=== PATIENT | male | born 1940 | race Caucasian/White ===

== ENCOUNTER 2017-12-23 19:08 | Inpatient (IN) | payer MEDICARE, BC ==
[2017-12-23] MEDS ORDERED: Acetaminophen 500 MG TAB ONE (20:30)
[2017-12-23] MEDS ORDERED: Diltiazem 125 MG/25 ML ONE (20:36)
[2017-12-23] MEDS ORDERED: Digoxin 0.5 MG/2 ML AMP ONE (20:57)
[2017-12-23] MEDS ORDERED: Dextrose 5% in Water 1,000 ML IV PRN (21:49)
[2017-12-23] MEDS ORDERED: Dextrose 50% Abboject 50 ML SYRINGE SLOW IVP PRN (21:49)
[2017-12-23] MEDS ORDERED: Diltiazem 125 MG in Sodium Chloride 0.9% 100 ML IVPB SCH (22:00)
[2017-12-23 22:12] LABS: Troponin I 0.293 ng/mL (< 0.028)
[2017-12-23] MEDS ORDERED: Ondansetron ODT 4 MG TAB ONE (22:56)
[2017-12-23] MEDS ORDERED: Digoxin 0.5 MG/2 ML AMP SLOW IVP SCH (23:00)
[2017-12-24 01:40] LABS: Troponin I 0.267 ng/mL (< 0.028)
[2017-12-24 04:47] LABS: #Lymphocytes 1.4 thou/uL (1.20-3.40); #Neutrophils 5.5 thou/uL (1.40-6.50); %Basophils 0.4 % (0.0-1.0); %Eosinophils 0.5 % (0.0-10.0); %Monocytes 12.1 % (0.0-10.0); %Neutrophils 69.1 % (42.0-75.0); Mean Corpuscular HGB CONC 33.5 g/dL (32.0-36.0); Mean Corpuscular Hemoglobin 29.8 pg (27.0-31.0); Mean Corpuscular Volume 88.9 fL (78.0-98.0); Mean Platelet Volume 10.8 fL (7.4-10.4); Platelet Count 146 thou/uL (130-400); RBC Distribution Width 14.3 % (11.5-14.5); Red Blood Cell (RBC) Count 4.37 mill/uL (4.70-6.10); White Blood Cell (WBC) Count 7.9 thou/uL (4.8-10.8)
[2017-12-24 04:59] LABS: Anion Gap 11 mmol/L (10-20); BUN (Urea Nitrogen) 14 mg/dL (8.4-25.7); Calc. Creatinine Clearance 142 mL/min (70-130); Calcium 8.7 mg/dL (7.8-10.44); Carbon Dioxide 26 mmol/L (23-31); Chloride 101 mmol/L (98-107); Estimated GFR-MDRD 89; Glucose 217 mg/dL (83-110); Sodium 134 mmol/L (136-145)
[2017-12-24] MEDS ORDERED: Metoprolol Tartrate 5 MG/5 ML VIAL IVP SCH (05:00)
[2017-12-24] MEDS: Diltiazem 125 MG in Sodium Chloride 0.9% 100 ML IVPB SCH ×2 (05:19→17:49)
[2017-12-24] MEDS: Metoprolol Tartrate 25 MG TAB PO SCH ×2 (06:33→20:21)
--- NOTE | 2017-12-24 07:20 | HP ---
CHIEF COMPLAINT: Chest pain, palpitations. HISTORY OF PRESENT ILLNESS: The patient is a very pleasant 77-year-old male with a history of diabet es, hypertension, stroke, and rheumatoid arthritis, who presents to the hospital with complaints of c hest pain. The patient states for the past 3-4 days, he has been feeling very weak all over, has bee n having worsening shortness of breath on exertion and also has been feeling palpitations. The patie nt states that today was the worst. He started having significant amount of palpitations and also jara d significant amount of chest pain. The patient thought today that he was going to fall because he j ust felt weak all over. The patient currently denies any chest pain. He states he feels much better . The patient was found to be in atrial fibrillation, atrial flutter with a rate of 170. The patien t was given a total of 30 mg of IV Cardizem and 10-50 mg of labetalol with a 0.25 of digoxin load. T he patient states that this has happened to him about 6 years ago. PAST MEDICAL HISTORY: History of stroke with some swallowing difficulties; he has a history of atria l fibrillation, is on Coumadin for that; rheumatoid arthritis; diabetes; hypertension; and high reyna sterol. FAMILY HISTORY: His mother and father both had hypertension and diabetes. PAST SURGICAL HISTORY: He had a right knee scope and back L3-L5 surgery. SOCIAL HISTORY: He denies any alcohol, drugs or smoking history. REVIEW OF SYSTEMS: All negative except for the ones mentioned above in the HPI. PHYSICAL EXAMINATION: VITAL SIGNS: He is afebrile at 98.8, heart rate is still in the 130s, blood pressure is one teens ov er 60, respirations are 16, 98% on room air. GENERAL: He is awake, alert, and oriented x3. HEENT: Appears to be a little flushed. CARDIOVASCULAR: Irregularly irregular, tachycardia. LUNGS: Clear to auscultation, rhonchi or wheezes noted. ABDOMEN: Obese. Bowel sounds are present x2. No tenderness on palpation. EXTREMITIES: Lower extremities: He does have some mild extremity edema. NEUROLOGIC: No deficits noted. SKIN: He does have some chronic venous changes. LABORATORY DATA: Labs are as the following: His WBC is 11.3, hemoglobin of 13.5, hematocrit of 40.3 . His chemistry includes sodium of 137, potassium of 4.4, BUN of 14, creatinine of 1.0, sugar of 156 . BNP is 538. Troponin x1 was 0.295, second set was 0.293. His INR is 2.6. UA appears to be eunice l. ASSESSMENT AND PLAN: The patient is a very pleasant 77-year-old male, who presents to the hospital w ith complaints of palpitations and chest pain. 1. Atrial fibrillation with rapid ventricular response versus atrial flutter. The patient has recei yaneli a total of I believe 30 mg of Cardizem and some labetalol. Initially, he also has been loaded wi digoxin at 0.25. We will give him another loading dose of 0.25. Also, he is currently on a Cardi zem drip at 15. He is therapeutic on Coumadin. We will continue with the Coumadin. We will consult Cardiology. His last echo was in 2011, which was indicated an EF of 50% to 55%. We will repeat the echocardiogram. He stated that he did see Dr. Mora about 3 months ago and everything was well. W e will also check a TSH. The patient currently is chest pain free. We will continue to monitor. 2. Chest pain most likely secondary to his underlying atrial fibrillation versus atrial flutter. We will continue to monitor. The patient has been advised that if he has chest pain, to notify the nichole se. 3. Diabetes. We will continue his home medications. We will check Accu-Cheks a.c. and at bedtime. 4. Obesity. The patient educated on diet and weight loss. 5. History of stroke. We will continue his aspirin. 6. History of rheumatoid arthritis. The patient is on methotrexate and hydroxychloroquine and also on 5 mg of steroids.
[2017-12-24] MEDS: Gabapentin 100 MG CAP PO SCH (08:35)
[2017-12-24] MEDS: Famotidine 20 MG TAB PO SCH ×2 (08:35→20:21)
[2017-12-24] MEDS: Folic Acid 1 MG TAB PO SCH (08:35)
[2017-12-24] MEDS: predniSONE 5 MG TAB PO SCH (08:36)
[2017-12-24] MEDS ORDERED: Pregabalin 50 MG CAP PO SCH (09:00)
--- NOTE | 2017-12-24 13:30 | PDOC.PN ---
- Subjective Encounter Start Date: 12/24/17 Encounter Start Time: 12:00 Subjective: no chest pain or sob - Objective Resuscitation Status: Resuscitation Status FULL:Full Resuscitation MAR Reviewed: Yes Vital Signs & Weight: Vital Signs (12 hours) Temp Pulse Resp BP Pulse Ox 12/24/17 11:21 97.7 F 129 H 22 H 111/72 97 12/24/17 08:00 98.2 F 130 H 19 98 12/24/17 07:22 98.2 F 130 H 19 102/78 100 12/24/17 03:48 97.9 F 128 H 20 111/70 97 Weight Weight 295 lb 14.4 oz I&O: 12/23/17 12/24/17 12/25/17 06:59 06:59 06:59 Intake Total 460 Output Total 425 Balance 35 Result Diagrams: 12/24/17 04:19 12/24/17 04:19 Additional Labs: Accuchecks 12/24/17 12/24/17 10:43 05:14 POC Glucose 197 H 186 H Phys Exam - Physical Examination HEENT: PERRLA, moist MMs Neck: no JVD, supple Respiratory: no wheezing, no rales Cardiovascular: no significant murmur, irregular Gastrointestinal: soft, non-tender, positive bowel sounds Musculoskeletal: no edema, pulses present Neurological: non-focal, moves all 4 limbs Psychiatric: normal affect, A&O x 3 Dx/Plan (1) Afib Code(s): I48.91 - UNSPECIFIED ATRIAL FIBRILLATION Status: Acute (2) Demand ischemia of myocardium Code(s): I24.8 - OTHER FORMS OF ACUTE ISCHEMIC HEART DISEASE Status: Acute (3) HTN (hypertension) Code(s): I10 - ESSENTIAL (PRIMARY) HYPERTENSION Status: Chronic Qualifiers: Hypertension type: essential hypertension Qualified Code(s): I10 - Essential (primary) hypertension (4) CHF (congestive heart failure) Code(s): I50.9 - HEART FAILURE, UNSPECIFIED Status: Chronic Qualifiers: Heart failure type: unspecified Heart failure chronicity: unspecified Qualified Code(s): I50.9 - Heart failure, unspecified (5) DM type 2 (diabetes mellitus, type 2) Status: Chronic Qualifiers: Diabetes mellitus fci insulin use: with keno terminal operator use Diabetes mellitus complication status: with unspecified complications Qualified Code(s) : E11.8 - Type 2 diabetes mellitus with unspecified complications; Z79.4 - care home (current) use of insulin; Z79.4 - care home (current) use of insulin; Z79.4 - care home (current) use of insulin; Z79.4 - care home (current) use of insulin - Plan is on cardizem drip, oral lopressor 25mg bid -: home dose of coumadin with inr of 2.6 -: asp, lipitor, prednisone, plaquenil -: echo -: cardio consultation * . Review of Systems - Medications/Allergies Allergies/Adverse Reactions: Allergies Allergy/AdvReac Type Severity Reaction Status Date / Time No Known Allergies Allergy Verified 12/24/17 00:48 Medications: Current Medications Acetaminophen (Tylenol) 650 mg PO Q4H PRN PRN Reason: Headache/Fever or Pain Aspirin (Aspirin Chewable) 81 mg PO DAILY [facility] Last Admin: 12/24/17 08:35 Dose: 81 mg Atorvastatin Calcium (Lipitor) 40 mg PO HS [facility] Dextrose/Water (Dextrose 50%) 25 gm SLOW IVP PRN PRN PRN Reason: Hypoglycemia Famotidine (Pepcid) 20 mg PO BID [facility] Last Admin: 12/24/17 08:35 Dose: 20 mg Folic Acid (Folvite) 1 mg PO DAILY [facility] Last Admin: 12/24/17 08:35 Dose: 1 mg Gabapentin (Neurontin) 100 mg PO DAILY [facility] Last Admin: 12/24/17 08:35 Dose: 100 mg Glucagon (Glucagon) 1 mg IM PRN PRN PRN Reason: Hypoglycemia Hydroxychloroquine Sulfate (Plaquenil) 200 mg PO BID [facility] Dextrose/Water (D5w) 1,000 mls @ 0 mls/hr IV .Q0M PRN; As Directed PRN Reason: Hypoglycemia Diltiazem HCl 125 mg/ Sodium (Chloride) 125 mls @ 0 mls/hr IVPB INF [facility]; As Directed PRN Reason: Protocol Last Admin: 12/24/17 05:19 Dose: 125 mls Insulin Human Lispro (Humalog) 0 units SC .MILD SLIDING SCALE PRN PRN Reason: Mild Correctional Scale Metoprolol Tartrate (Lopressor) 25 mg PO BID [facility] Last Admin: 12/24/17 06:33 Dose: 25 mg Miscellaneous Medication (Pharmacy To Dose) 0 each PO PRN PRN PRN Reason: WARFARIN Pharmacy to Dose Prednisone (Prednisone) 5 mg PO QAM[facility] Last Admin: 12/24/17 08:36 Dose: 5 mg Pregabalin (Lyrica) 50 mg PO HS [facility] Warfarin Sodium (Coumadin) 10 mg PO 1700 [facility]
[2017-12-24] MEDS ORDERED: Warfarin Sodium 10 MG TAB PO SCH ×2 (17:00→17:30)
[2017-12-24 17:04] LABS: Prothrombin Time 23.1 SEC (12.0-14.7)
[2017-12-24] MEDS: Hydroxychloroquine Sulfate 200 MG TAB PO SCH (20:20)
[2017-12-24] MEDS: Pregabalin 50 MG CAP PO SCH (20:21)
[2017-12-24] MEDS: Atorvastatin Calcium 40 MG TAB PO SCH (20:22)
[2017-12-24 23:17] LABS: Digoxin 0.18 ng/mL (0.8-2.0)
[2017-12-25] MEDS: Diltiazem 125 MG in Sodium Chloride 0.9% 100 ML IVPB SCH ×2 (04:53→18:36)
[2017-12-25] MEDS: HumaLOG 300 UNITS/3 ML VIAL SC PRN ×4 (05:36→20:04)
[2017-12-25 08:15] LABS: INR-International Normal Ratio 1.8; Prothrombin Time 20.9 SEC (12.0-14.7)
[2017-12-25] MEDS ORDERED: Furosemide 20 MG/2 ML VIAL SLOW IVP SCH (08:30)
[2017-12-25] MEDS ORDERED: Amiodarone In Dextrose 200 ML IVPB SCH (08:30)
[2017-12-25] MEDS ORDERED: Digoxin 0.25 MG TAB PO SCH (09:00)
[2017-12-25] MEDS ORDERED: Metoprolol Tartrate 50 MG TAB PO SCH (09:00)
[2017-12-25] MEDS ORDERED: Atorvastatin Calcium 20 MG TAB PO SCH (09:00)
[2017-12-25] MEDS ORDERED: Gabapentin 100 MG CAP PO SCH (09:00)
[2017-12-25] MEDS: predniSONE 5 MG TAB PO SCH (10:16)
[2017-12-25] MEDS: Amiodarone HCl 150 MG in Dextrose 5% in Water 100 ML IVPB SCH (10:16)
[2017-12-25] MEDS: Digoxin 0.125 MG TAB PO SCH (10:17)
[2017-12-25] MEDS: Folic Acid 1 MG TAB PO SCH (10:17)
[2017-12-25] MEDS: Famotidine 20 MG TAB PO SCH ×2 (10:17→20:04)
[2017-12-25] MEDS: Hydroxychloroquine Sulfate 200 MG TAB PO SCH ×2 (10:18→20:04)
[2017-12-25] MEDS: Gabapentin 100 MG CAP PO SCH (10:18)
[2017-12-25] MEDS: Amiodarone HCl 450 MG, Admixture Fee 1 EACH in Dextrose 5% in Water 250 ML IVPB SCH ×2 (10:28→20:03)
--- NOTE | 2017-12-25 12:13 | PDOC.PN ---
- Subjective Encounter Start Date: 12/25/17 Encounter Start Time: 10:00 -: old records requested/rev Patient seen and examined for chf, afib. No new complaints. No overnight events - Objective Resuscitation Status: Resuscitation Status FULL:Full Resuscitation MAR Reviewed: Yes Vital Signs & Weight: Vital Signs (12 hours) Temp Pulse Resp BP BP Pulse Ox 12/25/17 11:11 97.7 F 127 H 26 H 150/102 H 95 12/25/17 10:17 94 12/25/17 08:00 97.7 F 127 H 26 H 98 12/25/17 07:25 98.3 F 94 20 147/83 H 94 L 12/25/17 04:00 151/103 H 12/25/17 03:00 98.3 F 113 H 20 153/117 H 97 Weight Weight 298 lb 5 oz I&O: 12/24/17 12/25/17 12/26/17 06:59 06:59 06:59 Intake Total 460 2040 Output Total 425 475 Balance 35 1565 Result Diagrams: 12/24/17 04:19 12/24/17 04:19 Additional Labs: Accuchecks 12/25/17 12/24/17 12/24/17 10:29 20:28 16:31 POC Glucose 196 H 183 H 186 H EKG Reviewed by me: Yes (afib with rvr) Phys Exam - Physical Examination Constitutional: NAD HEENT: PERRLA, moist MMs, sclera anicteric Neck: no JVD, supple Respiratory: no wheezing, no rhonchi basal rales Cardiovascular: no significant murmur, irregular Gastrointestinal: soft, non-tender, no distention, positive bowel sounds obesity+ Musculoskeletal: pulses present, edema present Neurological: non-focal, normal sensation, moves all 4 limbs Lymphatic: no nodes Psychiatric: normal affect, A&O x 3 Skin: no rash, normal turgor Dx/Plan (1) 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 Code(s): I50.23 - ACUTE ON CHRONIC SYSTOLIC (CONGESTIVE) HEART FAILURE Status : Acute (2) Atrial fibrillation with RVR Code(s): I48.91 - UNSPECIFIED ATRIAL FIBRILLATION Status: Acute (3) Demand ischemia of myocardium Code(s): I24.8 - OTHER FORMS OF ACUTE ISCHEMIC HEART DISEASE Status: Acute (4) Chronic anticoagulation Code(s): Z79.01 - SENIOR CARE (CURRENT) USE OF ANTICOAGULANTS Status: Chronic (5) DM type 2 (diabetes mellitus, type 2) Status: Chronic Qualifiers: Diabetes mellitus group home insulin use: with production support manager use Diabetes mellitus complication status: with unspecified complications Qualified Code(s) : E11.8 - Type 2 diabetes mellitus with unspecified complications; Z79.4 - assisted (current) use of insulin; Z79.4 - assisted (current) use of insulin; Z79.4 - glazing machine 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 of insulin; Z79.4 - glazing machine 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 of insulin (6) Dyslipidemia Code(s): E78.5 - HYPERLIPIDEMIA, UNSPECIFIED Status: Chronic (7) HTN (hypertension) Code(s): I10 - ESSENTIAL (PRIMARY) HYPERTENSION Status: Chronic Qualifiers: Hypertension type: essential hypertension Qualified Code(s): I10 - Essential (primary) hypertension (8) Morbid obesity with BMI of 40.0-44.9, adult Code(s): E66.01 - MORBID (SEVERE) OBESITY DUE TO EXCESS CALORIES; Z68.41 - BODY MASS INDEX (BMI) 40.0-44.9, ADULT Status: Chronic - Plan cont current plan of care, plan discussed w/ family * currently on cardizem drip and digoxin for rate control * amiodaron drip started today by cardiology. * continue lasix for diuresis * medication reviewed as below * symptomatic treatment * discussed with Review of Systems - Review of Systems Constitutional: negative: fever, chills, sweats, weakness, malaise, other Eyes: negative: Pain, Vision Change, Conjunctivae Inflammation, Eyelid Inflammation, Redness, Other ENT: negative: Ear Pain, Ear Discharge, Nose Pain, Nose Discharge, Nose Congestion, Mouth Pain, Mouth Swelling, Throat Pain, Throat Swelling, Other Respiratory: Shortness of Breath. negative: Cough, Dry, Hemoptysis, SOB with Excertion, Pleuritic Pain, Sputum, Wheezing Cardiovascular: edema Gastrointestinal: negative: Nausea, Vomiting, Abdominal Pain, Diarrhea, Constipation, Melena, Hematochezia, Other Genitourinary: negative: Dysuria, Frequency, Incontinence, Hematuria, Retention , Other Musculoskeletal: negative: Neck Pain, Shoulder Pain, Arm Pain, Back Pain, Hand Pain, Leg Pain, Foot Pain, Other Skin: negative: Rash, Lesions, Efra, Bruising, Other - Medications/Allergies Allergies/Adverse Reactions: Allergies Allergy/AdvReac Type Severity Reaction Status Date / Time No Known Allergies Allergy Verified 12/24/17 00:48 Medications: Current Medications Acetaminophen (Tylenol) 650 mg PO Q4H PRN PRN Reason: Headache/Fever or Pain Aspirin (Aspirin Chewable) 81 mg PO DAILY [facility] Last Admin: 12/25/17 10:17 Dose: 81 mg Atorvastatin Calcium (Lipitor) 40 mg PO HS [facility] Last Admin: 12/24/17 20:22 Dose: 40 mg Carvedilol (Coreg) 6.25 mg PO BID[facility] Dextrose/Water (Dextrose 50%) 25 gm SLOW IVP PRN PRN PRN Reason: Hypoglycemia Digoxin (Lanoxin) 0.125 mg PO DAILY [facility] Last Admin: 12/25/17 10:17 Dose: 0.125 mg Famotidine (Pepcid) 20 mg PO BID [facility] Last Admin: 12/25/17 10:17 Dose: 20 mg Folic Acid (Folvite) 1 mg PO DAILY [facility] Last Admin: 12/25/17 10:17 Dose: 1 mg Furosemide (Lasix) 20 mg SLOW IVP 0600,1400 [facility] Gabapentin (Neurontin) 100 mg PO DAILY [facility] Last Admin: 12/25/17 10:18 Dose: 100 mg Glucagon (Glucagon) 1 mg IM PRN PRN PRN Reason: Hypoglycemia Hydroxychloroquine Sulfate (Plaquenil) 200 mg PO BID [facility] Last Admin: 12/25/17 10:18 Dose: 200 mg Dextrose/Water (D5w) 1,000 mls @ 0 mls/hr IV .Q0M PRN; As Directed PRN Reason: Hypoglycemia Diltiazem HCl 125 mg/ Sodium (Chloride) 125 mls @ 0 mls/hr IVPB INF [facility]; As Directed PRN Reason: Protocol Last Admin: 12/25/17 04:53 Dose: 125 mls Amiodarone HCl 150 mg/ (Dextrose/Water) 103 mls @ 10 mls/min IVPB 0830 [facility] Last Admin: 12/25/17 10:16 Dose: 103 mls Amiodarone HCl 450 mg/Miscellaneous Medication 1 each/ Dextrose/Water 259 mls @ 0 mls/hr IVPB INF [facility]; As Directed PRN Reason: Protocol Last Admin: 12/25/17 10:28 Dose: 259 mls Insulin Human Lispro (Humalog) 0 units SC .MILD SLIDING SCALE PRN PRN Reason: Mild Correctional Scale Last Admin: 12/25/17 05:36 Dose: 2 unit Miscellaneous Medication (Pharmacy To Dose) 0 each PO PRN PRN PRN Reason: WARFARIN Pharmacy to Dose Prednisone (Prednisone) 5 mg PO QAM-[facility] Last Admin: 12/25/17 10:16 Dose: 5 mg Pregabalin (Lyrica) 50 mg PO [facility] Last Admin: 12/24/17 20:21 Dose: 50 mg Warfarin Sodium (Coumadin) 5 mg PO 1700 [facility]
--- NOTE | 2017-12-25 14:45 | CON ---
DATE OF CONSULTATION: 12/25/2017 HISTORY: Ricardo Hull is a pleasant 77-year-old white male, who was initially evaluated by Dr. Mora in January 2012. He was admitted with altered mental status and it was felt he may have had an embolic CVA, although MRI of the brain did not reveal any specific abnormalities. He did have new onset of atrial fibrillation. He was started on Coumadin, Cardizem, and Multaq. Ejection fraction during the admission was 50%-55%. He has been followed in the office, and on the last 2 office visits, he has been maintained in sinus rhythm. He has been continued on the Multaq. He was last seen in 07/2017 and was asymptomatic. He then began to feel poorly approximately 1 and 1/2 weeks ago. He would notice extreme fatigue, shortness of breath, feeling a rapid heartbeat with trying to do any activity. He also would have chest pressure associated with this. This has gradually progressed, and ultimately, he came to the emergency room and was found to be in probable atrial flutter with the rate in the 170s and he was admitted for further evaluation. He has been placed on a Cardizem drip and his rate has been fairly well controlled around 100, and currently, he is in atrial fibrillation. PAST MEDICAL HISTORY: Hypertension, diabetes, history of atrial fibrillation in 2011, dyslipidemia, osteoarthritis, rheumatoid arthritis. OPERATIONS: Knee arthroscopy, carpal tunnel surgery, back surgery. MEDICATIONS: Aspirin 81 daily, warfarin 10 mg daily, atorvastatin 20 q.a.m., Zyrtec 10 daily, Benadryl 25 daily, Multaq 400 mg b.i.d., Enbrel 50 mg subcutaneously every 7 days, Folvite 1 mg daily, Lasix 20 b.i.d., gabapentin 100 daily, Humalog 10 units t.i.d., Plaquenil 200 mg b.i.d., Levemir, losartan 100 daily, methotrexate 7.5 as directed, omeprazole 10 mg daily, KCl 20 b.i.d., prednisone 5 daily, Lyrica 50 daily. ALLERGIES: None. SOCIAL HISTORY: Chewed tobacco in the past. He does not drink. FAMILY HISTORY: Unremarkable. REVIEW OF SYSTEMS: A 12-point review of systems, otherwise, unremarkable. PHYSICAL EXAMINATION: VITAL SIGNS: Blood pressure 147/83, pulse of 94. HEENT: PERRL. NECK: Supple. CHEST: Clear. CARDIOVASCULAR EXAMINATION: S1 and S2 were normal. Heart sounds were distant. Rhythm is irregular. ABDOMEN: Obese. Normal bowel sounds, no tenderness. EXTREMITIES: Revealed 1-2+ pretibial edema with stasis changes. NEUROLOGICAL: Grossly intact. SKIN: Warm and dry. LABORATORY DATA: EKG on admission revealed rate of 131 per minute and regular, probably atrial flutter. He continued to have a fairly regular rhythm, but now is definitely in atrial fibrillation. He was also given Lopressor and digoxin. Hemoglobin 13.0, hematocrit 38.9, white count 7900, platelets 146,000. INR yesterday was 2.6 and is 2.0 today. Sodium 134, potassium 4.0, chloride 101, carbon dioxide 26, BUN 14, creatinine 0.84. Troponin I is 0.295. BNP 538.4. At the beginning of the month on 11/25/2017, cholesterol was 212, triglycerides 59, HDL 51, LDL 49. Echocardiogram revealed the study to be technically difficult. There was severe left ventricular dysfunction with ejection fraction of 15%-20%, severely dilated left atrium, mild mitral regurgitation. The aortic valve appeared stenotic, but was not measured well. There was mild mitral regurgitation. IMPRESSION: 1. Recurrence of atrial arrhythmias. He had atrial fibrillation in 2011 and has been on Multaq since that time and on most recent followups in the office he has maintained sinus rhythm. He now has had recurrence of probable atrial flutter and now is definitely in atrial fibrillation. 2. Severe left ventricular dysfunction on echocardiogram, which is a new finding from before. Historically, he has probably had this for a week and his left ventricular function certainly may have fell due to prolonged tachycardia. 3. History of transient ischemic attack versus cerebrovascular accident in 2012 , felt to be embolic. 4. Chest pressure, probably related to his tachycardia. He does have mildly elevated troponin I is probably due to demand ischemia. 5. Diabetes. 6. Hypertension. 7. Hypercholesterolemia, under good control. 8. Obesity. 9. Rheumatoid arthritis. PLAN: The patient will have the Multaq discontinued with his severe left ventricular dysfunction. I will load him with IV amiodarone and consideration may need to be given in the future to a cardioversion. Also, I will reduce the dose of his warfarin with the addition of amiodarone. He has been started on digoxin 0.25 daily and the dose of this also will be reduced. Patient also will be diuresed with his peripheral edema. MTDD
--- NOTE | 2017-12-25 16:11 | CON ---
DATE OF CONSULTATION: 12/25/2017 HISTORY OF PRESENT ILLNESS: This is a 77-year-old obese gentleman, who came from [place] after he felt palpitations for several days. He has a known history of cardiomyopathy and SVT and sees Dr. Mora. He is 130 kg, pulse was 131 when he arrived, sats were 90% on room air, his blood pressure 114/85, respiratory rate 22, temperature 98. He is feeling better this morning. He has severe limit ation to activity. He can barely walk even 30 feet without getting markedly short of breath. He say s some of it is cardiac and some of it is weakness, some of is excessive weight. PAST MEDICAL HISTORY: Previous history of atrial fibrillation; diabetes; hyperlipidemia; arthritis, rheumatoid; previous CVA. PREVIOUS SURGERIES: Back operation in 1973, right knee scope. HOME MEDICINES: Prednisone 5, Benadryl 25, Coumadin 10 alternating with 5, Lyrica 50, omeprazole 10, vitamin, methotrexate 2.5 three tablets a week, losartan 100, insulin 40 units, Plaquenil 200, gabap entin 100, Lasix 20, folic acid, Enbrel 50 once a week, Multaq 400, Zyrtec, aspirin. ALLERGIES: None. 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 REVIEW OF SYSTEMS: Otherwise unremarkable. PHYSICAL EXAMINATION: GENERAL: This morning, he is awake, alert, responsive. VITAL SIGNS: Sats 90% on room air, respirations 20, temperature 98, blood pressure 147/83. CHEST: Decreased breath sounds, no wheezing. CARDIAC: Normal S1 and S2, no gallops. ABDOMEN: Soft, without any masses. EXTREMITIES: No edema. NEUROLOGIC: He is awake, alert, responsive. LABORATORY DATA: INR is 1.8. His chest x-ray showed no acute infiltrates. His echocardiogram shows his EF was at 20%. IMPRESSION: 1. Congestive cardiomyopathy. 2. Supraventricular tachycardia. 3. Morbid obesity. 4. Rheumatoid arthritis. 5. Sleep apnea. 6. Nonsmoker. PLAN: Pulmonary will follow while in the ICU. He is on amiodarone, Cardizem, previous home medicati on including prednisone, Coumadin, and Plaquenil. We will follow while in the MICU. This is a consultation note of 70 minutes, of which 50% in direct patient care.
[2017-12-25] MEDS: Warfarin Sodium 5 MG TAB PO SCH (16:38)
[2017-12-25] MEDS: Furosemide 20 MG/2 ML VIAL SLOW IVP SCH (16:38)
[2017-12-25] MEDS: Carvedilol 6.25 MG TAB PO SCH (16:38)
[2017-12-25] MEDS ORDERED: Warfarin Sodium 10 MG TAB PO SCH (17:00)
[2017-12-25] MEDS: Pregabalin 50 MG CAP PO SCH (20:03)
[2017-12-25] MEDS: Atorvastatin Calcium 40 MG TAB PO SCH (20:04)
[2017-12-26 04:25] LABS: Prothrombin Time 23.1 SEC (12.0-14.7)
[2017-12-26 04:31] LABS: Anion Gap 12 mmol/L (10-20); BUN (Urea Nitrogen) 15 mg/dL (8.4-25.7); Calc. Creatinine Clearance 147 mL/min (70-130); Calcium 8.8 mg/dL (7.8-10.44); Carbon Dioxide 28 mmol/L (23-31); Chloride 100 mmol/L (98-107); Estimated GFR-MDRD Greater than 90; Glucose 180 mg/dL (83-110); Potassium 3.5 mmol/L (3.5-5.1); Sodium 136 mmol/L (136-145)
[2017-12-26] MEDS: HumaLOG 300 UNITS/3 ML VIAL SC PRN ×3 (06:05→17:38)
[2017-12-26] MEDS: Furosemide 20 MG/2 ML VIAL SLOW IVP SCH ×2 (06:05→15:21)
[2017-12-26] MEDS: Carvedilol 6.25 MG TAB PO SCH ×2 (08:21→17:37)
[2017-12-26] MEDS: Famotidine 20 MG TAB PO SCH ×2 (08:22→21:22)
[2017-12-26] MEDS: Digoxin 0.125 MG TAB PO SCH (08:22)
[2017-12-26] MEDS: Amiodarone HCl 150 MG in Dextrose 5% in Water 100 ML IVPB SCH (08:22)
[2017-12-26] MEDS: predniSONE 5 MG TAB PO SCH (08:22)
[2017-12-26] MEDS: Hydroxychloroquine Sulfate 200 MG TAB PO SCH ×2 (08:23→21:21)
[2017-12-26] MEDS: Folic Acid 1 MG TAB PO SCH (08:23)
[2017-12-26] MEDS: Diltiazem 125 MG in Sodium Chloride 0.9% 100 ML IVPB SCH ×2 (08:23→20:10)
[2017-12-26] MEDS: Gabapentin 100 MG CAP PO SCH (08:23)
--- NOTE | 2017-12-26 09:01 | PRG ---
DATE OF SERVICE: 12/26/2017. SUBJECTIVE: Mr. Hull is doing about the same. No complaints. PHYSICAL EXAMINATION: VITAL SIGNS: Blood pressure 129/95, pulse 130. It is regular. LUNGS: Clear. CARDIAC: Normal S1, normal S2, he is tachycardic. ABDOMEN: Soft, nontender. EXTREMITIES: 1+ edema. ASSESSMENT: 1. Atrial flutter, rate has not responded to medications as it is frequently the case. 2. History of paroxysmal atrial fibrillation. PLAN: 1. We will change from intravenous amiodarone to oral. It has been completely ineffective in contro lling rate. 2. Stop digoxin. 3. Reduce diltiazem. 4. We will discuss with Dr. Lynn that we would able to prefer initial cardioversion followed by abla tion versus going straight to ablation. We will need to have a TESS done first as he did have a subth erapeutic INR during this admission.
--- NOTE | 2017-12-26 09:49 | PRG ---
DATE OF SERVICE: 12/26/2017 This morning he is awake, alert, responsive. He is weak. PHYSICAL EXAMINATION: VITAL SIGNS: Blood pressure is 129/95, pulse is still 130, temperature 98, sats 90% on room air. CHEST: Chest reveals decreased breath sounds without wheezing. CARDIAC: 1. Normal S1, S2. No gallops. ABDOMEN: Soft, no masses. Creatinine is 2. IMPRESSION: 1. Morbid obesity. 2. Cardiomyopathy. 3. Obstructive sleep apnea. 4. Severe deconditioning. PLAN: I agree with cardiac care. Continue CPAP as tolerated. Prognosis is guarded. He is on multiple medications for his severe disa tere rheumatoid arthritis.
--- NOTE | 2017-12-26 11:00 | PDOC.PN ---
- Subjective Encounter Start Date: 12/26/17 Encounter Start Time: 09:30 Patient seen and examined for afib. No new complaints. No overnight events - Objective Resuscitation Status: Resuscitation Status FULL:Full Resuscitation MAR Reviewed: Yes Vital Signs & Weight: Vital Signs (12 hours) Temp Pulse Resp BP BP Pulse Ox 12/26/17 08:22 130 H 12/26/17 08:14 98.4 F 130 H 15 129/95 H 95 12/26/17 07:32 97.1 F L 126 H 18 98 12/26/17 03:59 97.1 F L 126 H 18 132/90 96 12/26/17 00:05 97.0 F L 130 H 22 H 152/109 H 98 Weight Weight 295 lb 3 oz I&O: 12/25/17 12/26/17 12/27/17 06:59 06:59 06:59 Intake Total 2040 1820 Output Total 475 3600 Balance 1565 -1780 Result Diagrams: 12/24/17 04:19 12/26/17 04:14 Additional Labs: Accuchecks 12/26/17 12/26/17 12/25/17 10:47 05:46 19:53 POC Glucose 191 H 200 H 225 H 12/25/17 16:34 POC Glucose 274 H EKG Reviewed by me: Yes (afib with RVR) Phys Exam - Physical Examination Constitutional: NAD HEENT: PERRLA, moist MMs, sclera anicteric Neck: no JVD, supple Respiratory: no wheezing, no rales, no rhonchi Cardiovascular: no significant murmur, no rub, irregular Gastrointestinal: soft, non-tender, no distention, positive bowel sounds Musculoskeletal: pulses present, edema present Neurological: non-focal, normal sensation, moves all 4 limbs Psychiatric: normal affect, A&O x 3 Skin: no rash, normal turgor Dx/Plan (1) 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 Code(s): I50.23 - ACUTE ON CHRONIC SYSTOLIC (CONGESTIVE) HEART FAILURE Status : Acute (2) Atrial fibrillation with RVR Code(s): I48.91 - UNSPECIFIED ATRIAL FIBRILLATION Status: Acute (3) Demand ischemia of myocardium Code(s): I24.8 - OTHER FORMS OF ACUTE ISCHEMIC HEART DISEASE Status: Acute (4) Chronic anticoagulation Code(s): Z79.01 - MANAGER CHINESE (CURRENT) USE OF ANTICOAGULANTS Status: Chronic (5) DM type 2 (diabetes mellitus, type 2) Status: Chronic Qualifiers: Diabetes mellitus termite exterminator insulin use: with mcc use Diabetes mellitus complication status: with unspecified complications Qualified Code(s) : E11.8 - Type 2 diabetes mellitus with unspecified complications; Z79.4 - [facility] (current) use of insulin; Z79.4 - predatory animal exterminator (current) use of insulin; Z79.4 - [facility] (current) use of insulin; Z79.4 - predatory animal exterminator (current) use of insulin (6) Dyslipidemia Code(s): E78.5 - HYPERLIPIDEMIA, UNSPECIFIED Status: Chronic (7) HTN (hypertension) Code(s): I10 - ESSENTIAL (PRIMARY) HYPERTENSION Status: Chronic Qualifiers: Hypertension type: essential hypertension Qualified Code(s): I10 - Essential (primary) hypertension (8) Morbid obesity with BMI of 40.0-44.9, adult Code(s): E66.01 - MORBID (SEVERE) OBESITY DUE TO EXCESS CALORIES; Z68.41 - BODY MASS INDEX (BMI) 40.0-44.9, ADULT Status: Chronic - Plan cont current plan of care * currently despite on amiodaron drip, cardizem drip, digoxin, metoprolol he still has RVR * he will need TESS and cardioversion * continue lasix * medication reviewed as below * symptomatic treatment * cardiology following. * will start his home dose of lantus and will change to moderate sliding scale Review of Systems - Review of Systems Eyes: negative: Pain, Vision Change, Conjunctivae Inflammation, Eyelid Inflammation, Redness, Other ENT: negative: Ear Pain, Ear Discharge, Nose Pain, Nose Discharge, Nose Congestion, Mouth Pain, Mouth Swelling, Throat Pain, Throat Swelling, Other Respiratory: negative: Cough, Dry, Shortness of Breath, Hemoptysis, SOB with Excertion, Pleuritic Pain, Sputum, Wheezing Cardiovascular: edema. negative: chest pain, palpitations, orthopnea, paroxysmal nocturnal dyspnea, light headedness, other Gastrointestinal: negative: Nausea, Vomiting, Abdominal Pain, Diarrhea, Constipation, Melena, Hematochezia, Other Genitourinary: negative: Dysuria, Frequency, Incontinence, Hematuria, Retention , Other Musculoskeletal: negative: Neck Pain, Shoulder Pain, Arm Pain, Back Pain, Hand Pain, Leg Pain, Foot Pain, Other - Medications/Allergies Allergies/Adverse Reactions: Allergies Allergy/AdvReac Type Severity Reaction Status Date / Time No Known Allergies Allergy Verified 12/24/17 00:48 Medications: Current Medications Acetaminophen (Tylenol) 650 mg PO Q4H PRN PRN Reason: Headache/Fever or Pain Amiodarone HCl (Cordarone) 400 mg PO BID [facility] Aspirin (Aspirin Chewable) 81 mg PO DAILY [facility] Last Admin: 12/26/17 08:22 Dose: 81 mg Atorvastatin Calcium (Lipitor) 40 mg PO [facility] Last Admin: 12/25/17 20:04 Dose: 40 mg Carvedilol (Coreg) 6.25 mg PO BID-[facility] Last Admin: 12/26/17 08:21 Dose: 6.25 mg Dextrose/Water (Dextrose 50%) 25 gm SLOW IVP PRN PRN PRN Reason: Hypoglycemia Famotidine (Pepcid) 20 mg PO BID [facility] Last Admin: 12/26/17 08:22 Dose: 20 mg Folic Acid (Folvite) 1 mg PO DAILY [facility] Last Admin: 12/26/17 08:23 Dose: 1 mg Furosemide (Lasix) 20 mg SLOW IVP 0600,1400 [facility] Last Admin: 12/26/17 06:05 Dose: 20 mg Gabapentin (Neurontin) 100 mg PO DAILY [facility] Last Admin: 12/26/17 08:23 Dose: 100 mg Glucagon (Glucagon) 1 mg IM PRN PRN PRN Reason: Hypoglycemia Hydroxychloroquine Sulfate (Plaquenil) 200 mg PO BID [facility] Last Admin: 12/26/17 08:23 Dose: 200 mg Dextrose/Water (D5w) 1,000 mls @ 0 mls/hr IV .Q0M PRN; As Directed PRN Reason: Hypoglycemia Diltiazem HCl 125 mg/ Sodium (Chloride) 125 mls @ 0 mls/hr IVPB INF [facility]; As Directed PRN Reason: Protocol Last Admin: 12/26/17 08:23 Dose: 125 mls Insulin Glargine 40 units/ (Miscellaneous Medication) 0.4 mls @ 0 mls/hr SC HS [facility] Insulin Human Lispro (Humalog) 0 units SC .MODERATE SLIDING SC PRN PRN Reason: Moderate Correctional Scale Insulin Human Lispro (Humalog) 0 units SC .BEDTIME SLIDING SC PRN PRN Reason: Bedtime Correctional Scale Miscellaneous Medication (Pharmacy To Dose) 0 each PO PRN PRN PRN Reason: WARFARIN Pharmacy to Dose Prednisone (Prednisone) 5 mg PO QAM-WM [facility] Last Admin: 12/26/17 08:22 Dose: 5 mg Pregabalin (Lyrica) 50 mg PO HS [facility] Last Admin: 12/25/17 20:03 Dose: 50 mg Warfarin Sodium (Coumadin) 5 mg PO 1700 [facility] Last Admin: 12/25/17 16:38 Dose: 5 mg
[2017-12-26] MEDS: Amiodarone 200 MG TAB PO SCH ×2 (11:05→21:22)
[2017-12-26] MEDS: Warfarin Sodium 5 MG TAB PO SCH (17:37)
[2017-12-26] MEDS ORDERED: Non-Formulary Item 1 EACH (Levemir Flexpen [Levemir Flexpen] 40 UNIT) SC SCH (21:00)
[2017-12-26] MEDS: Atorvastatin Calcium 40 MG TAB PO SCH (21:21)
[2017-12-26] MEDS: Pregabalin 50 MG CAP PO SCH (21:21)
[2017-12-26] MEDS: Insulin Glargine 40 UNITS in Pre-Filled Syringe 1 EACH SC SCH (21:23)
--- NOTE | 2017-12-26 23:45 | CON ---
DATE OF CONSULTATION: 12/26/2017 ELECTROPHYSIOLOGY CONSULTATION REPORT REFERRING PHYSICIAN: Savi Mora M.D. I am seeing Mr. Hull at our [facility] telemetry floor as an electrophysiology center lead consultant. His problems are: 1. Persistent atrial flutter. A. Prior history of atrial fibrillation requiring chemical cardioversion about 6 years ago, on chronic Coumadin therapy. B. Presentation with sustained tachycardia, possible typical atrial flutter, not responding to IV amiodarone for suppressive therapy. 2. Acute on chronic congestive heart failure. A. 2D echo from 12/24/2017 revealed LVEF 50% to 70% severe left atrial enlargement, mild mitral regurgitation, mild tricuspid regurgitation. 3. Risk factors including hypertension, high cholesterol, stroke and elevated BMI and Type 2 diabetes. 4. Asortic stenosis. ALLERGIES: None. MEDICATIONS AT HOME: Included Enbrel, Levemir, Humalog insulin, diphenhydramine , multivitamin, omeprazole, cetirizine, warfarin, potassium chloride, methotrexate, pregabalin, furosemide, folic acid, dronedarone 400 mg twice a day , gabapentin, prednisone, atorvastatin, losartan, methotrexate, and hydrochloroquine. SUBJECTIVE: Mr. Hull is here with worsening heart failure symptoms. He was found to be in a rapid narrow complex tachycardia eventually with rate controlling agents clear atrial flutter was seen/episodic fibrillation could not be ruled out. He was started on amiodarone instead of the Multaq, hence the severe LV dysfunction was found on workup. Digoxin was also used for rate control; so far the rate control is suboptimal. He has no dizziness, loss of consciousness though no stroke-like symptoms. He has significant dyspnea on exertion, origin orthopnea has now improved. He has no stroke-like symptoms, no bleeding issues, on a Coumadin. REVIEW OF SYSTEMS: Twelve-point system otherwise unremarkable. OBJECTIVE: VITAL SIGNS: Blood pressure is 143/105, heart rate 126, respiration is 21, temperature 97.7 degrees Fahrenheit. GENERAL: Reveals an alert, oriented man with elevated BMI, in no apparent distress. NECK: Supple. Jugular veins not distended. CHEST: Coarse, no crackles. CARDIAC: Heart sounds are regular, but tachycardic. No murmur or gallop. ABDOMEN: Benign. Bowel sounds positive. EXTREMITIES: Lower extremity without edema, clubbing or cyanosis. Pulses are adequate. NEUROLOGIC: Patient nonfocal. MUSCULOSKELETAL: No joint swelling or deformities. SKIN: Without rash. DATABASE: The EKGs initially reveal an atrial flutter with rapid rates. Subsequent EKGs reveal occasional rapid heart rates, but also better rate controls are noted at times as well. LABORATORY DATA: White count 7.9, hemoglobin 13, platelet count is 146. INR 2 today. Sodium 136, potassium 3.5, BUN is 15, creatinine 0.82, glucose level is 180. ASSESSMENT AND PLAN: Mr. Hull is a pleasant 77-year-old man with history of aortic stenosis and atrial fibrillation in past suppressed with Multaq and on chronic anticoagulation with Coumadin. He has been presented with heart failure exacerbation and atrial flutter with rapid ventricular rates were seen. He appears to have typical isthmus dependent atrial flutter, which is difficult to rate control due to his newly found poor LVEF, which was normal in the past. This admit Multaq was discontinued and switched to amiodarone, so far his rate control is still suboptimal. His INR is borderline therapeutic. MY PLAN AT THIS POINT: We discussed the potential treatment options. Simple cardioversion may not be suffice to reduce his chance of recurrent rapid rates. Hence the atrial flutter , which likely typical isthmus dependent, although is not proven yet. He may benefit from cavotricuspid isthmus ablation. Also longer term after medical stabilization and improvement in his ventricular rate, pulmonary venous isolation was a remote option, but at this point I would optimize his heart failure therapy prior to starting on that. Pros and cons of this approach was detailed. Also, we discussed the potential benefit from TESS as his significant cardiomyopathy and borderline INR levels to rule out intracardiac clots. We will schedule him for near date. A risk of infection, bleeding, stroke, recurrence were all detailed. They are willing to proceed. Hence, concomitant atrial fibrillation, he will likely need to stay on amiodarone at least transiently with monitoring of his liver, pulmonary, thyroid , and eye functions for adequate suppression of his ventricular rates. If KVEF does not recover with these measures, he might benefit form ICD implant in 3 month. IN the interim life vest could be considered. MTDD
[2017-12-27 04:36] LABS: #Basophils 0.1 thou/uL (0.0-0.2); #Eosinphils 0.2 thou/uL (0.0-0.7); #Lymphocytes 1.9 thou/uL (1.20-3.40); #Monocytes 0.9 thou/uL (0.11-0.59); #Neutrophils 4.7 thou/uL (1.40-6.50); %Basophils 0.9 % (0.0-1.0); %Lymphocytes 25.1 % (21.0-51.0); %Monocytes 11.1 % (0.0-10.0); Hemoglobin 13.6 g/dL (14.0-18.0); Mean Corpuscular HGB CONC 31.7 g/dL (32.0-36.0); Mean Corpuscular Hemoglobin 28.3 pg (27.0-31.0); Mean Corpuscular Volume 89.2 fL (78.0-98.0); Platelet Count 189 thou/uL (130-400); RBC Distribution Width 14.5 % (11.5-14.5); Red Blood Cell (RBC) Count 4.79 mill/uL (4.70-6.10); White Blood Cell (WBC) Count 7.7 thou/uL (4.8-10.8)
[2017-12-27 04:44] LABS: Prothrombin Time 22.5 SEC (12.0-14.7)
[2017-12-27 04:53] LABS: Anion Gap 11 mmol/L (10-20); BUN (Urea Nitrogen) 16 mg/dL (8.4-25.7); Calc. Creatinine Clearance 128 mL/min (70-130); Calcium 9.6 mg/dL (7.8-10.44); Carbon Dioxide 30 mmol/L (23-31); Chloride 98 mmol/L (98-107); Estimated GFR-MDRD 79; Glucose 225 mg/dL (83-110); Potassium 4.1 mmol/L (3.5-5.1); Sodium 135 mmol/L (136-145)
[2017-12-27 04:54] LABS: ALT (SGPT) 27 U/L (8-55); AST (SGOT) 19 U/L (5-34); Albumin 3.8 g/dL (3.4-4.8); Alkaline Phosphatase 68 U/L (40-150); Bilirubin, Direct 0.4 mg/dL (0.1-0.3); Bilirubin, Total 0.8 mg/dL (0.2-1.2); Protein, Total 6.7 g/dL (5.8-8.1)
[2017-12-27] MEDS: Furosemide 20 MG/2 ML VIAL SLOW IVP SCH ×2 (05:54→15:01)
[2017-12-27] MEDS: Carvedilol 6.25 MG TAB PO SCH ×2 (05:54→18:43)
[2017-12-27] MEDS: Amiodarone 200 MG TAB PO SCH ×2 (09:26→20:47)
[2017-12-27] MEDS: predniSONE 5 MG TAB PO SCH (09:26)
[2017-12-27] MEDS: Hydroxychloroquine Sulfate 200 MG TAB PO SCH ×2 (09:27→20:47)
[2017-12-27] MEDS: Folic Acid 1 MG TAB PO SCH (09:27)
[2017-12-27] MEDS: Famotidine 20 MG TAB PO SCH ×2 (09:27→20:47)
[2017-12-27] MEDS: Gabapentin 100 MG CAP PO SCH (09:27)
[2017-12-27] MEDS: Diltiazem 125 MG in Sodium Chloride 0.9% 100 ML IVPB SCH (11:17)
[2017-12-27] MEDS ORDERED: PROPOFOL 200 MG/20 ML VIAL ONE (11:29)
[2017-12-27] MEDS ORDERED: Heparin 10,000 UNITS/1 ML VIAL ONE (12:27)
[2017-12-27] MEDS ORDERED: Lidocaine 1% (PF) 30 ML VIAL ONE (12:29)
[2017-12-27] MEDS ORDERED: Polyethylene Glycol 3350 17 GM Packet PO PRN (12:36)
--- NOTE | 2017-12-27 12:39 | PDOC.PN ---
- Subjective Encounter Start Date: 12/27/17 Encounter Start Time: 09:30 Patient seen and examined for afib. No new complaints. No overnight events - Objective Resuscitation Status: Resuscitation Status FULL:Full Resuscitation MAR Reviewed: Yes Vital Signs & Weight: Vital Signs (12 hours) Temp Pulse Resp BP BP BP Pulse Ox 12/27/17 11:25 97.6 F 123 H 116/82 12/27/17 08:00 97.6 F 123 H 20 97 12/27/17 07:36 97.7 F 122 H 18 135/102 H 96 12/27/17 05:54 141/87 H 12/27/17 04:18 98.1 F 106 H 18 150/105 H 100 Weight Weight 295 lb 3.2 oz I&O: 12/26/17 12/27/17 12/28/17 06:59 06:59 06:59 Intake Total 1820 1313 Output Total 3600 2400 300 Balance -1780 -1087 -300 Result Diagrams: 12/27/17 04:26 12/27/17 04:26 Additional Labs: Accuchecks 12/27/17 12/27/17 12/26/17 11:01 05:57 20:19 POC Glucose 191 H 221 H 231 H 12/26/17 16:24 POC Glucose 195 H EKG Reviewed by me: Yes (afib) Phys Exam - Physical Examination Constitutional: NAD HEENT: PERRLA, moist MMs, sclera anicteric Neck: no JVD, supple Respiratory: no wheezing, no rales, no rhonchi Cardiovascular: no significant murmur, irregular Gastrointestinal: soft, non-tender, no distention, positive bowel sounds Musculoskeletal: pulses present, edema present Neurological: non-focal, normal sensation Psychiatric: normal affect, A&O x 3 Skin: no rash, normal turgor Dx/Plan (1) 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 Code(s): I50.23 - ACUTE ON CHRONIC SYSTOLIC (CONGESTIVE) HEART FAILURE Status : Acute (2) Atrial fibrillation with RVR Code(s): I48.91 - UNSPECIFIED ATRIAL FIBRILLATION Status: Acute (3) Demand ischemia of myocardium Code(s): I24.8 - OTHER FORMS OF ACUTE ISCHEMIC HEART DISEASE Status: Acute (4) Chronic anticoagulation Code(s): Z79.01 - LONGTERM (CURRENT) USE OF ANTICOAGULANTS Status: Chronic (5) DM type 2 (diabetes mellitus, type 2) Status: Chronic Qualifiers: Diabetes mellitus nursing home insulin use: with nursing home use Diabetes mellitus complication status: with unspecified complications Qualified Code(s) : E11.8 - Type 2 diabetes mellitus with unspecified complications; Z79.4 - half-way (current) use of insulin; Z79.4 - terminal superintendent (current) use of insulin; Z79.4 - terminal superintendent (current) use of insulin; Z79.4 - terminal superintendent (current) use of insulin (6) Dyslipidemia Code(s): E78.5 - HYPERLIPIDEMIA, UNSPECIFIED Status: Chronic (7) HTN (hypertension) Code(s): I10 - ESSENTIAL (PRIMARY) HYPERTENSION Status: Chronic Qualifiers: Hypertension type: essential hypertension Qualified Code(s): I10 - Essential (primary) hypertension (8) Morbid obesity with BMI of 40.0-44.9, adult Code(s): E66.01 - MORBID (SEVERE) OBESITY DUE TO EXCESS CALORIES; Z68.41 - BODY MASS INDEX (BMI) 40.0-44.9, ADULT Status: Chronic - Plan cont current plan of care * cardiology and EP on case * today possible TESS and cardioversion vs ablation * medication reviewed as below * symptomatic treatment . Review of Systems - Review of Systems ENT: negative: Ear Pain, Ear Discharge, Nose Pain, Nose Discharge, Nose Congestion, Mouth Pain, Mouth Swelling, Throat Pain, Throat Swelling, Other Respiratory: negative: Cough, Dry, Shortness of Breath, Hemoptysis, SOB with Excertion, Pleuritic Pain, Sputum, Wheezing Cardiovascular: edema. negative: chest pain, palpitations, orthopnea, paroxysmal nocturnal dyspnea, light headedness, other Gastrointestinal: negative: Nausea, Vomiting, Abdominal Pain, Diarrhea, Constipation, Melena, Hematochezia, Other Genitourinary: negative: Dysuria, Frequency, Incontinence, Hematuria, Retention , Other Musculoskeletal: negative: Neck Pain, Shoulder Pain, Arm Pain, Back Pain, Hand Pain, Leg Pain, Foot Pain, Other Skin: negative: Rash, Lesions, Efra, Bruising, Other - Medications/Allergies Allergies/Adverse Reactions: Allergies Allergy/AdvReac Type Severity Reaction Status Date / Time No Known Allergies Allergy Verified 12/24/17 00:48 Medications: Current Medications Acetaminophen (Tylenol) 650 mg PO Q4H PRN PRN Reason: Headache/Fever or Pain Amiodarone HCl (Cordarone) 400 mg PO BID [facility] Last Admin: 12/27/17 09:26 Dose: 400 mg Aspirin (Aspirin Chewable) 81 mg PO DAILY [facility] Last Admin: 12/27/17 09:26 Dose: 81 mg Atorvastatin Calcium (Lipitor) 40 mg PO [facility] Last Admin: 12/26/17 21:21 Dose: 40 mg Carvedilol (Coreg) 6.25 mg PO BID-[facility] Last Admin: 12/27/17 05:54 Dose: 6.25 mg Dextrose/Water (Dextrose 50%) 25 gm SLOW IVP PRN PRN PRN Reason: Hypoglycemia Famotidine (Pepcid) 20 mg PO BID [facility] Last Admin: 12/27/17 09:27 Dose: 20 mg Folic Acid (Folvite) 1 mg PO DAILY [facility] Last Admin: 12/27/17 09:27 Dose: 1 mg Furosemide (Lasix) 20 mg SLOW IVP 0600,1400 [facility] Last Admin: 12/27/17 05:54 Dose: 20 mg Gabapentin (Neurontin) 100 mg PO DAILY [facility] Last Admin: 12/27/17 09:27 Dose: 100 mg Glucagon (Glucagon) 1 mg IM PRN PRN PRN Reason: Hypoglycemia Hydroxychloroquine Sulfate (Plaquenil) 200 mg PO BID [facility] Last Admin: 12/27/17 09:27 Dose: 200 mg Dextrose/Water (D5w) 1,000 mls @ 0 mls/hr IV .Q0M PRN; As Directed PRN Reason: Hypoglycemia Diltiazem HCl 125 mg/ Sodium (Chloride) 125 mls @ 0 mls/hr IVPB INF [facility]; As Directed PRN Reason: Protocol Last Admin: 12/27/17 11:17 Dose: 125 mls Insulin Glargine 40 units/ (Miscellaneous Medication) 0.4 mls @ 0 mls/hr SC [facility] Last Admin: 12/26/17 21:23 Dose: 0.4 mls Insulin Human Lispro (Humalog) 0 units SC .MODERATE SLIDING SC PRN PRN Reason: Moderate Correctional Scale Last Admin: 12/26/17 17:38 Dose: 2 unit Insulin Human Lispro (Humalog) 0 units SC .BEDTIME SLIDING SC PRN PRN Reason: Bedtime Correctional Scale Miscellaneous Medication (Pharmacy To Dose) 0 each PO PRN PRN PRN Reason: WARFARIN Pharmacy to Dose Enbrel 1 each SC Q7D@1400 [facility] Polyethylene Glycol (Miralax) 17 gm PO DAILY PRN PRN Reason: CONSTIPATION Prednisone (Prednisone) 5 mg PO QAM-WM [facility] Last Admin: 12/27/17 09:26 Dose: 5 mg Pregabalin (Lyrica) 50 mg PO HS [facility] Last Admin: 12/26/17 21:21 Dose: 50 mg Warfarin Sodium (Coumadin) 5 mg PO 1700 [facility] Last Admin: 12/26/17 17:37 Dose: 5 mg
[2017-12-27] MEDS: ENBREL 50 MG SC SCH (12:57)
--- NOTE | 2017-12-27 13:07 | PRG ---
DATE OF SERVICE: 12/27/2017 Mr. Saunders continues to be in what appears to be atrial flutter, heart rate of 122, scheduled for TESS and cardioversion today.
[2017-12-27] MEDS ORDERED: Midazolam HCl 2 mg/2 ml Vial ONE (13:52)
[2017-12-27] MEDS ORDERED: Fentanyl 100 MCG/2 ML VIAL ONE (13:54)
--- NOTE | 2017-12-27 14:18 | PRG ---
DATE OF SERVICE: 12/27/2017 SUBJECTIVE: This morning, he is better, he is less short of breath. OBJECTIVE: VITAL SIGNS: His blood pressure is 135/100, pulse 122, temperature 97, sats 96, respirations 18. CHEST: Reveals decreased breath sounds, no wheezing. CARDIAC: SVT. ABDOMEN: Soft and distended. EXTREMITIES: Trace edema. LABORATORY DATA: White count 10,000, H and H 13 and 42. Electrolytes are normal. ASSESSMENT: 1. Supraventricular tachycardia. 2. Obstructive sleep apnea, chronic obstructive pulmonary disease, on CPAP. PLAN: Continue present treatment, nocturnal CPAP. We will follow while in the MICU.
[2017-12-27] MEDS ORDERED: DOPamine 400 MG/D5W 250 ML 250 ML ONE (15:50)
[2017-12-27] MEDS ORDERED: Isoproterenol 0.2 MG/1 ML AMP ONE ×2 (15:50→16:05)
[2017-12-27] MEDS ORDERED: Acetaminophen/Codeine 30-300mg Tablet PO PRN ×2 (18:30)
[2017-12-27] MEDS: Warfarin Sodium 5 MG TAB PO SCH (18:43)
[2017-12-27] MEDS: Insulin Glargine 40 UNITS in Pre-Filled Syringe 1 EACH SC SCH (20:46)
[2017-12-27] MEDS: Atorvastatin Calcium 40 MG TAB PO SCH (20:47)
[2017-12-27] MEDS: Pregabalin 50 MG CAP PO SCH (20:47)
--- NOTE | 2017-12-28 02:59 | OP ---
DATE OF PROCEDURE: 12/27/2017 ELECTROPHYSIOLOGY STUDY AND RADIOFREQUENCY ABLATION REPORT REFERRING PHYSICIAN: Savi Mora MD REASON FOR PROCEDURE: Mr. Hull is a 77-year-old male with prior history of atrial fibrillation, now presenting with typical-appearing atrial flutter with 2:1 AV conduction, difficult to rate control e dawson with diltiazem and then p.o. amiodarone. He underwent a TESS today demonstrating reduced LVEF in the severe range and also aortic stenosis, whi ch is likely severe. He is here for EP study and ablation of his atrial flutter. DESCRIPTION OF PROCEDURE: The patient received propofol per Anesthesia specialist. After adequate l evel of sedation achieved, the right femoral vein was prepped, draped, and anesthetized with subcutan eous lidocaine. With ultrasound guidance, the right femoral vein was cannulated x2. Following that, two 8-Telugu short sheaths were introduced through which a decapolar catheter was advanced to the ri ght atrium, right ventricle, His bundle, and eventually to CS position. Pacing, mapping, and recordi ng were performed in each location. Following finding was found: Baseline rhythm was atrial flutter with 2:1 AV conduction with flutter cycle length of 270 milliseconds. The atrial flutter has typica l activation pattern in the CS and overdrive pacing in proximal CS yielded similar post-pacing interv al to the tachycardia cycle length. In the lateral CS electrodes, the post-pacing interval was longe r. This suggested right atrial flutter and we proceeded with cavotricuspid isthmus ablation. With T [employer] SF ST catheter, which was used also to image the right atrium, 3D map was obtained and cavo tricuspid isthmus line was ablated with a 40 W ablation. Total of 25 lesions were delivered. Ablati on time was about 25 minutes. During the ablation time, slight variation of the flutter cycle length was noted. In the end, repeated post-pacing intervals were demonstrated long PTI by the ablation li darby with the flutter switching to a different circuit. At this point, decision was made to cardiovert the patient after unsuccessful. Cardioversion yielded sinus rhythm atrial flutter did not recur wit h overdrive pacing. The transisthmus time has been noted to be prolonged through the cavotricuspid i sthmus ablation line up to 160 milliseconds, which persisted on dopamine challenge. Unidirectional b lock was demonstrated with longest post-pacing interval by the ablation line. With overdrive pacing maneuver, multiple atrial flutter circuits were also demonstrated. Also, transient atrial fibrillation was also seen. In the end of the case, the BETY view, the cardiac silhouette did not change. The patient remained st able throughout the case. CONCLUSION: 1. Typical atrial flutter at baseline. 2. Cavotricuspid isthmus ablation performed, but likely due to multiple circuits, the atrial flutter did not terminate. 3. Shock termination of atrial flutter performed. 4. Cavotricuspid isthmus ablation achieved complete cavotricuspid isthmus block. PLAN: Continue Coumadin and continue amiodarone at least transiently. Consider weaning at a later d ate. ADDENDUM: The following measurements were obtained. The QRS is 74 milliseconds, QT 404, AH 146, HV 52 milliseconds. After termination of atrial flutter, the sinus node recovery time was 1681, correct ed sinus recovery time was 597. AV Wenckebach seconds 400 milliseconds. The His bundle, HV interval did not change.
[2017-12-28] MEDS: Furosemide 20 MG/2 ML VIAL SLOW IVP SCH (05:26)
[2017-12-28 06:00] LABS: Prothrombin Time 22.7 SEC (12.0-14.7)
[2017-12-28 06:05] LABS: Anion Gap 11 mmol/L (10-20); BUN (Urea Nitrogen) 16 mg/dL (8.4-25.7); Calc. Creatinine Clearance 126 mL/min (70-130); Calcium 8.8 mg/dL (7.8-10.44); Carbon Dioxide 29 mmol/L (23-31); Chloride 101 mmol/L (98-107); Estimated GFR-MDRD 77; Glucose 168 mg/dL (83-110); Potassium 3.7 mmol/L (3.5-5.1); Sodium 137 mmol/L (136-145)
[2017-12-28] MEDS: Amiodarone 200 MG TAB PO SCH ×2 (09:10→21:46)
[2017-12-28] MEDS: Hydroxychloroquine Sulfate 200 MG TAB PO SCH ×2 (09:10→21:47)
[2017-12-28] MEDS: Gabapentin 100 MG CAP PO SCH (09:10)
[2017-12-28] MEDS: Carvedilol 6.25 MG TAB PO SCH ×2 (09:10→17:29)
[2017-12-28] MEDS: predniSONE 5 MG TAB PO SCH (09:10)
[2017-12-28] MEDS: Folic Acid 1 MG TAB PO SCH (09:11)
[2017-12-28] MEDS: Famotidine 20 MG TAB PO SCH ×2 (09:11→21:47)
[2017-12-28] MEDS ORDERED: Metolazone 5 MG TAB PO SCH (09:15)
--- NOTE | 2017-12-28 10:30 | PDOC.PN ---
- Subjective Encounter Start Date: 12/28/17 Encounter Start Time: 10:00 Patient seen and examined for chf, after cardioversion and ablation he is in sinus. No new complaints. No overnight events - Objective Resuscitation Status: Resuscitation Status FULL:Full Resuscitation MAR Reviewed: Yes Vital Signs & Weight: Vital Signs (12 hours) Temp Pulse Resp BP BP Pulse Ox 12/28/17 09:10 155/80 H 12/28/17 07:32 98.1 F 70 18 155/84 H 97 12/28/17 04:01 97.6 F 65 16 156/83 H 99 12/27/17 23:47 97.8 F 64 18 149/85 H 95 Weight Weight 296 lb 4 oz I&O: 12/27/17 12/28/17 12/29/17 06:59 06:59 06:59 Intake Total 1313 600 Output Total 2400 1600 Balance -1087 -1000 Result Diagrams: 12/27/17 04:26 12/28/17 05:25 Additional Labs: Accuchecks 12/28/17 12/27/17 12/27/17 05:35 20:19 17:40 POC Glucose 141 H 203 H 199 H 12/27/17 11:01 POC Glucose 191 H EKG Reviewed by me: Yes (nsr) Phys Exam - Physical Examination Constitutional: NAD HEENT: PERRLA, moist MMs, sclera anicteric Neck: no JVD, supple Respiratory: no wheezing, no rales, no rhonchi Cardiovascular: RRR, no significant murmur, irregular Gastrointestinal: soft, non-tender, no distention, positive bowel sounds Musculoskeletal: pulses present, edema present Neurological: non-focal, normal sensation, moves all 4 limbs Psychiatric: normal affect, A&O x 3 Skin: no rash, normal turgor Dx/Plan (1) 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 Code(s): I50.23 - ACUTE ON CHRONIC SYSTOLIC (CONGESTIVE) HEART FAILURE Status : Acute (2) Atrial fibrillation with RVR Code(s): I48.91 - UNSPECIFIED ATRIAL FIBRILLATION Status: Acute (3) Demand ischemia of myocardium Code(s): I24.8 - OTHER FORMS OF ACUTE ISCHEMIC HEART DISEASE Status: Acute (4) Chronic anticoagulation Code(s): Z79.01 - [facility] (CURRENT) USE OF ANTICOAGULANTS Status: Chronic (5) DM type 2 (diabetes mellitus, type 2) Status: Chronic Qualifiers: Diabetes mellitus terminal makeup operator insulin use: with terminal makeup operator use Diabetes mellitus complication status: with unspecified complications Qualified Code(s) : E11.8 - Type 2 diabetes mellitus with unspecified complications; Z79.4 - terminal makeup 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 of insulin; Z79.4 - [facility] (current) use of insulin; Z79.4 - [facility] (current) use of insulin; Z79.4 - terminal makeup 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 of insulin (6) Dyslipidemia Code(s): E78.5 - HYPERLIPIDEMIA, UNSPECIFIED Status: Chronic (7) HTN (hypertension) Code(s): I10 - ESSENTIAL (PRIMARY) HYPERTENSION Status: Chronic Qualifiers: Hypertension type: essential hypertension Qualified Code(s): I10 - Essential (primary) hypertension (8) Morbid obesity with BMI of 40.0-44.9, adult Code(s): E66.01 - MORBID (SEVERE) OBESITY DUE TO EXCESS CALORIES; Z68.41 - BODY MASS INDEX (BMI) 40.0-44.9, ADULT Status: Chronic - Plan cont current plan of care, plan discussed w/ family, PT/OT * increase lasix 40 mg iv bid * add zaroxolyn * transfer to tele * medication reviewed as below * symptomatic treatment * discussed with * needs more diuresis * continue oral amiodaron. * start PT Review of Systems - Review of Systems Eyes: negative: Pain, Vision Change, Conjunctivae Inflammation, Eyelid Inflammation, Redness, Other ENT: negative: Ear Pain, Ear Discharge, Nose Pain, Nose Discharge, Nose Congestion, Mouth Pain, Mouth Swelling, Throat Pain, Throat Swelling, Other Respiratory: negative: Cough, Dry, Shortness of Breath, Hemoptysis, SOB with Excertion, Pleuritic Pain, Sputum, Wheezing Cardiovascular: edema. negative: chest pain, palpitations, orthopnea, paroxysmal nocturnal dyspnea, light headedness, other Gastrointestinal: negative: Nausea, Vomiting, Abdominal Pain, Diarrhea, Constipation, Melena, Hematochezia, Other Genitourinary: negative: Dysuria, Frequency, Incontinence, Hematuria, Retention , Other Musculoskeletal: negative: Neck Pain, Shoulder Pain, Arm Pain, Back Pain, Hand Pain, Leg Pain, Foot Pain, Other Skin: negative: Rash, Lesions, Efra, Bruising, Other - Medications/Allergies Allergies/Adverse Reactions: Allergies Allergy/AdvReac Type Severity Reaction Status Date / Time No Known Allergies Allergy Verified 12/24/17 00:48 Medications: Current Medications Acetaminophen (Tylenol) 650 mg PO Q4H PRN PRN Reason: Headache/Fever or Pain Acetaminophen/Codeine Phosphate (Tylenol #3) 1 tab PO Q4H PRN PRN Reason: Mild Pain (1-3) Acetaminophen/Codeine Phosphate (Tylenol #3) 2 tab PO Q4H PRN PRN Reason: Moderate Pain (4-6) Amiodarone HCl (Cordarone) 400 mg PO BID [facility] Last Admin: 12/28/17 09:10 Dose: 400 mg Aspirin (Aspirin Chewable) 81 mg PO DAILY [facility] Last Admin: 12/28/17 09:10 Dose: 81 mg Atorvastatin Calcium (Lipitor) 40 mg PO [facility] Last Admin: 12/27/17 20:47 Dose: 40 mg Carvedilol (Coreg) 6.25 mg PO BID-[facility] Last Admin: 12/28/17 09:10 Dose: 6.25 mg Dextrose/Water (Dextrose 50%) 25 gm SLOW IVP PRN PRN PRN Reason: Hypoglycemia Famotidine (Pepcid) 20 mg PO BID [facility] Last Admin: 12/28/17 09:11 Dose: 20 mg Folic Acid (Folvite) 1 mg PO DAILY [facility] Last Admin: 12/28/17 09:11 Dose: 1 mg Furosemide (Lasix) 40 mg SLOW IVP 0600,1400 [facility] Gabapentin (Neurontin) 100 mg PO DAILY [facility] Last Admin: 12/28/17 09:10 Dose: 100 mg Glucagon (Glucagon) 1 mg IM PRN PRN PRN Reason: Hypoglycemia Hydroxychloroquine Sulfate (Plaquenil) 200 mg PO BID [facility] Last Admin: 12/28/17 09:10 Dose: 200 mg Dextrose/Water (D5w) 1,000 mls @ 0 mls/hr IV .Q0M PRN; As Directed PRN Reason: Hypoglycemia Insulin Glargine 40 units/ (Miscellaneous Medication) 0.4 mls @ 0 mls/hr SC [facility] Last Admin: 12/27/17 20:46 Dose: 0.4 mls Insulin Human Lispro (Humalog) 0 units SC .MODERATE SLIDING SC PRN PRN Reason: Moderate Correctional Scale Last Admin: 12/26/17 17:38 Dose: 2 unit Insulin Human Lispro (Humalog) 0 units SC .BEDTIME SLIDING SC PRN PRN Reason: Bedtime Correctional Scale Metolazone (Zaroxolyn) 5 mg PO 0830 [facility] Miscellaneous Medication (Pharmacy To Dose) 0 each PO PRN PRN PRN Reason: WARFARIN Pharmacy to Dose Enbrel 50mg Inj 1 each SC Q7D@1400 [facility] Last Admin: 12/27/17 12:57 Dose: 1 each Polyethylene Glycol (Miralax) 17 gm PO DAILY PRN PRN Reason: CONSTIPATION Prednisone (Prednisone) 5 mg PO QAM-WM [facility] Last Admin: 12/28/17 09:10 Dose: 5 mg Pregabalin (Lyrica) 50 mg PO HS [facility] Last Admin: 12/27/17 20:47 Dose: 50 mg Warfarin Sodium (Coumadin) 5 mg PO 1700 [facility] Last Admin: 12/27/17 18:43 Dose: 5 mg
--- NOTE | 2017-12-28 12:07 | OP ---
DATE OF PROCEDURE: 12/27/2017 TRANSESOPHAGEAL ECHOCARDIOGRAM REPORT REFERRING PHYSICIAN: Dr. Mora. REASON FOR PROCEDURE: Mr. Hull is a 77-year-old man with prior history of atrial fibrillation/flutter. He presented with seizure exacerbation and the recurrence of atrial flutter he has noted. He is here for TESS prior to planned ablation procedure. He is also to have severely reduced LV function. PROCEDURE IN DETAIL: The patient received propofol by anesthesia specialist after adequate level of sedation achieved. The standard transesophageal echocardiogram probe was passed into the esophagus without difficulty. The patient tolerated the procedure well, no complications noted. RESULTS: The left atrium moderately to severely enlarged at 5.9 to 6 cm in horizontal diameter. Left atrial appendage is well visualized, contains no clot. A heavy spontaneous echo contrast was seen throughout the left atrial appendage and the left atrium as well. Left atrial appendage velocities were up to 40 cm per seconds. The right atrium was mildly enlarged. The left ventricle is also mildly enlarged. Left ventricular systolic function is severely reduced visually estimated about 20%-25%, global hypokinesis seen. The right-sided chamber is nondilated. The pericardial space with small effusion only without evidence of hemodynamic effect. Mitral valve inflow pattern is without significant respiratory variation, less than 25% noted. The mitral valve has mild to moderate regurgitation. Tricuspid valve has mild regurgitation. Only aortic valve appears to be heavily sclerotic and also significantly stenotic. With the external probe, by continued equation, valve area about 1 square cm was estimated. This correlate roughly to the visual inspection of the cross section opening of the aortic valve, although exact measurements were not performed due to somewhat limited visualization. The pulmonic valve is borderline visualized. The visualized portion of the ascending and descending aorta without any evidence of dissection or significant atheroma. The pleural effusions were also seen. CONCLUSION: 1. No intracardiac clots. 2. Moderate to severe left atrial enlargement seen with spontaneous echo contrast throughout the left atrium is noted. 3. Mild to moderate mitral regurgitation, mild tricuspid regurgitation. 4. Severe aortic valve stenosis is seen in valve area around 1 square cm based on continued equation with external probe. 5. Mild pericardial effusion without evidence of tamponade noted. 6. Mild tricuspid regurgitation. PLAN: Proceed with an ablation procedure and further workup on the aortic valve as per Dr. Mora. [facility]
[2017-12-28] MEDS: Furosemide 40 MG/4 ML VIAL SLOW IVP SCH (13:30)
--- NOTE | 2017-12-28 15:20 | PRG ---
DATE OF SERVICE: 12/28/2017 SERVICE: Pulmonary Medicine. INTERVAL HISTORY: The patient is doing really well from a respiratory standpoint. He has been weane d to room air. He got a dose of Lasix and metolazone this morning. He had significant urine output with that. Denies any current shortness of breath, lightheadedness, fevers, chills or overnight even ts. PHYSICAL EXAMINATION: VITAL SIGNS: Afebrile, pulse 70, blood pressure 120/67, respirations 19, saturation 96% on room air. GENERAL: The patient is awake, alert, no apparent distress. LUNGS: Excellent air entry. There is no prolonged expiratory phase. Dependent crackles are present . HEART: Normal rate, regular. ABDOMEN: Soft, nontender and nondistended. Bowel sounds are positive. MUSCULOSKELETAL: No cyanosis or clubbing. There is no pitting in the bilateral lower extremities. NEUROLOGIC: Grossly nonfocal. LABORATORY DATA: WBC 7.7, hemoglobin 13.6, platelets 189,000. Basic metabolic profile is otherwise unremarkable. Blood sugars ranged 141-216. ASSESSMENT: 1. Acute hypoxic respiratory failure, resolved. 2. Obstructive sleep apnea, compliant with CPAP therapy. 3. Atrial flutter, currently rate controlled versus sinus rhythm. DISCUSSION AND PLAN: The patient is doing absolutely wonderful from a respiratory standpoint. As johnson , he can be considered for transition to the telemetry unit. Pulmonary or Critical Care will anshul nue to follow along for the time being.
[2017-12-28] MEDS: Warfarin Sodium 5 MG TAB PO SCH (17:31)
[2017-12-28] MEDS: HumaLOG 300 UNITS/3 ML VIAL SC PRN (18:17)
[2017-12-28] MEDS: Atorvastatin Calcium 40 MG TAB PO SCH (21:47)
[2017-12-28] MEDS: Pregabalin 50 MG CAP PO SCH (21:47)
[2017-12-28] MEDS: Insulin Glargine 40 UNITS in Pre-Filled Syringe 1 EACH SC SCH (21:48)
[2017-12-29] MEDS: Furosemide 40 MG/4 ML VIAL SLOW IVP SCH ×2 (05:15→13:32)
[2017-12-29 06:27] LABS: INR-International Normal Ratio 1.8; Prothrombin Time 20.9 SEC (12.0-14.7)
[2017-12-29 06:35] LABS: Anion Gap 13 mmol/L (10-20); BUN (Urea Nitrogen) 14 mg/dL (8.4-25.7); Calc. Creatinine Clearance 124 mL/min (70-130); Calcium 9.3 mg/dL (7.8-10.44); Carbon Dioxide 28 mmol/L (23-31); Chloride 100 mmol/L (98-107); Estimated GFR-MDRD 75; Glucose 148 mg/dL (83-110); Potassium 3.8 mmol/L (3.5-5.1); Sodium 137 mmol/L (136-145)
[2017-12-29] MEDS: Amiodarone 200 MG TAB PO SCH ×2 (08:44→20:35)
[2017-12-29] MEDS: Metolazone 5 MG TAB PO SCH (08:44)
[2017-12-29] MEDS: predniSONE 5 MG TAB PO SCH (08:44)
[2017-12-29] MEDS: Famotidine 20 MG TAB PO SCH ×2 (08:45→20:36)
[2017-12-29] MEDS: Folic Acid 1 MG TAB PO SCH (08:45)
[2017-12-29] MEDS: Hydroxychloroquine Sulfate 200 MG TAB PO SCH ×2 (08:45→20:35)
[2017-12-29] MEDS: Gabapentin 100 MG CAP PO SCH (08:45)
[2017-12-29] MEDS: Carvedilol 6.25 MG TAB PO SCH ×2 (08:51→17:16)
--- NOTE | 2017-12-29 10:13 | PRG ---
DATE OF SERVICE: 12/29/2017 SUBJECTIVE: Mr. Hull feels better. He is on telemetry. No complaints. No chest pain or pressure. PHYSICAL EXAMINATION: VITAL SIGNS: Blood pressure is still high 169/80, pulse 70 regular. LUNGS: Clear. CARDIAC: Normal S1 and S2. ABDOMEN: Soft, nontender. EXTREMITIES: He still has severe edema. ASSESSMENT: 1. Status post atrial flutter ablation. 2. Appears to have other types of atrial flutter as well. 3. Acute congestive heart failure. 4. Aortic stenosis. PLAN: 1. Repeat echocardiogram to see what the ejection fraction is now, the heart rate is controlled, als o reevaluate the aortic valve. 2. Continue diuresis. He is still very volume overloaded. 3. If ejection fraction is still markedly diminished, may need a LifeVest.
--- NOTE | 2017-12-29 10:21 | PRG ---
DATE OF SERVICE: 12/29/2017 SUBJECTIVE: He is better this morning. OBJECTIVE: VITAL SIGNS: His sats are 96, pulse 67, respiration rate 18, blood pressure 160/90, status post abla tion. CHEST: Decreased breath sounds without any wheezing. CARDIAC: Normal S1, S2. No gallops. ABDOMEN: Soft, no masses. IMPRESSION: 1. Status post ablation of atrial flutter. 2. Morbid obesity. 3. Sleep apnea. 4. Congestive cardiomyopathy. PLAN: Continue CPAP from home. Disposition as per Cardiology. We will follow.
--- NOTE | 2017-12-29 10:46 | PDOC.PN ---
- Subjective Encounter Start Date: 12/29/17 Encounter Start Time: 09:30 Patient seen and examined for chf. No new complaints. No overnight events - Objective Resuscitation Status: Resuscitation Status FULL:Full Resuscitation MAR Reviewed: Yes Vital Signs & Weight: Vital Signs (12 hours) Temp Pulse Pulse Pulse Resp BP BP 12/29/17 09:06 73 67 178/97 H 167/96 H 12/29/17 07:29 98.7 F 67 18 12/29/17 04:00 90.1 F L 65 18 BP Pulse Ox Pulse Ox 12/29/17 09:06 96 12/29/17 07:29 169/80 H 96 12/29/17 04:00 142/62 H 95 Weight Weight 298 lb 14.4 oz I&O: 12/28/17 12/29/17 12/30/17 06:59 06:59 06:59 Intake Total 600 600 Output Total 1600 1750 Balance -1000 -1150 Result Diagrams: 12/27/17 04:26 12/29/17 06:05 Additional Labs: Accuchecks 12/29/17 12/28/17 12/28/17 05:32 20:57 16:49 POC Glucose 136 H 253 H 209 H 12/28/17 10:42 POC Glucose 216 H EKG Reviewed by me: Yes (nsr) Phys Exam - Physical Examination Constitutional: NAD HEENT: PERRLA, moist MMs, sclera anicteric Neck: no JVD, supple Respiratory: no wheezing, no rales, no rhonchi Cardiovascular: RRR, no significant murmur, no rub Gastrointestinal: soft, non-tender, no distention, positive bowel sounds obesity+ Musculoskeletal: pulses present, edema present Neurological: non-focal, normal sensation, moves all 4 limbs Lymphatic: no nodes Psychiatric: normal affect, A&O x 3 Skin: no rash, normal turgor Dx/Plan (1) 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 Code(s): I50.23 - ACUTE ON CHRONIC SYSTOLIC (CONGESTIVE) HEART FAILURE Status : Acute (2) Atrial fibrillation with RVR Code(s): I48.91 - UNSPECIFIED ATRIAL FIBRILLATION Status: Acute Comment: s/ p cardioversion and ablation, now in nsr (3) Demand ischemia of myocardium Code(s): I24.8 - OTHER FORMS OF ACUTE ISCHEMIC HEART DISEASE Status: Acute (4) Chronic anticoagulation Code(s): Z79.01 - [facility] (CURRENT) USE OF ANTICOAGULANTS Status: Chronic (5) DM type 2 (diabetes mellitus, type 2) Status: Chronic Qualifiers: Diabetes mellitus nursing home insulin use: with blasting contract man use Diabetes mellitus complication status: with unspecified complications Qualified Code(s) : E11.8 - Type 2 diabetes mellitus with unspecified complications; Z79.4 - USP (current) use of insulin; 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; Z79.4 - USP (current) use of insulin; Z79.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 (6) Dyslipidemia Code(s): E78.5 - HYPERLIPIDEMIA, UNSPECIFIED Status: Chronic (7) HTN (hypertension) Code(s): I10 - ESSENTIAL (PRIMARY) HYPERTENSION Status: Chronic Qualifiers: Hypertension type: essential hypertension Qualified Code(s): I10 - Essential (primary) hypertension (8) Morbid obesity with BMI of 40.0-44.9, adult Code(s): E66.01 - MORBID (SEVERE) OBESITY DUE TO EXCESS CALORIES; Z68.41 - BODY MASS INDEX (BMI) 40.0-44.9, ADULT Status: Chronic (9) JAMIN on CPAP Code(s): G47.33 - OBSTRUCTIVE SLEEP APNEA (ADULT) (PEDIATRIC); Z99.89 - DEPENDENCE ON OTHER ENABLING MACHINES AND DEVICES Status: Chronic - Plan cont current plan of care, respiratory therapy * continue lasix and zaroxolyn, he still has lot of leg edema * continue cpap from home * medication reviewed as below * symptomatic treatment * will monitor INR. Review of Systems - Review of Systems Eyes: negative: Pain, Vision Change, Conjunctivae Inflammation, Eyelid Inflammation, Redness, Other ENT: negative: Ear Pain, Ear Discharge, Nose Pain, Nose Discharge, Nose Congestion, Mouth Pain, Mouth Swelling, Throat Pain, Throat Swelling, Other Respiratory: negative: Cough, Dry, Shortness of Breath, Hemoptysis, SOB with Excertion, Pleuritic Pain, Sputum, Wheezing Cardiovascular: edema. negative: chest pain, palpitations, orthopnea, paroxysmal nocturnal dyspnea, light headedness, other Gastrointestinal: negative: Nausea, Vomiting, Abdominal Pain, Diarrhea, Constipation, Melena, Hematochezia, Other Genitourinary: negative: Dysuria, Frequency, Incontinence, Hematuria, Retention , Other Musculoskeletal: negative: Neck Pain, Shoulder Pain, Arm Pain, Back Pain, Hand Pain, Leg Pain, Foot Pain, Other Skin: negative: Rash, Lesions, Efra, Bruising, Other - Medications/Allergies Allergies/Adverse Reactions: Allergies Allergy/AdvReac Type Severity Reaction Status Date / Time No Known Allergies Allergy Verified 12/24/17 00:48 Medications: Current Medications Acetaminophen (Tylenol) 650 mg PO Q4H PRN PRN Reason: Headache/Fever or Pain Acetaminophen/Codeine Phosphate (Tylenol #3) 1 tab PO Q4H PRN PRN Reason: Mild Pain (1-3) Acetaminophen/Codeine Phosphate (Tylenol #3) 2 tab PO Q4H PRN PRN Reason: Moderate Pain (4-6) Amiodarone HCl (Cordarone) 400 mg PO BID [facility] Last Admin: 12/29/17 08:44 Dose: 400 mg Aspirin (Aspirin Chewable) 81 mg PO DAILY [facility] Last Admin: 12/29/17 08:45 Dose: 81 mg Atorvastatin Calcium (Lipitor) 40 mg PO HS [facility] Last Admin: 12/28/17 21:47 Dose: 40 mg Carvedilol (Coreg) 6.25 mg PO BID-WM [facility] Last Admin: 12/29/17 08:51 Dose: 6.25 mg Dextrose/Water (Dextrose 50%) 25 gm SLOW IVP PRN PRN PRN Reason: Hypoglycemia Famotidine (Pepcid) 20 mg PO BID [facility] Last Admin: 12/29/17 08:45 Dose: 20 mg Folic Acid (Folvite) 1 mg PO DAILY [facility] Last Admin: 12/29/17 08:45 Dose: 1 mg Furosemide (Lasix) 40 mg SLOW IVP 0600,1400 [facility] Last Admin: 12/29/17 05:15 Dose: 40 mg Furosemide (Lasix) 40 mg SLOW IVP ONE [facility] Gabapentin (Neurontin) 100 mg PO DAILY [facility] Last Admin: 12/29/17 08:45 Dose: 100 mg Glucagon (Glucagon) 1 mg IM PRN PRN PRN Reason: Hypoglycemia Hydroxychloroquine Sulfate (Plaquenil) 200 mg PO BID [facility] Last Admin: 12/29/17 08:45 Dose: 200 mg Dextrose/Water (D5w) 1,000 mls @ 0 mls/hr IV .Q0M PRN; As Directed PRN Reason: Hypoglycemia Insulin Glargine 40 units/ (Miscellaneous Medication) 0.4 mls @ 0 mls/hr SC [facility] Last Admin: 12/28/17 21:48 Dose: 0.4 mls Insulin Human Lispro (Humalog) 0 units SC .MODERATE SLIDING SC PRN PRN Reason: Moderate Correctional Scale Last Admin: 12/28/17 18:17 Dose: 4 unit Insulin Human Lispro (Humalog) 0 units SC .BEDTIME SLIDING SC PRN PRN Reason: Bedtime Correctional Scale Metolazone (Zaroxolyn) 5 mg PO 0830 [facility] Last Admin: 12/29/17 08:44 Dose: 5 mg Miscellaneous Medication (Pharmacy To Dose) 0 each PO PRN PRN PRN Reason: WARFARIN Pharmacy to Dose Enbrel 50mg Inj 1 each SC Q7D@1400 [facility] Last Admin: 12/27/17 12:57 Dose: 1 each Polyethylene Glycol (Miralax) 17 gm PO DAILY PRN PRN Reason: CONSTIPATION Potassium Chloride (K-Dur) 40 meq PO [facility] Potassium Chloride (K-Dur) 20 meq PO ONE [facility] Prednisone (Prednisone) 5 mg PO QAM-WM [facility] Last Admin: 12/29/17 08:44 Dose: 5 mg Pregabalin (Lyrica) 50 mg PO [facility] Last Admin: 12/28/17 21:47 Dose: 50 mg Warfarin Sodium (Coumadin) 7.5 mg PO 1700 [facility]
[2017-12-29] MEDS ORDERED: Potassium Chloride 20 MEQ TAB PO SCH ×2 (12:00→18:00)
[2017-12-29] MEDS ORDERED: Warfarin Sodium 5 MG TAB PO SCH (17:00)
[2017-12-29] MEDS: Warfarin Sodium 7.5 MG TAB PO SCH (17:15)
[2017-12-29] MEDS: HumaLOG 300 UNITS/3 ML VIAL SC PRN ×2 (17:32→20:39)
--- NOTE | 2017-12-29 19:52 | PRG ---
DATE OF SERVICE: 12/29/2017 Electrophysiology followup note. SUBJECTIVE: Mr. Hull seems to be doing well two days after his atrial flutter ablation procedure. He has no issues with bleeding. No stroke-like symptoms noted. His dyspnea has improved, maintain i n sinus rhythm. OBJECTIVE: VITAL SIGNS: Blood pressure is 165/76, heart rate 60, respiration is 18, temperature 97.6 degrees Fa hrenheit. GENERAL: He is alert and oriented man in no apparent distress. NECK: Supple. Jugular veins not distended. CHEST: Coarse without crackles. CARDIOVASCULAR: Heart sounds are regular to rate and rhythm. A 2/6 systolic ejection murmur at the aortic area was heard. ABDOMEN: Benign. Bowel sounds positive. EXTREMITIES: Lower extremity without edema, clubbing or cyanosis. GENITOURINARY: The groin site is healing well. DATABASE: Telemetry strips reveal sinus rhythm. LABORATORY DATA: From the 5th reveals normal electrolytes, BUN 14, creatinine 0.97. ASSESSMENT AND PLAN: Mr. Hull is a pleasant 77-year-old male with a prior history of congestive hea rt failure and reduced left ventricular ejection fraction, possibly severe aortic stenosis who has de veloped atrial flutter. He underwent cavotricuspid isthmus ablation, some residual atrial flutter ci rcuits also noted, non- cavotricuspid isthmus dependent. Currently, maintaining sinus rhythm and con tinues on amiodarone as well for suppression of his rhythm. He continues on Coumadin for anticoagulation. The INR is 1.8 today. At this point, we would continue current regimen. To continue amiodarone has been likely alternative atrial flutter circuits in atrial fibrillation with . His cardiomyopathy need to be further mo nitored for improvement on optimal medical therapy in sinus rhythm. If no further improvement occurs in 3 months and if his LVEF is still less than 35%, he could be considered for ICD implantation. In the meantime, LifeVest therapy could be reasonable. 2. Aortic stenosis, likely severe as per Dr. Mora's directives. We will follow him in the office in 6 weeks.
[2017-12-29] MEDS ORDERED: Furosemide 40 MG/4 ML VIAL SLOW IVP SCH (20:00)
[2017-12-29] MEDS: Pregabalin 50 MG CAP PO SCH (20:35)
[2017-12-29] MEDS: Atorvastatin Calcium 40 MG TAB PO SCH (20:35)
[2017-12-29] MEDS: Insulin Glargine 40 UNITS in Pre-Filled Syringe 1 EACH SC SCH (20:40)
[2017-12-30] MEDS: Furosemide 40 MG/4 ML VIAL SLOW IVP SCH ×2 (05:26→13:37)
[2017-12-30 05:52] LABS: INR-International Normal Ratio 1.8
[2017-12-30 06:00] LABS: Anion Gap 15 mmol/L (10-20); BUN (Urea Nitrogen) 14 mg/dL (8.4-25.7); Calc. Creatinine Clearance 127 mL/min (70-130); Calcium 9.1 mg/dL (7.8-10.44); Carbon Dioxide 27 mmol/L (23-31); Chloride 96 mmol/L (98-107); Estimated GFR-MDRD 77; Glucose 123 mg/dL (83-110); Sodium 134 mmol/L (136-145)
[2017-12-30] MEDS: Gabapentin 100 MG CAP PO SCH (08:21)
[2017-12-30] MEDS: Folic Acid 1 MG TAB PO SCH (08:21)
[2017-12-30] MEDS: predniSONE 5 MG TAB PO SCH (08:21)
[2017-12-30] MEDS: Amiodarone 200 MG TAB PO SCH ×2 (08:21→21:11)
[2017-12-30] MEDS: Hydroxychloroquine Sulfate 200 MG TAB PO SCH ×2 (08:21→21:11)
[2017-12-30] MEDS: Famotidine 20 MG TAB PO SCH ×2 (08:21→21:12)
[2017-12-30] MEDS: Metolazone 5 MG TAB PO SCH (08:21)
[2017-12-30] MEDS: Carvedilol 6.25 MG TAB PO SCH ×2 (08:21→17:05)
--- NOTE | 2017-12-30 09:31 | PRG ---
DATE OF SERVICE: 12/30/2017 SUBJECTIVE: This morning, he is doing well, no shortness of breath. OBJECTIVE: VITAL SIGNS: Sats are 98% on room air, temperature is 97, blood pressure 118/97, status post ablatio n. CHEST: Chest reveals decreased breath sounds, no wheezing. CARDIAC: Normal S1, S2, no gallops. ABDOMEN: Soft, no masses. LABORATORY DATA: Electrolytes are normal. IMPRESSION: Obstructive sleep apnea, congestive heart failure, status post ablation. PLAN: Pulmonary will follow at a distance. Continue CPAP.
--- NOTE | 2017-12-30 10:31 | PDOC.PN ---
- Subjective Encounter Start Date: 12/30/17 Encounter Start Time: 07:30 Patient seen and examined. No new complaints. No overnight events - Objective Resuscitation Status: Resuscitation Status FULL:Full Resuscitation MAR Reviewed: Yes Vital Signs & Weight: Vital Signs (12 hours) Temp Pulse Resp BP BP Pulse Ox 12/30/17 07:09 97.6 F 60 18 180/97 H 98 12/30/17 03:19 97.2 F L 51 L 12 137/74 96 12/30/17 00:00 97.6 F 59 L 14 130/75 95 Weight Admit Weight 295 lb 14.4 oz Weight 298 lb 14.4 oz I&O: 12/29/17 12/30/17 12/31/17 06:59 06:59 06:59 Intake Total 600 1200 Output Total 1750 4250 Balance -1150 -3050 Result Diagrams: 12/27/17 04:26 12/30/17 04:51 Additional Labs: Accuchecks 12/30/17 12/29/17 12/29/17 06:00 20:30 16:45 POC Glucose 127 H 242 H 234 H 12/29/17 11:16 POC Glucose 150 H EKG Reviewed by me: Yes (nsr) Phys Exam - Physical Examination Constitutional: NAD HEENT: PERRLA, moist MMs, sclera anicteric Neck: no JVD, supple Respiratory: no wheezing, no rales, no rhonchi Cardiovascular: RRR, no rub SM+ Gastrointestinal: soft, non-tender, no distention, positive bowel sounds obesity+ Musculoskeletal: pulses present, edema present Neurological: non-focal, normal sensation, moves all 4 limbs Lymphatic: no nodes Psychiatric: normal affect, A&O x 3 Skin: no rash, normal turgor Dx/Plan (1) 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 Code(s): I50.23 - ACUTE ON CHRONIC SYSTOLIC (CONGESTIVE) HEART FAILURE Status : Acute (2) Atrial fibrillation with RVR Code(s): I48.91 - UNSPECIFIED ATRIAL FIBRILLATION Status: Acute Comment: s/ p cardioversion and ablation, now in nsr (3) Demand ischemia of myocardium Code(s): I24.8 - OTHER FORMS OF ACUTE ISCHEMIC HEART DISEASE Status: Acute (4) Chronic anticoagulation Code(s): Z79.01 - COMMERCIAL DRONE SOFTWARE DEVELOPER (CURRENT) USE OF ANTICOAGULANTS Status: Chronic (5) DM type 2 (diabetes mellitus, type 2) Status: Chronic Qualifiers: Diabetes mellitus mcc insulin use: with terminal operations manager use Diabetes mellitus complication status: with unspecified complications Qualified Code(s) : E11.8 - Type 2 diabetes mellitus with unspecified complications; Z79.4 - watermelon inspector (current) use of insulin; Z79.4 - watermelon inspector (current) use of insulin; Z79.4 - M[facility] (current) use of insulin; Z79.4 - watermelon inspector (current) use of insulin (6) Dyslipidemia Code(s): E78.5 - HYPERLIPIDEMIA, UNSPECIFIED Status: Chronic (7) HTN (hypertension) Code(s): I10 - ESSENTIAL (PRIMARY) HYPERTENSION Status: Chronic Qualifiers: Hypertension type: essential hypertension Qualified Code(s): I10 - Essential (primary) hypertension (8) Morbid obesity with BMI of 40.0-44.9, adult Code(s): E66.01 - MORBID (SEVERE) OBESITY DUE TO EXCESS CALORIES; Z68.41 - BODY MASS INDEX (BMI) 40.0-44.9, ADULT Status: Chronic (9) JAMIN on CPAP Code(s): G47.33 - OBSTRUCTIVE SLEEP APNEA (ADULT) (PEDIATRIC); Z99.89 - DEPENDENCE ON OTHER ENABLING MACHINES AND DEVICES Status: Chronic - Plan cont current plan of care * today another echo * still needs more diuresis * will monitor in hospital * medication reviewed as below * symptomatic treatment. * if he has ef <35, he will need lifevest Review of Systems - Review of Systems Eyes: negative: Pain, Vision Change, Conjunctivae Inflammation, Eyelid Inflammation, Redness, Other ENT: negative: Ear Pain, Ear Discharge, Nose Pain, Nose Discharge, Nose Congestion, Mouth Pain, Mouth Swelling, Throat Pain, Throat Swelling, Other Respiratory: negative: Cough, Dry, Shortness of Breath, Hemoptysis, SOB with Excertion, Pleuritic Pain, Sputum, Wheezing Cardiovascular: edema. negative: chest pain, palpitations, orthopnea, paroxysmal nocturnal dyspnea, light headedness, other Gastrointestinal: negative: Nausea, Vomiting, Abdominal Pain, Diarrhea, Constipation, Melena, Hematochezia, Other Genitourinary: negative: Dysuria, Frequency, Incontinence, Hematuria, Retention , Other Musculoskeletal: negative: Neck Pain, Shoulder Pain, Arm Pain, Back Pain, Hand Pain, Leg Pain, Foot Pain, Other Skin: negative: Rash, Lesions, Efra, Bruising, Other - Medications/Allergies Allergies/Adverse Reactions: Allergies Allergy/AdvReac Type Severity Reaction Status Date / Time No Known Allergies Allergy Verified 12/24/17 00:48 Medications: Current Medications Acetaminophen (Tylenol) 650 mg PO Q4H PRN PRN Reason: Headache/Fever or Pain Acetaminophen/Codeine Phosphate (Tylenol #3) 1 tab PO Q4H PRN PRN Reason: Mild Pain (1-3) Acetaminophen/Codeine Phosphate (Tylenol #3) 2 tab PO Q4H PRN PRN Reason: Moderate Pain (4-6) Amiodarone HCl (Cordarone) 400 mg PO BID [facility] Last Admin: 12/30/17 08:21 Dose: 400 mg Aspirin (Aspirin Chewable) 81 mg PO DAILY [facility] Last Admin: 12/30/17 08:21 Dose: 81 mg Atorvastatin Calcium (Lipitor) 40 mg PO [facility] Last Admin: 12/29/17 20:35 Dose: 40 mg Carvedilol (Coreg) 6.25 mg PO BID[facility] Last Admin: 12/30/17 08:21 Dose: 6.25 mg Dextrose/Water (Dextrose 50%) 25 gm SLOW IVP PRN PRN PRN Reason: Hypoglycemia Famotidine (Pepcid) 20 mg PO BID [facility] Last Admin: 12/30/17 08:21 Dose: 20 mg Folic Acid (Folvite) 1 mg PO DAILY [facility] Last Admin: 12/30/17 08:21 Dose: 1 mg Furosemide (Lasix) 40 mg SLOW IVP 0600,1400 [facility] Last Admin: 12/30/17 05:26 Dose: 40 mg Gabapentin (Neurontin) 100 mg PO DAILY [facility] Last Admin: 12/30/17 08:21 Dose: 100 mg Glucagon (Glucagon) 1 mg IM PRN PRN PRN Reason: Hypoglycemia Hydroxychloroquine Sulfate (Plaquenil) 200 mg PO BID [facility] Last Admin: 12/30/17 08:21 Dose: 200 mg Dextrose/Water (D5w) 1,000 mls @ 0 mls/hr IV .Q0M PRN; As Directed PRN Reason: Hypoglycemia Insulin Glargine 40 units/ (Miscellaneous Medication) 0.4 mls @ 0 mls/hr SC [facility] Last Admin: 12/29/17 20:40 Dose: 0.4 mls Insulin Human Lispro (Humalog) 0 units SC .MODERATE SLIDING SC PRN PRN Reason: Moderate Correctional Scale Last Admin: 12/29/17 17:32 Dose: 6 unit Insulin Human Lispro (Humalog) 0 units SC .BEDTIME SLIDING SC PRN PRN Reason: Bedtime Correctional Scale Last Admin: 12/29/17 20:39 Dose: 2 unit Metolazone (Zaroxolyn) 5 mg PO 0830 [facility] Last Admin: 12/30/17 08:21 Dose: 5 mg Miscellaneous Medication (Pharmacy To Dose) 0 each PO PRN PRN PRN Reason: WARFARIN Pharmacy to Dose Enbrel 50mg Inj 1 each SC Q7D@1400 [facility] Last Admin: 12/27/17 12:57 Dose: 1 each Polyethylene Glycol (Miralax) 17 gm PO DAILY PRN PRN Reason: CONSTIPATION Prednisone (Prednisone) 5 mg PO QAM-WM [facility] Last Admin: 12/30/17 08:21 Dose: 5 mg Pregabalin (Lyrica) 50 mg PO [facility] Last Admin: 12/29/17 20:35 Dose: 50 mg Warfarin Sodium (Coumadin) 7.5 mg PO 1700 [facility] Last Admin: 12/29/17 17:15 Dose: 7.5 mg
[2017-12-30] MEDS: HumaLOG 300 UNITS/3 ML VIAL SC PRN ×3 (11:56→21:14)
--- NOTE | 2017-12-30 15:06 | PRG ---
DATE OF SERVICE: 12/30/2017 SUBJECTIVE: Mr. Hull is doing well. He had a good diuresis yesterday minus 3 liters. He is diures ing well and not short of breath. PHYSICAL EXAMINATION: VITAL SIGNS: Blood pressure is high now 160/76, pulse 60, it is regular, sinus. LUNGS: Clear. CARDIAC: Normal S1 and normal S2. ABDOMEN: Soft and nontender. EXTREMITIES: Only moderate edema. IMAGING DATA: Echocardiogram showed ejection fraction is improved up to 50%-55%. There is moderate to severe aortic stenosis. ASSESSMENT: 1. Congestive heart failure, systolic, improved. The ejection fraction has improved dramatically. I think most of the left ventricular dysfunction was due to the prolonged tachycardia. 2. Atrial fibrillation, paroxysmal, maintaining sinus rhythm. 3. Atrial flutter, status post ablation by Dr. Lynn, thought he was at high risk of recurrence of ot her types of flutter or other flutter rhythms. PLAN: 1. Continue diuresis. 2. Probably home this weekend. 3. Ultimately, we will need further attention to his aortic valve. This will need to be monitored a t some point we will need valve replacement. 4. We will start losartan tomorrow to help with blood pressure.
[2017-12-30] MEDS: Warfarin Sodium 7.5 MG TAB PO SCH (17:06)
--- NOTE | 2017-12-30 17:37 | PRG ---
ELECTROPHYSIOLOGY FOLLOWUP NOTE DATE OF SERVICE: 12/30/2017 Yessi Cassidy, Nurse Practitioner dictating as scribe for Dr. Jaleel Lynn. SUBJECTIVE: Mr. Hull continues to do well now 3 days after his atrial flutter ablation. He does no t have any bleeding issues that of venous groin access sites. He has not had any heart racing, palpi tations, chest pain or pressure, syncope, near syncope, stroke like symptoms. His shortness of breat h is resolving, but he continues to have swelling in the extremities. He is maintaining a sinus rhyt hm with his rates slowly trending down into a bradycardic ranges. OBJECTIVE: VITAL SIGNS: Most recent vital signs, temperature 97.8, heart rate is 58, respirations 18, oxygen is 94% on room air, and blood pressure 170/77. GENERAL: He is alert and oriented. He is resting comfortably in bed. HEENT: He is normocephalic, atraumatic. NECK: Supple without jugular venous distention. LUNGS: Coarse throughout, but without wheezes, crackles or rhonchi bilaterally. Respirations are ev en and unlabored, while recumbent. HEART: Rate is regularly regular. PMI is nondisplaced. EXTREMITIES: Warm and dry to touch without clubbing or cyanosis. 2+ pitting edema is noted bilatera l lower extremities. ABDOMEN: Soft, nontender without palpable masses or positive bowel sounds noted throughout. Hepatoj ugular reflex is negative. NEUROLOGIC: Grossly intact and nonfocal. DATABASE: Review of telemetry reveals largely sinus rhythm with occasional ectopic beats as well as intermittent episodes of sinus bradycardia. IMPRESSION: 1. Atrial flutter, status post CTI ablation 3 days prior. 2. Persistent atrial fibrillation, now in sinus rhythm, on continued amiodarone taper. Now having s ome asymptomatic bradycardia. 3. Oral anticoagulation on Coumadin with a target INR of 2-3. 4. Newly found congestive heart failure with a severely reduced left ventricular ejection fraction, on medical management. 5. Severe aortic stenosis as per Dr. Mora. RECOMMENDATIONS: 1. Regarding his atrial arrhythmias, continue on amiodarone, but given the new bradycardia that is a symptomatic. We will reduce the amiodarone to 200 mg daily. 2. Continue amiodarone indefinitely for stroke prophylaxis in the setting of paroxysmal atrial arrhy thmias. 3. Since the increase in ventricular arrhythmias and we will consider LifeVest, although amiodarone does offer some protection from his ventricular arrhythmias. Recommend an outpatient followup in 3 [facility] for repeat 2-dimensional echocardiogram for further ICD evaluation at that time.
[2017-12-30] MEDS ORDERED: Furosemide 40 MG/4 ML VIAL SLOW IVP SCH (18:00)
[2017-12-30] MEDS ORDERED: Potassium Chloride 20 MEQ TAB PO SCH (18:00)
[2017-12-30] MEDS: Atorvastatin Calcium 40 MG TAB PO SCH (21:11)
[2017-12-30] MEDS: Pregabalin 50 MG CAP PO SCH (21:12)
[2017-12-30] MEDS: Insulin Glargine 40 UNITS in Pre-Filled Syringe 1 EACH SC SCH (21:13)
[2017-12-31] MEDS: Furosemide 40 MG/4 ML VIAL SLOW IVP SCH ×2 (05:17→14:13)
[2017-12-31 05:32] LABS: INR-International Normal Ratio 1.9; Prothrombin Time 22.1 SEC (12.0-14.7)
[2017-12-31 05:51] LABS: Anion Gap 15 mmol/L (10-20); BUN (Urea Nitrogen) 16 mg/dL (8.4-25.7); Calc. Creatinine Clearance 115 mL/min (70-130); Calcium 9.7 mg/dL (7.8-10.44); Carbon Dioxide 30 mmol/L (23-31); Chloride 92 mmol/L (98-107); Estimated GFR-MDRD 69; Glucose 145 mg/dL (83-110); Potassium 3.3 mmol/L (3.5-5.1); Sodium 134 mmol/L (136-145)
[2017-12-31] MEDS ORDERED: Potassium Chloride 20 MEQ TAB PO SCH (06:45)
[2017-12-31] MEDS: Amiodarone 200 MG TAB PO SCH (08:43)
[2017-12-31] MEDS: Carvedilol 6.25 MG TAB PO SCH ×2 (08:43→16:07)
[2017-12-31] MEDS: predniSONE 5 MG TAB PO SCH (08:43)
[2017-12-31] MEDS: Folic Acid 1 MG TAB PO SCH (08:44)
[2017-12-31] MEDS: Gabapentin 100 MG CAP PO SCH (08:44)
[2017-12-31] MEDS: Hydroxychloroquine Sulfate 200 MG TAB PO SCH ×2 (08:44→20:35)
[2017-12-31] MEDS: Famotidine 20 MG TAB PO SCH ×2 (08:44→20:34)
[2017-12-31] MEDS: Metolazone 5 MG TAB PO SCH (08:44)
[2017-12-31] MEDS ORDERED: Losartan 25 MG TAB PO SCH (09:00)
--- NOTE | 2017-12-31 11:53 | PDOC.PN ---
- Subjective Encounter Start Date: 12/31/17 Encounter Start Time: 07:20 Patient seen and examined. No new complaints. No overnight events - Objective Resuscitation Status: Resuscitation Status FULL:Full Resuscitation MAR Reviewed: Yes Vital Signs & Weight: Vital Signs (12 hours) Temp Pulse Pulse Pulse Resp BP BP 12/31/17 09:01 63 61 181/81 H 179/92 H 12/31/17 08:38 97.7 F 62 17 12/31/17 04:00 98.2 F 55 L 20 12/31/17 00:00 97.6 F 51 L 20 BP BP Pulse Ox Pulse Ox Pulse Ox 12/31/17 09:01 95 97 12/31/17 08:38 171/79 H 94 L 12/31/17 04:00 134/87 94 L 12/31/17 00:00 144/65 H 96 Weight Admit Weight 295 lb 14.4 oz Weight 298 lb 14.4 oz I&O: 12/30/17 12/31/17 01/01/18 06:59 06:59 06:59 Intake Total 1200 1440 Output Total 4250 5250 Balance -3050 -3810 Result Diagrams: 12/27/17 04:26 12/31/17 04:43 Additional Labs: Accuchecks 12/31/17 12/30/17 12/30/17 06:02 20:47 16:33 POC Glucose 149 H 260 H 177 H EKG Reviewed by me: Yes (nsr) Phys Exam - Physical Examination Constitutional: NAD HEENT: PERRLA, moist MMs, sclera anicteric Neck: no JVD, supple Respiratory: no wheezing, no rales, no rhonchi Cardiovascular: RRR, no rub SM+ Gastrointestinal: soft, non-tender, no distention, positive bowel sounds obesity+ Musculoskeletal: pulses present, edema present Neurological: non-focal, normal sensation, moves all 4 limbs Lymphatic: no nodes Psychiatric: normal affect, A&O x 3 Skin: no rash, normal turgor Dx/Plan (1) 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 Code(s): I50.23 - ACUTE ON CHRONIC SYSTOLIC (CONGESTIVE) HEART FAILURE Status : Acute (2) Atrial fibrillation with RVR Code(s): I48.91 - UNSPECIFIED ATRIAL FIBRILLATION Status: Acute Comment: s/ p cardioversion and ablation, now in nsr (3) Demand ischemia of myocardium Code(s): I24.8 - OTHER FORMS OF ACUTE ISCHEMIC HEART DISEASE Status: Acute (4) Chronic anticoagulation Code(s): Z79.01 - COLD MEAT CHEF (CURRENT) USE OF ANTICOAGULANTS Status: Chronic (5) DM type 2 (diabetes mellitus, type 2) Status: Chronic Qualifiers: Diabetes mellitus penitentiary insulin use: with penitentiary use Diabetes mellitus complication status: with unspecified complications Qualified Code(s) : E11.8 - Type 2 diabetes mellitus with unspecified complications; Z79.4 - 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 (current) use of insulin; Z79.4 - USP (current) use of insulin; Z79.4 - 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 (current) use of insulin; Z79.4 - 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 (current) use of insulin (6) Dyslipidemia Code(s): E78.5 - HYPERLIPIDEMIA, UNSPECIFIED Status: Chronic (7) HTN (hypertension) Code(s): I10 - ESSENTIAL (PRIMARY) HYPERTENSION Status: Chronic Qualifiers: Hypertension type: essential hypertension Qualified Code(s): I10 - Essential (primary) hypertension (8) Morbid obesity with BMI of 40.0-44.9, adult Code(s): E66.01 - MORBID (SEVERE) OBESITY DUE TO EXCESS CALORIES; Z68.41 - BODY MASS INDEX (BMI) 40.0-44.9, ADULT Status: Chronic (9) JAMIN on CPAP Code(s): G47.33 - OBSTRUCTIVE SLEEP APNEA (ADULT) (PEDIATRIC); Z99.89 - 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 Review of Systems - Review of Systems Eyes: negative: Pain, Vision Change, Conjunctivae Inflammation, Eyelid Inflammation, Redness, Other ENT: negative: Ear Pain, Ear Discharge, Nose Pain, Nose Discharge, Nose Congestion, Mouth Pain, Mouth Swelling, Throat Pain, Throat Swelling, Other Respiratory: negative: Cough, Dry, Shortness of Breath, Hemoptysis, SOB with Excertion, Pleuritic Pain, Sputum, Wheezing Cardiovascular: edema. negative: chest pain, palpitations, orthopnea, paroxysmal nocturnal dyspnea, light headedness, other Gastrointestinal: negative: Nausea, Vomiting, Abdominal Pain, Diarrhea, Constipation, Melena, Hematochezia, Other Genitourinary: negative: Dysuria, Frequency, Incontinence, Hematuria, Retention , Other Musculoskeletal: negative: Neck Pain, Shoulder Pain, Arm Pain, Back Pain, Hand Pain, Leg Pain, Foot Pain, Other Skin: negative: Rash, Lesions, Efra, Bruising, Other - Medications/Allergies Allergies/Adverse Reactions: Allergies Allergy/AdvReac Type Severity Reaction Status Date / Time No Known Allergies Allergy Verified 12/24/17 00:48 Medications: Current Medications Acetaminophen (Tylenol) 650 mg PO Q4H PRN PRN Reason: Headache/Fever or Pain Acetaminophen/Codeine Phosphate (Tylenol #3) 1 tab PO Q4H PRN PRN Reason: Mild Pain (1-3) Acetaminophen/Codeine Phosphate (Tylenol #3) 2 tab PO Q4H PRN PRN Reason: Moderate Pain (4-6) Amiodarone HCl (Cordarone) 400 mg PO BID [facility] Last Admin: 12/31/17 08:43 Dose: 400 mg Aspirin (Aspirin Chewable) 81 mg PO DAILY [facility] Last Admin: 12/31/17 08:43 Dose: 81 mg Atorvastatin Calcium (Lipitor) 40 mg PO HS [facility] Last Admin: 12/30/17 21:11 Dose: 40 mg Carvedilol (Coreg) 6.25 mg PO BID-WM [facility] Last Admin: 12/31/17 08:43 Dose: 6.25 mg Dextrose/Water (Dextrose 50%) 25 gm SLOW IVP PRN PRN PRN Reason: Hypoglycemia Famotidine (Pepcid) 20 mg PO BID [facility] Last Admin: 12/31/17 08:44 Dose: 20 mg Folic Acid (Folvite) 1 mg PO DAILY [facility] Last Admin: 12/31/17 08:44 Dose: 1 mg Furosemide (Lasix) 40 mg SLOW IVP 0600,1400 [facility] Last Admin: 12/31/17 05:17 Dose: 40 mg Gabapentin (Neurontin) 100 mg PO DAILY [facility] Last Admin: 12/31/17 08:44 Dose: 100 mg Glucagon (Glucagon) 1 mg IM PRN PRN PRN Reason: Hypoglycemia Hydroxychloroquine Sulfate (Plaquenil) 200 mg PO BID [facility] Last Admin: 12/31/17 08:44 Dose: 200 mg Dextrose/Water (D5w) 1,000 mls @ 0 mls/hr IV .Q0M PRN; As Directed PRN Reason: Hypoglycemia Insulin Glargine 40 units/ (Miscellaneous Medication) 0.4 mls @ 0 mls/hr SC [facility] Last Admin: 12/30/17 21:13 Dose: 0.4 mls Insulin Human Lispro (Humalog) 0 units SC .MODERATE SLIDING SC PRN PRN Reason: Moderate Correctional Scale Last Admin: 12/30/17 17:07 Dose: 2 unit Insulin Human Lispro (Humalog) 0 units SC .BEDTIME SLIDING SC PRN PRN Reason: Bedtime Correctional Scale Last Admin: 12/30/17 21:14 Dose: 3 unit Losartan Potassium (Cozaar) 50 mg PO DAILY [facility] Last Admin: 12/31/17 08:42 Dose: 50 mg Metolazone (Zaroxolyn) 5 mg PO 0830 [facility] Last Admin: 12/31/17 08:44 Dose: 5 mg Miscellaneous Medication (Pharmacy To Dose) 0 each PO PRN PRN PRN Reason: WARFARIN Pharmacy to Dose Enbrel 50mg Inj 1 each SC Q7D@1400 [facility] Last Admin: 12/27/17 12:57 Dose: 1 each Polyethylene Glycol (Miralax) 17 gm PO DAILY PRN PRN Reason: CONSTIPATION Prednisone (Prednisone) 5 mg PO QAM-WM [facility] Last Admin: 12/31/17 08:43 Dose: 5 mg Pregabalin (Lyrica) 50 mg PO [facility] Last Admin: 12/30/17 21:12 Dose: 50 mg Warfarin Sodium (Coumadin) 7.5 mg PO 1700 [facility] Last Admin: 12/30/17 17:06 Dose: 7.5 mg
[2017-12-31] MEDS: HumaLOG 300 UNITS/3 ML VIAL SC PRN ×2 (12:12→20:39)
[2017-12-31] MEDS: Warfarin Sodium 7.5 MG TAB PO SCH (16:09)
[2017-12-31] MEDS ORDERED: Magnesium Sulfate 2 GM in Sodium Chloride 0.9% 100 ML IVPB SCH (16:30)
[2017-12-31] MEDS: Losartan 25 MG TAB PO SCH (20:31)
[2017-12-31] MEDS: Pregabalin 50 MG CAP PO SCH (20:32)
[2017-12-31] MEDS: Atorvastatin Calcium 40 MG TAB PO SCH (20:34)
[2017-12-31] MEDS: Insulin Glargine 40 UNITS in Pre-Filled Syringe 1 EACH SC SCH (20:36)
[2018-01-01 05:15] LABS: INR-International Normal Ratio 2.3; Prothrombin Time 25.1 SEC (12.0-14.7)
[2018-01-01 05:37] LABS: Anion Gap 15 mmol/L (10-20); BUN (Urea Nitrogen) 24 mg/dL (8.4-25.7); Calc. Creatinine Clearance 93 mL/min (70-130); Calcium 9.4 mg/dL (7.8-10.44); Carbon Dioxide 30 mmol/L (23-31); Chloride 90 mmol/L (98-107); Estimated GFR-MDRD 54; Glucose 149 mg/dL (83-110); Potassium 3.2 mmol/L (3.5-5.1); Sodium 132 mmol/L (136-145)
[2018-01-01] MEDS: Furosemide 40 MG/4 ML VIAL SLOW IVP SCH ×2 (05:39→15:24)
[2018-01-01] MEDS ORDERED: Potassium Chloride 20 MEQ TAB PO SCH (06:45)
[2018-01-01] MEDS: Carvedilol 6.25 MG TAB PO SCH ×2 (08:11→16:54)
[2018-01-01] MEDS: Famotidine 20 MG TAB PO SCH ×2 (08:11→20:55)
[2018-01-01] MEDS: Metolazone 5 MG TAB PO SCH (08:11)
[2018-01-01] MEDS: predniSONE 5 MG TAB PO SCH (08:11)
[2018-01-01] MEDS: Losartan 25 MG TAB PO SCH ×2 (08:12→20:55)
[2018-01-01] MEDS: Gabapentin 100 MG CAP PO SCH (08:12)
[2018-01-01] MEDS: Hydroxychloroquine Sulfate 200 MG TAB PO SCH ×2 (08:12→20:57)
[2018-01-01] MEDS: Folic Acid 1 MG TAB PO SCH (08:12)
--- NOTE | 2018-01-01 08:50 | PDOC.PN ---
- Subjective Encounter Start Date: 01/01/18 Encounter Start Time: 07:20 yesterday pt has multifocal VT, pt was asymtpmatic, magnesium was given, today monitor is OK, last night also has multifocal VT, amiodaron and plaquanil stopped - Objective Resuscitation Status: Resuscitation Status FULL:Full Resuscitation MAR Reviewed: Yes Vital Signs & Weight: Vital Signs (12 hours) Temp Pulse Resp BP BP Pulse Ox 01/01/18 08:07 97.4 F L 56 L 17 136/61 96 01/01/18 04:00 97.6 F 76 18 139/63 96 01/01/18 00:00 97.1 F L 53 L 18 120/80 96 Weight Admit Weight 295 lb 14.4 oz Weight 288 lb 12.8 oz I&O: 12/31/17 01/01/18 01/02/18 06:59 06:59 06:59 Intake Total 1440 1520 Output Total 5250 2550 Balance -3810 -1030 Result Diagrams: 12/27/17 04:26 01/01/18 04:29 Additional Labs: Accuchecks 01/01/18 12/31/17 12/31/17 05:45 20:33 17:17 POC Glucose 148 H 280 H 179 H 12/31/17 10:34 POC Glucose 206 H EKG Reviewed by me: Yes (multifocal VT) Phys Exam - Physical Examination Constitutional: NAD HEENT: PERRLA, moist MMs, sclera anicteric Neck: no JVD, supple Respiratory: no wheezing, no rales, no rhonchi Cardiovascular: RRR, no significant murmur, no rub Gastrointestinal: soft, non-tender, no distention, positive bowel sounds obesity+ Musculoskeletal: pulses present, edema present dressing+ Neurological: non-focal, normal sensation, moves all 4 limbs Lymphatic: no nodes Psychiatric: normal affect, A&O x 3 Skin: no rash, normal turgor Dx/Plan (1) 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 Code(s): I50.23 - ACUTE ON CHRONIC SYSTOLIC (CONGESTIVE) HEART FAILURE Status : Acute (2) Atrial fibrillation with RVR Code(s): I48.91 - UNSPECIFIED ATRIAL FIBRILLATION Status: Acute Comment: s/ p cardioversion and ablation, now in nsr (3) Demand ischemia of myocardium Code(s): I24.8 - OTHER FORMS OF ACUTE ISCHEMIC HEART DISEASE Status: Acute (4) Chronic anticoagulation Code(s): 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 Status: Chronic (5) DM type 2 (diabetes mellitus, type 2) Status: Chronic Qualifiers: 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 Diabetes mellitus complication status: with unspecified complications Qualified Code(s) : E11.8 - Type 2 diabetes mellitus with unspecified complications; Z79.4 - assisted (current) use of insulin; Z79.4 - assisted (current) use of insulin; Z79.4 - assisted (current) use of insulin; Z79.4 - roasterman (current) use of insulin (6) Dyslipidemia Code(s): E78.5 - HYPERLIPIDEMIA, UNSPECIFIED Status: Chronic (7) HTN (hypertension) Code(s): I10 - ESSENTIAL (PRIMARY) HYPERTENSION Status: Chronic Qualifiers: Hypertension type: essential hypertension Qualified Code(s): I10 - Essential (primary) hypertension (8) Morbid obesity with BMI of 40.0-44.9, adult Code(s): E66.01 - MORBID (SEVERE) OBESITY DUE TO EXCESS CALORIES; Z68.41 - BODY MASS INDEX (BMI) 40.0-44.9, ADULT Status: Chronic (9) JAMIN on CPAP Code(s): G47.33 - OBSTRUCTIVE SLEEP APNEA (ADULT) (PEDIATRIC); Z99.89 - DEPENDENCE ON OTHER ENABLING MACHINES AND DEVICES Status: Chronic (10) Moderate aortic stenosis Code(s): I35.0 - NONRHEUMATIC AORTIC (VALVE) STENOSIS Status: Chronic (11) Rheumatoid arthritis Code(s): M06.9 - RHEUMATOID ARTHRITIS, UNSPECIFIED Status: Chronic (12) Tachycardia induced cardiomyopathy Code(s): R00.0 - TACHYCARDIA, UNSPECIFIED; I43 - CARDIOMYOPATHY IN DISEASES CLASSIFIED ELSEWHERE Status: Resolved (13) Ventricular tachycardia, polymorphic Code(s): I47.2 - VENTRICULAR TACHYCARDIA Status: Acute - Plan cont current plan of care * will monitor on tele for his multifocal VT * cardiology following * he is not ready for discharge yet * continue diuresis * replace potassium * medication reviewed as below * symptomatic treatment. Review of Systems - Review of Systems Eyes: negative: Pain, Vision Change, Conjunctivae Inflammation, Eyelid Inflammation, Redness, Other ENT: negative: Ear Pain, Ear Discharge, Nose Pain, Nose Discharge, Nose Congestion, Mouth Pain, Mouth Swelling, Throat Pain, Throat Swelling, Other Respiratory: negative: Cough, Dry, Shortness of Breath, Hemoptysis, SOB with Excertion, Pleuritic Pain, Sputum, Wheezing Cardiovascular: negative: chest pain, palpitations, orthopnea, paroxysmal nocturnal dyspnea, edema, light headedness, other Gastrointestinal: negative: Nausea, Vomiting, Abdominal Pain, Diarrhea, Constipation, Melena, Hematochezia, Other Genitourinary: negative: Dysuria, Frequency, Incontinence, Hematuria, Retention , Other Musculoskeletal: negative: Neck Pain, Shoulder Pain, Arm Pain, Back Pain, Hand Pain, Leg Pain, Foot Pain, Other Skin: negative: Rash, Lesions, Efra, Bruising, Other - Medications/Allergies Allergies/Adverse Reactions: Allergies Allergy/AdvReac Type Severity Reaction Status Date / Time No Known Allergies Allergy Verified 12/24/17 00:48 Medications: Current Medications Acetaminophen (Tylenol) 650 mg PO Q4H PRN PRN Reason: Headache/Fever or Pain Acetaminophen/Codeine Phosphate (Tylenol #3) 1 tab PO Q4H PRN PRN Reason: Mild Pain (1-3) Acetaminophen/Codeine Phosphate (Tylenol #3) 2 tab PO Q4H PRN PRN Reason: Moderate Pain (4-6) Aspirin (Aspirin Chewable) 81 mg PO DAILY [facility] Last Admin: 01/01/18 08:11 Dose: 81 mg Atorvastatin Calcium (Lipitor) 40 mg PO [facility] Last Admin: 12/31/17 20:34 Dose: 40 mg Carvedilol (Coreg) 6.25 mg PO BID-[facility] Last Admin: 01/01/18 08:11 Dose: 6.25 mg Dextrose/Water (Dextrose 50%) 25 gm SLOW IVP PRN PRN PRN Reason: Hypoglycemia Famotidine (Pepcid) 20 mg PO BID [facility] Last Admin: 01/01/18 08:11 Dose: 20 mg Folic Acid (Folvite) 1 mg PO DAILY [facility] Last Admin: 01/01/18 08:12 Dose: 1 mg Furosemide (Lasix) 40 mg SLOW IVP 0600,1400 [facility] Last Admin: 01/01/18 05:39 Dose: 40 mg Gabapentin (Neurontin) 100 mg PO DAILY [facility] Last Admin: 01/01/18 08:12 Dose: 100 mg Glucagon (Glucagon) 1 mg IM PRN PRN PRN Reason: Hypoglycemia Hydroxychloroquine Sulfate (Plaquenil) 200 mg PO BID [facility] Last Admin: 01/01/18 08:12 Dose: Not Given Dextrose/Water (D5w) 1,000 mls @ 0 mls/hr IV .Q0M PRN; As Directed PRN Reason: Hypoglycemia Insulin Glargine 40 units/ (Miscellaneous Medication) 0.4 mls @ 0 mls/hr SC [facility] Last Admin: 12/31/17 20:36 Dose: 0.4 mls Insulin Human Lispro (Humalog) 0 units SC .MODERATE SLIDING SC PRN PRN Reason: Moderate Correctional Scale Last Admin: 12/31/17 12:12 Dose: 4 unit Insulin Human Lispro (Humalog) 0 units SC .BEDTIME SLIDING SC PRN PRN Reason: Bedtime Correctional Scale Last Admin: 12/31/17 20:39 Dose: 3 unit Losartan Potassium (Cozaar) 50 mg PO BID [facility] Last Admin: 01/01/18 08:12 Dose: 50 mg Metolazone (Zaroxolyn) 5 mg PO 0830 [facility] Last Admin: 01/01/18 08:11 Dose: 5 mg Miscellaneous Medication (Pharmacy To Dose) 0 each PO PRN PRN PRN Reason: WARFARIN Pharmacy to Dose Enbrel 50mg Inj 1 each SC Q7D@1400 [facility] Last Admin: 12/27/17 12:57 Dose: 1 each Polyethylene Glycol (Miralax) 17 gm PO DAILY PRN PRN Reason: CONSTIPATION Prednisone (Prednisone) 5 mg PO QAM-WM [facility] Last Admin: 01/01/18 08:11 Dose: 5 mg Pregabalin (Lyrica) 50 mg PO [facility] Last Admin: 12/31/17 20:32 Dose: 50 mg Warfarin Sodium (Coumadin) 7.5 mg PO 1700 [facility] Last Admin: 12/31/17 16:09 Dose: 7.5 mg
[2018-01-01] MEDS: HumaLOG 300 UNITS/3 ML VIAL SC PRN ×2 (12:46→20:53)
[2018-01-01] MEDS: Warfarin Sodium 7.5 MG TAB PO SCH (16:54)
[2018-01-01] MEDS: Insulin Glargine 40 UNITS in Pre-Filled Syringe 1 EACH SC SCH (20:53)
[2018-01-01] MEDS: Pregabalin 50 MG CAP PO SCH (20:56)
[2018-01-01] MEDS: Atorvastatin Calcium 40 MG TAB PO SCH (20:56)
[2018-01-02 05:10] LABS: INR-International Normal Ratio 2.3; Prothrombin Time 25.5 SEC (12.0-14.7)
[2018-01-02 05:19] LABS: Anion Gap 15 mmol/L (10-20); BUN (Urea Nitrogen) 31 mg/dL (8.4-25.7); Calc. Creatinine Clearance 75 mL/min (70-130); Calcium 9.9 mg/dL (7.8-10.44); Carbon Dioxide 36 mmol/L (23-31); Chloride 91 mmol/L (98-107); Estimated GFR-MDRD 44; Glucose 144 mg/dL (83-110); Potassium 3.5 mmol/L (3.5-5.1); Sodium 138 mmol/L (136-145)
[2018-01-02] MEDS: Furosemide 40 MG/4 ML VIAL SLOW IVP SCH (05:23)
[2018-01-02] MEDS: predniSONE 5 MG TAB PO SCH (08:41)
[2018-01-02] MEDS: Carvedilol 6.25 MG TAB PO SCH ×2 (08:41→17:17)
[2018-01-02] MEDS: Famotidine 20 MG TAB PO SCH ×2 (08:42→20:59)
[2018-01-02] MEDS: Gabapentin 100 MG CAP PO SCH (08:42)
[2018-01-02] MEDS: Folic Acid 1 MG TAB PO SCH (08:42)
[2018-01-02] MEDS: Losartan 25 MG TAB PO SCH ×2 (08:42→20:59)
[2018-01-02] MEDS: Hydroxychloroquine Sulfate 200 MG TAB PO SCH ×2 (08:43→21:00)
[2018-01-02] MEDS: Acetaminophen 325 MG TAB PO PRN (08:43)
--- NOTE | 2018-01-02 09:51 | PDOC.PN ---
- Subjective Encounter Start Date: 01/02/18 Encounter Start Time: 07:20 Patient seen and examined. No new complaints. No overnight events - Objective Resuscitation Status: Resuscitation Status FULL:Full Resuscitation MAR Reviewed: Yes Vital Signs & Weight: Vital Signs (12 hours) Temp Pulse Resp BP BP Pulse Ox 01/02/18 08:46 97.7 F 69 18 110/58 L 98 01/02/18 04:00 98 F 64 13 127/60 95 01/01/18 23:43 97.9 F 54 L 13 147/65 H 97 Weight Admit Weight 295 lb 14.4 oz Weight 288 lb 12.8 oz I&O: 01/01/18 01/02/18 01/03/18 06:59 06:59 06:59 Intake Total 1520 1680 Output Total 2550 2375 Balance -1030 -835 Result Diagrams: 12/27/17 04:26 01/02/18 04:28 Additional Labs: Accuchecks 01/02/18 01/01/18 01/01/18 05:57 20:43 16:54 POC Glucose 177 H 286 H 199 H 01/01/18 10:58 POC Glucose 213 H EKG Reviewed by me: Yes Phys Exam - Physical Examination Constitutional: NAD HEENT: PERRLA, moist MMs, sclera anicteric Neck: no JVD, supple Respiratory: no wheezing, no rales, no rhonchi Cardiovascular: RRR, no rub SM+ Gastrointestinal: soft, non-tender, no distention, positive bowel sounds obesity+ Musculoskeletal: no edema, pulses present dressing + Neurological: non-focal, normal sensation Psychiatric: normal affect, A&O x 3 Skin: no rash, normal turgor Dx/Plan (1) 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 Code(s): I50.23 - ACUTE ON CHRONIC SYSTOLIC (CONGESTIVE) HEART FAILURE Status : Acute (2) Atrial fibrillation with RVR Code(s): I48.91 - UNSPECIFIED ATRIAL FIBRILLATION Status: Acute Comment: s/ p cardioversion and ablation, now in nsr (3) Demand ischemia of myocardium Code(s): I24.8 - OTHER FORMS OF ACUTE ISCHEMIC HEART DISEASE Status: Acute (4) Chronic anticoagulation Code(s): Z79.01 - LONGTERM (CURRENT) USE OF ANTICOAGULANTS Status: Chronic (5) DM type 2 (diabetes mellitus, type 2) Status: Chronic Qualifiers: Diabetes mellitus emt intermediate insulin use: with emt intermediate use Diabetes mellitus complication status: with unspecified complications Qualified Code(s) : E11.8 - Type 2 diabetes mellitus with unspecified complications; Z79.4 - alf (current) use of insulin; Z79.4 - alf (current) use of insulin; 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; Z79.4 - alf (current) use of insulin (6) Dyslipidemia Code(s): E78.5 - HYPERLIPIDEMIA, UNSPECIFIED Status: Chronic (7) HTN (hypertension) Code(s): I10 - ESSENTIAL (PRIMARY) HYPERTENSION Status: Chronic Qualifiers: Hypertension type: essential hypertension Qualified Code(s): I10 - Essential (primary) hypertension (8) Morbid obesity with BMI of 40.0-44.9, adult Code(s): E66.01 - MORBID (SEVERE) OBESITY DUE TO EXCESS CALORIES; Z68.41 - BODY MASS INDEX (BMI) 40.0-44.9, ADULT Status: Chronic (9) JAMIN on CPAP Code(s): G47.33 - OBSTRUCTIVE SLEEP APNEA (ADULT) (PEDIATRIC); Z99.89 - DEPENDENCE ON OTHER ENABLING MACHINES AND DEVICES Status: Chronic (10) Moderate aortic stenosis Code(s): I35.0 - NONRHEUMATIC AORTIC (VALVE) STENOSIS Status: Chronic (11) Rheumatoid arthritis Code(s): M06.9 - RHEUMATOID ARTHRITIS, UNSPECIFIED Status: Chronic (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 Review of Systems - Review of Systems Eyes: negative: Pain, Vision Change, Conjunctivae Inflammation, Eyelid Inflammation, Redness, Other ENT: negative: Ear Pain, Ear Discharge, Nose Pain, Nose Discharge, Nose Congestion, Mouth Pain, Mouth Swelling, Throat Pain, Throat Swelling, Other Respiratory: negative: Cough, Dry, Shortness of Breath, Hemoptysis, SOB with Excertion, Pleuritic Pain, Sputum, Wheezing Cardiovascular: negative: chest pain, palpitations, orthopnea, paroxysmal nocturnal dyspnea, edema, light headedness, other Gastrointestinal: negative: Nausea, Vomiting, Abdominal Pain, Diarrhea, Constipation, Melena, Hematochezia, Other Genitourinary: negative: Dysuria, Frequency, Incontinence, Hematuria, Retention , Other Musculoskeletal: negative: Neck Pain, Shoulder Pain, Arm Pain, Back Pain, Hand Pain, Leg Pain, Foot Pain, Other Skin: negative: Rash, Lesions, Efra, Bruising, Other - Medications/Allergies Allergies/Adverse Reactions: Allergies Allergy/AdvReac Type Severity Reaction Status Date / Time No Known Allergies Allergy Verified 12/24/17 00:48 Medications: Current Medications Acetaminophen (Tylenol) 650 mg PO Q4H PRN PRN Reason: Headache/Fever or Pain Last Admin: 01/02/18 08:43 Dose: 650 mg Acetaminophen/Codeine Phosphate (Tylenol #3) 1 tab PO Q4H PRN PRN Reason: Mild Pain (1-3) Acetaminophen/Codeine Phosphate (Tylenol #3) 2 tab PO Q4H PRN PRN Reason: Moderate Pain (4-6) Aspirin (Aspirin Chewable) 81 mg PO DAILY [facility] Last Admin: 01/02/18 08:41 Dose: 81 mg Atorvastatin Calcium (Lipitor) 40 mg PO HS [facility] Last Admin: 01/01/18 20:56 Dose: 40 mg Carvedilol (Coreg) 6.25 mg PO BID-[facility] Last Admin: 01/02/18 08:41 Dose: 6.25 mg Dextrose/Water (Dextrose 50%) 25 gm SLOW IVP PRN PRN PRN Reason: Hypoglycemia Famotidine (Pepcid) 20 mg PO BID [facility] Last Admin: 01/02/18 08:42 Dose: 20 mg Folic Acid (Folvite) 1 mg PO DAILY [facility] Last Admin: 01/02/18 08:42 Dose: 1 mg Gabapentin (Neurontin) 100 mg PO DAILY [facility] Last Admin: 01/02/18 08:42 Dose: 100 mg Glucagon (Glucagon) 1 mg IM PRN PRN PRN Reason: Hypoglycemia Hydroxychloroquine Sulfate (Plaquenil) 200 mg PO BID [facility] Last Admin: 01/02/18 08:43 Dose: Not Given Dextrose/Water (D5w) 1,000 mls @ 0 mls/hr IV .Q0M PRN; As Directed PRN Reason: Hypoglycemia Insulin Glargine 40 units/ (Miscellaneous Medication) 0.4 mls @ 0 mls/hr SC [facility] Last Admin: 01/01/18 20:53 Dose: 0.4 mls Insulin Human Lispro (Humalog) 0 units SC .MODERATE SLIDING SC PRN PRN Reason: Moderate Correctional Scale Last Admin: 01/01/18 12:46 Dose: 4 unit Insulin Human Lispro (Humalog) 0 units SC .BEDTIME SLIDING SC PRN PRN Reason: Bedtime Correctional Scale Last Admin: 01/01/18 20:53 Dose: 3 unit Latanoprost (Xalatan 0.005% Oph Sol) 1 drop EA [facility] Losartan Potassium (Cozaar) 50 mg PO BID [facility] Last Admin: 01/02/18 08:42 Dose: 50 mg Miscellaneous Medication (Pharmacy To Dose) 0 each PO PRN PRN PRN Reason: WARFARIN Pharmacy to Dose Enbrel 50mg Inj 1 each SC Q7D@1400 [facility] Last Admin: 12/27/17 12:57 Dose: 1 each Polyethylene Glycol (Miralax) 17 gm PO DAILY PRN PRN Reason: CONSTIPATION Potassium Chloride (K-Dur) 40 meq PO 1200 [facility] Stop: 01/02/18 14:00 Potassium Chloride (K-Dur) 40 meq PO 1800 [facility] Stop: 01/02/18 20:00 Prednisone (Prednisone) 5 mg PO QAM-[facility] Last Admin: 01/02/18 08:41 Dose: 5 mg Pregabalin (Lyrica) 50 mg PO [facility] Last Admin: 01/01/18 20:56 Dose: 50 mg
--- NOTE | 2018-01-02 10:06 | PRG ---
DATE OF SERVICE: 01/02/2018 Mr. Hull had several episodes of nonsustained polymorphic V-tach over the weekend. He was taken off of the amiodarone. He is feeling better today. He was also taken off of diuretics this morning. He has no chest pain o r pressure. PHYSICAL EXAMINATION: VITAL SIGNS: Blood pressure 110/58, pulse is 70, it is regular. LUNGS: Clear. CARDIAC: Normal S1 and S2. ABDOMEN: Soft, nontender. EXTREMITIES: Only mild edema. LABORATORY: On reviewing the laboratory, potassium was low when he had the polymorphic ventricular t achycardia. The lowest reported was on the it was 3.2. His creatinine is 1.5. INR is 2.3. ASSESSMENT: 1. Status post atrial flutter ablation. 2. Depressed left ventricular function with subsequent normalization of ejection fraction. 3. Hypertension. 4. Obesity. 5. Polymorphic ventricular tachycardia. 6. Paroxysmal atrial fibrillation. PLAN: The patient will need to undergo cardiac catheterization. It would be best if the patient und erwent a catheterization from the wrist if possible to try to not completely have the anticoagulation reversed. We will discuss with Dr. Reeves. We will also replete potassium at this point. Continue to monitor.
[2018-01-02] MEDS ORDERED: Potassium Chloride 20 MEQ TAB PO SCH ×2 (12:00→18:00)
[2018-01-02] MEDS ORDERED: Methotrexate Sodium 2.5 MG TAB PO SCH (14:00)
--- NOTE | 2018-01-02 17:02 | PDOC.CTH ---
Cardiology Progress Note - Subjective EP FOLLOW UP NOTE. He is feeling fine. - Objective Vital Signs Temp Pulse Pulse Pulse Resp BP BP 01/02/18 15:54 97.5 F L 57 L 20 01/02/18 12:51 97.6 F 60 18 01/02/18 09:27 77 73 115/59 L 120/59 L 01/02/18 08:46 97.7 F 69 18 01/02/18 08:08 97.7 F 69 18 BP BP Pulse Ox Pulse Ox Pulse Ox 01/02/18 15:54 136/62 98 01/02/18 12:51 119/55 L 98 01/02/18 09:27 95 94 L 01/02/18 08:46 110/58 L 98 01/02/18 08:08 Admit Weight 295 lb 14.4 oz Weight 288 lb 12.8 oz 01/01/18 01/02/18 01/03/18 06:59 06:59 06:59 Intake Total 1520 1680 Output Total 2550 2375 Balance -1030 -695 - Physical Examination General/Neuro: alert & oriented x3, NAD, other: Neck: carotid US brisk, no JVD present, other: Lungs: CTA, unlabored respirations, other: Heart: PMI normal, RRR, other: Abdomen: no HSM, NT/ND, soft, other: - Telemetry Telemetry Rhythm: SR. Short run of polymortphic VT yesterday. QT prolonged - Labs Result Diagrams: 12/27/17 04:26 01/03/18 04:13 Troponin/CKMB Troponin I 0.267 ng/mL (< 0.028) H 12/24/17 00:36 - Assessment/Plan A/P: - AFL. Resolved S/P ablation. POD#6. -parox afib. Supressed w amiodarone. Now Off in SR. - Prolonged QT/ early TdP. Possibly related to amiodarone and lower K. Agree with holding amiodarone and correct potassium. -Cardiomyopathy. Severely reduce LVEF. As per Dr Mora. Consider ICD implant if no improvement in 3 months. - Severe . As per Dr Mora. OAC w warfarin: Continue. Attending Addendum - Attending Addendum Date/Time: 01/03/18 1605 I personally evaluated the patient and discussed the management with Ms Cassidy. I agree with the History, Examination, Assessment and Plan documented above with any addition or exceptions noted below.
[2018-01-02] MEDS: HumaLOG 300 UNITS/3 ML VIAL SC PRN (17:21)
[2018-01-02] MEDS: Latanoprost 0.005% Ophth Soln 2.5 ml Bottle EA EYE SCH (20:58)
[2018-01-02] MEDS: Insulin Glargine 40 UNITS in Pre-Filled Syringe 1 EACH SC SCH (20:58)
[2018-01-02] MEDS: Pregabalin 50 MG CAP PO SCH (20:59)
[2018-01-02] MEDS: Atorvastatin Calcium 40 MG TAB PO SCH (20:59)
[2018-01-03 05:09] LABS: INR-International Normal Ratio 2.1; Prothrombin Time 23.9 SEC (12.0-14.7)
[2018-01-03 05:28] LABS: Anion Gap 13 mmol/L (10-20); BUN (Urea Nitrogen) 25 mg/dL (8.4-25.7); Calc. Creatinine Clearance 109 mL/min (70-130); Calcium 9.5 mg/dL (7.8-10.44); Carbon Dioxide 29 mmol/L (23-31); Chloride 96 mmol/L (98-107); Estimated GFR-MDRD 67; Glucose 115 mg/dL (83-110); Potassium 3.3 mmol/L (3.5-5.1); Sodium 135 mmol/L (136-145)
[2018-01-03] MEDS ORDERED: Potassium Chloride 20 MEQ TAB PO SCH (07:15)
[2018-01-03] MEDS: Folic Acid 1 MG TAB PO SCH (09:27)
[2018-01-03] MEDS: Losartan 25 MG TAB PO SCH ×2 (09:27→21:18)
[2018-01-03] MEDS: predniSONE 5 MG TAB PO SCH (09:29)
[2018-01-03] MEDS: Gabapentin 100 MG CAP PO SCH (09:29)
[2018-01-03] MEDS: Famotidine 20 MG TAB PO SCH ×2 (09:29→21:19)
[2018-01-03] MEDS: Carvedilol 6.25 MG TAB PO SCH ×2 (09:30→17:25)
[2018-01-03] MEDS: Hydroxychloroquine Sulfate 200 MG TAB PO SCH (09:30)
--- NOTE | 2018-01-03 10:50 | PDOC.PN ---
- Subjective Encounter Start Date: 01/03/18 Encounter Start Time: 07:40 Patient seen and examined. No new complaints. No overnight events - Objective Resuscitation Status: Resuscitation Status FULL:Full Resuscitation MAR Reviewed: Yes Vital Signs & Weight: Vital Signs (12 hours) Temp Pulse Resp BP BP Pulse Ox 01/03/18 09:30 138/68 01/03/18 07:12 96.1 F L 63 18 138/68 97 01/03/18 04:00 97.6 F 53 L 14 147/67 H 99 Weight Admit Weight 295 lb 14.4 oz Weight 288 lb 12.8 oz I&O: 01/02/18 01/03/18 01/04/18 06:59 06:59 06:59 Intake Total 1680 1637 Output Total 2375 2500 Balance -905 863 Result Diagrams: 12/27/17 04:26 01/03/18 04:13 Additional Labs: Accuchecks 01/03/18 01/02/18 01/02/18 05:34 20:28 16:56 POC Glucose 113 H 125 H 316 H 01/02/18 10:59 POC Glucose 154 H EKG Reviewed by me: Yes (nsr) Phys Exam - Physical Examination Constitutional: NAD HEENT: PERRLA, moist MMs, sclera anicteric Neck: no JVD, supple Respiratory: no wheezing, no rales, no rhonchi Cardiovascular: RRR, no rub SM+ Gastrointestinal: soft, non-tender, no distention, positive bowel sounds dressing+, trace edema+ Neurological: non-focal, normal sensation, moves all 4 limbs Lymphatic: no nodes Psychiatric: normal affect, A&O x 3 Skin: no rash, normal turgor Dx/Plan (1) 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 Code(s): I50.23 - ACUTE ON CHRONIC SYSTOLIC (CONGESTIVE) HEART FAILURE Status : Acute (2) Atrial fibrillation with RVR Code(s): I48.91 - UNSPECIFIED ATRIAL FIBRILLATION Status: Acute Comment: s/ p cardioversion and ablation, now in nsr (3) Demand ischemia of myocardium Code(s): I24.8 - OTHER FORMS OF ACUTE ISCHEMIC HEART DISEASE Status: Acute (4) Chronic anticoagulation Code(s): Z79.01 - RN PROCEDURES (CURRENT) USE OF ANTICOAGULANTS Status: Chronic (5) DM type 2 (diabetes mellitus, type 2) Status: Chronic Qualifiers: Diabetes mellitus snf insulin use: with snf use Diabetes mellitus complication status: with unspecified complications Qualified Code(s) : E11.8 - Type 2 diabetes mellitus with unspecified complications; Z79.4 - intermediate (current) use of insulin; 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; Z79.4 - intermediate (current) use of insulin; Z79.4 - intermediate (current) use of insulin (6) Dyslipidemia Code(s): E78.5 - HYPERLIPIDEMIA, UNSPECIFIED Status: Chronic (7) HTN (hypertension) Code(s): I10 - ESSENTIAL (PRIMARY) HYPERTENSION Status: Chronic Qualifiers: Hypertension type: essential hypertension Qualified Code(s): I10 - Essential (primary) hypertension (8) Morbid obesity with BMI of 40.0-44.9, adult Code(s): E66.01 - MORBID (SEVERE) OBESITY DUE TO EXCESS CALORIES; Z68.41 - BODY MASS INDEX (BMI) 40.0-44.9, ADULT Status: Chronic (9) JAMIN on CPAP Code(s): G47.33 - OBSTRUCTIVE SLEEP APNEA (ADULT) (PEDIATRIC); Z99.89 - DEPENDENCE ON OTHER ENABLING MACHINES AND DEVICES Status: Chronic (10) Moderate aortic stenosis Code(s): I35.0 - NONRHEUMATIC AORTIC (VALVE) STENOSIS Status: Chronic (11) Rheumatoid arthritis Code(s): M06.9 - RHEUMATOID ARTHRITIS, UNSPECIFIED Status: Chronic (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 * replace potassium today * EP recommendation noted * start lasix 40 mg po bid Review of Systems - Review of Systems ENT: negative: Ear Pain, Ear Discharge, Nose Pain, Nose Discharge, Nose Congestion, Mouth Pain, Mouth Swelling, Throat Pain, Throat Swelling, Other Respiratory: negative: Cough, Dry, Shortness of Breath, Hemoptysis, SOB with Excertion, Pleuritic Pain, Sputum, Wheezing Cardiovascular: negative: chest pain, palpitations, orthopnea, paroxysmal nocturnal dyspnea, edema, light headedness, other Gastrointestinal: negative: Nausea, Vomiting, Abdominal Pain, Diarrhea, Constipation, Melena, Hematochezia, Other Genitourinary: negative: Dysuria, Frequency, Incontinence, Hematuria, Retention , Other Musculoskeletal: negative: Neck Pain, Shoulder Pain, Arm Pain, Back Pain, Hand Pain, Leg Pain, Foot Pain, Other Skin: negative: Rash, Lesions, Efra, Bruising, Other - Medications/Allergies Allergies/Adverse Reactions: Allergies Allergy/AdvReac Type Severity Reaction Status Date / Time No Known Allergies Allergy Verified 12/24/17 00:48 Medications: Current Medications Acetaminophen (Tylenol) 650 mg PO Q4H PRN PRN Reason: Headache/Fever or Pain Last Admin: 01/02/18 08:43 Dose: 650 mg Acetaminophen/Codeine Phosphate (Tylenol #3) 1 tab PO Q4H PRN PRN Reason: Mild Pain (1-3) Acetaminophen/Codeine Phosphate (Tylenol #3) 2 tab PO Q4H PRN PRN Reason: Moderate Pain (4-6) Aspirin (Aspirin Chewable) 81 mg PO DAILY [facility] Last Admin: 01/03/18 09:29 Dose: 81 mg Atorvastatin Calcium (Lipitor) 40 mg PO HS [facility] Last Admin: 01/02/18 20:59 Dose: 40 mg Carvedilol (Coreg) 6.25 mg PO BID-[facility] Last Admin: 01/03/18 09:30 Dose: 6.25 mg Dextrose/Water (Dextrose 50%) 25 gm SLOW IVP PRN PRN PRN Reason: Hypoglycemia Famotidine (Pepcid) 20 mg PO BID [facility] Last Admin: 01/03/18 09:29 Dose: 20 mg Folic Acid (Folvite) 1 mg PO DAILY [facility] Last Admin: 01/03/18 09:27 Dose: 1 mg Gabapentin (Neurontin) 100 mg PO DAILY [facility] Last Admin: 01/03/18 09:29 Dose: 100 mg Glucagon (Glucagon) 1 mg IM PRN PRN PRN Reason: Hypoglycemia Hydroxychloroquine Sulfate (Plaquenil) 200 mg PO BID [facility] Last Admin: 01/03/18 09:30 Dose: Not Given Dextrose/Water (D5w) 1,000 mls @ 0 mls/hr IV .Q0M PRN; As Directed PRN Reason: Hypoglycemia Insulin Glargine 40 units/ (Miscellaneous Medication) 0.4 mls @ 0 mls/hr SC [facility] Last Admin: 01/02/18 20:58 Dose: 0.4 mls Insulin Human Lispro (Humalog) 0 units SC .MODERATE SLIDING SC PRN PRN Reason: Moderate Correctional Scale Last Admin: 01/02/18 17:21 Dose: 8 unit Insulin Human Lispro (Humalog) 0 units SC .BEDTIME SLIDING SC PRN PRN Reason: Bedtime Correctional Scale Last Admin: 01/01/18 20:53 Dose: 3 unit Latanoprost (Xalatan 0.005% Oph Soln) 1 drop EA EYE [facility] Last Admin: 01/02/18 20:58 Dose: 1 drop Losartan Potassium (Cozaar) 50 mg PO BID [facility] Last Admin: 01/03/18 09:27 Dose: 50 mg Miscellaneous Medication (Pharmacy To Dose) 0 each PO PRN PRN PRN Reason: WARFARIN Pharmacy to Dose Enbrel 50mg Inj 1 each SC Q7D@1400 [facility] Last Admin: 12/27/17 12:57 Dose: 1 each Polyethylene Glycol (Miralax) 17 gm PO DAILY PRN PRN Reason: CONSTIPATION Prednisone (Prednisone) 5 mg PO QAM-WM [facility] Last Admin: 01/03/18 09:29 Dose: 5 mg Pregabalin (Lyrica) 50 mg PO [facility] Last Admin: 01/02/18 20:59 Dose: 50 mg
[2018-01-03] MEDS: HumaLOG 300 UNITS/3 ML VIAL SC PRN ×3 (11:36→21:21)
--- NOTE | 2018-01-03 12:29 | EKG ---
Test Reason : Blood Pressure : / mmHG Vent. Rate : 051 BPM Atrial Rate : 051 BPM P-R Int : 156 ms QRS Dur : 136 ms QT Int : 656 ms P-R-T Axes : 030 -24 162 degrees QTc Int : 604 ms Sinus bradycardia with marked sinus arrhythmia Left ventricular hypertrophy with QRS widening and repolarization abnormality Prolonged QT Abnormal ECG Confirmed by HUBER DELACRUZ ([id number]) on 01/03/2018 12:29:13 PM Referred By: NUBIA Confirmed By:HUBER DELACRUZ
--- NOTE | 2018-01-03 14:15 | PDOC.CTH ---
<Yessi Cassidy - Last Filed: 01/03/18 14:09> Cardiology Progress Note - Objective Vital Signs Temp Pulse Pulse Pulse Resp BP BP 01/03/18 11:32 56 L 20 01/03/18 09:51 60 54 L 159/72 H 01/03/18 09:30 138/68 01/03/18 07:12 96.1 F L 56 L 20 01/03/18 04:00 97.6 F 53 L 14 BP BP BP Pulse Ox Pulse Ox Pulse Ox 01/03/18 11:32 134/62 98 01/03/18 09:51 132/60 96 99 01/03/18 09:30 01/03/18 07:12 138/68 97 01/03/18 04:00 147/67 H 99 Admit Weight 295 lb 14.4 oz Weight 288 lb 12.8 oz 01/02/18 01/03/18 01/04/18 06:59 06:59 06:59 Intake Total 1680 1637 Output Total 2375 2500 Balance -965 -863 - Labs Result Diagrams: 12/27/17 04:26 01/03/18 04:13 Troponin/CKMB Troponin I 0.267 ng/mL (< 0.028) H 12/24/17 00:36 - Assessment/Plan A/P: - AFL. Resolved S/P ablation. POD#7. -parox afib: Now Off amiodarone, maintaining SR. - Prolonged QT/ early TdP: Possibly related to amiodarone and lower K. Agree with holding amiodarone and correct potassium (scheduled 20mEq BID and received additional one time 40mEq this AM). EKG ordered today as QTc was futher prolonged at 604ms on 01/02/18. -Cardiomyopathy with severely reduced LVEF: As per Dr Mora. Consider ICD implant if no improvement seen by re-evaluation of EF in 3 months. - Severe : As per Dr Mora. - CHADS-VASc: 7 (advanced age, DM, HTN, prior stroke, and heart failure). OAC w / warfarin: Continue <Leah,Jaleel - Last Filed: 01/03/18 16:12> Cardiology Progress Note - Objective Vital Signs Temp Pulse Pulse Pulse Resp BP BP 01/03/18 11:32 56 L 20 01/03/18 09:51 60 54 L 159/72 H 01/03/18 09:30 138/68 01/03/18 07:12 96.1 F L 56 L 20 BP BP BP Pulse Ox Pulse Ox Pulse Ox 01/03/18 11:32 134/62 98 01/03/18 09:51 132/60 96 99 01/03/18 09:30 01/03/18 07:12 138/68 97 Admit Weight 295 lb 14.4 oz Weight 288 lb 12.8 oz 01/02/18 01/03/18 01/04/18 06:59 06:59 06:59 Intake Total 1680 1637 Output Total 2378 2500 Balance -695 -863 - Labs Result Diagrams: 12/27/17 04:26 01/03/18 04:13 Troponin/CKMB Troponin I 0.267 ng/mL (< 0.028) H 12/24/17 00:36 Attending Addendum - Attending Addendum Date/Time: 01/03/18 1612 I personally evaluated the patient and discussed the management with Ms Cassidy. I agree with the History, Examination, Assessment and Plan documented above with any addition or exceptions noted below.
[2018-01-03] MEDS: Furosemide 40 MG TAB PO SCH (14:40)
[2018-01-03] MEDS: Acetaminophen 325 MG TAB PO PRN (16:30)
[2018-01-03] MEDS: ENBREL 50 MG SC SCH (17:23)
[2018-01-03] MEDS: Potassium Chloride 20 MEQ TAB PO SCH (17:25)
--- NOTE | 2018-01-03 19:50 | PDOC.CTH ---
Cardiology Progress Note - Subjective No new issues. - Objective Vital Signs Temp Pulse Pulse Pulse Resp BP BP 01/03/18 17:25 138/68 01/03/18 16:20 98.6 F 58 L 20 01/03/18 11:35 01/03/18 11:32 56 L 20 01/03/18 09:51 60 54 L 159/72 H 01/03/18 09:30 138/68 BP BP Pulse Ox Pulse Ox Pulse Ox 01/03/18 17:25 01/03/18 16:20 131/63 97 01/03/18 11:35 98 01/03/18 11:32 134/62 98 01/03/18 09:51 132/60 96 99 01/03/18 09:30 Admit Weight 295 lb 14.4 oz Weight 288 lb 12.8 oz 01/02/18 01/03/18 01/04/18 06:59 06:59 06:59 Intake Total 1680 1637 1020 Output Total 2375 2500 1875 Balance -305 -982 -855 - Physical Examination General/Neuro: alert & oriented x3, NAD Neck: no JVD present Lungs: CTA, unlabored respirations Heart: RRR Abdomen: NT/ND Extremities: + edema B (1+) - Telemetry Telemetry Rhythm: NSR - Labs Result Diagrams: 12/27/17 04:26 01/05/18 05:11 Troponin/CKMB Troponin I 0.267 ng/mL (< 0.028) H 12/24/17 00:36 - Assessment/Plan 1. Atrial flutter s/p Ablation 2. New onset CM 3. HTN 4. Polymorphic VT 5. Aortic stenosis. PLAN: - Will need LHC once his INR is below 1.8.
[2018-01-03] MEDS: Pregabalin 50 MG CAP PO SCH (21:18)
[2018-01-03] MEDS: Atorvastatin Calcium 40 MG TAB PO SCH (21:19)
[2018-01-03] MEDS: Insulin Glargine 40 UNITS in Pre-Filled Syringe 1 EACH SC SCH (21:20)
[2018-01-03] MEDS: Latanoprost 0.005% Ophth Soln 2.5 ml Bottle EA EYE SCH (21:22)
[2018-01-04 05:26] LABS: Anion Gap 10 mmol/L (10-20); BUN (Urea Nitrogen) 23 mg/dL (8.4-25.7); Calc. Creatinine Clearance 100 mL/min (70-130); Calcium 9.5 mg/dL (7.8-10.44); Carbon Dioxide 34 mmol/L (23-31); Chloride 97 mmol/L (98-107); Estimated GFR-MDRD 61; Glucose 114 mg/dL (83-110); Potassium 3.6 mmol/L (3.5-5.1); Sodium 137 mmol/L (136-145)
[2018-01-04 06:54] LABS: INR-International Normal Ratio 1.7; Prothrombin Time 19.9 SEC (12.0-14.7)
--- NOTE | 2018-01-04 10:30 | PRG ---
DATE OF SERVICE: 01/04/2018 SUBJECTIVE: Mr. Hull seems to be doing well. He is awaiting his heart catheterization procedure. OBJECTIVE: VITAL SIGNS: Blood pressure is 124/58, heart rate 54, respiration is 19, temperature 97.8 degrees Fa hrenheit. GENERAL: This is an alert and oriented man in no apparent distress. NECK: Supple. Jugular veins not distended. CHEST: Coarse without crackles. CARDIOVASCULAR: Heart sounds are regular to rate and rhythm, 1/6 systolic ejection murmur is heard. ABDOMEN: Benign, obese. Bowel sounds are positive. EXTREMITIES: Lower extremities without edema, clubbing or cyanosis. Telemetry strips reveals sinus rhythm, sinus bradycardia, bundle branch block pattern is still prolon ged QT, but improving. LABORATORY DATA: Today, potassium is 3.6. Sodium 137, BUN 20, creatinine 1.16. T Telemetry strips reveal no further ventricular arrhythmias. ASSESSMENT AND PLAN: Mr. Hull is a 77-year-old man with history of paroxysmal atrial fibrillation p resenting with atrial fibrillation/flutter. He also noted to be in acute heart failure exacerbation on admission and his left ventricular function was severely reduced. Also, his aortic valve seems to have been severely stenosed. He underwent a cavotricuspid ablation and continued amiodarone loading to suppress any residual atrial fibrillations/atypical atrial flutter circuits. On the other hand, amiodarone had to be discontinued due to progressive QT prolongation and polymorphic nonsustained VT episodes. Now they are resolved. He also has his potassium levels corrected. He is stable, but mecca iting his left heart catheterization. At this point, I would continue current regimen off of amiodarone. If atrial fibrillation recurs, he has a fairly limited choices for rhythm management. Possible biventricular pacemaker and AV nazanin a blation could be a potential option. Also need to monitor his LV systolic function with no improvement with medical/surgical management, l jose ramon-term ICD therapy might be reasonable. Severe aortic stenosis as per Dr. Mora. Paroxysmal atrial fibrillation, currently off anticoagulants, should be resumed after his workup is c omplete.
--- NOTE | 2018-01-04 11:04 | PDOC.PN ---
- Subjective Encounter Start Date: 01/04/18 Encounter Start Time: 07:50 Patient seen and examined. No new complaints. No overnight events - Objective Resuscitation Status: Resuscitation Status FULL:Full Resuscitation MAR Reviewed: Yes Vital Signs & Weight: Vital Signs (12 hours) Temp Pulse Resp BP Pulse Ox 01/04/18 08:00 97.5 F L 54 L 19 98 01/04/18 04:00 97.5 F L 54 L 19 124/58 L 97 Weight Admit Weight 295 lb 14.4 oz Weight 288 lb 12.8 oz I&O: 01/03/18 01/04/18 01/05/18 06:59 06:59 06:59 Intake Total 1637 1270 Output Total 2500 1875 Balance -863 -605 Result Diagrams: 12/27/17 04:26 01/04/18 05:01 Additional Labs: Accuchecks 01/04/18 01/03/18 01/03/18 06:15 20:43 16:47 POC Glucose 117 H 408 H 189 H EKG Reviewed by me: Yes (nsr) Phys Exam - Physical Examination Constitutional: NAD HEENT: PERRLA, moist MMs, sclera anicteric Neck: no JVD, supple Respiratory: no wheezing, no rales, no rhonchi Cardiovascular: RRR, no rub SM+ Gastrointestinal: soft, non-tender, no distention, positive bowel sounds Musculoskeletal: edema present dressing+ Neurological: non-focal, normal sensation, moves all 4 limbs Psychiatric: normal affect, A&O x 3 Skin: no rash, normal turgor Dx/Plan (1) 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 Code(s): I50.23 - ACUTE ON CHRONIC SYSTOLIC (CONGESTIVE) HEART FAILURE Status : Acute (2) Atrial fibrillation with RVR Code(s): I48.91 - UNSPECIFIED ATRIAL FIBRILLATION Status: Acute Comment: s/ p cardioversion and ablation, now in nsr (3) Demand ischemia of myocardium Code(s): I24.8 - OTHER FORMS OF ACUTE ISCHEMIC HEART DISEASE Status: Acute (4) Chronic anticoagulation Code(s): Z79.01 - WIRELESS SALES EXPERT (CURRENT) USE OF ANTICOAGULANTS Status: Chronic (5) DM type 2 (diabetes mellitus, type 2) Status: Chronic Qualifiers: Diabetes mellitus paper sealer insulin use: with paper sealer use Diabetes mellitus complication status: with unspecified complications Qualified Code(s) : E11.8 - Type 2 diabetes mellitus with unspecified complications; Z79.4 - emergency management consultant (current) use of insulin; Z79.4 - snf (current) use of insulin; Z79.4 - emergency management consultant (current) use of insulin; Z79.4 - emergency management consultant (current) use of insulin (6) Dyslipidemia Code(s): E78.5 - HYPERLIPIDEMIA, UNSPECIFIED Status: Chronic (7) HTN (hypertension) Code(s): I10 - ESSENTIAL (PRIMARY) HYPERTENSION Status: Chronic Qualifiers: Hypertension type: essential hypertension Qualified Code(s): I10 - Essential (primary) hypertension (8) Morbid obesity with BMI of 40.0-44.9, adult Code(s): E66.01 - MORBID (SEVERE) OBESITY DUE TO EXCESS CALORIES; Z68.41 - BODY MASS INDEX (BMI) 40.0-44.9, ADULT Status: Chronic (9) JAMIN on CPAP Code(s): G47.33 - OBSTRUCTIVE SLEEP APNEA (ADULT) (PEDIATRIC); Z99.89 - DEPENDENCE ON OTHER ENABLING MACHINES AND DEVICES Status: Chronic (10) Moderate aortic stenosis Code(s): I35.0 - NONRHEUMATIC AORTIC (VALVE) STENOSIS Status: Chronic (11) Rheumatoid arthritis Code(s): M06.9 - RHEUMATOID ARTHRITIS, UNSPECIFIED Status: Chronic (12) Tachycardia induced cardiomyopathy Code(s): R00.0 - TACHYCARDIA, UNSPECIFIED; I43 - CARDIOMYOPATHY IN DISEASES CLASSIFIED ELSEWHERE Status: Resolved (13) Ventricular tachycardia, polymorphic Code(s): I47.2 - VENTRICULAR TACHYCARDIA Status: Acute - Plan cont current plan of care, plan discussed w/ family * pt await cardiac cath today * medication reviewed as below * symptomatic treatment * discussed with . Review of Systems - Review of Systems Eyes: negative: Pain, Vision Change, Conjunctivae Inflammation, Eyelid Inflammation, Redness, Other ENT: negative: Ear Pain, Ear Discharge, Nose Pain, Nose Discharge, Nose Congestion, Mouth Pain, Mouth Swelling, Throat Pain, Throat Swelling, Other Respiratory: negative: Cough, Dry, Shortness of Breath, Hemoptysis, SOB with Excertion, Pleuritic Pain, Sputum, Wheezing Cardiovascular: negative: chest pain, palpitations, orthopnea, paroxysmal nocturnal dyspnea, edema, light headedness, other Gastrointestinal: negative: Nausea, Vomiting, Abdominal Pain, Diarrhea, Constipation, Melena, Hematochezia, Other Genitourinary: negative: Dysuria, Frequency, Incontinence, Hematuria, Retention , Other Musculoskeletal: negative: Neck Pain, Shoulder Pain, Arm Pain, Back Pain, Hand Pain, Leg Pain, Foot Pain, Other - Medications/Allergies Allergies/Adverse Reactions: Allergies Allergy/AdvReac Type Severity Reaction Status Date / Time No Known Allergies Allergy Verified 12/24/17 00:48 Medications: Current Medications Acetaminophen (Tylenol) 650 mg PO Q4H PRN PRN Reason: Headache/Fever or Pain Last Admin: 01/03/18 16:30 Dose: 650 mg Acetaminophen/Codeine Phosphate (Tylenol #3) 1 tab PO Q4H PRN PRN Reason: Mild Pain (1-3) Acetaminophen/Codeine Phosphate (Tylenol #3) 2 tab PO Q4H PRN PRN Reason: Moderate Pain (4-6) Aspirin (Aspirin Chewable) 81 mg PO DAILY [facility] Last Admin: 01/03/18 09:29 Dose: 81 mg Atorvastatin Calcium (Lipitor) 40 mg PO [facility] Last Admin: 01/03/18 21:19 Dose: 40 mg Carvedilol (Coreg) 6.25 mg PO BID-[facility] Last Admin: 01/03/18 17:25 Dose: 6.25 mg Dextrose/Water (Dextrose 50%) 25 gm SLOW IVP PRN PRN PRN Reason: Hypoglycemia Famotidine (Pepcid) 20 mg PO BID [facility] Last Admin: 01/03/18 21:19 Dose: 20 mg Folic Acid (Folvite) 1 mg PO DAILY [facility] Last Admin: 01/03/18 09:27 Dose: 1 mg Furosemide (Lasix) 40 mg PO 0900,1400 [facility] Last Admin: 01/03/18 14:40 Dose: 40 mg Gabapentin (Neurontin) 100 mg PO DAILY [facility] Last Admin: 01/03/18 09:29 Dose: 100 mg Glucagon (Glucagon) 1 mg IM PRN PRN PRN Reason: Hypoglycemia Dextrose/Water (D5w) 1,000 mls @ 0 mls/hr IV .Q0M PRN; As Directed PRN Reason: Hypoglycemia Insulin Glargine 40 units/ (Miscellaneous Medication) 0.4 mls @ 0 mls/hr SC [facility] Last Admin: 01/03/18 21:20 Dose: 0.4 mls Insulin Human Lispro (Humalog) 0 units SC .MODERATE SLIDING SC PRN PRN Reason: Moderate Correctional Scale Last Admin: 01/03/18 17:25 Dose: 2 unit Insulin Human Lispro (Humalog) 0 units SC .BEDTIME SLIDING SC PRN PRN Reason: Bedtime Correctional Scale Last Admin: 01/03/18 21:21 Dose: 5 unit Latanoprost (Xalatan 0.005% [facility]) 1 drop EA EYE [facility] Last Admin: 01/03/18 21:22 Dose: 1 drop Losartan Potassium (Cozaar) 50 mg PO BID [facility] Last Admin: 01/03/18 21:18 Dose: 50 mg Miscellaneous Medication (Pharmacy To Dose) 0 each PO PRN PRN PRN Reason: WARFARIN Pharmacy to Dose Enbrel 50mg Inj 1 each SC Mo@1400 [facility] Polyethylene Glycol (Miralax) 17 gm PO DAILY PRN PRN Reason: CONSTIPATION Potassium Chloride (K-Dur) 20 meq PO BID-[facility] Last Admin: 01/03/18 17:25 Dose: 20 meq Prednisone (Prednisone) 5 mg PO QAM-[facility] Last Admin: 01/03/18 09:29 Dose: 5 mg Pregabalin (Lyrica) 50 mg PO [facility] Last Admin: 01/03/18 21:18 Dose: 50 mg
[2018-01-04] MEDS: Carvedilol 6.25 MG TAB PO SCH ×2 (11:43→16:25)
[2018-01-04] MEDS: Potassium Chloride 20 MEQ TAB PO SCH ×2 (11:45→16:26)
[2018-01-04] MEDS: predniSONE 5 MG TAB PO SCH (11:45)
[2018-01-04] MEDS: Losartan 25 MG TAB PO SCH ×2 (11:46→20:59)
[2018-01-04] MEDS: Gabapentin 100 MG CAP PO SCH (11:46)
[2018-01-04] MEDS: Folic Acid 1 MG TAB PO SCH (11:46)
[2018-01-04] MEDS: Famotidine 20 MG TAB PO SCH ×2 (11:46→21:00)
[2018-01-04] MEDS: Furosemide 40 MG TAB PO SCH ×2 (11:46→15:12)
[2018-01-04] MEDS ORDERED: Lidocaine 1% (PF) 30 ML VIAL ONE (11:59)
[2018-01-04] MEDS ORDERED: Fentanyl 100 MCG/2 ML VIAL ONE (12:55)
[2018-01-04] MEDS ORDERED: Midazolam HCl 2 mg/2 ml Vial ONE (12:55)
[2018-01-04] MEDS ORDERED: Acetaminophen/Codeine 30-300mg Tablet PO PRN ×2 (13:10)
[2018-01-04] MEDS ORDERED: traMADol HCl 50 MG TAB PO PRN (13:10)
[2018-01-04] MEDS ORDERED: Nitroglycerin 0.4 MG TAB (25 Tab Bottle) SL PRN (13:10)
[2018-01-04] MEDS ORDERED: Sodium Chloride 0.9% 200 ML IV SCH (13:15)
--- NOTE | 2018-01-04 13:26 | PRG ---
DATE OF SERVICE: 01/04/2018 Mr. Hull is seen for Dr. Savi Mora. Mr. Hull is scheduled for angiography. He had a monomorphic ventricular tachycardia recently. After reviewing Mr. Hull' case, it appears he has [id number] aortic stenosis with a mean and peak gradient of 40 and 20 respectively. His calculated aortic valve area is 0.9. RECOMMENDATIONS: I did discuss this with Mr. Hull. He is aware of his valve. Plan is to proceed w ith coronary angiography only. If he does not have significant coronary artery disease, we will then recommend a right heart catheterization to assess his aortic valve area. If he does have coronary a rtery disease, he would benefit from bypass plus valve. I discussed the procedure in full detail wit h Mr. Hull. The risks included but are not limited to the following: , stroke, ND, need for e mergency surgery, loss of limb, bleeding, and infection, as well as a reaction to the dye causing kid johnson failure and needing long-term dialysis. I also discussed the risks of PCI to include all of the above including coronary dissection and perforation in addition to acute stent thrombosis and resteno sis. All questions about the procedure were answered. Given the above, the patient agreed to procee d with coronary angiography and possible PCI. All questions were answered. Given the above, the pat ient agreed to proceed with the above procedure. His was present during the discussion.
[2018-01-04] MEDS: Sodium Chloride 0.9% 1,000 ML IV SCH ×2 (13:40→21:09)
[2018-01-04] MEDS ORDERED: Iopamidol 370 76% 100 ML VIAL ONE (14:46)
--- NOTE | 2018-01-04 15:26 | EKG ---
Test Reason : Blood Pressure : / mmHG Vent. Rate : 055 BPM Atrial Rate : 055 BPM P-R Int : 110 ms QRS Dur : 106 ms QT Int : 562 ms P-R-T Axes : 000 -28 269 degrees QTc Int : 537 ms Sinus bradycardia Left ventricular hypertrophy with repolarization abnormality T wave abnormality, consider inferior ischemia Prolonged QT Abnormal ECG Confirmed by HUBER DELACRUZ ([id number]) on 01/04/2018 3:26:26 PM Referred By: EFRA Confirmed By:HUBER DELACRUZ
[2018-01-04] MEDS ORDERED: Communication Order-Pharmacy FS ONE (16:19)
[2018-01-04 16:45] LABS: Hemoglobin A1c 7.3 % (4.0-6.0)
--- NOTE | 2018-01-04 17:31 | RAD ---
ONE VIEW CHEST: 01/04/18 COMPARISON: 12/23/17. HISTORY: Preoperative exam. Heart surgery. FINDINGS: There are sternotomy wires. There are surgical clips in the mediastinum. Slight elongation of the aor ta. Normal cardiac silhouette. Pulmonary vessels are upper limits of normal. Patchy interstitial opac ities without consolidation or mass. No pneumothorax or osseous abnormalities. IMPRESSION: No acute cardiopulmonary process. POS: RAMIN
[2018-01-04] MEDS: Insulin Glargine 40 UNITS in Pre-Filled Syringe 1 EACH SC SCH (21:00)
[2018-01-04] MEDS: Atorvastatin Calcium 40 MG TAB PO SCH (21:00)
[2018-01-04] MEDS: Pregabalin 50 MG CAP PO SCH (21:00)
[2018-01-04] MEDS: Latanoprost 0.005% Ophth Soln 2.5 ml Bottle EA EYE SCH (21:02)
[2018-01-04] MEDS: HumaLOG 300 UNITS/3 ML VIAL SC PRN (21:05)
--- NOTE | 2018-01-04 21:55 | CON ---
DATE OF CONSULTATION: 01/04/2018 REASON FOR CONSULTATION: Evaluate patient for AVR/CABG. Chart reviewed/patient examined/films reviewed. HISTORY OF PRESENT ILLNESS: Mr. Hull is a 77-year-old gentleman who was admitted with atrial flutte r, feeling short of breath and washed out. Since admission, he has undergone a TESS showing no left a trial appendage thrombus and subsequent atrial ablation. He is currently in sinus rhythm. He is chronically on Coumadin with a baseline INR of 1.8 at admission. His current INR is 1.7. He h as had Coumadin since admission. He has rheumatoid arthritis and chronically takes Enbrel, methotrexate and prednisone 5 mg every day. He is diabetic and on insulin at home. Renal function is normal with a baseline creatinine of 0.84 and a GFR of 89. Echocardiogram has been performed which shows an aortic valve area of 1.0 cm2. Peak to peak gradient is 40 with a decreased valve leaflet mobility and calcification. Cardiac catheterization was perfor med today showing severe 3-vessel disease. Ejection fraction is 55-60%. I have been asked to see bel barbosa to discuss the aortic valve replacement/coronary bypass grafting. PAST MEDICAL HISTORY: 1. Coronary artery disease. 2. Aortic stenosis. 3. Rheumatoid arthritis. 4. Atrial flutter, status post ablation. 5. History of cerebrovascular accident secondary to atrial fibrillation and embolization. 6. Hypercholesterolemia. 7. Rheumatoid arthritis. 8. Diabetes mellitus. 9. Hypertension. PAST SURGICAL HISTORY: 1. Right knee arthroscopy. 2. Lumbar spine surgery. SOCIAL HISTORY: He is . He is accompanied by his . He does not use any tobacco or other drugs. REVIEW OF SYSTEMS: Ten-point review of systems was performed and is negative except as above. PHYSICAL EXAMINATION: GENERAL: This is an obese gentleman resting comfortably in bed. VITAL SIGNS: Height 6 feet, weight is 288 pounds, BSA is 2.58, temperature is 98.0, pulse is 54 and regular, blood pressure is 122/58. HEENT: Sclerae nonicteric. Pupils equal, round bilaterally. NECK: Supple, without bruit. CHEST: Clear bilaterally. HEART: Rhythm is regular. He has a very soft systolic ejection murmur heard over the right chest. ABDOMEN: Obese, soft and nontender. EXTREMITIES: He has severe venous stasis below the knees bilaterally. VASCULAR: He has palpable carotid, radial, femoral, dorsalis pedis pulses bilaterally. PSYCHIATRIC: Patient is awake, alert, and oriented to person, place, and time. ASSESSMENT AND PLAN: Mr. Saunders is a very pleasant 77-year-old gentleman who has severe aortic stenos is and 3-vessel coronary artery disease. I have discussed aortic valve replacement with bioprostheti c valve and coronary artery bypass grafting utilizing mammary artery to LAD and saphenous vein graft to the OM and distal right coronary. He is agreeable to proceed. We will make plans for Tuesday morn ing.
[2018-01-05 05:35] LABS: INR-International Normal Ratio 1.5; Prothrombin Time 17.9 SEC (12.0-14.7)
[2018-01-05 05:47] LABS: Anion Gap 12 mmol/L (10-20); BUN (Urea Nitrogen) 15 mg/dL (8.4-25.7); Calc. Creatinine Clearance 124 mL/min (70-130); Calcium 9.3 mg/dL (7.8-10.44); Carbon Dioxide 30 mmol/L (23-31); Chloride 98 mmol/L (98-107); Estimated GFR-MDRD 79; Glucose 101 mg/dL (83-110); Potassium 3.6 mmol/L (3.5-5.1); Sodium 136 mmol/L (136-145)
[2018-01-05] MEDS: Sodium Chloride 0.9% 1,000 ML IV SCH ×2 (06:15→16:19)
[2018-01-05] MEDS ORDERED: Metolazone 5 MG TAB PO SCH (06:30)
[2018-01-05] MEDS: Folic Acid 1 MG TAB PO SCH (09:51)
[2018-01-05] MEDS: Furosemide 40 MG TAB PO SCH ×2 (09:52→15:52)
[2018-01-05] MEDS: Famotidine 20 MG TAB PO SCH ×2 (09:52→21:18)
[2018-01-05] MEDS: Gabapentin 100 MG CAP PO SCH (09:52)
[2018-01-05] MEDS: Potassium Chloride 20 MEQ TAB PO SCH ×2 (09:52→16:01)
[2018-01-05] MEDS: predniSONE 5 MG TAB PO SCH (09:52)
[2018-01-05] MEDS: Carvedilol 6.25 MG TAB PO SCH ×2 (09:52→16:01)
[2018-01-05] MEDS: Losartan 25 MG TAB PO SCH ×2 (09:52→21:18)
[2018-01-05] MEDS: Acetaminophen 325 MG TAB PO PRN (09:53)
--- NOTE | 2018-01-05 11:26 | CT ---
CT THORAX WITH AND WITHOUT CONTRAST: INDICATIONS: Pre-procedure CT evaluation for aortic valvular placement. The patient is having a triple bypass wit h atrial flutter, atrial fibrillation, and history of heart catheterization. COMPARISON: Prior CTA chest, dated 02/21/2012. TECHNIQUE: Multiple CT images were obtained of the chest with and without IV contrast. FINDINGS: There is stable ectasia of the ascending aorta at the level of the right main pulmonary artery, measu ring 4 cm. 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 There is stabl e aneurysmal dilatation of the descending thoracic aorta, at the level of the right main pulmonary ar zenia, of 3.4 cm. There is scattered emphysema. No suspicious pulmonary nodule is evident. There is suspicion for a small fat-containing left Bochdalek hernia. There are severe calcifications of the aortic valve. There are severe calcifications of the coronary arteries. There are bilateral renal c ysts. There are layered gallstones within the gallbladder neck. There is diffuse osteopenia. There is scattered degenerative and osteoarthritic change. There is a remote appearing compression abnorm ality involving T12. This is stable to the comparison in 2012. IMPRESSION: 1. Severe valvular calcifications of the aortic valve. 2. 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 3. Emphysema. 4. Fat-containing left Bochdalek hernia. 5. Cholelithiasis. 6. Bilateral renal cysts. 7. Emphysema. POS: [facility]
--- NOTE | 2018-01-05 11:53 | PDOC.PN ---
- Subjective Encounter Start Date: 01/05/18 Encounter Start Time: 08:30 Patient seen and examined. No new complaints. No overnight events - Objective Resuscitation Status: Resuscitation Status FULL:Full Resuscitation MAR Reviewed: Yes Vital Signs & Weight: Vital Signs (12 hours) Temp Pulse Pulse Pulse Resp BP BP 01/05/18 09:52 119/71 01/05/18 09:36 70 73 139/61 01/05/18 07:05 97.2 F L 59 L 18 01/05/18 04:05 98.0 F 60 18 01/05/18 00:00 98.1 F 55 L 18 BP BP BP Pulse Ox Pulse Ox Pulse Ox 01/05/18 09:52 01/05/18 09:36 146/64 H 99 64 L 01/05/18 07:05 119/71 95 01/05/18 04:05 125/61 94 L 01/05/18 00:00 114/59 L 95 Weight Admit Weight 295 lb 14.4 oz Weight 287 lb 1.6 oz I&O: 01/04/18 01/05/18 01/06/18 06:59 06:59 06:59 Intake Total 1270 1830 Output Total 1875 1525 Balance -605 305 Result Diagrams: 12/27/17 04:26 01/05/18 05:11 Additional Labs: Accuchecks 01/05/18 01/04/18 01/04/18 05:43 20:41 11:14 POC Glucose 105 252 H 126 H Radiology Reviewed by me: Yes (CT chest) EKG Reviewed by me: Yes (nsr) Phys Exam - Physical Examination Constitutional: NAD HEENT: PERRLA, moist MMs, sclera anicteric Neck: no JVD, supple Respiratory: no wheezing, no rales, no rhonchi Cardiovascular: RRR, no rub SM+ Gastrointestinal: soft, non-tender, no distention, positive bowel sounds Musculoskeletal: no edema, pulses present Neurological: non-focal, normal sensation, moves all 4 limbs Lymphatic: no nodes Psychiatric: normal affect, A&O x 3 Skin: no rash, normal turgor Dx/Plan (1) 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 Code(s): I50.23 - ACUTE ON CHRONIC SYSTOLIC (CONGESTIVE) HEART FAILURE Status : Acute (2) Atrial fibrillation with RVR Code(s): I48.91 - UNSPECIFIED ATRIAL FIBRILLATION Status: Acute Comment: s/ p cardioversion and ablation, now in nsr (3) Demand ischemia of myocardium Code(s): I24.8 - OTHER FORMS OF ACUTE ISCHEMIC HEART DISEASE Status: Acute (4) Chronic anticoagulation Code(s): Z79.01 - PROTOTYPE ENGINEER MANAGER (CURRENT) USE OF ANTICOAGULANTS Status: Chronic (5) DM type 2 (diabetes mellitus, type 2) Status: Chronic Qualifiers: Diabetes mellitus intermediate insulin use: with intermediate use Diabetes mellitus complication status: with unspecified complications Qualified Code(s) : E11.8 - Type 2 diabetes mellitus with unspecified complications; Z79.4 - [facility] (current) use of insulin; Z79.4 - 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 (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) 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 of insulin; Z79.4 - 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 (current) use of insulin; Z79.4 - 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 (current) use of insulin (6) Dyslipidemia Code(s): E78.5 - HYPERLIPIDEMIA, UNSPECIFIED Status: Chronic (7) HTN (hypertension) Code(s): I10 - ESSENTIAL (PRIMARY) HYPERTENSION Status: Chronic Qualifiers: Hypertension type: essential hypertension Qualified Code(s): I10 - Essential (primary) hypertension (8) Morbid obesity with BMI of 40.0-44.9, adult Code(s): E66.01 - MORBID (SEVERE) OBESITY DUE TO EXCESS CALORIES; Z68.41 - BODY MASS INDEX (BMI) 40.0-44.9, ADULT Status: Chronic (9) JAMIN on CPAP Code(s): G47.33 - OBSTRUCTIVE SLEEP APNEA (ADULT) (PEDIATRIC); Z99.89 - DEPENDENCE ON OTHER ENABLING MACHINES AND DEVICES Status: Chronic (10) Rheumatoid arthritis Code(s): M06.9 - RHEUMATOID ARTHRITIS, UNSPECIFIED Status: Chronic (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 Code(s): R00.0 - TACHYCARDIA, UNSPECIFIED; I43 - CARDIOMYOPATHY IN DISEASES CLASSIFIED ELSEWHERE Status: Resolved (12) Ventricular tachycardia, polymorphic Code(s): I47.2 - VENTRICULAR TACHYCARDIA Status: Acute - Plan cont current plan of care * medication reviewed as below * symptomatic treatment * pt will need aortic valve replacement and cabg tomorrow * will monitor. Review of Systems - Review of Systems Eyes: negative: Pain, Vision Change, Conjunctivae Inflammation, Eyelid Inflammation, Redness, Other ENT: negative: Ear Pain, Ear Discharge, Nose Pain, Nose Discharge, Nose Congestion, Mouth Pain, Mouth Swelling, Throat Pain, Throat Swelling, Other Respiratory: negative: Cough, Dry, Shortness of Breath, Hemoptysis, SOB with Excertion, Pleuritic Pain, Sputum, Wheezing Cardiovascular: negative: chest pain, palpitations, orthopnea, paroxysmal nocturnal dyspnea, edema, light headedness, other Gastrointestinal: negative: Nausea, Vomiting, Abdominal Pain, Diarrhea, Constipation, Melena, Hematochezia, Other Genitourinary: negative: Dysuria, Frequency, Incontinence, Hematuria, Retention , Other Musculoskeletal: negative: Neck Pain, Shoulder Pain, Arm Pain, Back Pain, Hand Pain, Leg Pain, Foot Pain, Other Skin: negative: Rash, Lesions, Efra, Bruising, Other - Medications/Allergies Allergies/Adverse Reactions: Allergies Allergy/AdvReac Type Severity Reaction Status Date / Time No Known Allergies Allergy Verified 12/24/17 00:48 Medications: Current Medications Acetaminophen (Tylenol) 650 mg PO Q4H PRN PRN Reason: Headache/Fever or Pain Stop: 01/06/18 08:59 Last Admin: 01/05/18 09:53 Dose: 650 mg Acetaminophen/Codeine Phosphate (Tylenol #3) 1 tab PO Q4H PRN PRN Reason: Moderate Pain (4-6) Stop: 01/06/18 08:59 Acetaminophen/Codeine Phosphate (Tylenol #3) 2 tab PO Q4H PRN PRN Reason: Moderate to Severe Pain (6-10) Stop: 01/06/18 08:59 Aspirin (Aspirin Chewable) 81 mg PO DAILY [facility] Stop: 01/06/18 08:59 Last Admin: 01/05/18 09:51 Dose: 81 mg Atorvastatin Calcium (Lipitor) 40 mg PO HS [facility] Stop: 01/06/18 08:59 Last Admin: 01/04/18 21:00 Dose: 40 mg Carvedilol (Coreg) 6.25 mg PO BID-[facility] Stop: 01/06/18 12:00 Last Admin: 01/05/18 09:52 Dose: 6.25 mg Dextrose/Water (Dextrose 50%) 25 gm SLOW IVP PRN PRN PRN Reason: Hypoglycemia Stop: 01/06/18 08:59 Famotidine (Pepcid) 20 mg PO BID [facility] Stop: 01/06/18 08:59 Last Admin: 01/05/18 09:52 Dose: 20 mg Folic Acid (Folvite) 1 mg PO DAILY [facility] Stop: 01/06/18 08:59 Last Admin: 01/05/18 09:51 Dose: 1 mg Furosemide (Lasix) 40 mg PO 0900,1400 [facility] Stop: 01/06/18 08:59 Last Admin: 01/05/18 09:52 Dose: 40 mg Gabapentin (Neurontin) 100 mg PO DAILY [facility] Stop: 01/06/18 08:59 Last Admin: 01/05/18 09:52 Dose: 100 mg Glucagon (Glucagon) 1 mg IM PRN PRN PRN Reason: Hypoglycemia Stop: 01/06/18 08:59 Dextrose/Water (D5w) 1,000 mls @ 0 mls/hr IV .Q0M PRN; As Directed PRN Reason: Hypoglycemia Stop: 01/06/18 08:59 Insulin Glargine 40 units/ (Miscellaneous Medication) 0.4 mls @ 0 mls/hr SC HS [facility] Stop: 01/06/18 08:59 Last Admin: 01/04/18 21:00 Dose: 0.4 mls Sodium Chloride (Normal Saline 0.9%) 1,000 mls @ 125 mls/hr IV .Q8H [facility] Stop: 01/06/18 08:59 Last Admin: 01/05/18 06:15 Dose: Not Given Cefazolin Sodium 2 gm/ Sodium (Chloride) 100 mls @ 200 mls/hr IVPB 0730,1530, 2330 [facility] Stop: 01/06/18 08:59 Vancomycin HCl 2 gm/ Sodium (Chloride) 500 mls @ 250 mls/hr IVPB [facility] Stop: 01/06/18 08:59 Insulin Human Lispro (Humalog) 0 units SC .MODERATE SLIDING SC PRN PRN Reason: Moderate Correctional Scale Stop: 01/06/18 08:59 Last Admin: 01/03/18 17:25 Dose: 2 unit Insulin Human Lispro (Humalog) 0 units SC .BEDTIME SLIDING SC PRN PRN Reason: Bedtime Correctional Scale Stop: 01/06/18 08:59 Last Admin: 01/04/18 21:05 Dose: 3 unit Latanoprost (Xalatan 0.005% [facility] Sol) 1 drop EA EYE HS [facility] Stop: 01/06/18 08:59 Last Admin: 01/04/18 21:02 Dose: 1 drop Losartan Potassium (Cozaar) 50 mg PO BID [facility] Stop: 01/06/18 08:59 Last Admin: 01/05/18 09:52 Dose: 50 mg Miscellaneous Medication (Pharmacy To Dose) 0 each PO PRN PRN PRN Reason: WARFARIN Pharmacy to Dose Stop: 01/06/18 08:59 Nitroglycerin (Nitrostat) 0.4 mg SL Q5MIN PRN PRN Reason: Chest Pain Stop: 01/06/18 08:59 Polyethylene Glycol (Miralax) 17 gm PO DAILY PRN PRN Reason: CONSTIPATION Stop: 01/06/18 08:59 Last Admin: 01/04/18 21:00 Dose: 17 gm Potassium Chloride (K-Dur) 20 meq PO BID-[facility] Stop: 01/06/18 08:59 Last Admin: 01/05/18 09:52 Dose: 20 meq Prednisone (Prednisone) 5 mg PO QAM-[facility] Stop: 01/06/18 08:59 Last Admin: 01/05/18 09:52 Dose: 5 mg Pregabalin (Lyrica) 50 mg PO HS [facility] Stop: 01/06/18 08:59 Last Admin: 01/04/18 21:00 Dose: 50 mg Sodium Chloride (Flush - Normal Saline) 10 ml IVF Q12HR [facility] Last Admin: 01/05/18 09:53 Dose: 10 ml Sodium Chloride (Flush - Normal Saline) 10 ml IVF PRN PRN PRN Reason: Saline Flush Tramadol HCl (Ultram) 50 mg PO Q6H PRN PRN Reason: Moderate Pain (4-6) Stop: 01/06/18 08:59
--- NOTE | 2018-01-05 11:53 | PRG ---
DATE OF SERVICE: 01/05/2018 SUBJECTIVE: Mr. Hull is to doing well, underwent left heart catheterization demonstrating significa nt coronary artery disease along with aortic valve stenosis. The plan is for an AVR and bypass surge ry by Cardiothoracic Surgery, possibly tomorrow. He is feeling well, though overall no palpitations, no dizziness. He has no angina. His groin site is healing well. OBJECTIVE: VITAL SIGNS: Blood pressure is 146/64, heart rate 70, respirations 18, temperature 97.2 degrees Fahr enheit. GENERAL: Alert and oriented man in no apparent distress. NECK: Supple. Jugular veins not distended. CHEST: Coarse without crackles. CARDIOVASCULAR: Heart sounds are regular to rate and rhythm, 1/6 systolic ejection murmur is heard. ABDOMEN: Benign. Bowel sounds positive. EXTREMITIES: Lower extremities without edema, clubbing or cyanosis. DATABASE: Telemetry strips reveals sinus rhythm. No torsades like arrhythmias. ASSESSMENT: Mr. Hull is a pleasant 77-year-old male with history of atrial fibrillation/flutter who presented with atrial flutter with rapid rates. He underwent cavotricuspid isthmus ablation, but ma intained on amiodarone. Hence, the likely atrial fibrillation circuits need to be suppressed. Event ually amiodarone had to be discontinued though, hence, a torsades like arrhythmias also in the settin g of hypokalemia and QT prolongation. Now, he is doing well in sinus rhythm, off amiodarone for over a week. His cardiac workup has noted significant coronary artery disease and he is going for an AVR/CABG tomorrow. Also, per the report h is LV function has improved. PLAN: Our plan is at this point: 1. Continue monitoring perioperatively for recurrence of atrial fibrillation. If atrial fibrillatio n recurs, consideration for restarting amiodarone may be reasonable, although with close attention to the QT and the potassium levels. Alternatively just rate control might be also an option. I discus sed with Dr. Mora and we agreed that potential surgical ligation of left atrial appendage could be a good option along with his AVR/CABG tomorrow. Hence, history of TIA and stroke in the past. 2. Anticoagulation to resume postoperatively. 3. History of cardiomyopathy seems to have improved, LVEF possibly was related to rapid rates and va lvular heart failure decompensation.
[2018-01-05] MEDS ORDERED: Iopamidol 370 76% 100 ML VIAL ONE (13:24)
--- NOTE | 2018-01-05 16:23 | PRG ---
DATE OF SERVICE: 01/05/2018 SUBJECTIVE: Mr. Hull is doing well today, no complaints. OBJECTIVE: VITAL SIGNS: Blood pressure 126/66, pulse 60. LUNGS: Clear. CARDIAC: Normal S1, normal S2. ABDOMEN: Soft, nontender. EXTREMITIES: No edema. ASSESSMENT: 1. Aortic stenosis, moderate to severe. 2. Three vessel coronary artery disease. 3. History of atrial flutter, status post ablation. 4. Paroxysmal atrial fibrillation. PLAN: Scheduled for bypass surgery with valve replacement tomorrow.
[2018-01-05] MEDS: Diltiazem HCl 125 MG, Admixture Fee 1 EACH in Sodium Chloride 0.9% 100 ML IVPB SCH (20:21)
[2018-01-05] MEDS: Pregabalin 50 MG CAP PO SCH (21:18)
[2018-01-05] MEDS: Atorvastatin Calcium 40 MG TAB PO SCH (21:19)
[2018-01-05] MEDS: Insulin Glargine 40 UNITS in Pre-Filled Syringe 1 EACH SC SCH (21:20)
[2018-01-05] MEDS: Latanoprost 0.005% Ophth Soln 2.5 ml Bottle EA EYE SCH (21:23)
[2018-01-06 05:54] LABS: Anion Gap 10 mmol/L (10-20); BUN (Urea Nitrogen) 20 mg/dL (8.4-25.7); Calc. Creatinine Clearance 96 mL/min (70-130); Calcium 9.5 mg/dL (7.8-10.44); Carbon Dioxide 31 mmol/L (23-31); Chloride 97 mmol/L (98-107); Estimated GFR-MDRD 59; Glucose 112 mg/dL (83-110); Potassium 3.3 mmol/L (3.5-5.1); Sodium 135 mmol/L (136-145)
[2018-01-06] MEDS: Losartan 25 MG TAB PO SCH (05:58)
[2018-01-06] MEDS: Carvedilol 6.25 MG TAB PO SCH (05:58)
[2018-01-06 05:59] LABS: INR-International Normal Ratio 1.3; Prothrombin Time 16.4 SEC (12.0-14.7)
[2018-01-06] MEDS ORDERED: CEFAZOLIN/Water 2 GM/20 ML SYRINGE ONE (06:08)
[2018-01-06] MEDS: Diltiazem HCl 125 MG, Admixture Fee 1 EACH in Sodium Chloride 0.9% 100 ML IVPB SCH (06:23)
[2018-01-06] MEDS ORDERED: Albumin 5% 500 ML ONE ×2 (06:29→11:29)
[2018-01-06] MEDS ORDERED: Norepinephrine 8 MG/0.9% NS 250 ML ONE (06:48)
[2018-01-06] MEDS ORDERED: Midazolam HCl 5 mg/5 ml Vial ONE (06:49)
[2018-01-06] MEDS ORDERED: Vecuronium 10 MG VIAL ONE ×2 (06:49→13:44)
[2018-01-06] MEDS ORDERED: Fentanyl 250 MCG/5 ML VIAL ONE (06:49)
[2018-01-06] MEDS ORDERED: Sodium Chloride 0.9% 10 ML ONE (06:59)
[2018-01-06] MEDS ORDERED: Heparin 10,000 UNITS/1 ML VIAL 30,000 UNITS in Sodium Chloride 0.9% 1,000 ML FS SCH (07:00)
[2018-01-06] MEDS ORDERED: CEFAZOLIN/Water 2 GM/20 ML SYRINGE SLOW IVP SCH (07:30)
[2018-01-06] MEDS ORDERED: CEFAZOLIN 2 GM in Sodium Chloride 0.9% 100 ML IVPB SCH (07:30)
[2018-01-06] MEDS ORDERED: Insulin Regular 300 UNITS/3 ML VIAL ONE (09:31)
[2018-01-06] MEDS ORDERED: Phenylephrine HCL 10 MG/ML VIAL ONE (10:13)
[2018-01-06] MEDS ORDERED: Protamine Sulfate 250 MG/25 ML VIAL ONE ×2 (12:47→13:44)
--- NOTE | 2018-01-06 13:30 | EKG ---
Test Reason : STAT Blood Pressure : / mmHG Vent. Rate : 107 BPM Atrial Rate : 115 BPM P-R Int : 000 ms QRS Dur : 120 ms QT Int : 394 ms P-R-T Axes : 000 -40 096 degrees QTc Int : 525 ms Atrial fibrillation with rapid ventricular response Left axis deviation Left ventricular hypertrophy Nonspecific ST and T wave abnormality , probably digitalis effect Abnormal ECG Confirmed by HUBER DELACRUZ ([id number]) on 01/06/2018 1:30:16 PM Referred By: ESTEPHANIE Confirmed By:HUBER DELACRUZ
[2018-01-06] MEDS ORDERED: Magnesium 5 GM/10 ML VIAL ONE (13:44)
[2018-01-06] MEDS ORDERED: Calcium Chloride 1 GM/10 ML Abboject SYRINGE ONE ×2 (13:44→15:48)
[2018-01-06] MEDS ORDERED: PROPOFOL 200 MG/20 ML VIAL ONE (13:44)
[2018-01-06] MEDS ORDERED: Heparin 30,000 units/30 ml VIAL ONE (13:44)
[2018-01-06] MEDS ORDERED: Sodium Bicarb 50 MEQ/50 ML Abboject 8.4% SYRINGE ONE (13:44)
[2018-01-06] MEDS ORDERED: Succinylcholine Chloride 20 MG/ML 10 ml SYRINGE FS ONE (13:44)
[2018-01-06] MEDS ORDERED: Hydrocortisone Sod Succ/PF 100 mg/2 ml Vial ONE (13:44)
[2018-01-06] MEDS ORDERED: Heparin 5,000 UNITS/ML VIAL ONE (13:44)
[2018-01-06] MEDS ORDERED: Mannitol 12.5 GM/50 ML ONE (13:44)
[2018-01-06] MEDS ORDERED: Thrombin 5000 UNITS/5 ML VIAL ONE (13:44)
[2018-01-06] MEDS ORDERED: Lidocaine 2% PF 100 mg/5 ml Syringe ONE (13:44)
[2018-01-06] MEDS ORDERED: Potassium Chlo 10 mEq/5 ml Syr ONE (13:44)
[2018-01-06] MEDS ORDERED: Cardioplegic Soln 1,000 ML BAG ONE (13:44)
[2018-01-06] MEDS ORDERED: Papaverine 60 MG/2 ML VIAL ONE (13:44)
[2018-01-06] MEDS ORDERED: Aminocaproic Acid 5 GM/20 ML VIAL ONE (13:44)
[2018-01-06] MEDS ORDERED: Nitroglycerin 50 MG/250 ML BOT 250 ML IVPB PRN (14:10)
[2018-01-06] MEDS ORDERED: Fentanyl 100 MCG/2 ML VIAL SLOW IVP PRN ×2 (14:10)
[2018-01-06] MEDS ORDERED: Bisacodyl 10 MG SUPP PR PRN (14:10)
[2018-01-06] MEDS ORDERED: Norepinephrine 8 MG/0.9% NS 250 ML IVPB PRN (14:10)
[2018-01-06] MEDS ORDERED: Acetaminophen 325 MG TAB PO PRN (14:10)
[2018-01-06] MEDS ORDERED: DOPamine 400 MG/D5W 250 ML 250 ML IVPB PRN (14:10)
[2018-01-06] MEDS ORDERED: Bisacodyl 5 MG TAB PO PRN (14:10)
[2018-01-06] MEDS ORDERED: Hetastarch 6% 500 ML 500 ML IVPB PRN (14:10)
[2018-01-06] MEDS ORDERED: Post-Op Insulin Drip Protocol IVPB ONE (14:10)
[2018-01-06] MEDS ORDERED: Promethazine HCl 25 MG/ML VIAL IM PRN (14:10)
[2018-01-06] MEDS ORDERED: Ondansetron HCl/PF 4 MG/2 ML Vial IVP PRN (14:10)
[2018-01-06] MEDS ORDERED: Mag-Al 1200 mg/1200 mg/30 ML UDCUP PO PRN (14:10)
[2018-01-06] MEDS ORDERED: HYDROcodone/Acetaminophen 5/325 mg Tablet PO PRN (14:10)
[2018-01-06] MEDS ORDERED: Guaifenesin DM 100-10/5 ML UDCUP PO PRN (14:10)
[2018-01-06] MEDS ORDERED: Magnesium 2 GM/NS 0.9% 100 ML 2 GM in Premix Bag 1 BAG IVPB SCH (14:10)
[2018-01-06 14:20] LABS: Hemoglobin 10.7 g/dL (14.0-18.0); Mean Corpuscular HGB CONC 33.6 g/dL (32.0-36.0); Mean Corpuscular Hemoglobin 29.6 pg (27.0-31.0); Mean Corpuscular Volume 88.1 fL (78.0-98.0); Mean Platelet Volume 9.6 fL (7.4-10.4); Platelet Count 170 thou/uL (130-400); RBC Distribution Width 13.6 % (11.5-14.5); Red Blood Cell (RBC) Count 3.62 mill/uL (4.70-6.10); White Blood Cell (WBC) Count 22.7 thou/uL (4.8-10.8)
[2018-01-06 14:25] LABS: INR-International Normal Ratio 1.9; PTT 43.4 SEC (22.9-36.1)
[2018-01-06 14:28] LABS: Actual Bicarbonate (HCO3a) 22.6 mEq/L (22-28); Base Excess (BEa) -0.9 mEq/L (-2.0 to +3.0); Hemoglobin (Hb) 11.4 g/dL (14.0-18.0); O2 Tension (PaO2) 120.5 mmHg (> 70.0); pH, Arterial 7.45 (7.35-7.45)
[2018-01-06 14:29] LABS: Calcium, Ionized 1.1 mmol/L (1.12-1.30); Puncture Site A-LINE
--- NOTE | 2018-01-06 14:32 | PDOC.PN ---
- Subjective Encounter Start Date: 01/06/18 Encounter Start Time: 14:26 Patient seen and examined. No overnight events S/P CABG AND AVR - Objective Resuscitation Status: Resuscitation Status FULL:Full Resuscitation MAR Reviewed: Yes Vital Signs & Weight: Vital Signs (12 hours) Temp Pulse Resp BP BP Pulse Ox 01/06/18 05:58 110/59 L 01/06/18 03:19 97.9 F 106 H 17 110/55 L 93 L Weight Admit Weight 295 lb 14.4 oz Weight 285 lb 8 oz I&O: 01/05/18 01/06/18 01/07/18 06:59 06:59 06:59 Intake Total 1830 1250 Output Total 1525 1850 Balance 305 -600 Result Diagrams: 01/06/18 13:50 01/06/18 05:07 Additional Labs: Accuchecks 01/06/18 01/06/18 01/05/18 13:52 05:55 21:15 POC Glucose 114 H 118 H 265 H 01/05/18 16:55 POC Glucose 181 H EKG Reviewed by me: Yes Phys Exam - Physical Examination Constitutional: NAD intubated HEENT: PERRLA, sclera anicteric Neck: no JVD, supple Respiratory: no wheezing, no rales, no rhonchi chest tube+ Cardiovascular: RRR, no rub Gastrointestinal: soft, no distention, positive bowel sounds Musculoskeletal: no edema, pulses present Lymphatic: no nodes Skin: no rash, normal turgor Dx/Plan (1) 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 Code(s): I50.23 - ACUTE ON CHRONIC SYSTOLIC (CONGESTIVE) HEART FAILURE Status : Acute (2) Atrial fibrillation with RVR Code(s): I48.91 - UNSPECIFIED ATRIAL FIBRILLATION Status: Acute Comment: s/ p cardioversion and ablation, now in nsr (3) Demand ischemia of myocardium Code(s): I24.8 - OTHER FORMS OF ACUTE ISCHEMIC HEART DISEASE Status: Acute (4) Chronic anticoagulation Code(s): Z79.01 - LONGTERM (CURRENT) USE OF ANTICOAGULANTS Status: Chronic (5) DM type 2 (diabetes mellitus, type 2) Status: Chronic Qualifiers: Diabetes mellitus fpc insulin use: with fpc use Diabetes mellitus complication status: with unspecified complications Qualified Code(s) : E11.8 - Type 2 diabetes mellitus with unspecified complications; Z79.4 - [facility] (current) use of insulin; Z79.4 - [facility] (current) use of insulin; 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; 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 (6) Dyslipidemia Code(s): E78.5 - HYPERLIPIDEMIA, UNSPECIFIED Status: Chronic (7) HTN (hypertension) Code(s): I10 - ESSENTIAL (PRIMARY) HYPERTENSION Status: Chronic Qualifiers: Hypertension type: essential hypertension Qualified Code(s): I10 - Essential (primary) hypertension (8) Morbid obesity with BMI of 40.0-44.9, adult Code(s): E66.01 - MORBID (SEVERE) OBESITY DUE TO EXCESS CALORIES; Z68.41 - BODY MASS INDEX (BMI) 40.0-44.9, ADULT Status: Chronic (9) JAMIN on CPAP Code(s): G47.33 - OBSTRUCTIVE SLEEP APNEA (ADULT) (PEDIATRIC); Z99.89 - DEPENDENCE ON OTHER ENABLING MACHINES AND DEVICES Status: Chronic (10) Rheumatoid arthritis Code(s): M06.9 - RHEUMATOID ARTHRITIS, UNSPECIFIED Status: Chronic (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 Code(s): R00.0 - TACHYCARDIA, UNSPECIFIED; I43 - CARDIOMYOPATHY IN DISEASES CLASSIFIED ELSEWHERE Status: Resolved (12) Ventricular tachycardia, polymorphic Code(s): I47.2 - VENTRICULAR TACHYCARDIA Status: Acute - Plan cont current plan of care * s/p CABG and AVR * continue post operative care as per cardiology and CT surgeon * on insulin drip, lveo drip and cardizem drip for now * medication reviewed as below * symptomatic treatment. Review of Systems - Review of Systems Other: unable to review as currently intubated - Medications/Allergies Allergies/Adverse Reactions: Allergies Allergy/AdvReac Type Severity Reaction Status Date / Time No Known Allergies Allergy Verified 12/24/17 00:48 Medications: Current Medications Acetaminophen (Tylenol) 650 mg PO Q6H PRN PRN Reason: Headache/Fever Or Mild Pain Hydrocodone Bitart/Acetaminophen ([place] 5/325) 1 tab PO Q4H PRN PRN Reason: Moderate Pain (4-6) Hydrocodone Bitart/Acetaminophen ([place] 5/325) 2 tab PO Q4H PRN PRN Reason: Severe Pain (7-10) Al Hydroxide/Mg Hydroxide (Maalox) 30 ml PO Q4H PRN PRN Reason: Indigestion Albumin Human (Albumin 5%) 12.5 gm IVPB Q6H PRN PRN Reason: To Maintain SBP> 90 mmHG Stop: 01/07/18 14:11 Albumin Human (Albumin 5%) 25 gm IVPB Q6H PRN PRN Reason: To Maintain SBP > 90 mmHG Stop: 01/07/18 14:11 Albuterol/Ipratropium (Duoneb) 3 ml NEB [id number] PRN PRN Reason: SHORTNESS OF BREATH Albuterol/Ipratropium (Duoneb) 3 ml NEB [id number] [facility] Aspirin (Aspirin) 325 mg PO DAILY [facility] Bisacodyl (Dulcolax) 10 mg PO Q12H PRN PRN Reason: Constipation Bisacodyl (Dulcolax) 10 mg [place] Q12H PRN PRN Reason: Constipation Cefazolin Sodium (Ancef) 2 gm SLOW IVP Q8H [facility] Stop: 01/07/18 06:11 Famotidine (Pepcid) 20 mg SLOW IVP Q12HR [facility] Fentanyl (Sublimaze) 25 mcg SLOW IVP Q2H PRN PRN Reason: Moderate Pain (4-6) Stop: 01/08/18 13:26 Fentanyl (Sublimaze) 50 mcg SLOW IVP Q2H PRN PRN Reason: Severe Pain (7-10) Stop: 01/08/18 13:26 Guaifenesin/Dextromethorphan (Robitussin Dm) 15 ml PO Q4H PRN PRN Reason: Cough Hydralazine HCl (Apresoline) 10 mg SLOW IVP Q6H PRN PRN Reason: To Maintain SBP< 140mmHG Potassium Chloride/Dextrose/Sod Cl (D5 1/2 Ns W/20 Meq Kcl) 1,000 mls @ 40 mls/ hr IV .Q24H [facility] Dopamine HCl/Dextrose (Dopamine/D5w) 250 mls @ 0 mls/hr IVPB PRN PRN; Protocol ; Titrate PRN Reason: To maintain SBP > 90 mmHG Hetastarch/Sodium Chloride (Hespan) 500 mls @ 0 mls/hr IVPB PRN PRN; As Directed PRN Reason: To Maintain SBP > 90mmHg Stop: 01/07/18 13:26 Norepinephrine Bitartrate (Levophed) 250 mls @ 0 mls/hr IVPB PRN PRN; Protocol ; Titrate PRN Reason: To maintain SBP > 90 mmHG Magnesium Sulfate 2 gm/ Device 100 mls @ 100 mls/hr IVPB ONE [facility] Magnesium Sulfate 2 gm/ Device 100 mls @ 100 mls/hr IVPB QAM [facility] Stop: 01/08/18 09:59 Nicardipine HCl 25 mg/ Sodium (Chloride) 260 mls @ 0 mls/hr IVPB INF PRN; Protocol; Titrate PRN Reason: To Maintain SBP< 140mmHG Nitroglycerin/Dextrose (Nitroglycerin 50 Mg/250 Ml Bot) 250 mls @ 0 mls/hr IVPB PRN PRN; Protocol; Titrate PRN Reason: To Maintain SBP< 140mmHG Vancomycin HCl 2 gm/ Sodium (Chloride) 300 mls @ 200 mls/hr IVPB Q12H [facility] Stop: 01/07/18 03:39 Ketorolac Tromethamine (Toradol) 30 mg IVP Q6HR [facility] Stop: 01/09/18 18:01 Methylprednisolone Sodium Succinate (Solu-Medrol) 50 mg IVP ONE [facility] Methylprednisolone Sodium Succinate (Solu-Medrol) 25 mg IVP ONE [facility] Methylprednisolone Sodium Succinate (Solu-Medrol) 10 mg IVP ONE [facility] Miscellaneous Medication (Post-Op Insulin Drip Protocol) 1 each IVPB ONE ONE Stop: 01/06/18 14:11 Miscellaneous Medication (Post-Op Sliding Scale) 1 each FS ONE ONE Stop: 01/06/18 14:11 Morphine Sulfate (Morphine) 2 mg SLOW IVP Q15MIN PRN PRN Reason: Severe Pain (7-10) Ondansetron HCl (Zofran) 4 mg IVP Q6H PRN PRN Reason: Nausea/Vomiting Potassium Chloride (Kcl) 20 meq IVPB PRN PRN PRN Reason: K level </= 4.0 Prednisone (Prednisone) 5 mg PO QAM-[facility] Promethazine HCl (Phenergan) 6.25 mg IM Q4H PRN PRN Reason: Nausea/Vomiting
[2018-01-06] MEDS ORDERED: Dextrose 5% in Water 1,000 ML IV PRN (14:37)
[2018-01-06] MEDS ORDERED: Dextrose 50% Abboject 50 ML SYRINGE SLOW IVP PRN (14:37)
[2018-01-06 14:44] LABS: Anion Gap 12 mmol/L (10-20); BUN (Urea Nitrogen) 17 mg/dL (8.4-25.7); Calc. Creatinine Clearance 115 mL/min (70-130); Calcium 8.3 mg/dL (7.8-10.44); Carbon Dioxide 23 mmol/L (23-31); Chloride 106 mmol/L (98-107); Estimated GFR-MDRD 73; Glucose 109 mg/dL (83-110); Potassium 3.4 mmol/L (3.5-5.1); Sodium 138 mmol/L (136-145)
[2018-01-06 14:48] LABS: Band 11 % (5-11); Lymphocytes 8 % (21-51); MDiff Complete? YES; Metamyelocyte 2 % (0-0); Monocytes 3 % (0-10); Neutrophil 74 % (42-75); Ovalocytes SLIGHT = 2-5 cells (100X) (0-1/hpf); PLT Morphology Comment Appears Adequate; Polychromasia SLIGHT = 2-3 cells (100X) (0-2/hpf); Reactive Lymphocytes 1 % (0-10)
[2018-01-06] MEDS: D5 1/2 NS w/20 mEq KCL 1,000 ML IV SCH (15:01)
[2018-01-06] MEDS: Potassium Chloride 20 MEQ TAB PO SCH (15:04)
[2018-01-06] MEDS: CEFAZOLIN/Water 2 GM/20 ML SYRINGE SLOW IVP SCH ×2 (15:04→22:16)
[2018-01-06] MEDS: predniSONE 5 MG TAB PO SCH (15:04)
[2018-01-06] MEDS: Potassium Chloride 20 MEQ/100 ML PREMIX BAG IVPB PRN ×2 (15:04→21:36)
--- NOTE | 2018-01-06 15:13 | RAD ---
FRONTAL VIEW CHEST: Date: 01/06/18 COMPARISON: 01/04/18. INDICATION: Status post open heart surgery. FINDINGS: There is evidence of sternotomy. The cardiac silhouette is markedly enlarged. There is left basilar d ensity, including pleural and parenchymal opacification. Prominent vascular congestion is seen. Camelia ter tubing is seen overlying the mediastinum. There is endotracheal tube present, terminating at the level of the thoracic inlet. There is mild pleural thickening with obscuration of the lateral right c ostophrenic sulcus that may relate to pleural fluid. IMPRESSION: Postoperative change with marked enlargement of the cardiac silhouette, vascular congestion, and prom inent opacity of the left mid to inferior hemithorax. Recommend continued follow-up. POS: JUAN
--- NOTE | 2018-01-06 15:51 | EKG ---
Test Reason : POST CABG Blood Pressure : / mmHG Vent. Rate : 065 BPM Atrial Rate : 065 BPM P-R Int : 190 ms QRS Dur : 114 ms QT Int : 468 ms P-R-T Axes : 011 -35 125 degrees QTc Int : 486 ms Normal sinus rhythm Left axis deviation Non-specific intra-ventricular conduction delay Prolonged QT Abnormal ECG Confirmed by HUBER DELACRUZ ([id number]) on 01/06/2018 3:51:12 PM Referred By: Christiano CUENCA Confirmed By:HUBER DELACRUZ
[2018-01-06] MEDS: Ketorolac Tromethamine 30 MG/ML VIAL IVP SCH ×2 (17:51→23:09)
[2018-01-06] MEDS ORDERED: methylPREDNISolone Sod Succ/PF 125 MG/2 ML VIAL IVP SCH (18:00)
--- NOTE | 2018-01-06 20:01 | OP ---
DATE OF PROCEDURE: 01/06/2018 PREOPERATIVE DIAGNOSES: Aortic stenosis/coronary disease/atrial fibrillation, status post ablation s tatus/diabetes mellitus/hypertension dyslipidemia/morbid obesity/rheumatoid arthritis/venous stasis d isease. POSTOPERATIVE DIAGNOSES: Aortic stenosis/coronary disease/atrial fibrillation, status post ablation status/diabetes mellitus/hypertension dyslipidemia/morbid obesity/rheumatoid arthritis/venous stasis disease. PROCEDURES: 1. Aortic valve replacement with #25 Magna bioprosthetic valve. 2. Coronary bypass grafting x3. 3. Left internal mammary artery to 2.0 mm in LAD, saphenous vein to 2.0 mm in OM, saphenous vein to 2.0 mm in PDA. 4. Ligation of left atrial appendage. SURGEON: Dayron Gonzalez M.D. and Frank Otero M.D. ANESTHESIA: General endotracheal, Dr. Yuri Jim. PUMP TIME: 134 minutes. CROSS-CLAMP TIME: 109 minutes. LOW CORE TEMP: 32-degree Celsius. RECRUIT INSTRUCTOR: Jolly Kline. DRAINS: 24-American chest tubes x2. DRIPS: Levophed at 15 mcg per minute. TRANSFUSIONS: One platelet pack. PROCEDURE IN DETAIL: After consent was obtained, the patient was brought to operating room and place d in the supine position on the operating room table. Appropriate anesthetic monitor was placed and general endotracheal anesthesia induced. Chest and legs were prepped and draped in usual sterile fas hion. Greater saphenous vein was harvested from the left lower extremity utilizing endoscopic techni que. Wounds irrigated, closed in layers. Median sternotomy was performed. Left internal mammary ar zenia was harvested as a pedicle graft. There was greater than usual bleeding from the sternal table. After the mammary been completely taken down, the patient was systemically heparinized. Distal ped icle was divided and infused with papaverine. Thymic fat and pericardium were divided with electroca utery. Pericardial stay sutures placed. Aortic and atrial cannulation was performed. After adequat e heparinization, retrograde prime was performed. The patient was placed on cardiopulmonary bypass. Distal targets were marked. Aortic cross-clamp was applied and antegrade sanguinous cardioplegic ar rest obtained. One liter of antegrade cold cardioplegia was given. Topical cold solution was used. Reverse saphenous vein was anastomosed to the PDA in end-to-side fashion with running 7-0 Prolene johnson ture. Anastomosis was tested and was hemostatic. The left atrial appendage was ligated in a dual la kenny running fashion with mattress sutures. Reverse saphenous vein was anastomosed to the OM and saph enous vein with running 7-0 Prolene suture. Anastomosis was tested and was hemostatic. Mammary reynaldo ry was brought through a window in the pericardium and anastomosed to the LAD in end-to-side fashion with running 7-0 Prolene suture. On release of mammary clamps, good hooding anastomosis and good dis reid flow. Pedicle was secured with interrupted 6-0 Prolene suture. Mammary was reclamped. 300 mL o f antegrade cardioplegia given including down the grafts. CO2 was then infused in the pericardial we ll. A transverse hockey stick aortotomy was performed. Aortic stay sutures were placed. The valve was inspected. It was a three leaflet valve. The leaflets were heavily calcified. Hinge points wer e calcified and fairly immobile. Leaflets were debrided. Annular pledgetted 2-0 Ethibond sutures we re then placed. Valve measured to be a #25 Magna valve which was washed and prepared for placement. After circumferential sutures in place, the sutures were passed through the valve sewing ring. Valv e was seated and secured with core knots. The valve seated nicely. Aortotomy was then closed in a r unning dual layer fashion with pledgeted 4-0 Prolene suture. Prior to completion of the patch suture line, ventilation was begun and all CO2 expelled from the ventricle. After completion of the suture line, the patient was placed into Trendelenburg position. Aortic Cross-clamp was removed and partia l occluding clamp placed. Saphenous veins were anastomosed to individual punch sites with running 6- 0 Prolene suture. Partial occluding clamp was removed and grafts deaired. Anastomoses were inspecte d for hemostasis, which was good. The patient was warmed and weaned from cardiopulmonary bypass. Af ter resumption of sinus rhythm, the rate was in the 40s; therefore, ventricular pacing wires were kelley magi. The patient was paced ventricularly at rate of 80. After a temperature greater than 36.5 and a dequate hemodynamics had been obtained, the bypass was discontinued. Decannulation was performed and pursestring sutures secured. Aortic cannulation site was reinforced with pledgeted 4-0 Prolene sutu re. Protamine was administered. 10 units of platelets were given for hemostasis. Sternum was treat ed with vancomycin paste. Sternum was closed with #7 wire. Sternum was treated with vancomycin with platelet-rich plasma and wires twisted. Wounds irrigated, treated with platelet-poor plasma, and cl osed in multiple layers. Needle, sponge, and instrument counts were all reported correct at the end of the procedure. The patient was transferred to the intensive care unit in stable, but critical con dition.
[2018-01-06] MEDS: Famotidine/PF 20 mg/2ml Vial SLOW IVP SCH (20:03)
[2018-01-06 20:04] LABS: Hemoglobin 8.4 g/dL (14.0-18.0)
[2018-01-06 20:24] LABS: Potassium 3.8 mmol/L (3.5-5.1)
[2018-01-06 23:19] LABS: Actual Bicarbonate (HCO3a) 22.4 mEq/L (22-28); Base Excess (BEa) -1.4 mEq/L (-2.0 to +3.0); O2 Tension (PaO2) 87.7 mmHg (> 70.0); pH, Arterial 7.44 (7.35-7.45)
[2018-01-06 23:20] LABS: Calcium, Ionized 1.1 mmol/L (1.12-1.30); Hemoglobin (Hb) 9.7 g/dL (14.0-18.0); Puncture Site ALINE
--- NOTE | 2018-01-07 00:05 | PRG ---
DATE OF SERVICE: 01/06/2018 SUBJECTIVE: Mr. Hull is now postoperatively, intubated and sedated. He is on Levophed for blood pressure support and also on intravenous diltiazem. OBJECTIVE: LUNGS: Clear. CARDIAC: Normal S1, normal S2. ABDOMEN: Soft, nontender. EXTREMITIES: Mild edema. SKIN: Warm and dry. LABORATORY DATA: Hemoglobin is 10.7, hematocrit 31.9, potassium 3.4. ASSESSMENT: 1. Postoperative status bypass surgery and aortic valve replacement. 2. Plan oversewing of the left atrial appendage. PLAN: Supportive care. Probably can be weaned from the diltiazem tomorrow. Dr. Kaur will be available this weekend. ELLIE
[2018-01-07] MEDS: hydrALAZINE 20 MG/ML VIAL SLOW IVP PRN ×2 (01:01→12:13)
[2018-01-07 04:35] LABS: Anion Gap 10 mmol/L (10-20); BUN (Urea Nitrogen) 19 mg/dL (8.4-25.7); Calc. Creatinine Clearance 148 mL/min (70-130); Calcium 8.3 mg/dL (7.8-10.44); Carbon Dioxide 23 mmol/L (23-31); Chloride 108 mmol/L (98-107); Estimated GFR-MDRD Greater than 90; Glucose 145 mg/dL (83-110); Potassium 3.7 mmol/L (3.5-5.1); Sodium 137 mmol/L (136-145)
[2018-01-07 04:38] LABS: #Lymphocytes 0.6 thou/uL (1.20-3.40); #Monocytes 0.7 thou/uL (0.11-0.59); #Neutrophils 7.5 thou/uL (1.40-6.50); %Basophils 0.1 % (0.0-1.0); %Lymphocytes 6.8 % (21.0-51.0); %Monocytes 7.9 % (0.0-10.0); %Neutrophils 85.1 % (42.0-75.0); Hemoglobin 9.3 g/dL (14.0-18.0); Mean Corpuscular HGB CONC 34.1 g/dL (32.0-36.0); Mean Corpuscular Hemoglobin 30.1 pg (27.0-31.0); Mean Corpuscular Volume 88.3 fL (78.0-98.0); Mean Platelet Volume 10.9 fL (7.4-10.4); Platelet Count 99 thou/uL (130-400); RBC Distribution Width 13.8 % (11.5-14.5); Red Blood Cell (RBC) Count 3.07 mill/uL (4.70-6.10); White Blood Cell (WBC) Count 8.8 thou/uL (4.8-10.8)
[2018-01-07] MEDS: Potassium Chloride 20 MEQ/100 ML PREMIX BAG IVPB PRN (04:45)
[2018-01-07] MEDS: Ketorolac Tromethamine 30 MG/ML VIAL IVP SCH ×3 (05:06→17:42)
[2018-01-07] MEDS: CEFAZOLIN/Water 2 GM/20 ML SYRINGE SLOW IVP SCH (06:25)
[2018-01-07] MEDS: Aspirin 325 MG TAB PO SCH (07:23)
[2018-01-07] MEDS: HYDROcodone/Acetaminophen 5/325 mg Tablet PO PRN ×3 (07:23→20:15)
[2018-01-07] MEDS: Famotidine/PF 20 mg/2ml Vial SLOW IVP SCH ×2 (07:24→20:14)
[2018-01-07] MEDS: Magnesium 2 GM/NS 0.9% 100 ML 2 GM in Premix Bag 1 BAG IVPB SCH (07:29)
--- NOTE | 2018-01-07 08:34 | RAD ---
PORTABLE CHEST: Date: 01/07/18 PROVIDED CLINICAL HISTORY: Post open heart. FINDINGS: Comparison is made with the study dated 01/06/18. Significant interval change with respect to the prior examination is not apparent. IMPRESSION: As above. POS: JUAN
--- NOTE | 2018-01-07 11:05 | PDOC.PN ---
- Subjective Encounter Start Date: 01/07/18 Encounter Start Time: 09:40 pt is awake, his pain is controlled with pain meds he is asking for his some of home medication - Objective Resuscitation Status: Resuscitation Status FULL:Full Resuscitation MAR Reviewed: Yes Vital Signs & Weight: Vital Signs (12 hours) Temp Pulse Resp Pulse Ox 01/07/18 07:00 97.9 F 01/07/18 06:56 84 13 99 01/07/18 06:51 99 01/07/18 03:00 98.1 F 01/07/18 01:01 80 01/07/18 00:00 99 Weight Admit Weight 295 lb 14.4 oz Weight 290 lb 9.108 oz Most Recent Monitor Data Heart Rate from ECG 89 NIBP 162/57 NIBP BP-Mean 94 Respiration from ECG 26 SpO2 98 I&O: 01/06/18 01/07/18 01/08/18 06:59 06:59 06:59 Intake Total 1250 3704.8 Output Total 1850 2125 400 Balance -600 1579.8 -400 Result Diagrams: 01/07/18 04:04 01/07/18 04:04 Additional Labs: Accuchecks 01/07/18 01/07/18 01/07/18 10:38 09:00 07:47 POC Glucose 178 H 175 H 106 01/07/18 01/07/18 01/06/18 05:53 01:59 23:55 POC Glucose 130 H 138 H 129 H 01/06/18 01/06/18 01/06/18 23:03 22:11 21:00 POC Glucose 131 H 128 H 132 H 01/06/18 01/06/18 01/06/18 19:57 19:02 18:13 POC Glucose 164 H 149 H 138 H 01/06/18 01/06/18 01/06/18 17:16 16:13 15:06 POC Glucose 145 H 140 H 137 H 01/06/18 01/06/18 01/06/18 13:52 12:27 11:24 POC Glucose 114 H 128 H 147 H 01/06/18 01/06/18 01/06/18 10:11 09:31 08:25 POC Glucose 173 H 164 H 126 H Radiology Reviewed by me: Yes (chest xray) EKG Reviewed by me: Yes Phys Exam - Physical Examination Constitutional: NAD HEENT: PERRLA, moist MMs, sclera anicteric Neck: no JVD, supple Respiratory: no wheezing, no rales, no rhonchi reduced air entry Cardiovascular: RRR, no significant murmur surgical site with dressing chest tube in place Gastrointestinal: soft, non-tender, no distention, positive bowel sounds obesity+ Musculoskeletal: no edema, pulses present Neurological: moves all 4 limbs Lymphatic: no nodes Psychiatric: normal affect Skin: no rash, normal turgor Dx/Plan (1) 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 Code(s): I50.23 - ACUTE ON CHRONIC SYSTOLIC (CONGESTIVE) HEART FAILURE Status : Acute (2) Atrial fibrillation with RVR Code(s): I48.91 - UNSPECIFIED ATRIAL FIBRILLATION Status: Acute Comment: s/ p cardioversion and ablation, now in nsr (3) Demand ischemia of myocardium Code(s): I24.8 - OTHER FORMS OF ACUTE ISCHEMIC HEART DISEASE Status: Acute (4) Chronic anticoagulation Code(s): Z79.01 - EXHIBIT DISPLAY REPRESENTATIVE (CURRENT) USE OF ANTICOAGULANTS Status: Chronic (5) DM type 2 (diabetes mellitus, type 2) Status: Chronic Qualifiers: Diabetes mellitus dedicated intermodal truck driver insulin use: with dedicated intermodal truck driver use Diabetes mellitus complication status: with unspecified complications Qualified Code(s) : E11.8 - Type 2 diabetes mellitus with unspecified complications; Z79.4 - MCFP (current) use of insulin; Z79.4 - MCFP (current) use of insulin; Z79.4 - MCFP (current) use of insulin; Z79.4 - MCFP (current) use of insulin (6) Dyslipidemia Code(s): E78.5 - HYPERLIPIDEMIA, UNSPECIFIED Status: Chronic (7) HTN (hypertension) Code(s): I10 - ESSENTIAL (PRIMARY) HYPERTENSION Status: Chronic Qualifiers: Hypertension type: essential hypertension Qualified Code(s): I10 - Essential (primary) hypertension (8) Morbid obesity with BMI of 40.0-44.9, adult Code(s): E66.01 - MORBID (SEVERE) OBESITY DUE TO EXCESS CALORIES; Z68.41 - BODY MASS INDEX (BMI) 40.0-44.9, ADULT Status: Chronic (9) JAMIN on CPAP Code(s): G47.33 - OBSTRUCTIVE SLEEP APNEA (ADULT) (PEDIATRIC); Z99.89 - DEPENDENCE ON OTHER ENABLING MACHINES AND DEVICES Status: Chronic (10) Rheumatoid arthritis Code(s): M06.9 - RHEUMATOID ARTHRITIS, UNSPECIFIED Status: Chronic (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 Code(s): R00.0 - TACHYCARDIA, UNSPECIFIED; I43 - CARDIOMYOPATHY IN DISEASES CLASSIFIED ELSEWHERE Status: Resolved (12) Ventricular tachycardia, polymorphic Code(s): I47.2 - VENTRICULAR TACHYCARDIA Status: Acute (13) 3-vessel coronary artery disease Status: Chronic (14) Severe aortic stenosis Code(s): I35.0 - NONRHEUMATIC AORTIC (VALVE) STENOSIS Status: Chronic - Plan cont current plan of care * will start selected home medication per pt request * continue post operative care as per cardiology and CT surgeon. * medication reviewed as below * symptomatic treatment Review of Systems - Review of Systems Constitutional: negative: fever, chills, sweats, weakness, malaise, other ENT: negative: Ear Pain, Ear Discharge, Nose Pain, Nose Discharge, Nose Congestion, Mouth Pain, Mouth Swelling, Throat Pain, Throat Swelling, Other Respiratory: negative: Cough, Dry, Shortness of Breath, Hemoptysis, SOB with Excertion, Pleuritic Pain, Sputum, Wheezing Cardiovascular: chest pain. negative: palpitations, orthopnea, paroxysmal nocturnal dyspnea, edema, light headedness, other Gastrointestinal: negative: Nausea, Vomiting, Abdominal Pain, Diarrhea, Constipation, Melena, Hematochezia, Other Genitourinary: negative: Dysuria, Frequency, Incontinence, Hematuria, Retention , Other Musculoskeletal: negative: Neck Pain, Shoulder Pain, Arm Pain, Back Pain, Hand Pain, Leg Pain, Foot Pain, Other - Medications/Allergies Allergies/Adverse Reactions: Allergies Allergy/AdvReac Type Severity Reaction Status Date / Time No Known Allergies Allergy Verified 12/24/17 00:48 Medications: Current Medications Acetaminophen (Tylenol) 650 mg PO Q6H PRN PRN Reason: Headache/Fever Or Mild Pain Hydrocodone Bitart/Acetaminophen (Calvin 5/325) 1 tab PO Q4H PRN PRN Reason: Moderate Pain (4-6) Hydrocodone Bitart/Acetaminophen (Calvin 5/325) 2 tab PO Q4H PRN PRN Reason: Severe Pain (7-10) Last Admin: 01/07/18 07:23 Dose: 2 tab Al Hydroxide/Mg Hydroxide (Maalox) 30 ml PO Q4H PRN PRN Reason: Indigestion Albumin Human (Albumin 5%) 12.5 gm IVPB Q6H PRN PRN Reason: To Maintain SBP> 90 mmHG Stop: 01/07/18 14:11 Albumin Human (Albumin 5%) 25 gm IVPB Q6H PRN PRN Reason: To Maintain SBP > 90 mmHG Stop: 01/07/18 14:11 Last Admin: 01/06/18 14:30 Dose: 25 gm Albuterol/Ipratropium (Duoneb) 3 ml NEB [id number] PRN PRN Reason: SHORTNESS OF BREATH Albuterol/Ipratropium (Duoneb) 3 ml NEB [id number] [facility] Last Admin: 01/07/18 06:56 Dose: 3 ml Aspirin (Aspirin) 325 mg PO DAILY [facility] Last Admin: 01/07/18 07:23 Dose: 325 mg Bisacodyl (Dulcolax) 10 mg PO Q12H PRN PRN Reason: Constipation Bisacodyl (Dulcolax) 10 mg ND Q12H PRN PRN Reason: Constipation Dextrose/Water (Dextrose 50%) 25 gm SLOW IVP PRN PRN PRN Reason: PER HYPOGLYCEMIC PROTOCOL Famotidine (Pepcid) 20 mg SLOW IVP Q12HR [facility] Last Admin: 01/07/18 07:24 Dose: 20 mg Fentanyl (Sublimaze) 25 mcg SLOW IVP Q2H PRN PRN Reason: Moderate Pain (4-6) Stop: 01/08/18 13:26 Fentanyl (Sublimaze) 50 mcg SLOW IVP Q2H PRN PRN Reason: Severe Pain (7-10) Stop: 01/08/18 13:26 Glucagon (Glucagon) 1 mg SC PRN PRN PRN Reason: PER HYPOGLYCEMIC PROTOCOL Guaifenesin/Dextromethorphan (Robitussin Dm) 15 ml PO Q4H PRN PRN Reason: Cough Hydralazine HCl (Apresoline) 10 mg SLOW IVP Q6H PRN PRN Reason: To Maintain SBP< 140mmHG Last Admin: 01/07/18 01:01 Dose: 10 mg Potassium Chloride/Dextrose/Sod Cl (D5 1/2 Ns W/20 Meq Kcl) 1,000 mls @ 40 mls/ hr IV .Q24H [facility] Last Admin: 01/06/18 15:01 Dose: 1,000 mls Dopamine HCl/Dextrose (Dopamine/D5w) 250 mls @ 0 mls/hr IVPB PRN PRN; Protocol ; Titrate PRN Reason: To maintain SBP > 90 mmHG Hetastarch/Sodium Chloride (Hespan) 500 mls @ 0 mls/hr IVPB PRN PRN; As Directed PRN Reason: To Maintain SBP > 90mmHg Stop: 01/07/18 13:26 Last Admin: 01/06/18 15:53 Dose: 500 mls Norepinephrine Bitartrate (Levophed) 250 mls @ 0 mls/hr IVPB PRN PRN; Protocol ; Titrate PRN Reason: To maintain SBP > 90 mmHG Last Admin: 01/06/18 19:12 Dose: 250 mls Magnesium Sulfate 2 gm/ Device 100 mls @ 100 mls/hr IVPB QAM [facility] Stop: 01/08/18 09:59 Last Admin: 01/07/18 07:29 Dose: 100 mls Nicardipine HCl 25 mg/ Sodium (Chloride) 260 mls @ 0 mls/hr IVPB INF PRN; Protocol; Titrate PRN Reason: To Maintain SBP< 140mmHG Nitroglycerin/Dextrose (Nitroglycerin 50 Mg/250 Ml Bot) 250 mls @ 0 mls/hr IVPB PRN PRN; Protocol; Titrate PRN Reason: To Maintain SBP< 140mmHG Last Admin: 01/07/18 01:18 Dose: 250 mls Insulin Human Regular 100 (units/ Sodium Chloride) 101 mls @ 0 mls/hr IVPB INF MARIELA; As Directed PRN Reason: Protocol Dextrose/Water (D5w) 1,000 mls @ 0 mls/hr IV INF PRN; As Directed PRN Reason: PRN HYPOGLYCEMIC PROTOCOL Insulin Human Regular (Humulin R) 0 units SC Q4H PRN; Protocol PRN Reason: POST OP SLIDING SCALE Ketorolac Tromethamine (Toradol) 30 mg IVP Q6HR [facility] Stop: 01/09/18 18:01 Last Admin: 01/07/18 05:06 Dose: 30 mg Methylprednisolone Sodium Succinate (Solu-Medrol) 10 mg IVP 1800 [facility] Stop: 01/07/18 20:00 Morphine Sulfate (Morphine) 2 mg SLOW IVP Q15MIN PRN PRN Reason: Severe Pain (7-10) Ondansetron HCl (Zofran) 4 mg IVP Q6H PRN PRN Reason: Nausea/Vomiting Last Admin: 01/07/18 07:23 Dose: 4 mg Potassium Chloride (Kcl) 20 meq IVPB PRN PRN PRN Reason: K level </= 4.0 Last Admin: 01/07/18 04:45 Dose: 20 meq Prednisone (Prednisone) 5 mg PO [facility] Promethazine HCl (Phenergan) 6.25 mg IM Q4H PRN PRN Reason: Nausea/Vomiting
[2018-01-07] MEDS ORDERED: Pregabalin 50 MG CAP PO SCH (11:15)
[2018-01-07] MEDS ORDERED: Furosemide 40 MG/4 ML VIAL SLOW IVP SCH ×2 (11:30→20:00)
[2018-01-07] MEDS ORDERED: Losartan 25 MG TAB PO SCH (11:30)
[2018-01-07] MEDS ORDERED: Carvedilol 6.25 MG TAB PO SCH (11:30)
[2018-01-07] MEDS: D5 1/2 NS w/20 mEq KCL 1,000 ML IV SCH (15:10)
[2018-01-07] MEDS ORDERED: Insulin Glargine 16 UNITS in Pre-Filled Syringe 1 EACH SC PRN (15:14)
[2018-01-07] MEDS: Carvedilol 6.25 MG TAB PO SCH (17:42)
[2018-01-07] MEDS: Insulin Regular 300 UNITS/3 ML VIAL SC PRN (20:14)
[2018-01-07] MEDS: Latanoprost 0.005% Ophth Soln 2.5 ml Bottle EA EYE SCH (20:14)
[2018-01-08] MEDS: Ketorolac Tromethamine 30 MG/ML VIAL IVP SCH ×2 (00:51→05:02)
[2018-01-08] MEDS: HYDROcodone/Acetaminophen 5/325 mg Tablet PO PRN ×5 (00:53→22:14)
[2018-01-08 05:27] LABS: #Lymphocytes 1.4 thou/uL (1.20-3.40); #Neutrophils 12.7 thou/uL (1.40-6.50); %Basophils 0.1 % (0.0-1.0); %Lymphocytes 8.7 % (21.0-51.0); %Monocytes 12.3 % (0.0-10.0); %Neutrophils 78.8 % (42.0-75.0); Hemoglobin 8.7 g/dL (14.0-18.0); Mean Corpuscular HGB CONC 33.5 g/dL (32.0-36.0); Mean Corpuscular Hemoglobin 29.9 pg (27.0-31.0); Mean Corpuscular Volume 89.2 fL (78.0-98.0); Mean Platelet Volume 10.7 fL (7.4-10.4); Platelet Count 124 thou/uL (130-400); RBC Distribution Width 14.4 % (11.5-14.5); Red Blood Cell (RBC) Count 2.92 mill/uL (4.70-6.10); White Blood Cell (WBC) Count 16.1 thou/uL (4.8-10.8)
[2018-01-08 05:31] LABS: Anion Gap 12 mmol/L (10-20); BUN (Urea Nitrogen) 31 mg/dL (8.4-25.7); Calc. Creatinine Clearance 79 mL/min (70-130); Calcium 8.2 mg/dL (7.8-10.44); Carbon Dioxide 23 mmol/L (23-31); Chloride 103 mmol/L (98-107); Estimated GFR-MDRD 46; Glucose 184 mg/dL (83-110); Potassium 4.1 mmol/L (3.5-5.1); Sodium 134 mmol/L (136-145)
[2018-01-08] MEDS: Insulin Regular 300 UNITS/3 ML VIAL SC PRN ×4 (06:20→20:16)
[2018-01-08] MEDS: Aspirin 325 MG TAB PO SCH (07:48)
[2018-01-08] MEDS: Losartan 25 MG TAB PO SCH (07:48)
[2018-01-08] MEDS: predniSONE 5 MG TAB PO SCH (07:48)
[2018-01-08] MEDS: Carvedilol 6.25 MG TAB PO SCH ×2 (07:49→17:14)
[2018-01-08] MEDS: Folic Acid 1 MG TAB PO SCH (07:49)
[2018-01-08] MEDS: Pregabalin 50 MG CAP PO SCH (07:49)
[2018-01-08] MEDS: Famotidine/PF 20 mg/2ml Vial SLOW IVP SCH (07:50)
[2018-01-08] MEDS: Magnesium 2 GM/NS 0.9% 100 ML 2 GM in Premix Bag 1 BAG IVPB SCH (07:59)
[2018-01-08] MEDS ORDERED: Mag-Al 1200 mg/1200 mg/30 ML UDCUP PO PRN (08:38)
[2018-01-08] MEDS ORDERED: Guaifenesin DM 100-10/5 ML UDCUP PO PRN (08:38)
[2018-01-08] MEDS ORDERED: Nitroglycerin 0.4 MG TAB (25 Tab Bottle) SL PRN (08:38)
[2018-01-08] MEDS ORDERED: Mineral Oil ENEMA PR PRN (08:38)
[2018-01-08] MEDS ORDERED: Bisacodyl 10 MG SUPP PR PRN (08:38)
[2018-01-08] MEDS ORDERED: Bisacodyl 5 MG TAB PO PRN (08:38)
[2018-01-08] MEDS ORDERED: Artificial Tears 18 DROP/0.9 ML EA EYE PRN (08:38)
[2018-01-08] MEDS ORDERED: Zolpidem Tartrate 5 MG TAB PO PRN (08:38)
[2018-01-08] MEDS ORDERED: diphenhydrAMINE 25 MG CAP PO PRN (08:38)
[2018-01-08] MEDS ORDERED: Metolazone 5 MG TAB PO SCH (08:45)
[2018-01-08] MEDS ORDERED: Dextrose 50% Abboject 50 ML SYRINGE SLOW IVP PRN (08:49)
[2018-01-08] MEDS ORDERED: Dextrose 5% in Water 1,000 ML IV PRN (08:49)
[2018-01-08] MEDS ORDERED: predniSONE 5 MG TAB PO SCH (09:00)
--- NOTE | 2018-01-08 09:33 | RAD ---
PORTABLE CHEST: Date: 01/08/18 PROVIDED CLINICAL HISTORY: Post open heart. FINDINGS: Comparison with 01/07/18. Significant interval change with respect to the prior examination is not apparent. IMPRESSION: As above. POS: JUAN
[2018-01-08] MEDS ORDERED: Polyethylene Glycol 3350 17 GM Packet PO SCH (10:15)
[2018-01-08] MEDS: Aspirin 325 mg Enteric Coated Tablet PO SCH (10:20)
[2018-01-08] MEDS: Furosemide 40 MG/4 ML VIAL SLOW IVP SCH ×2 (10:20→14:34)
--- NOTE | 2018-01-08 11:16 | PDOC.PN ---
- Subjective Encounter Start Date: 01/08/18 Encounter Start Time: 10:00 does not have BM for 4 days, no fever, minor surgical pain - Objective Resuscitation Status: Resuscitation Status FULL:Full Resuscitation MAR Reviewed: Yes Vital Signs & Weight: Vital Signs (12 hours) Temp Pulse Pulse Pulse Resp BP BP 01/08/18 09:21 72 80 118/46 L 121/43 L 01/08/18 08:00 97.7 F 86 18 01/08/18 07:00 97.7 F 01/08/18 06:27 75 16 01/08/18 06:26 01/08/18 04:00 98.2 F 01/08/18 00:19 78 14 01/08/18 00:00 98.5 F Pulse Ox Pulse Ox Pulse Ox 01/08/18 09:21 96 100 01/08/18 08:00 96 01/08/18 07:00 01/08/18 06:27 96 01/08/18 06:26 98 01/08/18 04:00 01/08/18 00:19 96 01/08/18 00:00 Weight Admit Weight 295 lb 14.4 oz Weight 290 lb 9.6 oz Most Recent Monitor Data Heart Rate from ECG 77 NIBP 121/43 NIBP BP-Mean 69 Respiration from ECG 13 SpO2 100 I&O: 01/07/18 01/08/18 01/09/18 06:59 06:59 06:59 Intake Total 3704.8 3268.1 250 Output Total 2125 1980 165 Balance 1579.8 1288.1 85 Result Diagrams: 01/08/18 05:14 01/08/18 05:14 Additional Labs: Accuchecks 01/07/18 01/07/18 01/07/18 20:09 17:48 14:56 POC Glucose 181 H 114 H 126 H 01/07/18 11:36 POC Glucose 178 H Radiology Reviewed by me: Yes (chest xray) EKG Reviewed by me: Yes (nsr) Phys Exam - Physical Examination Constitutional: NAD HEENT: PERRLA, moist MMs, sclera anicteric Neck: no JVD, supple Respiratory: no wheezing, no rales, no rhonchi surgical site clean chest tube+ central line+ Cardiovascular: RRR, no significant murmur, no rub Gastrointestinal: soft, non-tender, no distention, positive bowel sounds Musculoskeletal: no edema, pulses present Neurological: non-focal, normal sensation, moves all 4 limbs Psychiatric: normal affect, A&O x 3 Skin: no rash, normal turgor Dx/Plan (1) 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 Code(s): I50.23 - ACUTE ON CHRONIC SYSTOLIC (CONGESTIVE) HEART FAILURE Status : Acute (2) Atrial fibrillation with RVR Code(s): I48.91 - UNSPECIFIED ATRIAL FIBRILLATION Status: Acute Comment: s/ p cardioversion and ablation, now in nsr (3) Demand ischemia of myocardium Code(s): I24.8 - OTHER FORMS OF ACUTE ISCHEMIC HEART DISEASE Status: Acute (4) Chronic anticoagulation Code(s): Z79.01 - CORRECTION (CURRENT) USE OF ANTICOAGULANTS Status: Chronic (5) DM type 2 (diabetes mellitus, type 2) Status: Chronic Qualifiers: Diabetes mellitus exterminator helper termite insulin use: with exterminator helper termite use Diabetes mellitus complication status: with unspecified complications Qualified Code(s) : E11.8 - Type 2 diabetes mellitus with unspecified complications; Z79.4 - long term care social worker (current) use of insulin; Z79.4 - [facility] (current) use of insulin; Z79.4 - [facility] (current) use of insulin; Z79.4 - [facility] (current) use of insulin (6) Dyslipidemia Code(s): E78.5 - HYPERLIPIDEMIA, UNSPECIFIED Status: Chronic (7) HTN (hypertension) Code(s): I10 - ESSENTIAL (PRIMARY) HYPERTENSION Status: Chronic Qualifiers: Hypertension type: essential hypertension Qualified Code(s): I10 - Essential (primary) hypertension (8) Morbid obesity with BMI of 40.0-44.9, adult Code(s): E66.01 - MORBID (SEVERE) OBESITY DUE TO EXCESS CALORIES; Z68.41 - BODY MASS INDEX (BMI) 40.0-44.9, ADULT Status: Chronic (9) JAMIN on CPAP Code(s): G47.33 - OBSTRUCTIVE SLEEP APNEA (ADULT) (PEDIATRIC); Z99.89 - DEPENDENCE ON OTHER ENABLING MACHINES AND DEVICES Status: Chronic (10) Rheumatoid arthritis Code(s): M06.9 - RHEUMATOID ARTHRITIS, UNSPECIFIED Status: Chronic (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 Code(s): R00.0 - TACHYCARDIA, UNSPECIFIED; I43 - CARDIOMYOPATHY IN DISEASES CLASSIFIED ELSEWHERE Status: Resolved (12) Ventricular tachycardia, polymorphic Code(s): I47.2 - VENTRICULAR TACHYCARDIA Status: Acute (13) 3-vessel coronary artery disease Status: Chronic (14) Severe aortic stenosis Code(s): I35.0 - NONRHEUMATIC AORTIC (VALVE) STENOSIS Status: Chronic - Plan cont current plan of care * today plan for transfer to [facility] * chest tube as per surgeon * then cardiac rehab * cardiology following and stable * will add miralax for constipation * medication reviewed as below * symptomatic treatment. Review of Systems - Review of Systems Eyes: negative: Pain, Vision Change, Conjunctivae Inflammation, Eyelid Inflammation, Redness, Other ENT: negative: Ear Pain, Ear Discharge, Nose Pain, Nose Discharge, Nose Congestion, Mouth Pain, Mouth Swelling, Throat Pain, Throat Swelling, Other Respiratory: negative: Cough, Dry, Shortness of Breath, Hemoptysis, SOB with Excertion, Pleuritic Pain, Sputum, Wheezing Cardiovascular: negative: chest pain, palpitations, orthopnea, paroxysmal nocturnal dyspnea, edema, light headedness, other Gastrointestinal: Constipation. negative: Nausea, Vomiting, Abdominal Pain, Diarrhea, Melena, Hematochezia, Other Genitourinary: negative: Dysuria, Frequency, Incontinence, Hematuria, Retention , Other Musculoskeletal: negative: Neck Pain, Shoulder Pain, Arm Pain, Back Pain, Hand Pain, Leg Pain, Foot Pain, Other Skin: negative: Rash, Lesions, Efra, Bruising, Other - Medications/Allergies Allergies/Adverse Reactions: Allergies Allergy/AdvReac Type Severity Reaction Status Date / Time No Known Allergies Allergy Verified 12/24/17 00:48 Medications: Current Medications Hydrocodone Bitart/Acetaminophen ([place] 5/325) 2 tab PO Q4H PRN PRN Reason: Severe Pain (7-10) Last Admin: 01/08/18 10:49 Dose: 2 tab Al Hydroxide/Mg Hydroxide (Maalox) 30 ml PO Q4H PRN PRN Reason: Indigestion Albuterol/Ipratropium (Duoneb) 3 ml NEB [id number] PRN PRN Reason: SHORTNESS OF BREATH Artificial Tears (Tears Naturale) 1 drop EA EYE PRN PRN PRN Reason: Dry Eyes Aspirin (Ecotrin) 325 mg PO DAILY [facility] Last Admin: 01/08/18 10:20 Dose: Not Given Bisacodyl (Dulcolax) 10 mg PO Q12H PRN PRN Reason: Constipation Bisacodyl (Dulcolax) 10 mg [place] Q12H PRN PRN Reason: Constipation Carvedilol (Coreg) 6.25 mg PO BID-[facility] Last Admin: 01/08/18 07:49 Dose: 6.25 mg Dextrose/Water (Dextrose 50%) 25 gm SLOW IVP PRN PRN PRN Reason: PER HYPOGLYCEMIC PROTOCOL Diphenhydramine HCl (Benadryl) 25 mg PO Q6H PRN PRN Reason: Itching & Insomnia or Kevin Devaughn Famotidine (Pepcid) 20 mg SLOW IVP Q12HR [facility] Last Admin: 01/08/18 07:50 Dose: 20 mg Folic Acid (Folvite) 1 mg PO DAILY [facility] Last Admin: 01/08/18 07:49 Dose: 1 mg Furosemide (Lasix) 40 mg SLOW IVP 0900,1400 [facility] Stop: 01/08/18 14:01 Last Admin: 01/08/18 10:20 Dose: Not Given Glucagon (Glucagon) 1 mg SC PRN PRN PRN Reason: PER HYPOGLYCEMIC PROTOCOL Guaifenesin/Dextromethorphan (Robitussin Dm) 15 ml PO Q4H PRN PRN Reason: Cough Dextrose/Water (D5w) 1,000 mls @ 0 mls/hr IV INF PRN; As Directed PRN Reason: PRN HYPOGLYCEMIC PROTOCOL Insulin Human Regular (Humulin R) 0 units SC Q4H PRN; Protocol PRN Reason: POST OP SLIDING SCALE Last Admin: 01/08/18 10:52 Dose: 4 unit Latanoprost (Xalatan 0.005% [facility]) 1 drop EA EYE HS [facility] Last Admin: 01/07/18 20:14 Dose: 1 drop Losartan Potassium (Cozaar) 25 mg PO DAILY [facility] Last Admin: 01/08/18 07:48 Dose: 25 mg Methotrexate Sodium (Methotrexate Sodium) 7.5 mg PO ASDIR [facility] Mineral Oil (Fleet Mineral Oil) 133 ml [place] DAILYPRN PRN PRN Reason: Constipation Nitroglycerin (Nitrostat) 0.4 mg SL Q5MIN PRN PRN Reason: Chest Pain Ondansetron HCl (Zofran) 4 mg IVP Q6H PRN PRN Reason: Nausea/Vomiting Last Admin: 01/07/18 07:23 Dose: 4 mg Enbrel (Etanercept) (50 Mg/1 Ml) 1 each SC Q7D [facility] Polyethylene Glycol (Miralax) 17 gm PO DAILY [facility] Polyethylene Glycol (Miralax) 17 gm PO NOW [facility] Stop: 01/08/18 12:15 Prednisone (Prednisone) 5 mg PO QAM-WM [facility] Last Admin: 01/08/18 07:48 Dose: 5 mg Pregabalin (Lyrica) 50 mg PO DAILY [facility] Last Admin: 01/08/18 07:49 Dose: 50 mg Zolpidem Tartrate (Ambien) 5 mg PO HSPRN PRN PRN Reason: Insomnia
[2018-01-08] MEDS: Famotidine 20 MG TAB PO SCH (20:12)
[2018-01-08] MEDS: Latanoprost 0.005% Ophth Soln 2.5 ml Bottle EA EYE SCH (20:12)
[2018-01-08] MEDS: Sodium Chloride 0.9% 30 ML ONE (20:13)
[2018-01-09] MEDS: HYDROcodone/Acetaminophen 5/325 mg Tablet PO PRN ×3 (02:18→20:59)
[2018-01-09] MEDS ORDERED: HumaLOG 300 UNITS/3 ML VIAL SC PRN (05:44)
[2018-01-09] MEDS ORDERED: Dextrose 5% in Water 1,000 ML IV PRN (05:47)
[2018-01-09] MEDS ORDERED: Dextrose 50% Abboject 50 ML SYRINGE SLOW IVP PRN (05:47)
[2018-01-09 05:48] LABS: #Eosinphils 0.2 thou/uL (0.0-0.7); #Lymphocytes 1.9 thou/uL (1.20-3.40); #Monocytes 1.9 thou/uL (0.11-0.59); #Neutrophils 9.1 thou/uL (1.40-6.50); %Basophils 0.2 % (0.0-1.0); %Eosinophils 1.3 % (0.0-10.0); %Lymphocytes 14.8 % (21.0-51.0); %Monocytes 14.4 % (0.0-10.0); %Neutrophils 69.3 % (42.0-75.0); Hemoglobin 8.8 g/dL (14.0-18.0); Mean Corpuscular Hemoglobin 30.5 pg (27.0-31.0); Mean Corpuscular Volume 89.5 fL (78.0-98.0); Mean Platelet Volume 11.1 fL (7.4-10.4); Platelet Count 138 thou/uL (130-400); RBC Distribution Width 14.7 % (11.5-14.5); Red Blood Cell (RBC) Count 2.87 mill/uL (4.70-6.10); White Blood Cell (WBC) Count 13.1 thou/uL (4.8-10.8)
[2018-01-09 05:59] LABS: Anion Gap 13 mmol/L (10-20); BUN (Urea Nitrogen) 40 mg/dL (8.4-25.7); Calc. Creatinine Clearance 84 mL/min (70-130); Calcium 8.3 mg/dL (7.8-10.44); Carbon Dioxide 23 mmol/L (23-31); Chloride 98 mmol/L (98-107); Estimated GFR-MDRD 50; Glucose 141 mg/dL (83-110); Potassium 3.5 mmol/L (3.5-5.1); Sodium 130 mmol/L (136-145)
[2018-01-09] MEDS ORDERED: Potassium Chloride 20 MEQ TAB PO SCH ×2 (08:00→17:00)
[2018-01-09] MEDS: Methotrexate Sodium 2.5 MG TAB PO SCH (08:16)
[2018-01-09] MEDS: Folic Acid 1 MG TAB PO SCH (08:16)
[2018-01-09] MEDS: Polyethylene Glycol 3350 17 GM Packet PO SCH (08:16)
[2018-01-09] MEDS: predniSONE 5 MG TAB PO SCH (08:17)
[2018-01-09] MEDS: Pregabalin 50 MG CAP PO SCH (08:17)
[2018-01-09] MEDS: Aspirin 325 mg Enteric Coated Tablet PO SCH (08:17)
[2018-01-09] MEDS: Losartan 25 MG TAB PO SCH (08:17)
[2018-01-09] MEDS: Carvedilol 6.25 MG TAB PO SCH ×2 (08:18→16:45)
[2018-01-09] MEDS: Famotidine 20 MG TAB PO SCH ×2 (08:18→21:01)
--- NOTE | 2018-01-09 11:19 | PDOC.PN ---
- Subjective Encounter Start Date: 01/09/18 Encounter Start Time: 09:45 Patient seen and examined. No new complaints. No overnight events still has no BM, otherwise he does not have any new problems - Objective Resuscitation Status: Resuscitation Status FULL:Full Resuscitation MAR Reviewed: Yes Vital Signs & Weight: Vital Signs (12 hours) Temp Pulse Pulse Pulse Resp BP BP 01/09/18 11:10 97.8 F 92 18 01/09/18 08:59 89 86 103/51 L 01/09/18 08:18 121/59 L 01/09/18 08:00 98.7 F 82 20 01/09/18 07:43 98.7 F 82 20 01/09/18 02:26 84 20 01/09/18 02:16 97.9 F 91 24 H 01/09/18 00:23 72 20 BP BP BP Pulse Ox Pulse Ox Pulse Ox 01/09/18 11:10 132/66 01/09/18 08:59 125/56 L 97 94 L 01/09/18 08:18 01/09/18 08:00 01/09/18 07:43 152/65 H 94 L 01/09/18 02:26 96 01/09/18 02:16 132/61 96 01/09/18 00:23 120/59 L 95 Weight Admit Weight 295 lb 14.4 oz Weight 296 lb 11.2 oz Most Recent Monitor Data Heart Rate from ECG 78 NIBP 121/43 NIBP BP-Mean 69 Respiration from ECG 21 SpO2 100 I&O: 01/08/18 01/09/18 01/10/18 06:59 06:59 06:59 Intake Total 3268.1 1670 Output Total 1980 2165 Balance 1288.1 -495 Result Diagrams: 01/09/18 05:24 01/09/18 05:24 Additional Labs: Accuchecks 01/09/18 01/09/18 01/08/18 10:21 06:50 20:14 POC Glucose 224 H 160 H 231 H 01/08/18 01/08/18 16:50 10:54 POC Glucose 199 H 200 H EKG Reviewed by me: Yes Phys Exam - Physical Examination Constitutional: NAD HEENT: PERRLA, moist MMs, sclera anicteric, oral pharynx no lesions Neck: no JVD, supple Respiratory: no wheezing, no rales, no rhonchi Cardiovascular: RRR, no rub Gastrointestinal: soft, non-tender, no distention, positive bowel sounds Musculoskeletal: no edema, pulses present Neurological: moves all 4 limbs Lymphatic: no nodes Psychiatric: normal affect, A&O x 3 Skin: no rash, normal turgor Dx/Plan (1) 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 Code(s): I50.23 - ACUTE ON CHRONIC SYSTOLIC (CONGESTIVE) HEART FAILURE Status : Acute (2) Atrial fibrillation with RVR Code(s): I48.91 - UNSPECIFIED ATRIAL FIBRILLATION Status: Acute Comment: s/ p cardioversion and ablation, now in nsr (3) Demand ischemia of myocardium Code(s): I24.8 - OTHER FORMS OF ACUTE ISCHEMIC HEART DISEASE Status: Acute (4) Chronic anticoagulation Code(s): Z79.01 - CORRECTION (CURRENT) USE OF ANTICOAGULANTS Status: Chronic (5) DM type 2 (diabetes mellitus, type 2) Status: Chronic Qualifiers: Diabetes mellitus usp insulin use: with laborer marine terminal 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 Diabetes mellitus complication status: with unspecified complications Qualified Code(s) : E11.8 - Type 2 diabetes mellitus with unspecified complications; Z79.4 - detention (current) use of insulin; Z79.4 - detention (current) use of insulin; Z79.4 - detention (current) use of insulin; Z79.4 - termite inspector (current) use of insulin (6) Dyslipidemia Code(s): E78.5 - HYPERLIPIDEMIA, UNSPECIFIED Status: Chronic (7) HTN (hypertension) Code(s): I10 - ESSENTIAL (PRIMARY) HYPERTENSION Status: Chronic Qualifiers: Hypertension type: essential hypertension Qualified Code(s): I10 - Essential (primary) hypertension (8) Morbid obesity with BMI of 40.0-44.9, adult Code(s): E66.01 - MORBID (SEVERE) OBESITY DUE TO EXCESS CALORIES; Z68.41 - BODY MASS INDEX (BMI) 40.0-44.9, ADULT Status: Chronic (9) JAMIN on CPAP Code(s): G47.33 - OBSTRUCTIVE SLEEP APNEA (ADULT) (PEDIATRIC); Z99.89 - DEPENDENCE ON OTHER ENABLING MACHINES AND DEVICES Status: Chronic (10) Rheumatoid arthritis Code(s): M06.9 - RHEUMATOID ARTHRITIS, UNSPECIFIED Status: Chronic (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 Code(s): R00.0 - TACHYCARDIA, UNSPECIFIED; I43 - CARDIOMYOPATHY IN DISEASES CLASSIFIED ELSEWHERE Status: Resolved (12) Ventricular tachycardia, polymorphic Code(s): I47.2 - VENTRICULAR TACHYCARDIA Status: Acute (13) 3-vessel coronary artery disease Status: Chronic (14) Severe aortic stenosis Code(s): I35.0 - NONRHEUMATIC AORTIC (VALVE) STENOSIS Status: Chronic - Plan cont current plan of care * pt is advised to try suppository vs enema if no BM today. * pt has overall good recovery post op * will consider discharge when surgeon and cardiology ok * medication reviewed as below * symptomatic treatment Review of Systems - Review of Systems Eyes: negative: Pain, Vision Change, Conjunctivae Inflammation, Eyelid Inflammation, Redness, Other ENT: negative: Ear Pain, Ear Discharge, Nose Pain, Nose Discharge, Nose Congestion, Mouth Pain, Mouth Swelling, Throat Pain, Throat Swelling, Other Respiratory: negative: Cough, Dry, Shortness of Breath, Hemoptysis, SOB with Excertion, Pleuritic Pain, Sputum, Wheezing Cardiovascular: negative: chest pain, palpitations, orthopnea, paroxysmal nocturnal dyspnea, edema, light headedness, other Gastrointestinal: Constipation. negative: Nausea, Vomiting, Abdominal Pain, Diarrhea, Melena, Hematochezia, Other Genitourinary: negative: Dysuria, Frequency, Incontinence, Hematuria, Retention , Other Musculoskeletal: negative: Neck Pain, Shoulder Pain, Arm Pain, Back Pain, Hand Pain, Leg Pain, Foot Pain, Other Skin: negative: Rash, Lesions, Efra, Bruising, Other - Medications/Allergies Allergies/Adverse Reactions: Allergies Allergy/AdvReac Type Severity Reaction Status Date / Time No Known Allergies Allergy Verified 12/24/17 00:48 Medications: Current Medications Hydrocodone Bitart/Acetaminophen ([place] 5/325) 2 tab PO Q4H PRN PRN Reason: Severe Pain (7-10) Last Admin: 01/09/18 07:14 Dose: 2 tab Al Hydroxide/Mg Hydroxide (Maalox) 30 ml PO Q4H PRN PRN Reason: Indigestion Albuterol/Ipratropium (Duoneb) 3 ml NEB [id number] PRN PRN Reason: SHORTNESS OF BREATH Last Admin: 01/09/18 02:26 Dose: 3 ml Artificial Tears (Tears Naturale) 1 drop EA EYE PRN PRN PRN Reason: Dry Eyes Aspirin (Ecotrin) 325 mg PO DAILY [facility] Last Admin: 01/09/18 08:17 Dose: 325 mg Bisacodyl (Dulcolax) 10 mg PO Q12H PRN PRN Reason: Constipation Bisacodyl (Dulcolax) 10 mg [place] Q12H PRN PRN Reason: Constipation Carvedilol (Coreg) 6.25 mg PO BID-[facility] Last Admin: 01/09/18 08:18 Dose: 6.25 mg Dextrose/Water (Dextrose 50%) 25 gm SLOW IVP PRN PRN PRN Reason: PER HYPOGLYCEMIC PROTOCOL Dextrose/Water (Dextrose 50%) 25 gm SLOW IVP PRN PRN PRN Reason: Hypoglycemia Diphenhydramine HCl (Benadryl) 25 mg PO Q6H PRN PRN Reason: Itching & Insomnia or Kevin Devaughn Famotidine (Pepcid) 20 mg PO BID [facility] Last Admin: 01/09/18 08:18 Dose: 20 mg Folic Acid (Folvite) 1 mg PO DAILY [facility] Last Admin: 01/09/18 08:16 Dose: 1 mg Glucagon (Glucagon) 1 mg SC PRN PRN PRN Reason: PER HYPOGLYCEMIC PROTOCOL Glucagon (Glucagon) 1 mg IM PRN PRN PRN Reason: Hypoglycemia Guaifenesin/Dextromethorphan (Robitussin Dm) 15 ml PO Q4H PRN PRN Reason: Cough Dextrose/Water (D5w) 1,000 mls @ 0 mls/hr IV INF PRN; As Directed PRN Reason: PRN HYPOGLYCEMIC PROTOCOL Dextrose/Water (D5w) 1,000 mls @ 0 mls/hr IV .Q0M PRN; As Directed PRN Reason: Hypoglycemia Insulin Glargine 20 units/ (Miscellaneous Medication) 0.2 mls @ 0 mls/hr SC [facility] Insulin Human Lispro (Humalog) 10 units SC TID-WM PRN PRN Reason: Hyperglycemia Insulin Human Regular (Humulin R) 0 units SC Q4H PRN; Protocol PRN Reason: POST OP SLIDING SCALE Last Admin: 01/08/18 20:16 Dose: 6 unit Latanoprost (Xalatan 0.005% [facility]) 1 drop EA EYE [facility] Last Admin: 01/08/18 20:12 Dose: 1 drop Losartan Potassium (Cozaar) 25 mg PO DAILY [facility] Last Admin: 01/09/18 08:17 Dose: 25 mg Methotrexate Sodium (Methotrexate Sodium) 7.5 mg PO MoTh@0900 [facility] Last Admin: 01/09/18 08:16 Dose: 7.5 mg Mineral Oil (Fleet Mineral Oil) 133 ml [place] DAILYPRN PRN PRN Reason: Constipation Nitroglycerin (Nitrostat) 0.4 mg SL Q5MIN PRN PRN Reason: Chest Pain Ondansetron HCl (Zofran) 4 mg IVP Q6H PRN PRN Reason: Nausea/Vomiting Last Admin: 01/07/18 07:23 Dose: 4 mg Enbrel (Etanercept) (50 Mg/1 Ml) 1 each SC Q7D [facility] Polyethylene Glycol (Miralax) 17 gm PO DAILY [facility] Last Admin: 01/09/18 08:16 Dose: 17 gm Potassium Chloride (K-Dur) 20 meq PO QAM-WM [facility] Last Admin: 01/09/18 08:17 Dose: 20 meq Prednisone (Prednisone) 5 mg PO QAM-WM [facility] Last Admin: 01/09/18 08:17 Dose: 5 mg Pregabalin (Lyrica) 50 mg PO DAILY [facility] Last Admin: 01/09/18 08:17 Dose: 50 mg Zolpidem Tartrate (Ambien) 5 mg PO HSPRN PRN PRN Reason: Insomnia
[2018-01-09] MEDS ORDERED: Fleet Enema 133 ML BOT PR PRN (11:20)
[2018-01-09] MEDS: Insulin Regular 300 UNITS/3 ML VIAL SC PRN (11:33)
[2018-01-09] MEDS ORDERED: Furosemide 40 MG/4 ML VIAL SLOW IVP SCH ×2 (13:30→16:00)
--- NOTE | 2018-01-09 13:43 | PRG ---
DATE OF SERVICE: 01/09/2018 Mr. Hull is sitting in the chair. He is feeling relatively well. PHYSICAL EXAMINATION: VITAL SIGNS: Blood pressure 132/66, pulse 90. LUNGS: Clear. CARDIAC: Normal S1, S2. ABDOMEN: Soft, nontender. EXTREMITIES: Extremities still have severe edema. ASSESSMENT: 1. Congestive heart failure, stable, still volume overloaded. 2. Hyponatremia. 3. Status post aortic valve replacement and bypass. PLAN: Give him an extra dose of furosemide and potassium this evening. Continue to monitor.
[2018-01-09] MEDS ORDERED: ENBREL 50 MG SC SCH (14:00)
--- NOTE | 2018-01-09 18:56 | PRG ---
DATE OF SERVICE: 01/09/2018 ELECTROPHYSIOLOGY FOLLOWUP NOTE SUBJECTIVE: The patient is to doing well, recovering after his recent aortic valve replacement as we ll as bypass grafting surgery. He is not having any dizziness, loss of consciousness or palpitation symptoms. Midsternal scar healing with mild discomfort. OBJECTIVE DATA: VITAL SIGNS: Blood pressure is 122/56, heart rate 86, respiratory rate is 20, temperature 98.7 degre es Fahrenheit. GENERAL: Alert and oriented man with elevated BMI. NECK: Supple. Jugular veins difficult to visualize. CHEST: Coarse without crackles. Midsternal scar is healing adequately. CARDIOVASCULAR: Heart sounds are remote. S1, S2 normal. No murmur or gallop. ABDOMEN: Benign. Bowel sounds positive. Obese abdomen is noted. EXTREMITIES: Lower extremities without edema, clubbing or cyanosis. LABORATORY DATA: White count 38.1, hemoglobin 8.8, platelet count is 138. Sodium 130, potassium 3.5 , BUN 40, creatinine 1.39. EKG is reviewed revealing sinus rhythm. No ventricular arrhythmias or at rial fibrillation seen. ASSESSMENT AND PLAN: Mr. Hull is a 77-year-old man with history of atrial arrhythmias as well as se syd aortic stenosis and coronary artery disease, underwent cavotricuspid isthmus ablation during thi s hospitalization with me about 2 weeks ago, but was kept on amiodarone hence history of atrial fibri llation as well. The amiodarone had to be stopped during bloating because of the recurrent torsades type of arrhythmia as well as QT prolongation ever since his rhythm remained stable in sinus rhythm. He also underwent aortic valve replacement and bypass surgery on the and despite so far no recu rrent atrial arrhythmias are seen. PLAN: At this point: 1. For now, remains stable. We will try to keep him off entering therapies, although if atrial fibr illation recurs, could consider using amiodarone though with close monitoring of his potassium levels as well as QT interval. For now, though prefer not to restart that unless absolutely necessary. 2. Anticoagulation could be resumed once appropriate from a surgical standpoint. 3. Continue carvedilol for heart failure and rate controlling therapy. 4. At this point, we would sign off. Please do not hesitate to call me if I can be of further help. I have to see the patient as an outpatient. 5. His prior cardiomyopathy seems to be resolving. If further worsening is seen, ICD could be consi dered this point likely not a clear candidate just yet.
[2018-01-09] MEDS: Latanoprost 0.005% Ophth Soln 2.5 ml Bottle EA EYE SCH (21:01)
[2018-01-09] MEDS: Insulin Glargine 20 UNITS in Pre-Filled Syringe 1 EACH SC SCH (21:04)
[2018-01-10] MEDS: HYDROcodone/Acetaminophen 5/325 mg Tablet PO PRN ×3 (04:10→21:19)
[2018-01-10 05:13] LABS: #Eosinphils 0.1 thou/uL (0.0-0.7); #Lymphocytes 1.4 thou/uL (1.20-3.40); #Monocytes 1.3 thou/uL (0.11-0.59); %Basophils 0.1 % (0.0-1.0); %Eosinophils 1.3 % (0.0-10.0); %Lymphocytes 15.8 % (21.0-51.0); %Monocytes 14.4 % (0.0-10.0); %Neutrophils 68.3 % (42.0-75.0); Hemoglobin 8.2 g/dL (14.0-18.0); Mean Corpuscular HGB CONC 33.1 g/dL (32.0-36.0); Mean Corpuscular Hemoglobin 29.7 pg (27.0-31.0); Mean Corpuscular Volume 89.6 fL (78.0-98.0); Mean Platelet Volume 10.1 fL (7.4-10.4); Platelet Count 149 thou/uL (130-400); Red Blood Cell (RBC) Count 2.76 mill/uL (4.70-6.10); White Blood Cell (WBC) Count 8.7 thou/uL (4.8-10.8)
[2018-01-10 05:19] LABS: Anion Gap 10 mmol/L (10-20); BUN (Urea Nitrogen) 39 mg/dL (8.4-25.7); Calc. Creatinine Clearance 125 mL/min (70-130); Calcium 8.5 mg/dL (7.8-10.44); Carbon Dioxide 28 mmol/L (23-31); Chloride 98 mmol/L (98-107); Estimated GFR-MDRD 77; Glucose 168 mg/dL (83-110); Potassium 3.6 mmol/L (3.5-5.1); Sodium 132 mmol/L (136-145)
[2018-01-10] MEDS ORDERED: Metolazone 5 MG TAB PO SCH (06:00)
[2018-01-10] MEDS: Pregabalin 50 MG CAP PO SCH (10:02)
[2018-01-10] MEDS: predniSONE 5 MG TAB PO SCH (10:03)
[2018-01-10] MEDS: Potassium Chloride 20 MEQ TAB PO SCH (10:03)
[2018-01-10] MEDS: Folic Acid 1 MG TAB PO SCH (10:03)
[2018-01-10] MEDS: Losartan 25 MG TAB PO SCH (10:03)
[2018-01-10] MEDS: Furosemide 20 MG TAB PO SCH ×2 (10:04→13:09)
[2018-01-10] MEDS: Aspirin 325 mg Enteric Coated Tablet PO SCH (10:04)
[2018-01-10] MEDS: Carvedilol 6.25 MG TAB PO SCH ×2 (10:04→18:12)
[2018-01-10] MEDS: Polyethylene Glycol 3350 17 GM Packet PO SCH (10:05)
[2018-01-10] MEDS: Famotidine 20 MG TAB PO SCH ×2 (10:05→21:20)
[2018-01-10] MEDS: Sodium Chloride 0.9% 30 ML ONE (10:07)
[2018-01-10] MEDS: Insulin Regular 300 UNITS/3 ML VIAL SC PRN ×3 (10:09→18:09)
--- NOTE | 2018-01-10 10:29 | PRG ---
DATE OF SERVICE: 01/10/2018 Mr. Hull is back in the atrial dysrhythmia, rate of 130. He is on intravenous Cardizem, but does no t seem to be lowering the heart rate much. It is regular. He is sitting up in the chair. PHYSICAL EXAMINATION: VITAL SIGNS: Blood pressure 109/62, pulse 130. LUNGS: Clear. CARDIAC: Normal S1, normal S2, but he is tachycardic. ABDOMEN: Soft and nontender. ASSESSMENT: Recurrent atrial arrhythmias looks like supraventricular tachycardia, probably some type of atrial flutter. PLAN: 1. He is on Cardizem. 2. He is also on beta-blockers. 3. He had some polymorphic ventricular tachycardia on amiodarone previously. We will ask Dr. Leah nicole see the patient again.
--- NOTE | 2018-01-10 12:08 | PDOC.PN ---
- Subjective Encounter Start Date: 01/10/18 Encounter Start Time: 08:45 - Objective Resuscitation Status: Resuscitation Status FULL:Full Resuscitation MAR Reviewed: Yes Vital Signs & Weight: Vital Signs (12 hours) Temp Pulse Pulse Pulse Resp BP BP 01/10/18 10:04 95/58 L 01/10/18 08:09 136 H 117 H 109/62 01/10/18 08:00 98.0 F 133 H 16 01/10/18 03:56 97.5 F L 120 H 14 BP BP Pulse Ox Pulse Ox 01/10/18 10:04 01/10/18 08:09 126/79 100 01/10/18 08:00 109/62 100 01/10/18 03:56 130/60 100 Weight Admit Weight 295 lb 14.4 oz Weight 293 lb 6.4 oz Most Recent Monitor Data Heart Rate from ECG 78 NIBP 121/43 NIBP BP-Mean 69 Respiration from ECG 21 SpO2 100 I&O: 01/09/18 01/10/18 01/11/18 06:59 06:59 06:59 Intake Total 1670 1400 Output Total 2165 2125 Balance -495 -725 Result Diagrams: 01/10/18 05:00 01/10/18 03:30 Additional Labs: Accuchecks 01/10/18 01/10/18 01/09/18 11:01 06:46 20:50 POC Glucose 198 H 173 H 225 H 01/09/18 17:11 POC Glucose 175 H EKG Reviewed by me: Yes (afib with rvr) Phys Exam - Physical Examination Constitutional: NAD HEENT: PERRLA, moist MMs, sclera anicteric Neck: no JVD, supple Respiratory: no wheezing, no rales, no rhonchi Cardiovascular: no significant murmur, irregular Gastrointestinal: soft, non-tender, no distention, positive bowel sounds obesity+ Musculoskeletal: no edema, pulses present Neurological: non-focal, normal sensation Psychiatric: normal affect, A&O x 3 Skin: no rash, normal turgor Dx/Plan (1) 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 Code(s): I50.23 - ACUTE ON CHRONIC SYSTOLIC (CONGESTIVE) HEART FAILURE Status : Acute (2) Atrial fibrillation with RVR Code(s): I48.91 - UNSPECIFIED ATRIAL FIBRILLATION Status: Acute Comment: s/ p cardioversion and ablation, now in nsr (3) Demand ischemia of myocardium Code(s): I24.8 - OTHER FORMS OF ACUTE ISCHEMIC HEART DISEASE Status: Acute (4) Chronic anticoagulation Code(s): Z79.01 - CARE HOME (CURRENT) USE OF ANTICOAGULANTS Status: Chronic (5) DM type 2 (diabetes mellitus, type 2) Status: Chronic Qualifiers: Diabetes mellitus front man insulin use: with front man use Diabetes mellitus complication status: with unspecified complications Qualified Code(s) : E11.8 - Type 2 diabetes mellitus with unspecified complications; Z79.4 - long-term (current) use of insulin; Z79.4 - long-term (current) use of insulin; Z79.4 - long-term (current) use of insulin; Z79.4 - investment executive (current) use of insulin (6) Dyslipidemia Code(s): E78.5 - HYPERLIPIDEMIA, UNSPECIFIED Status: Chronic (7) HTN (hypertension) Code(s): I10 - ESSENTIAL (PRIMARY) HYPERTENSION Status: Chronic Qualifiers: Hypertension type: essential hypertension Qualified Code(s): I10 - Essential (primary) hypertension (8) Morbid obesity with BMI of 40.0-44.9, adult Code(s): E66.01 - MORBID (SEVERE) OBESITY DUE TO EXCESS CALORIES; Z68.41 - BODY MASS INDEX (BMI) 40.0-44.9, ADULT Status: Chronic (9) JAMIN on CPAP Code(s): G47.33 - OBSTRUCTIVE SLEEP APNEA (ADULT) (PEDIATRIC); Z99.89 - DEPENDENCE ON OTHER ENABLING MACHINES AND DEVICES Status: Chronic (10) Rheumatoid arthritis Code(s): M06.9 - RHEUMATOID ARTHRITIS, UNSPECIFIED Status: Chronic (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 Code(s): R00.0 - TACHYCARDIA, UNSPECIFIED; I43 - CARDIOMYOPATHY IN DISEASES CLASSIFIED ELSEWHERE Status: Resolved (12) Ventricular tachycardia, polymorphic Code(s): I47.2 - VENTRICULAR TACHYCARDIA Status: Acute (13) 3-vessel coronary artery disease Status: Chronic (14) Severe aortic stenosis Code(s): I35.0 - NONRHEUMATIC AORTIC (VALVE) STENOSIS Status: Chronic - Plan cont current plan of care * pt is again in afib with RVR, he is on max dose of cardizem at tele floor * cardiology following, will defer further treatment based on them * medication reviewed as below * symptomatic treatment * will monitor * post operatively overall getting better but his afib is recurrent. Review of Systems - Review of Systems Eyes: negative: Pain, Vision Change, Conjunctivae Inflammation, Eyelid Inflammation, Redness, Other ENT: negative: Ear Pain, Ear Discharge, Nose Pain, Nose Discharge, Nose Congestion, Mouth Pain, Mouth Swelling, Throat Pain, Throat Swelling, Other Respiratory: negative: Cough, Dry, Shortness of Breath, Hemoptysis, SOB with Excertion, Pleuritic Pain, Sputum, Wheezing Cardiovascular: negative: chest pain, palpitations, orthopnea, paroxysmal nocturnal dyspnea, edema, light headedness, other Gastrointestinal: negative: Nausea, Vomiting, Abdominal Pain, Diarrhea, Constipation, Melena, Hematochezia, Other Genitourinary: negative: Dysuria, Frequency, Incontinence, Hematuria, Retention , Other Musculoskeletal: negative: Neck Pain, Shoulder Pain, Arm Pain, Back Pain, Hand Pain, Leg Pain, Foot Pain, Other Skin: negative: Rash, Lesions, Efra, Bruising, Other - Medications/Allergies Allergies/Adverse Reactions: Allergies Allergy/AdvReac Type Severity Reaction Status Date / Time No Known Allergies Allergy Verified 12/24/17 00:48 Medications: Current Medications Hydrocodone Bitart/Acetaminophen ([place] 5/325) 2 tab PO Q4H PRN PRN Reason: Severe Pain (7-10) Last Admin: 01/10/18 10:00 Dose: 2 tab Al Hydroxide/Mg Hydroxide (Maalox) 30 ml PO Q4H PRN PRN Reason: Indigestion Albuterol/Ipratropium (Duoneb) 3 ml NEB [id number] PRN PRN Reason: SHORTNESS OF BREATH Last Admin: 01/09/18 02:26 Dose: 3 ml Artificial Tears (Tears Naturale) 1 drop EA EYE PRN PRN PRN Reason: Dry Eyes Aspirin (Ecotrin) 325 mg PO DAILY [facility] Last Admin: 01/10/18 10:04 Dose: 325 mg Bisacodyl (Dulcolax) 10 mg PO Q12H PRN PRN Reason: Constipation Bisacodyl (Dulcolax) [address] Q12H PRN PRN Reason: Constipation Carvedilol (Coreg) 6.25 mg PO BID-[facility] Last Admin: 01/10/18 10:04 Dose: 6.25 mg Dextrose/Water (Dextrose 50%) 25 gm SLOW IVP PRN PRN PRN Reason: Hypoglycemia Diphenhydramine HCl (Benadryl) 25 mg PO Q6H PRN PRN Reason: Itching & Insomnia or Kevin Devaughn Famotidine (Pepcid) 20 mg PO BID [facility] Last Admin: 01/10/18 10:05 Dose: 20 mg Folic Acid (Folvite) 1 mg PO DAILY [facility] Last Admin: 01/10/18 10:03 Dose: 1 mg Furosemide (Lasix) 40 mg PO 0900,1400 [facility] Last Admin: 01/10/18 10:04 Dose: 40 mg Glucagon (Glucagon) 1 mg IM PRN PRN PRN Reason: Hypoglycemia Guaifenesin/Dextromethorphan (Robitussin Dm) 15 ml PO Q4H PRN PRN Reason: Cough Dextrose/Water (D5w) 1,000 mls @ 0 mls/hr IV .Q0M PRN; As Directed PRN Reason: Hypoglycemia Insulin Glargine 20 units/ (Miscellaneous Medication) 0.2 mls @ 0 mls/hr SC [facility] Last Admin: 01/09/18 21:04 Dose: 0.2 mls Diltiazem HCl 125 mg/Miscellaneous Medication 1 each/ Sodium Chloride 125 mls @ 15 mls/hr IVPB INF MARIELA PRN Reason: Protocol Last Admin: 01/09/18 17:31 Dose: 125 mls Insulin Human Lispro (Humalog) 10 units SC TID-WM PRN PRN Reason: Hyperglycemia Insulin Human Regular (Humulin R) 0 units SC Q4H PRN; Protocol PRN Reason: POST OP SLIDING SCALE Last Admin: 01/10/18 10:09 Dose: 4 unit Latanoprost (Xalatan 0.005% Ophth Soln) 1 drop EA EYE [facility] Last Admin: 01/09/18 21:01 Dose: 1 drop Losartan Potassium (Cozaar) 25 mg PO DAILY [facility] Last Admin: 01/10/18 10:03 Dose: 25 mg Methotrexate Sodium (Methotrexate Sodium) 7.5 mg PO MoTh@0900 [facility] Last Admin: 01/09/18 08:16 Dose: 7.5 mg Mineral Oil (Fleet Mineral Oil) [address] DAILYPRN PRN PRN Reason: Constipation Nitroglycerin (Nitrostat) 0.4 mg SL Q5MIN PRN PRN Reason: Chest Pain Ondansetron HCl (Zofran) 4 mg IVP Q6H PRN PRN Reason: Nausea/Vomiting Last Admin: 01/07/18 07:23 Dose: 4 mg Enbrel (Etanercept) (50 Mg/1 Ml) 1 each SC Q7D [facility] Polyethylene Glycol (Miralax) 17 gm PO DAILY [facility] Last Admin: 01/10/18 10:05 Dose: 17 gm Potassium Chloride (K-Dur) 40 meq PO QAM-WM [facility] Last Admin: 01/10/18 10:03 Dose: 40 meq Potassium Chloride (K-Dur) 40 meq PO 1300 [facility] Stop: 01/10/18 15:00 Prednisone (Prednisone) 5 mg PO QAM-WM [facility] Last Admin: 01/10/18 10:03 Dose: 5 mg Pregabalin (Lyrica) 50 mg PO DAILY [facility] Last Admin: 01/10/18 10:02 Dose: 50 mg Zolpidem Tartrate (Ambien) 5 mg PO HSPRN PRN PRN Reason: Insomnia
[2018-01-10] MEDS ORDERED: Potassium Chloride 20 MEQ TAB PO SCH (13:00)
--- NOTE | 2018-01-10 14:59 | PDOC.CTH ---
<Yessi Cassidy - Last Filed: 01/10/18 14:57> Cardiology Progress Note - Subjective EP Progress Note: Patient seen and evaluated. + post operative pain. Otherwise doing well overnight. + occasional palpitations. - chest pain/pressure, stroke like symptoms, bloody stool or urine. No nausea, vominting, diarrhea, or passing out/ lightheadedness. - Objective Vital Signs Temp Pulse Pulse Pulse Resp BP BP 01/10/18 12:54 123 H 119 H 108/47 L 01/10/18 12:00 97.6 F 136 H 16 01/10/18 10:04 95/58 L 01/10/18 08:09 136 H 117 H 109/62 01/10/18 08:00 98.0 F 133 H 16 01/10/18 07:45 98.0 F 133 H 16 01/10/18 03:56 97.5 F L 120 H 14 BP BP BP Pulse Ox Pulse Ox 01/10/18 12:54 100 01/10/18 12:00 98/56 L 100 01/10/18 10:04 01/10/18 08:09 126/79 100 01/10/18 08:00 109/62 100 01/10/18 07:45 100 01/10/18 03:56 130/60 100 Admit Weight 295 lb 14.4 oz Weight 293 lb 6.4 oz 01/09/18 01/10/18 01/11/18 06:59 06:59 06:59 Intake Total 1670 1400 Output Total 2165 2125 Balance -495 -725 - Physical Examination General/Neuro: alert & oriented x3, NAD Neck: no JVD present (difficult to assess) Lungs: CTA, unlabored respirations Heart: other: (irregular, variable) Abdomen: NT/ND, soft Other PE findings: midsternal incision healing - Telemetry Telemetry Rhythm: Parox atrial fib & flutter - Labs Result Diagrams: 01/10/18 05:00 01/10/18 03:30 Troponin/CK[facility] Troponin I 0.267 ng/mL (< 0.028) H 12/24/17 00:36 - Assessment/Plan 1. Severed aortic stenosis s/p AVR 2. CAD s/p CABG with left atrial appendage surgical ligation 3. Typical atrial flutter s/p CTI ablation 2 weeks ago 4. Paroxysmal atrial fibrillation & atypical flutter previously on amiodarone with subsequent QT prolongation and TdP in the setting of hypokalemia. Amiodarone was stopped. Now recurrence is seen with RVR. VR sustaining 100-115 with occasional episodes spiking to 140-150 bpm. Placing on amiodarone gtt per protocol then will likely place on gentle loading taper of PO amiodarone with extra caution to prevent bradycardia and hypokalemia, ultimately to prevent repeat torsades episodes. Daily 12 lead EKG x 4 days to closely monitor QTc. Avoid QT prolonging medications. Diltiazem gtt currently at 15mg/hr and wean as HR becomes better controlled. Will need to watch closely to prevent bradycardia as amiodarone is added. 5. Hypokalemia- recommend replacing with a goal of >/= 4.0 6. Anemia- per hospitalist <Jaleel Lynn - Last Filed: 01/10/18 17:32> Cardiology Progress Note - Objective Vital Signs Temp Pulse Pulse Pulse Resp BP BP 01/10/18 12:54 123 H 119 H 108/47 L 01/10/18 12:00 97.6 F 136 H 16 01/10/18 10:04 95/58 L 01/10/18 08:09 136 H 117 H 109/62 01/10/18 08:00 98.0 F 133 H 16 01/10/18 07:45 98.0 F 133 H 16 BP BP BP Pulse Ox Pulse Ox 01/10/18 12:54 100 01/10/18 12:00 98/56 L 100 01/10/18 10:04 01/10/18 08:09 126/79 100 01/10/18 08:00 109/62 100 01/10/18 07:45 100 Admit Weight 295 lb 14.4 oz Weight 293 lb 6.4 oz 01/09/18 01/10/18 01/11/18 06:59 06:59 06:59 Intake Total 1670 1400 Output Total 1139 7428 Balance -495 -725 - Labs Result Diagrams: 01/10/18 05:00 01/10/18 03:30 Troponin/CKMB Troponin I 0.267 ng/mL (< 0.028) H 12/24/17 00:36 Attending Addendum - Attending Addendum Date/Time: 07/17/18 1730 I personally evaluated the patient and discussed the management with Ms Cassidy. I agree with the History, Examination, Assessment and Plan documented above with any addition or exceptions noted below. Hence the recetn LA appendage ligation, it is reasonable to proceed with cardioversion off anticoagulant.
[2018-01-10] MEDS ORDERED: Amiodarone In Dextrose 200 ML IVPB SCH (15:00)
[2018-01-10] MEDS: Amiodarone HCl 450 MG, Admixture Fee 1 EACH in Dextrose 5% in Water 250 ML IVPB SCH ×2 (16:58→21:40)
[2018-01-10 16:59] LABS: ALT (SGPT) 17 U/L (8-55); AST (SGOT) 19 U/L (5-34); Albumin 3.2 g/dL (3.4-4.8); Alkaline Phosphatase 57 U/L (40-150); Bilirubin, Direct 0.5 mg/dL (0.1-0.3); Bilirubin, Total 1.1 mg/dL (0.2-1.2); Magnesium 1.7 mg/dL (1.6-2.6); Protein, Total 5.4 g/dL (5.8-8.1)
[2018-01-10] MEDS ORDERED: Diltiazem HCl 125 MG, Admixture Fee 1 EACH in Sodium Chloride 0.9% 100 ML IVPB SCH (17:50)
[2018-01-10] MEDS: Latanoprost 0.005% Ophth Soln 2.5 ml Bottle EA EYE SCH (21:25)
[2018-01-10] MEDS: Insulin Glargine 20 UNITS in Pre-Filled Syringe 1 EACH SC SCH (21:29)
[2018-01-11] MEDS: HYDROcodone/Acetaminophen 5/325 mg Tablet PO PRN ×4 (01:04→23:12)
[2018-01-11] MEDS ORDERED: Digoxin 0.5 MG/2 ML AMP SLOW IVP PRN (01:42)
[2018-01-11] MEDS ORDERED: Sodium Chloride 0.9% 1,000 ML IV SCH (01:45)
[2018-01-11] MEDS ORDERED: Digoxin 0.5 MG/2 ML AMP SLOW IVP SCH (01:45)
[2018-01-11] MEDS ORDERED: Metoclopramide HCl 10 MG/2 ML VIAL IVP PRN (07:21)
[2018-01-11] MEDS ORDERED: Metolazone 5 MG TAB PO SCH (07:30)
--- NOTE | 2018-01-11 08:53 | PRG ---
DATE OF SERVICE: 01/11/2018 REFERRING PHYSICIAN: Savi Mora M.D. SUBJECTIVE: He seems to be doing fair, but continues with rapid rate on IV amiodarone drip. OBJECTIVE: VITAL SIGNS: Blood pressure is 105/64, heart rate 117, respirations 20, temperature 98.3 degrees Fah renheit. GENERAL: He is alert and oriented man with marked elevated BMI. NECK: Supple. Jugular veins not distended. CHEST: Coarse without crackles. CARDIOVASCULAR: Heart sounds are regular to rate and rhythm. No murmur or gallop. ABDOMEN: Benign. Bowel sounds positive. EXTREMITIES: Lower extremities without edema, clubbing or cyanosis. DATABASE: EKG reveals atrial flutter with 2:1 AV conduction, rapid rates at 120 beats per minute. Q TC is 540. Lab data; 245 glucose, potassium was 3.6 yesterday. ASSESSMENT AND PLAN: Mr. Hull is a 77-year-old man with history of atrial arrhythmias since cardiom yopathy and aortic stenosis. He had a cavotricuspid ablation was noted to have multiple left atrial circuits as well. He was placed on amiodarone in the past, but that had to be stopped due to short r un of ventricular arrhythmia. That was in the setting of a low potassium though. Amiodarone was sto pped, but now he underwent a bypass surgery, had recurrent atrial arrhythmias with atrial flutter wi th rapid rates are seen. At this point, we restarted amiodarone and monitoring QT intervals. PLAN: Cardiovert him at a near date and continue to monitor potassium levels as well as QT interval and telemetry. Could consider TESS prior to the cardioversion to prove patency. I discussed the case with Dr. Gonzalez and he would like to postpone anticoagulation until Tuesday.
[2018-01-11] MEDS: Famotidine 20 MG TAB PO SCH ×2 (09:18→21:59)
[2018-01-11] MEDS: Carvedilol 6.25 MG TAB PO SCH ×2 (09:19→16:03)
[2018-01-11] MEDS: Pregabalin 50 MG CAP PO SCH (09:19)
[2018-01-11] MEDS: Losartan 25 MG TAB PO SCH (09:19)
[2018-01-11] MEDS: Aspirin 325 mg Enteric Coated Tablet PO SCH (09:19)
[2018-01-11] MEDS: Folic Acid 1 MG TAB PO SCH (09:19)
--- NOTE | 2018-01-11 10:05 | PRG ---
DATE OF SERVICE: 01/11/2018 Mr. Hull is in atrial flutter with a rate of 118 on intravenous amiodarone. PHYSICAL EXAMINATION: LUNGS: Clear. CARDIAC: Tachycardic. ABDOMEN: Soft, nontender. EXTREMITIES: Moderate edema. ASSESSMENT: 1. Status post bypass surgery and valve replacement. 2. Atrial arrhythmias. PLAN: 1. He is on intravenous amiodarone. 2. Dr. Lynn is planning on transesophageal echo and cardioversion.
--- NOTE | 2018-01-11 10:05 | PDOC.PN ---
- Subjective Encounter Start Date: 01/11/18 Encounter Start Time: 07:40 pt is still in afib with rvr, on amiodaron drip, has no BM for 4 days, has edema extrimity - Objective Resuscitation Status: Resuscitation Status FULL:Full Resuscitation MAR Reviewed: Yes Vital Signs & Weight: Vital Signs (12 hours) Temp Pulse Resp BP Pulse Ox 01/11/18 04:15 98.3 F 117 H 20 105/64 100 01/11/18 01:47 118 H Weight Admit Weight 295 lb 14.4 oz Weight 293 lb 9.6 oz Most Recent Monitor Data Heart Rate from ECG 78 NIBP 121/43 NIBP BP-Mean 69 Respiration from ECG 21 SpO2 100 I&O: 01/10/18 01/11/18 01/12/18 06:59 06:59 06:59 Intake Total 1400 1184 Output Total 2125 2365 Balance -232 -2624 Result Diagrams: 01/10/18 05:00 01/10/18 03:30 Additional Labs: Accuchecks 01/10/18 01/10/18 01/10/18 20:29 16:33 13:07 POC Glucose 245 H 224 H 191 H 01/10/18 11:01 POC Glucose 198 H EKG Reviewed by me: Yes (afib with rvr) Phys Exam - Physical Examination Constitutional: NAD HEENT: PERRLA, moist MMs, sclera anicteric Neck: no JVD, supple Respiratory: no wheezing, no rales, no rhonchi Cardiovascular: no significant murmur, irregular Gastrointestinal: soft, non-tender, no distention Musculoskeletal: pulses present, edema present Neurological: non-focal, normal sensation, moves all 4 limbs Lymphatic: no nodes Psychiatric: normal affect, A&O x 3 Skin: no rash, normal turgor Dx/Plan (1) 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 Code(s): I50.23 - ACUTE ON CHRONIC SYSTOLIC (CONGESTIVE) HEART FAILURE Status : Acute (2) Atrial fibrillation with RVR Code(s): I48.91 - UNSPECIFIED ATRIAL FIBRILLATION Status: Acute Comment: s/ p cardioversion and ablation, now in nsr (3) Demand ischemia of myocardium Code(s): I24.8 - OTHER FORMS OF ACUTE ISCHEMIC HEART DISEASE Status: Acute (4) Chronic anticoagulation Code(s): Z79.01 - BRAILLE TRANSCRIBER (CURRENT) USE OF ANTICOAGULANTS Status: Chronic (5) DM type 2 (diabetes mellitus, type 2) Status: Chronic Qualifiers: Diabetes mellitus prison insulin use: with continuous churn buttermaker use Diabetes mellitus complication status: with unspecified complications Qualified Code(s) : E11.8 - Type 2 diabetes mellitus with unspecified complications; Z79.4 - 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41 - BODY MASS INDEX (BMI) 40.0-44.9, ADULT Status: Chronic (9) JAMIN on CPAP Code(s): G47.33 - OBSTRUCTIVE SLEEP APNEA (ADULT) (PEDIATRIC); Z99.89 - DEPENDENCE ON OTHER ENABLING MACHINES AND DEVICES Status: Chronic (10) Rheumatoid arthritis Code(s): M06.9 - RHEUMATOID ARTHRITIS, UNSPECIFIED Status: Chronic (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 Code(s): R00.0 - TACHYCARDIA, UNSPECIFIED; I43 - CARDIOMYOPATHY IN DISEASES CLASSIFIED ELSEWHERE Status: Resolved (12) Ventricular tachycardia, polymorphic Code(s): I47.2 - VENTRICULAR TACHYCARDIA Status: Acute (13) 3-vessel coronary artery disease Status: Chronic (14) Severe aortic stenosis Code(s): I35.0 - NONRHEUMATIC AORTIC (VALVE) STENOSIS Status: Chronic - Plan cont current plan of care * continue amiodaron drip * as per EP, pt is planned for TESS and cardioversion today * pt is not on oral anticoagulant for now after surgery as per CT surgeon, may be resumed on tuesday * continue lasix * replace potassium * monitor QT interval * DC Zofran. Review of Systems - Review of Systems Constitutional: negative: fever, chills, sweats, weakness, malaise, other Eyes: negative: Pain, Vision Change, Conjunctivae Inflammation, Eyelid Inflammation, Redness, Other ENT: negative: Ear Pain, Ear Discharge, Nose Pain, Nose Discharge, Nose Congestion, Mouth Pain, Mouth Swelling, Throat Pain, Throat Swelling, Other Respiratory: negative: Cough, Dry, Shortness of Breath, Hemoptysis, SOB with Excertion, Pleuritic Pain, Sputum, Wheezing Cardiovascular: edema. negative: chest pain, palpitations, orthopnea, paroxysmal nocturnal dyspnea, light headedness, other Gastrointestinal: negative: Nausea, Vomiting, Abdominal Pain, Diarrhea, Constipation, Melena, Hematochezia, Other Genitourinary: negative: Dysuria, Frequency, Incontinence, Hematuria, Retention , Other Musculoskeletal: negative: Neck Pain, Shoulder Pain, Arm Pain, Back Pain, Hand Pain, Leg Pain, Foot Pain, Other Skin: negative: Rash, Lesions, Efra, Bruising, Other - Medications/Allergies Allergies/Adverse Reactions: Allergies Allergy/AdvReac Type Severity Reaction Status Date / Time No Known Allergies Allergy Verified 12/24/17 00:48 Medications: Current Medications Hydrocodone Bitart/Acetaminophen ([place] 5/325) 2 tab PO Q4H PRN PRN Reason: Severe Pain (7-10) Last Admin: 01/11/18 06:36 Dose: 2 tab Al Hydroxide/Mg Hydroxide (Maalox) 30 ml PO Q4H PRN PRN Reason: Indigestion Albuterol/Ipratropium (Duoneb) 3 ml NEB [id number] PRN PRN Reason: SHORTNESS OF BREATH Last Admin: 01/09/18 02:26 Dose: 3 ml Artificial Tears (Tears Naturale) 1 drop EA EYE PRN PRN PRN Reason: Dry Eyes Aspirin (Ecotrin) 325 mg PO DAILY [facility] Last Admin: 01/11/18 09:19 Dose: 325 mg Bisacodyl (Dulcolax) 10 mg PO Q12H PRN PRN Reason: Constipation Bisacodyl (Dulcolax) 10 mg SC Q12H PRN PRN Reason: Constipation Carvedilol (Coreg) 6.25 mg PO BID-[facility] Last Admin: 01/11/18 09:19 Dose: 6.25 mg Dextrose/Water (Dextrose 50%) 25 gm SLOW IVP PRN PRN PRN Reason: Hypoglycemia Diphenhydramine HCl (Benadryl) 25 mg PO Q6H PRN PRN Reason: Itching & Insomnia or Kevin Devaughn Famotidine (Pepcid) 20 mg PO BID [facility] Last Admin: 01/11/18 09:18 Dose: 20 mg Folic Acid (Folvite) 1 mg PO DAILY [facility] Last Admin: 01/11/18 09:19 Dose: 1 mg Furosemide (Lasix) 40 mg PO 0900,1400 [facility] Last Admin: 01/10/18 13:09 Dose: 40 mg Glucagon (Glucagon) 1 mg IM PRN PRN PRN Reason: Hypoglycemia Guaifenesin/Dextromethorphan (Robitussin Dm) 15 ml PO Q4H PRN PRN Reason: Cough Dextrose/Water (D5w) 1,000 mls @ 0 mls/hr IV .Q0M PRN; As Directed PRN Reason: Hypoglycemia Insulin Glargine 20 units/ (Miscellaneous Medication) 0.2 mls @ 0 mls/hr SC [facility] Last Admin: 01/10/18 21:29 Dose: 0.2 mls Amiodarone HCl 450 mg/Miscellaneous Medication 1 each/ Dextrose/Water 259 mls @ 0 mls/hr IVPB INF MARIELA; As Directed PRN Reason: Protocol Last Admin: 01/10/18 21:40 Dose: 259 mls Diltiazem HCl 125 mg/Miscellaneous Medication 1 each/ Sodium Chloride 125 mls @ 10 mls/hr IVPB INF MARIELA PRN Reason: Protocol Insulin Human Lispro (Humalog) 10 units SC TID-WM PRN PRN Reason: Hyperglycemia Insulin Human Regular (Humulin R) 0 units SC Q4H PRN; Protocol PRN Reason: POST OP SLIDING SCALE Last Admin: 01/10/18 18:09 Dose: 6 unit Latanoprost (Xalatan 0.005% Ophth Soln) 1 drop EA EYE [facility] Last Admin: 01/10/18 21:25 Dose: 1 drop Losartan Potassium (Cozaar) 25 mg PO DAILY [facility] Last Admin: 01/11/18 09:19 Dose: 25 mg Methotrexate Sodium (Methotrexate Sodium) 7.5 mg PO MoTh@0900 [facility] Last Admin: 01/09/18 08:16 Dose: 7.5 mg Metoclopramide HCl (Reglan) 10 mg IVP Q6H PRN PRN Reason: Nausea/Vomiting Mineral Oil (Fleet Mineral Oil) 133 ml SC DAILYPRN PRN PRN Reason: Constipation Nitroglycerin (Nitrostat) 0.4 mg SL Q5MIN PRN PRN Reason: Chest Pain Enbrel (Etanercept) (50 Mg/1 Ml) 1 each SC Q7D [facility] Polyethylene Glycol (Miralax) 17 gm PO DAILY [facility] Last Admin: 01/10/18 10:05 Dose: 17 gm Potassium Chloride (K-Dur) 40 meq PO QAM-WM [facility] Last Admin: 01/10/18 10:03 Dose: 40 meq Prednisone (Prednisone) 5 mg PO QAM-WM [facility] Last Admin: 01/10/18 10:03 Dose: 5 mg Pregabalin (Lyrica) 50 mg PO DAILY [facility] Last Admin: 01/11/18 09:19 Dose: 50 mg Sodium Chloride (Flush - Normal Saline) 10 ml IVF Q12HR [facility] Last Admin: 01/11/18 09:20 Dose: 10 ml Sodium Chloride (Flush - Normal Saline) 10 ml IVF PRN PRN PRN Reason: Saline Flush Zolpidem Tartrate (Ambien) 5 mg PO HSPRN PRN PRN Reason: Insomnia
--- NOTE | 2018-01-11 10:07 | PRG ---
DATE OF SERVICE: 01/11/2018 ADDENDUM I spoke with Dr. Lynn, he recommends transesophageal echo and cardioversion. The patient understands risk of injury to the mouth and esophagus, stroke, need for pacemaker and wishes to proceed.
[2018-01-11 12:46] LABS: #Eosinphils 0.1 thou/uL (0.0-0.7); #Lymphocytes 1.3 thou/uL (1.20-3.40); #Monocytes 1.1 thou/uL (0.11-0.59); %Basophils 0.3 % (0.0-1.0); %Eosinophils 1.4 % (0.0-10.0); %Lymphocytes 15.4 % (21.0-51.0); %Monocytes 13.1 % (0.0-10.0); %Neutrophils 69.8 % (42.0-75.0); Hemoglobin 8.1 g/dL (14.0-18.0); Mean Corpuscular HGB CONC 33.5 g/dL (32.0-36.0); Mean Corpuscular Hemoglobin 30.3 pg (27.0-31.0); Mean Corpuscular Volume 90.3 fL (78.0-98.0); Mean Platelet Volume 10.3 fL (7.4-10.4); Platelet Count 156 thou/uL (130-400); RBC Distribution Width 14.5 % (11.5-14.5); Red Blood Cell (RBC) Count 2.69 mill/uL (4.70-6.10); White Blood Cell (WBC) Count 8.5 thou/uL (4.8-10.8)
[2018-01-11 12:58] LABS: INR-International Normal Ratio 1.3; Prothrombin Time 15.8 SEC (12.0-14.7)
[2018-01-11 13:09] LABS: Anion Gap 8 mmol/L (10-20); BUN (Urea Nitrogen) 30 mg/dL (8.4-25.7); Calc. Creatinine Clearance 129 mL/min (70-130); Calcium 8.4 mg/dL (7.8-10.44); Carbon Dioxide 31 mmol/L (23-31); Chloride 95 mmol/L (98-107); Estimated GFR-MDRD 80; Glucose 170 mg/dL (83-110); Potassium 3.2 mmol/L (3.5-5.1); Sodium 131 mmol/L (136-145)
[2018-01-11] MEDS: Amiodarone HCl 450 MG, Admixture Fee 1 EACH in Dextrose 5% in Water 250 ML IVPB SCH (13:09)
[2018-01-11] MEDS ORDERED: Propofol 1,000 MG/100 ML VIAL IV ONE (14:05)
[2018-01-11] MEDS: Potassium Chloride 20 MEQ TAB PO SCH ×2 (16:02→20:39)
[2018-01-11] MEDS: Furosemide 20 MG TAB PO SCH ×2 (16:04→16:05)
[2018-01-11] MEDS: predniSONE 5 MG TAB PO SCH (16:14)
[2018-01-11] MEDS: Polyethylene Glycol 3350 17 GM Packet PO SCH (16:16)
--- NOTE | 2018-01-11 16:32 | ECHO ---
TRANSESOPHAGEAL ECHOCARDIOGRAM: DATE OF PROCEDURE: 01/11/18 INDICATION: 77-year-old gentleman with paroxysmal atrial fibrillation, status post aortic valve replacement. DESCRIPTION OF PROCEDURE: The patient was taken to the PACU. The patient was sedated by anesthesiology. A transesophageal probe was placed in the distal esophagus and stomach. Echocardiographic images were obtained. The transesophageal probe was removed. FINDINGS: 1. Normal left ventricular systolic function. 2. Prosthetic aortic valve. 3. Mild mitral regurgitation. 4. Mild tricuspid regurgitation. 5. Left atrial appendage is sutured with a 0.3 cm leak noted. 6. Clot appears to be within the left atrial appendage. 7. Atherosclerotic debris in the descending aorta. IMPRESSION: Left atrial appendage suture with a 0.3 cm leak and apparent clot within the appendage.
[2018-01-11] MEDS ORDERED: PROPOFOL 200 MG/20 ML VIAL ONE (20:38)
[2018-01-11] MEDS ORDERED: PHENYLEPHRINE-NS 100 MCG/ML 10 ML SYRINGE ONE (20:38)
[2018-01-11] MEDS: Latanoprost 0.005% Ophth Soln 2.5 ml Bottle EA EYE SCH (21:59)
[2018-01-11] MEDS: Insulin Glargine 20 UNITS in Pre-Filled Syringe 1 EACH SC SCH (21:59)
[2018-01-12] MEDS: HYDROcodone/Acetaminophen 5/325 mg Tablet PO PRN ×2 (04:43→09:44)
[2018-01-12 05:16] LABS: #Eosinphils 0.1 thou/uL (0.0-0.7); #Lymphocytes 1.8 thou/uL (1.20-3.40); %Basophils 0.2 % (0.0-1.0); %Eosinophils 1.5 % (0.0-10.0); %Lymphocytes 17.9 % (21.0-51.0); %Monocytes 9.7 % (0.0-10.0); %Neutrophils 70.8 % (42.0-75.0); Hemoglobin 8.3 g/dL (14.0-18.0); Mean Corpuscular HGB CONC 33.1 g/dL (32.0-36.0); Mean Corpuscular Hemoglobin 29.6 pg (27.0-31.0); Mean Corpuscular Volume 89.4 fL (78.0-98.0); Mean Platelet Volume 9.8 fL (7.4-10.4); Platelet Count 196 thou/uL (130-400); RBC Distribution Width 14.8 % (11.5-14.5); White Blood Cell (WBC) Count 9.9 thou/uL (4.8-10.8)
[2018-01-12 05:41] LABS: Anion Gap 12 mmol/L (10-20); BUN (Urea Nitrogen) 26 mg/dL (8.4-25.7); Calc. Creatinine Clearance 141 mL/min (70-130); Carbon Dioxide 29 mmol/L (23-31); Chloride 95 mmol/L (98-107); Estimated GFR-MDRD 89; Glucose 169 mg/dL (83-110); Magnesium 1.5 mg/dL (1.6-2.6); Potassium 3.2 mmol/L (3.5-5.1); Sodium 133 mmol/L (136-145)
[2018-01-12] MEDS: Amiodarone HCl 450 MG, Admixture Fee 1 EACH in Dextrose 5% in Water 250 ML IVPB SCH (06:22)
[2018-01-12] MEDS ORDERED: Metolazone 5 MG TAB PO SCH (06:45)
[2018-01-12] MEDS ORDERED: Potassium Chloride 20 MEQ TAB PO SCH (08:00)
[2018-01-12] MEDS ORDERED: Magnesium Sulfate 4 GM in Sodium Chloride 0.9% 250 ML 250 ML IVPB SCH (08:00)
[2018-01-12] MEDS: Carvedilol 6.25 MG TAB PO SCH ×2 (09:40→17:52)
[2018-01-12] MEDS: Losartan 25 MG TAB PO SCH (09:40)
[2018-01-12] MEDS: Potassium Chloride 20 MEQ TAB PO SCH ×2 (09:40→17:52)
[2018-01-12] MEDS: Famotidine 20 MG TAB PO SCH ×2 (09:41→22:14)
[2018-01-12] MEDS: Furosemide 20 MG TAB PO SCH ×2 (09:41→13:33)
[2018-01-12] MEDS: predniSONE 5 MG TAB PO SCH (09:41)
[2018-01-12] MEDS: Polyethylene Glycol 3350 17 GM Packet PO SCH (09:41)
[2018-01-12] MEDS: Folic Acid 1 MG TAB PO SCH (09:41)
[2018-01-12] MEDS: Aspirin 325 mg Enteric Coated Tablet PO SCH (09:41)
[2018-01-12] MEDS: Pregabalin 50 MG CAP PO SCH (09:42)
[2018-01-12] MEDS: Methotrexate Sodium 2.5 MG TAB PO SCH (09:49)
[2018-01-12] MEDS ORDERED: Diltiazem 125 MG in Sodium Chloride 0.9% 100 ML IVPB SCH (10:30)
--- NOTE | 2018-01-12 12:03 | PDOC.PN ---
- Subjective Encounter Start Date: 01/12/18 Encounter Start Time: 08:50 Patient seen and examined. No new complaints. No overnight events - Objective Resuscitation Status: Resuscitation Status FULL:Full Resuscitation MAR Reviewed: Yes Vital Signs & Weight: Vital Signs (12 hours) Temp Pulse Pulse Resp BP BP BP 01/12/18 11:15 97.6 F 118 H 18 120/68 01/12/18 11:00 97.7 F 103 H 18 142/61 H 01/12/18 10:59 97.6 F 118 H 18 120/68 01/12/18 09:40 129/70 01/12/18 08:40 97.2 F L 117 H 18 01/12/18 08:00 97.2 F L 117 H 18 141/76 H 01/12/18 04:00 97.4 F L 119 H 16 129/73 Pulse Ox 01/12/18 11:15 01/12/18 11:00 01/12/18 10:59 01/12/18 09:40 01/12/18 08:40 01/12/18 08:00 95 01/12/18 04:00 100 Weight Admit Weight 295 lb 14.4 oz Weight 279 lb 14.4 oz Most Recent Monitor Data Heart Rate from ECG 78 NIBP 121/43 NIBP BP-Mean 69 Respiration from ECG 21 SpO2 100 I&O: 01/11/18 01/12/18 01/13/18 06:59 06:59 06:59 Intake Total 1184 710 0 Output Total 2365 875 Balance -1181 -165 0 Result Diagrams: 01/12/18 05:02 01/12/18 05:02 Additional Labs: Accuchecks 01/12/18 01/12/18 01/11/18 10:41 06:01 21:11 POC Glucose 154 H 170 H 232 H 01/11/18 01/11/18 17:29 06:21 POC Glucose 176 H 212 H Radiology Reviewed by me: Yes (TESS) EKG Reviewed by me: Yes (afib with rvr) Phys Exam - Physical Examination Constitutional: NAD HEENT: PERRLA, moist MMs, sclera anicteric Neck: no JVD, supple Respiratory: no wheezing, no rales, no rhonchi Cardiovascular: no significant murmur, irregular Gastrointestinal: soft, non-tender, no distention, positive bowel sounds obesity Musculoskeletal: pulses present, edema present Neurological: non-focal, normal sensation, moves all 4 limbs Psychiatric: normal affect, A&O x 3 Skin: no rash, normal turgor Dx/Plan (1) 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 Code(s): I50.23 - ACUTE ON CHRONIC SYSTOLIC (CONGESTIVE) HEART FAILURE Status : Acute (2) Atrial fibrillation with RVR Code(s): I48.91 - UNSPECIFIED ATRIAL FIBRILLATION Status: Acute Comment: s/ p cardioversion and ablation, now in nsr (3) Demand ischemia of myocardium Code(s): I24.8 - OTHER FORMS OF ACUTE ISCHEMIC HEART DISEASE Status: Acute (4) Chronic anticoagulation Code(s): Z79.01 - MCC (CURRENT) USE OF ANTICOAGULANTS Status: Chronic (5) DM type 2 (diabetes mellitus, type 2) Status: Chronic Qualifiers: Diabetes mellitus jail insulin use: with vp integrity use Diabetes mellitus complication status: with unspecified complications Qualified Code(s) : E11.8 - Type 2 diabetes mellitus with unspecified complications; Z79.4 - 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; Z79.4 - alf (current) use of insulin; Z79.4 - 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; Z79.4 - alf (current) use of insulin (6) Dyslipidemia Code(s): E78.5 - HYPERLIPIDEMIA, UNSPECIFIED Status: Chronic (7) HTN (hypertension) Code(s): I10 - ESSENTIAL (PRIMARY) HYPERTENSION Status: Chronic Qualifiers: Hypertension type: essential hypertension Qualified Code(s): I10 - Essential (primary) hypertension (8) Morbid obesity with BMI of 40.0-44.9, adult Code(s): E66.01 - MORBID (SEVERE) OBESITY DUE TO EXCESS CALORIES; Z68.41 - BODY MASS INDEX (BMI) 40.0-44.9, ADULT Status: Chronic (9) JAMIN on CPAP Code(s): G47.33 - OBSTRUCTIVE SLEEP APNEA (ADULT) (PEDIATRIC); Z99.89 - DEPENDENCE ON OTHER ENABLING MACHINES AND DEVICES Status: Chronic (10) Rheumatoid arthritis Code(s): M06.9 - RHEUMATOID ARTHRITIS, UNSPECIFIED Status: Chronic (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 Review of Systems - Review of Systems Eyes: negative: Pain, Vision Change, Conjunctivae Inflammation, Eyelid Inflammation, Redness, Other ENT: negative: Ear Pain, Ear Discharge, Nose Pain, Nose Discharge, Nose Congestion, Mouth Pain, Mouth Swelling, Throat Pain, Throat Swelling, Other Respiratory: negative: Cough, Dry, Shortness of Breath, Hemoptysis, SOB with Excertion, Pleuritic Pain, Sputum, Wheezing Cardiovascular: edema. negative: chest pain, palpitations, orthopnea, paroxysmal nocturnal dyspnea, light headedness, other Gastrointestinal: negative: Nausea, Vomiting, Abdominal Pain, Diarrhea, Constipation, Melena, Hematochezia, Other Genitourinary: negative: Dysuria, Frequency, Incontinence, Hematuria, Retention , Other Musculoskeletal: negative: Neck Pain, Shoulder Pain, Arm Pain, Back Pain, Hand Pain, Leg Pain, Foot Pain, Other - Medications/Allergies Allergies/Adverse Reactions: Allergies Allergy/AdvReac Type Severity Reaction Status Date / Time No Known Allergies Allergy Verified 12/24/17 00:48 Medications: Current Medications Hydrocodone Bitart/Acetaminophen (Shafter 5/325) 2 tab PO Q4H PRN PRN Reason: Severe Pain (7-10) Last Admin: 01/12/18 09:44 Dose: 2 tab Al Hydroxide/Mg Hydroxide (Maalox) 30 ml PO Q4H PRN PRN Reason: Indigestion Albuterol/Ipratropium (Duoneb) 3 ml NEB [id number] PRN PRN Reason: SHORTNESS OF BREATH Last Admin: 01/09/18 02:26 Dose: 3 ml Apixaban (Eliquis) 5 mg PO BID [facility] Artificial Tears (Tears Naturale) 1 drop EA EYE PRN PRN PRN Reason: Dry Eyes Aspirin (Ecotrin) 325 mg PO DAILY [facility] Last Admin: 01/12/18 09:41 Dose: Not Given Bisacodyl (Dulcolax) 10 mg PO Q12H PRN PRN Reason: Constipation Bisacodyl (Dulcolax) 10 mg AK Q12H PRN PRN Reason: Constipation Carvedilol (Coreg) 6.25 mg PO BID-WM [facility] Last Admin: 01/12/18 09:40 Dose: 6.25 mg Dextrose/Water (Dextrose 50%) 25 gm SLOW IVP PRN PRN PRN Reason: Hypoglycemia Diphenhydramine HCl (Benadryl) 25 mg PO Q6H PRN PRN Reason: Itching & Insomnia or Kevin Devaughn Famotidine (Pepcid) 20 mg PO BID [facility] Last Admin: 01/12/18 09:41 Dose: Not Given Folic Acid (Folvite) 1 mg PO DAILY [facility] Last Admin: 01/12/18 09:41 Dose: Not Given Furosemide (Lasix) 40 mg PO 0900,1400 [facility] Last Admin: 01/12/18 09:41 Dose: Not Given Glucagon (Glucagon) 1 mg IM PRN PRN PRN Reason: Hypoglycemia Guaifenesin/Dextromethorphan (Robitussin Dm) 15 ml PO Q4H PRN PRN Reason: Cough Dextrose/Water (D5w) 1,000 mls @ 0 mls/hr IV .Q0M PRN; As Directed PRN Reason: Hypoglycemia Insulin Glargine 20 units/ (Miscellaneous Medication) 0.2 mls @ 0 mls/hr SC [facility] Last Admin: 01/11/18 21:59 Dose: 0.2 mls Diltiazem HCl 125 mg/Miscellaneous Medication 1 each/ Sodium Chloride 125 mls @ 10 mls/hr IVPB INF [facility] PRN Reason: Protocol Diltiazem HCl 125 mg/ Sodium (Chloride) 125 mls @ 5 mls/hr IVPB INF [facility] PRN Reason: 5 MG/HR Last Admin: 01/12/18 11:23 Dose: 125 mls Insulin Human Lispro (Humalog) 10 units SC TID-WM PRN PRN Reason: Hyperglycemia Insulin Human Regular (Humulin R) 0 units SC Q4H PRN; Protocol PRN Reason: POST OP SLIDING SCALE Last Admin: 01/10/18 18:09 Dose: 6 unit Latanoprost ([facility]) 1 drop EA EYE HS [facility] Last Admin: 01/11/18 21:59 Dose: 1 drop Losartan Potassium (Cozaar) 25 mg PO DAILY [facility] Last Admin: 01/12/18 09:40 Dose: 25 mg Methotrexate Sodium (Methotrexate Sodium) 7.5 mg PO MoTh@0900 [facility] Last Admin: 01/12/18 09:49 Dose: Not Given Metoclopramide HCl (Reglan) 10 mg IVP Q6H PRN PRN Reason: Nausea/Vomiting Mineral Oil (Fleet Mineral Oil) 133 ml [place] DAILYPRN PRN PRN Reason: Constipation Nitroglycerin (Nitrostat) 0.4 mg SL Q5MIN PRN PRN Reason: Chest Pain Enbrel (Etanercept) (50 Mg/1 Ml) 1 each SC Q7D [facility] Polyethylene Glycol (Miralax) 17 gm PO DAILY [facility] Last Admin: 01/12/18 09:41 Dose: Not Given Potassium Chloride (K-Dur) 40 meq PO BID-[facility] Last Admin: 01/12/18 09:40 Dose: Not Given Prednisone (Prednisone) 5 mg PO QAM-[facility] Last Admin: 01/12/18 09:41 Dose: Not Given Pregabalin (Lyrica) 50 mg PO DAILY [facility] Last Admin: 01/12/18 09:42 Dose: Not Given Sodium Chloride (Flush - Normal Saline) 10 ml IVF Q12HR [facility] Last Admin: 01/12/18 09:42 Dose: Not Given Sodium Chloride (Flush - Normal Saline) 10 ml IVF PRN PRN PRN Reason: Saline Flush Zolpidem Tartrate (Ambien) 5 mg PO HSPRN PRN PRN Reason: Insomnia
[2018-01-12] MEDS ORDERED: Iopamidol 370 76% 50 ML VIAL FS ONE (13:16)
[2018-01-12] MEDS ORDERED: PHENYLEPHRINE-NS 100 MCG/ML 10 ML SYRINGE ONE (14:25)
[2018-01-12] MEDS ORDERED: Ondansetron HCl/PF 4 MG/2 ML Vial ONE (14:25)
[2018-01-12] MEDS ORDERED: CEFAZOLIN/Water 2 GM/20 ML SYRINGE ONE (15:29)
[2018-01-12] MEDS ORDERED: Lidocaine 1% (PF) 30 ML VIAL ONE ×2 (15:29→18:38)
[2018-01-12] MEDS ORDERED: Midazolam HCl 2 mg/2 ml Vial ONE (15:42)
[2018-01-12] MEDS ORDERED: Fentanyl 100 MCG/2 ML VIAL ONE ×3 (15:42→20:15)
[2018-01-12] MEDS ORDERED: Propofol 500 MG/50 ML VIAL ONE (15:42)
[2018-01-12] MEDS ORDERED: Ketamine 50 MG/ML VIAL ONE (16:03)
[2018-01-12] MEDS ORDERED: Heparin 10,000 UNITS/1 ML VIAL ONE (16:26)
[2018-01-12] MEDS ORDERED: Ondansetron HCl/PF 4 MG/2 ML Vial IVP PRN (18:31)
[2018-01-12] MEDS ORDERED: Diltiazem 125 MG in Sodium Chloride 0.9% 100 ML IVPB PRN (21:30)
[2018-01-12] MEDS ORDERED: Diltiazem HCl 125 MG, Admixture Fee 1 EACH in Sodium Chloride 0.9% 100 ML IVPB PRN (21:30)
[2018-01-12] MEDS ORDERED: Acetaminophen/Codeine 30-300mg Tablet PO PRN (21:30)
[2018-01-12] MEDS: Insulin Glargine 20 UNITS in Pre-Filled Syringe 1 EACH SC SCH (22:12)
[2018-01-12] MEDS: Latanoprost 0.005% Ophth Soln 2.5 ml Bottle EA EYE SCH (22:13)
[2018-01-12] MEDS: Acetaminophen/Codeine 30-300mg Tablet PO PRN (22:14)
--- NOTE | 2018-01-12 23:15 | OP ---
DATE OF SERVICE: 01/12/2018 AV NODE ABLATION REPORT REFERRING PHYSICIAN: Dr. Savi Mora. INDICATION FOR PROCEDURE: Mr. Hull with history of atrial arrhythmias s/p cavotricuspid isthmus ablation, status post aortic valve replacement, and recurrence of atrial flutter with rapid ventricular rates post-surgery. He also has noted to have a left appendage clots and residual leak after his surgical left atrial appendage ligation. Hence, no cardioversion was planned, but rate controlled was very difficult. He also had prior cardiomyopathy with poor LV function, although it has improved recently with post-bypass and aortic valve surgery. Poor candidate for amiodarone, has QT prolongation, torsades like arrhythmias in the past. PROCEDURE IN DETAIL: Patient received deep sedation by Anesthesia specialist. After adequate level of sedation achieved, the right femoral venous area was prepped, draped, and anesthetized using subcutaneous lidocaine and with ultrasound guidance, the right femoral vein was cannulated x2. Using a 6 and 8- Arabic short sheath, a quadripolar EP catheter was advanced to the His bundle in the right ventricle area. His mapping and recording was performed in both locations. Following that, the [employer] SF ST catheter was advanced to the right atrium, then AV junctional area. Radiofrequency ablation of the AV junction was performed resulting in complete AV block. Total of 1 minute and 29 seconds of ablation time was noted. Rhythm is complete AV block with ventricular escape only. The quadripolar catheter was left in the right ventricle for backup pacing while performing the BiV pacemaker implant. Eventually, the EP catheter was removed after biventricular pacer implanted. No change in cardiac silhouette noted throughout the procedure. Patient tolerated the procedure well. CONCLUSION: 1. Successful AV nazanin ablation, which persisted over 30 minutes after ablation. 2. Proceed with the [facility]
[2018-01-13] MEDS: Acetaminophen/Codeine 30-300mg Tablet PO PRN ×3 (04:08→17:16)
[2018-01-13 07:49] LABS: #Eosinphils 0.1 thou/uL (0.0-0.7); #Lymphocytes 1.2 thou/uL (1.20-3.40); #Monocytes 0.9 thou/uL (0.11-0.59); #Neutrophils 5.8 thou/uL (1.40-6.50); %Basophils 0.5 % (0.0-1.0); %Eosinophils 1.1 % (0.0-10.0); %Lymphocytes 14.7 % (21.0-51.0); %Monocytes 11.4 % (0.0-10.0); %Neutrophils 72.3 % (42.0-75.0); Hemoglobin 10.1 g/dL (14.0-18.0); Mean Corpuscular HGB CONC 33.8 g/dL (32.0-36.0); Mean Corpuscular Hemoglobin 29.4 pg (27.0-31.0); Mean Corpuscular Volume 86.9 fL (78.0-98.0); Mean Platelet Volume 9.6 fL (7.4-10.4); Platelet Count 173 thou/uL (130-400); RBC Distribution Width 15.8 % (11.5-14.5); Red Blood Cell (RBC) Count 3.44 mill/uL (4.70-6.10)
[2018-01-13 08:01] LABS: Anion Gap 11 mmol/L (10-20); BUN (Urea Nitrogen) 18 mg/dL (8.4-25.7); Calc. Creatinine Clearance 143 mL/min (70-130); Calcium 8.6 mg/dL (7.8-10.44); Carbon Dioxide 30 mmol/L (23-31); Chloride 97 mmol/L (98-107); Estimated GFR-MDRD Greater than 90; Glucose 113 mg/dL (83-110); Magnesium 1.7 mg/dL (1.6-2.6); Potassium 3.1 mmol/L (3.5-5.1); Sodium 135 mmol/L (136-145)
--- NOTE | 2018-01-13 08:15 | RAD ---
FRONTAL VIEW CHEST SERIES 2 VIEWS PROVIDED: Date: 01/13/18 INDICATION: Status post cardiac pacing device placement. COMPARISON: 01/08/18 chest radiograph. FINDINGS: Redemonstration of right subclavian venous catheter. There is marked enlargement of the cardiac silhouette and pulmonary vasculature. There is increased d ensity of the mid to inferior left hemithorax with obscuration of the left hemidiaphragm and left cos tophrenic sulcus indicating pleural fluid. Prior sternotomy noted. No consolidation of the right lung . There is no discrete, postprocedure pneumothorax visualized. Left subclavian approach cardiac pacin g device present and there are numerous extrinsic artifacts overlying the left chest which otherwise limit detail. IMPRESSION: 1. Left subclavian approach cardiac pacing device is present without a significant postprocedure pne umothorax. 2. Evidence of CHF. 3. Increased density to left hemithorax indicating pleural fluid. Recommend continued follow-up. POS: JUAN
[2018-01-13] MEDS: Potassium Chloride 20 MEQ TAB PO SCH ×2 (08:54→17:12)
[2018-01-13] MEDS: predniSONE 5 MG TAB PO SCH (08:55)
[2018-01-13] MEDS: Pregabalin 50 MG CAP PO SCH (08:55)
[2018-01-13] MEDS: Famotidine 20 MG TAB PO SCH ×2 (08:55→20:42)
[2018-01-13] MEDS: Folic Acid 1 MG TAB PO SCH (08:55)
[2018-01-13] MEDS: Losartan 25 MG TAB PO SCH (08:55)
[2018-01-13] MEDS: Furosemide 20 MG TAB PO SCH ×2 (08:55→15:04)
[2018-01-13] MEDS: Polyethylene Glycol 3350 17 GM Packet PO SCH (08:56)
[2018-01-13] MEDS: Aspirin 325 mg Enteric Coated Tablet PO SCH (08:56)
[2018-01-13] MEDS: Carvedilol 6.25 MG TAB PO SCH ×2 (08:56→17:11)
[2018-01-13] MEDS ORDERED: Apixaban 5 MG TAB PO SCH (09:00)
[2018-01-13] MEDS ORDERED: Potassium Chloride 20 MEQ TAB PO SCH (10:00)
[2018-01-13] MEDS: HYDROcodone/Acetaminophen 5/325 mg Tablet PO PRN ×2 (11:33→20:42)
--- NOTE | 2018-01-13 11:57 | PDOC.PN ---
- Subjective Encounter Start Date: 01/13/18 Encounter Start Time: 08:20 this morning pt was not feeling overall good, no fever, he had av nazanin ablation and bivpacemker procedure yesterday - Objective Resuscitation Status: Resuscitation Status FULL:Full Resuscitation MAR Reviewed: Yes Vital Signs & Weight: Vital Signs (12 hours) Temp Pulse Resp BP BP BP Pulse Ox 01/13/18 11:38 97 01/13/18 08:56 143/65 H 01/13/18 07:48 97.7 F 80 10 L 143/65 H 96 01/13/18 04:00 97.5 F L 78 17 161/71 H 92 L 01/13/18 00:00 97.6 F 87 20 133/62 97 Weight Admit Weight 295 lb 14.4 oz Weight 280 lb Most Recent Monitor Data Heart Rate from ECG 78 NIBP 121/43 NIBP BP-Mean 69 Respiration from ECG 21 SpO2 100 I&O: 01/12/18 01/13/18 01/14/18 06:59 06:59 06:59 Intake Total 710 440 Output Total 875 1325 Balance -165 -885 Result Diagrams: 01/13/18 06:17 01/13/18 06:17 Additional Labs: Accuchecks 01/13/18 01/12/18 05:50 20:42 POC Glucose 117 H 140 H Radiology Reviewed by me: Yes (chest xray-congestion) EKG Reviewed by me: Yes Phys Exam - Physical Examination Constitutional: NAD HEENT: PERRLA, moist MMs, sclera anicteric Neck: no JVD, supple Respiratory: no wheezing, no rales, no rhonchi coarse sound+ pacemaker site clean Cardiovascular: RRR, no significant murmur, no rub surgical site clean Gastrointestinal: soft, non-tender, no distention, positive bowel sounds obesity+ Musculoskeletal: pulses present, edema present Neurological: non-focal, normal sensation, moves all 4 limbs Lymphatic: no nodes Psychiatric: normal affect, A&O x 3 Skin: no rash, normal turgor Dx/Plan (1) 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 Code(s): I50.23 - ACUTE ON CHRONIC SYSTOLIC (CONGESTIVE) HEART FAILURE Status : Acute (2) Atrial fibrillation with RVR Code(s): I48.91 - UNSPECIFIED ATRIAL FIBRILLATION Status: Acute Comment: s/ p cardioversion and ablation, now in nsr (3) Demand ischemia of myocardium Code(s): I24.8 - OTHER FORMS OF ACUTE ISCHEMIC HEART DISEASE Status: Acute (4) Chronic anticoagulation Code(s): Z79.01 - SKILLED NURSING (CURRENT) USE OF ANTICOAGULANTS Status: Chronic (5) DM type 2 (diabetes mellitus, type 2) Status: Chronic Qualifiers: Diabetes mellitus terminal clerk insulin use: with terminal clerk use Diabetes mellitus complication status: with unspecified complications Qualified Code(s) : E11.8 - Type 2 diabetes mellitus with unspecified complications; Z79.4 - long term care pharmacist (current) use of insulin; Z79.4 - long term care pharmacist (current) use of insulin; Z79.4 - MCC (current) use of insulin; Z79.4 - MCC (current) use of insulin (6) Dyslipidemia Code(s): E78.5 - HYPERLIPIDEMIA, UNSPECIFIED Status: Chronic (7) HTN (hypertension) Code(s): I10 - ESSENTIAL (PRIMARY) HYPERTENSION Status: Chronic Qualifiers: Hypertension type: essential hypertension Qualified Code(s): I10 - Essential (primary) hypertension (8) Morbid obesity with BMI of 40.0-44.9, adult Code(s): E66.01 - MORBID (SEVERE) OBESITY DUE TO EXCESS CALORIES; Z68.41 - BODY MASS INDEX (BMI) 40.0-44.9, ADULT Status: Chronic (9) JAMIN on CPAP Code(s): G47.33 - OBSTRUCTIVE SLEEP APNEA (ADULT) (PEDIATRIC); Z99.89 - DEPENDENCE ON OTHER ENABLING MACHINES AND DEVICES Status: Chronic (10) Rheumatoid arthritis Code(s): M06.9 - RHEUMATOID ARTHRITIS, UNSPECIFIED Status: Chronic (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 Code(s): R00.0 - TACHYCARDIA, UNSPECIFIED; I43 - CARDIOMYOPATHY IN DISEASES CLASSIFIED ELSEWHERE Status: Resolved (12) Ventricular tachycardia, polymorphic Code(s): I47.2 - VENTRICULAR TACHYCARDIA Status: Acute (13) 3-vessel coronary artery disease Status: Chronic (14) Severe aortic stenosis Code(s): I35.0 - NONRHEUMATIC AORTIC (VALVE) STENOSIS Status: Chronic (15) Acute kidney injury Code(s): N17.9 - ACUTE KIDNEY FAILURE, UNSPECIFIED Status: Resolved (16) Anemia due to acute blood loss Code(s): D62 - ACUTE POSTHEMORRHAGIC ANEMIA Status: Acute (17) S/P AV nazanin ablation Code(s): Z98.890 - OTHER SPECIFIED POSTPROCEDURAL STATES Status: Acute (18) Status post biventricular cardiac pacemaker insertion Code(s): Z95.0 - PRESENCE OF CARDIAC PACEMAKER Status: Acute - Plan cont current plan of care, 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 * continue elliquis * medication adjustment * medication reviewed as below * symptomatic treatment * will monitor today. Review of Systems - Review of Systems Constitutional: weakness, malaise. negative: fever, chills, sweats, other ENT: negative: Ear Pain, Ear Discharge, Nose Pain, Nose Discharge, Nose Congestion, Mouth Pain, Mouth Swelling, Throat Pain, Throat Swelling, Other Respiratory: negative: Cough, Dry, Shortness of Breath, Hemoptysis, SOB with Excertion, Pleuritic Pain, Sputum, Wheezing Cardiovascular: edema. negative: chest pain, palpitations, orthopnea, paroxysmal nocturnal dyspnea, light headedness, other Gastrointestinal: negative: Nausea, Vomiting, Abdominal Pain, Diarrhea, Constipation, Melena, Hematochezia, Other Genitourinary: negative: Dysuria, Frequency, Incontinence, Hematuria, Retention , Other Musculoskeletal: negative: Neck Pain, Shoulder Pain, Arm Pain, Back Pain, Hand Pain, Leg Pain, Foot Pain, Other Skin: negative: Rash, Lesions, Efra, Bruising, Other - Medications/Allergies Allergies/Adverse Reactions: Allergies Allergy/AdvReac Type Severity Reaction Status Date / Time No Known Allergies Allergy Verified 12/24/17 00:48 Medications: Current Medications Acetaminophen/Codeine Phosphate (Tylenol #3) 1 tab PO Q4H PRN PRN Reason: Mild Pain (1-3) Acetaminophen/Codeine Phosphate (Tylenol #3) 2 tab PO Q4H PRN PRN Reason: Moderate Pain (4-6) Last Admin: 01/13/18 08:57 Dose: 2 tab Hydrocodone Bitart/Acetaminophen (Edwards 5/325) 2 tab PO Q4H PRN PRN Reason: Severe Pain (7-10) Last Admin: 01/13/18 11:33 Dose: 2 tab Al Hydroxide/Mg Hydroxide (Maalox) 30 ml PO Q4H PRN PRN Reason: Indigestion Albuterol/Ipratropium (Duoneb) 3 ml NEB [id number] PRN PRN Reason: SHORTNESS OF BREATH Last Admin: 01/09/18 02:26 Dose: 3 ml Apixaban (Eliquis) 5 mg PO BID [facility] Artificial Tears (Tears Naturale) 1 drop EA EYE PRN PRN PRN Reason: Dry Eyes Aspirin (Ecotrin) 325 mg PO DAILY [facility] Last Admin: 01/13/18 08:56 Dose: 325 mg Bisacodyl (Dulcolax) 10 mg PO Q12H PRN PRN Reason: Constipation Bisacodyl (Dulcolax) 10 mg DC Q12H PRN PRN Reason: Constipation Carvedilol (Coreg) 6.25 mg PO BID-[facility] Last Admin: 01/13/18 08:56 Dose: 6.25 mg Dextrose/Water (Dextrose 50%) 25 gm SLOW IVP PRN PRN PRN Reason: Hypoglycemia Diphenhydramine HCl (Benadryl) 25 mg PO Q6H PRN PRN Reason: Itching & Insomnia or Kevin Devaughn Famotidine (Pepcid) 20 mg PO BID [facility] Last Admin: 01/13/18 08:55 Dose: 20 mg Folic Acid (Folvite) 1 mg PO DAILY [facility] Last Admin: 01/13/18 08:55 Dose: 1 mg Furosemide (Lasix) 40 mg PO 0900,1400 [facility] Last Admin: 01/13/18 08:55 Dose: 40 mg Glucagon (Glucagon) 1 mg IM PRN PRN PRN Reason: Hypoglycemia Guaifenesin/Dextromethorphan (Robitussin Dm) 15 ml PO Q4H PRN PRN Reason: Cough Dextrose/Water (D5w) 1,000 mls @ 0 mls/hr IV .Q0M PRN; As Directed PRN Reason: Hypoglycemia Insulin Glargine 20 units/ (Miscellaneous Medication) 0.2 mls @ 0 mls/hr SC HS [facility] Last Admin: 01/12/18 22:12 Dose: 0.2 mls Diltiazem HCl 125 mg/ Sodium (Chloride) 125 mls @ 5 mls/hr IVPB INF PRN; 5 MG/ HR PRN Reason: TO KEEP HR < 100 Insulin Human Lispro (Humalog) 10 units SC TID-WM PRN PRN Reason: Hyperglycemia Insulin Human Regular (Humulin R) 0 units SC Q4H PRN; Protocol PRN Reason: POST OP SLIDING SCALE Last Admin: 01/10/18 18:09 Dose: 6 unit Latanoprost (Xalatan 0.005% Ophth Soln) 1 drop EA EYE HS [facility] Last Admin: 01/12/18 22:13 Dose: 1 drop Losartan Potassium (Cozaar) 25 mg PO DAILY [facility] Last Admin: 01/13/18 08:55 Dose: 25 mg Methotrexate Sodium (Methotrexate Sodium) 7.5 mg PO MoTh@0900 [facility] Last Admin: 01/12/18 09:49 Dose: Not Given Metoclopramide HCl (Reglan) 10 mg IVP Q6H PRN PRN Reason: Nausea/Vomiting Mineral Oil (Fleet Mineral Oil) 133 ml [place] DAILYPRN PRN PRN Reason: Constipation Nitroglycerin (Nitrostat) 0.4 mg SL Q5MIN PRN PRN Reason: Chest Pain Enbrel (Etanercept) (50 Mg/1 Ml) 1 each SC Q7D [facility] Polyethylene Glycol (Miralax) 17 gm PO DAILY [facility] Last Admin: 01/13/18 08:56 Dose: Not Given Potassium Chloride (K-Dur) 40 meq PO BID-[facility] Last Admin: 01/13/18 08:54 Dose: 40 meq Potassium Chloride (K-Dur) 40 meq PO ONE [facility] Stop: 01/13/18 12:00 Last Admin: 01/13/18 11:32 Dose: 40 meq Prednisone (Prednisone) 5 mg PO QAM-WM [facility] Last Admin: 01/13/18 08:55 Dose: 5 mg Pregabalin (Lyrica) 50 mg PO DAILY [facility] Last Admin: 01/13/18 08:55 Dose: 50 mg Sodium Chloride (Flush - Normal Saline) 10 ml IVF Q12HR [facility] Last Admin: 01/13/18 08:57 Dose: 10 ml Sodium Chloride (Flush - Normal Saline) 10 ml IVF PRN PRN PRN Reason: Saline Flush Sodium Chloride (Flush - Normal Saline) 10 ml IVF PRN PRN PRN Reason: Saline Flush Zolpidem Tartrate (Ambien) 5 mg PO HSPRN PRN PRN Reason: Insomnia
[2018-01-13] MEDS ORDERED: Furosemide 40 MG/4 ML VIAL SLOW IVP SCH (12:00)
[2018-01-13] MEDS ORDERED: Metolazone 5 MG TAB PO SCH (12:00)
--- NOTE | 2018-01-13 13:24 | PDOC.CTH ---
<Natalia Bryant - Last Filed: 01/13/18 13:25> Cardiology Progress Note - Subjective The pt seen and examined. No overnight events. No cardiac complaints. He complains of intermittent fatigue and BLE edema; however, he felt better after he took a shower today. - Objective Vital Signs Temp Pulse Resp BP BP BP Pulse Ox 01/13/18 11:38 97 01/13/18 08:56 143/65 H 01/13/18 07:48 97.7 F 80 10 L 143/65 H 96 01/13/18 04:00 97.5 F L 78 17 161/71 H 92 L Admit Weight 295 lb 14.4 oz Weight 280 lb 01/12/18 01/13/18 01/14/18 06:59 06:59 06:59 Intake Total 710 440 Output Total 875 1325 Balance -165 -885 - Physical Examination General/Neuro: alert & oriented x3 Neck: no JVD present Lungs: CTA Abdomen: soft Extremities: other: (3+ pitting BLE edema) - Telemetry Telemetry Rhythm: V paced - Labs Result Diagrams: 01/13/18 06:17 01/13/18 06:17 Troponin/CKMB Troponin I 0.267 ng/mL (< 0.028) H 12/24/17 00:36 - Assessment/Plan 1. Severed aortic stenosis s/p AVR - stable; 2. 3 CAD s/p CABG with left atrial appendage surgical ligation - stable with BBlocker, ARE, ASA 325mg qd, and Statin. cont. to monitor on tele 3. Acute on Chronic Systolic HF with S/p BiV PM placement on 01/12/18 - stable with ARE, Lasix. Metolazone x1 was ordered today. 4. Typical atrial flutter s/p CTI ablation 2 weeks ago - 5. Paroxysmal atrial fibrillation & atypical flutter - back to Afib; rate well controlled with Bblocker, Diltiazem drip. On Eliquis 5mg BID. 6. HTN - stale 7. DM type 2 - managed by PCP 8. Obese - weight management education given to the pt 9. Sleep apnea - 10. Hypokalemia - replaced by PCP 11. Anemia with s/p 2 units PRBC tx on 01/12/18 - improving; cont. to monitor 12. BLE edema - TEDs from today MAR reviewed Review of Systems - Review of Systems Constitutional: reports: weakness EENTM: reports: no symptoms reported Respiratory: reports: no symptoms reported Cardiac (ROS): reports: no symptoms reported ABD/GI: reports: no symptoms reported : reports: no symptoms reported <Donna Kaur - Last Filed: 01/13/18 22:30> Cardiology Progress Note - Objective Vital Signs Temp Pulse Resp BP BP Pulse Ox 01/13/18 19:52 97.8 F 80 17 134/60 95 01/13/18 17:11 143/65 H 01/13/18 15:19 80 20 136/66 01/13/18 12:00 97.9 F 79 20 136/61 92 L 01/13/18 11:38 97 Admit Weight 295 lb 14.4 oz Weight 280 lb 01/12/18 01/13/18 01/14/18 06:59 06:59 06:59 Intake Total 020 960 2869 Output Total 875 1325 752 Balance -165 885 1248 - Labs Result Diagrams: 01/13/18 06:17 01/13/18 06:17 Troponin/CKMB Troponin I 0.267 ng/mL (< 0.028) H 12/24/17 00:36 - Assessment/Plan Pt. was seen and eval. by me. I have discussed the care of the pt. with the BUSINESS ADVISOR and agree with the A/P
[2018-01-13] MEDS: Insulin Regular 300 UNITS/3 ML VIAL SC PRN (17:11)
[2018-01-13] MEDS: Latanoprost 0.005% Ophth Soln 2.5 ml Bottle EA EYE SCH (20:41)
[2018-01-13] MEDS: Atorvastatin Calcium 20 MG TAB PO SCH (20:44)
[2018-01-13] MEDS: Apixaban 5 MG TAB PO SCH (20:44)
[2018-01-13] MEDS: Insulin Glargine 20 UNITS in Pre-Filled Syringe 1 EACH SC SCH (20:49)
[2018-01-14] MEDS: HYDROcodone/Acetaminophen 5/325 mg Tablet PO PRN ×4 (02:56→18:04)
[2018-01-14 05:19] LABS: #Eosinphils 0.1 thou/uL (0.0-0.7); #Lymphocytes 1.3 thou/uL (1.20-3.40); #Monocytes 0.8 thou/uL (0.11-0.59); #Neutrophils 5.6 thou/uL (1.40-6.50); %Basophils 0.1 % (0.0-1.0); %Eosinophils 1.3 % (0.0-10.0); %Lymphocytes 16.8 % (21.0-51.0); %Monocytes 10.3 % (0.0-10.0); %Neutrophils 71.6 % (42.0-75.0); Hemoglobin 10.1 g/dL (14.0-18.0); Mean Corpuscular HGB CONC 33.6 g/dL (32.0-36.0); Mean Corpuscular Hemoglobin 29.2 pg (27.0-31.0); Mean Platelet Volume 9.1 fL (7.4-10.4); Platelet Count 175 thou/uL (130-400); Red Blood Cell (RBC) Count 3.47 mill/uL (4.70-6.10); White Blood Cell (WBC) Count 7.8 thou/uL (4.8-10.8)
[2018-01-14 05:28] LABS: Anion Gap 11 mmol/L (10-20); BUN (Urea Nitrogen) 22 mg/dL (8.4-25.7); Calc. Creatinine Clearance 134 mL/min (70-130); Calcium 8.7 mg/dL (7.8-10.44); Carbon Dioxide 31 mmol/L (23-31); Chloride 96 mmol/L (98-107); Estimated GFR-MDRD 89; Glucose 130 mg/dL (83-110); Potassium 3.3 mmol/L (3.5-5.1); Sodium 135 mmol/L (136-145)
[2018-01-14] MEDS ORDERED: Potassium Chloride 20 MEQ TAB PO SCH ×2 (08:00→12:30)
[2018-01-14] MEDS: Carvedilol 6.25 MG TAB PO SCH ×2 (08:48→17:59)
[2018-01-14] MEDS: Losartan 25 MG TAB PO SCH (08:48)
[2018-01-14] MEDS: predniSONE 5 MG TAB PO SCH (08:48)
[2018-01-14] MEDS: Pregabalin 50 MG CAP PO SCH (08:49)
[2018-01-14] MEDS: Folic Acid 1 MG TAB PO SCH (08:50)
[2018-01-14] MEDS: Furosemide 20 MG TAB PO SCH (08:50)
[2018-01-14] MEDS: Apixaban 5 MG TAB PO SCH ×2 (08:51→20:31)
[2018-01-14] MEDS: Famotidine 20 MG TAB PO SCH ×2 (08:51→20:31)
[2018-01-14] MEDS: Aspirin 325 mg Enteric Coated Tablet PO SCH (08:51)
[2018-01-14] MEDS: Potassium Chloride 20 MEQ TAB PO SCH ×2 (08:59→17:58)
[2018-01-14] MEDS ORDERED: ENBREL SC SCH (09:00)
[2018-01-14] MEDS: Polyethylene Glycol 3350 17 GM Packet PO SCH (09:05)
--- NOTE | 2018-01-14 11:55 | PDOC.PN ---
- Subjective Encounter Start Date: 01/14/18 Encounter Start Time: 10:00 Patient seen and examined. No new complaints. No overnight events - Objective Resuscitation Status: Resuscitation Status FULL:Full Resuscitation MAR Reviewed: Yes Vital Signs & Weight: Vital Signs (12 hours) Temp Pulse Resp BP BP Pulse Ox 01/14/18 08:48 127/65 01/14/18 08:00 98 F 79 16 127/65 96 01/14/18 05:12 97.4 F L 80 14 126/58 L 94 L Weight Admit Weight 295 lb 14.4 oz Weight 273 lb 9.6 oz Most Recent Monitor Data Heart Rate from ECG 78 NIBP 121/43 NIBP BP-Mean 69 Respiration from ECG 21 SpO2 100 I&O: 01/13/18 01/14/18 01/15/18 06:59 06:59 06:59 Intake Total 440 2150 Output Total 1325 1327 Balance -885 823 Result Diagrams: 01/14/18 05:02 01/14/18 05:02 Additional Labs: Accuchecks 01/14/18 01/13/18 01/13/18 11:29 20:50 16:40 POC Glucose 189 H 191 H 209 H 01/13/18 10:51 POC Glucose 163 H EKG Reviewed by me: Yes Phys Exam - Physical Examination Constitutional: NAD HEENT: PERRLA, moist MMs, sclera anicteric Neck: no JVD, supple Respiratory: no wheezing, no rales, no rhonchi reduced air entry at base Cardiovascular: RRR, no significant murmur, no rub aortic valve click+ Gastrointestinal: soft, non-tender, no distention, positive bowel sounds Musculoskeletal: pulses present, edema present Neurological: non-focal, normal sensation Lymphatic: no nodes Psychiatric: normal affect, A&O x 3 Skin: no rash, normal turgor Dx/Plan (1) 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 Code(s): I50.23 - ACUTE ON CHRONIC SYSTOLIC (CONGESTIVE) HEART FAILURE Status : Acute (2) Atrial fibrillation with RVR Code(s): I48.91 - UNSPECIFIED ATRIAL FIBRILLATION Status: Acute Comment: s/ p cardioversion and ablation, now in nsr (3) Demand ischemia of myocardium Code(s): I24.8 - OTHER FORMS OF ACUTE ISCHEMIC HEART DISEASE Status: Acute (4) Chronic anticoagulation Code(s): Z79.01 - JAIL (CURRENT) USE OF ANTICOAGULANTS Status: Chronic (5) DM type 2 (diabetes mellitus, type 2) Status: Chronic Qualifiers: Diabetes mellitus truck terminal manager insulin use: with longterm use Diabetes mellitus complication status: with unspecified complications Qualified Code(s) : E11.8 - Type 2 diabetes mellitus with unspecified complications; Z79.4 - [facility] (current) use of insulin; Z79.4 - [facility] (current) use of insulin; Z79.4 - [facility] (current) use of insulin; Z79.4 - manager long term care (current) use of insulin (6) Dyslipidemia Code(s): E78.5 - HYPERLIPIDEMIA, UNSPECIFIED Status: Chronic (7) HTN (hypertension) Code(s): I10 - ESSENTIAL (PRIMARY) HYPERTENSION Status: Chronic Qualifiers: Hypertension type: essential hypertension Qualified Code(s): I10 - Essential (primary) hypertension (8) Morbid obesity with BMI of 40.0-44.9, adult Code(s): E66.01 - MORBID (SEVERE) OBESITY DUE TO EXCESS CALORIES; Z68.41 - BODY MASS INDEX (BMI) 40.0-44.9, ADULT Status: Chronic (9) JAMIN on CPAP Code(s): G47.33 - OBSTRUCTIVE SLEEP APNEA (ADULT) (PEDIATRIC); Z99.89 - DEPENDENCE ON OTHER ENABLING MACHINES AND DEVICES Status: Chronic (10) Rheumatoid arthritis Code(s): M06.9 - RHEUMATOID ARTHRITIS, UNSPECIFIED Status: Chronic (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 Code(s): R00.0 - TACHYCARDIA, UNSPECIFIED; I43 - CARDIOMYOPATHY IN DISEASES CLASSIFIED ELSEWHERE Status: Resolved (12) Ventricular tachycardia, polymorphic Code(s): I47.2 - VENTRICULAR TACHYCARDIA Status: Acute (13) 3-vessel coronary artery disease Status: Chronic (14) Severe aortic stenosis Code(s): I35.0 - NONRHEUMATIC AORTIC (VALVE) STENOSIS Status: Chronic (15) Acute kidney injury Code(s): N17.9 - ACUTE KIDNEY FAILURE, UNSPECIFIED Status: Resolved (16) Anemia due to acute blood loss Code(s): D62 - ACUTE POSTHEMORRHAGIC ANEMIA Status: Acute (17) S/P AV nazanin ablation Code(s): Z98.890 - OTHER SPECIFIED POSTPROCEDURAL STATES Status: Acute (18) Status post biventricular cardiac pacemaker insertion Code(s): Z95.0 - PRESENCE OF CARDIAC PACEMAKER Status: Acute - Plan cont current plan of care * medication reviewed as below * symptomatic treatment * overall stable and improving * replace potassium * will discharge when consultants are ok. Review of Systems - Review of Systems Eyes: negative: Pain, Vision Change, Conjunctivae Inflammation, Eyelid Inflammation, Redness, Other ENT: negative: Ear Pain, Ear Discharge, Nose Pain, Nose Discharge, Nose Congestion, Mouth Pain, Mouth Swelling, Throat Pain, Throat Swelling, Other Respiratory: negative: Cough, Dry, Shortness of Breath, Hemoptysis, SOB with Excertion, Pleuritic Pain, Sputum, Wheezing Cardiovascular: negative: chest pain, palpitations, orthopnea, paroxysmal nocturnal dyspnea, edema, light headedness, other Gastrointestinal: negative: Nausea, Vomiting, Abdominal Pain, Diarrhea, Constipation, Melena, Hematochezia, Other Genitourinary: negative: Dysuria, Frequency, Incontinence, Hematuria, Retention , Other Musculoskeletal: negative: Neck Pain, Shoulder Pain, Arm Pain, Back Pain, Hand Pain, Leg Pain, Foot Pain, Other Skin: negative: Rash, Lesions, Efra, Bruising, Other - Medications/Allergies Allergies/Adverse Reactions: Allergies Allergy/AdvReac Type Severity Reaction Status Date / Time No Known Allergies Allergy Verified 12/24/17 00:48 Medications: Current Medications Acetaminophen/Codeine Phosphate (Tylenol #3) 1 tab PO Q4H PRN PRN Reason: Mild Pain (1-3) Acetaminophen/Codeine Phosphate (Tylenol #3) 2 tab PO Q4H PRN PRN Reason: Moderate Pain (4-6) Last Admin: 01/13/18 17:16 Dose: 2 tab Hydrocodone Bitart/Acetaminophen ([place] 5/325) 2 tab PO Q4H PRN PRN Reason: Severe Pain (7-10) Last Admin: 01/14/18 08:48 Dose: 2 tab Al Hydroxide/Mg Hydroxide (Maalox) 30 ml PO Q4H PRN PRN Reason: Indigestion Albuterol/Ipratropium (Duoneb) 3 ml NEB [id number] PRN PRN Reason: SHORTNESS OF BREATH Last Admin: 01/09/18 02:26 Dose: 3 ml Apixaban (Eliquis) 5 mg PO BID MARIELA Last Admin: 01/14/18 08:51 Dose: 5 mg Artificial Tears (Tears Naturale) 1 drop EA EYE PRN PRN PRN Reason: Dry Eyes Aspirin (Ecotrin) 325 mg PO DAILY [facility] Last Admin: 01/14/18 08:51 Dose: 325 mg Atorvastatin Calcium (Lipitor) 20 mg PO [facility] Last Admin: 01/13/18 20:44 Dose: 20 mg Bisacodyl (Dulcolax) 10 mg PO Q12H PRN PRN Reason: Constipation Bisacodyl (Dulcolax) 10 mg MT Q12H PRN PRN Reason: Constipation Carvedilol (Coreg) 6.25 mg PO BID-[facility] Last Admin: 01/14/18 08:48 Dose: 6.25 mg Dextrose/Water (Dextrose 50%) 25 gm SLOW IVP PRN PRN PRN Reason: Hypoglycemia Diphenhydramine HCl (Benadryl) 25 mg PO Q6H PRN PRN Reason: Itching & Insomnia or Kevin Devaughn Famotidine (Pepcid) 20 mg PO BID [facility] Last Admin: 01/14/18 08:51 Dose: 20 mg Folic Acid (Folvite) 1 mg PO DAILY [facility] Last Admin: 01/14/18 08:50 Dose: 1 mg Furosemide (Lasix) 40 mg PO 0900,1400 [facility] Last Admin: 01/14/18 08:50 Dose: 40 mg Glucagon (Glucagon) 1 mg IM PRN PRN PRN Reason: Hypoglycemia Guaifenesin/Dextromethorphan (Robitussin Dm) 15 ml PO Q4H PRN PRN Reason: Cough Dextrose/Water (D5w) 1,000 mls @ 0 mls/hr IV .Q0M PRN; As Directed PRN Reason: Hypoglycemia Insulin Glargine 20 units/ (Miscellaneous Medication) 0.2 mls @ 0 mls/hr SC [facility] Last Admin: 01/13/18 20:49 Dose: 0.2 mls Diltiazem HCl 125 mg/ Sodium (Chloride) 125 mls @ 5 mls/hr IVPB INF PRN; 5 MG/ HR PRN Reason: TO KEEP HR < 100 Insulin Human Lispro (Humalog) 10 units SC TID-WM PRN PRN Reason: Hyperglycemia Insulin Human Regular (Humulin R) 0 units SC Q4H PRN; Protocol PRN Reason: POST OP SLIDING SCALE Last Admin: 01/13/18 17:11 Dose: 6 unit Latanoprost (Xalatan 0.005% Ophth Soln) 1 drop EA EYE HS [facility] Last Admin: 01/13/18 20:41 Dose: 1 drop Losartan Potassium (Cozaar) 25 mg PO DAILY [facility] Last Admin: 01/14/18 08:48 Dose: 25 mg Methotrexate Sodium (Methotrexate Sodium) 7.5 mg PO MoTh@0900 [facility] Last Admin: 01/12/18 09:49 Dose: Not Given Metoclopramide HCl (Reglan) 10 mg IVP Q6H PRN PRN Reason: Nausea/Vomiting Mineral Oil (Fleet Mineral Oil) 133 ml MT DAILYPRN PRN PRN Reason: Constipation Nitroglycerin (Nitrostat) 0.4 mg SL Q5MIN PRN PRN Reason: Chest Pain Enbrel (Etanercept) (50 Mg/1 Ml) 1 each SC Q7D [facility] Polyethylene Glycol (Miralax) 17 gm PO DAILY [facility] Last Admin: 01/14/18 09:05 Dose: Not Given Potassium Chloride (K-Dur) 40 meq PO BID-[facility] Last Admin: 01/13/18 17:12 Dose: 40 meq Prednisone (Prednisone) 5 mg PO QAM-[facility] Last Admin: 01/14/18 08:48 Dose: 5 mg Pregabalin (Lyrica) 50 mg PO DAILY [facility] Last Admin: 01/14/18 08:49 Dose: 50 mg Sodium Chloride (Flush - Normal Saline) 10 ml IVF Q12HR [facility] Last Admin: 01/14/18 09:05 Dose: 10 ml Sodium Chloride (Flush - Normal Saline) 10 ml IVF PRN PRN PRN Reason: Saline Flush Sodium Chloride (Flush - Normal Saline) 10 ml IVF PRN PRN PRN Reason: Saline Flush Zolpidem Tartrate (Ambien) 5 mg PO HSPRN PRN PRN Reason: Insomnia
--- NOTE | 2018-01-14 12:12 | PDOC.CTH ---
Cardiology Progress Note - Objective Vital Signs Temp Pulse Resp BP BP Pulse Ox 01/14/18 08:48 127/65 01/14/18 08:00 98 F 79 16 127/65 96 01/14/18 05:12 97.4 F L 80 14 126/58 L 94 L Admit Weight 295 lb 14.4 oz Weight 273 lb 9.6 oz 01/13/18 01/14/18 01/15/18 06:59 06:59 06:59 Intake Total 440 2150 Output Total 1325 1327 Balance -885 823 - Labs Result Diagrams: 01/14/18 05:02 01/14/18 05:02 Troponin/CKMB Troponin I 0.267 ng/mL (< 0.028) H 12/24/17 00:36 - Assessment/Plan 1. Severe -s/p AVR, stable. 2. 3V CAD s/p CABG with left atrial appendage surgical ligation -continue BB, statin, ECASA, ARB. 3. Acute on Chronic Systolic HF with S/p BiV PM placement on 01/12- stable with ARB, Lasix. 5. Paroxysmal atrial fibrillation & atypical flutter - back to Afib; rate well controlled with Bblocker, Diltiazem drip. On Eliquis 5mg BID. 6. HTN - stale 7. DM type 2 - managed by PCP 8. Obese - weight management education given to the pt 9. Sleep apnea - 10. Hypokalemia - replaced by PCP 11. Anemia with s/p 2 units PRBC tx on 01/12/18 - improving; cont. to monitor 12. BLE edema - TEDs from today MAR reviewed
[2018-01-14] MEDS ORDERED: Metolazone 5 MG TAB PO SCH (12:30)
--- NOTE | 2018-01-14 13:09 | DIS ---
DATE OF ADMISSION: 12/23/2017 DATE OF DISCHARGE: 01/14/2018 PRIMARY CARE PHYSICIAN: Dr. Darius Garcia. DISCHARGE DISPOSITION: [facility] bed. PRIMARY DISCHARGE DIAGNOSES: 1. Atrial fibrillation with rapid ventricular response. 2. Tachycardia induced cardiomyopathy. 3. Acute on chronic systolic congestive heart failure, stage C. 4. Demand ischemia of myocardium. 5. Polymorphic ventricular tachycardia. 6. Three-vessel coronary artery disease, required coronary artery bypass graft. 7. Severe aortic stenosis required aortic valve replacement. 8. Status post left atrial appendage procedure surgically. 9. Recurrence of atrial fibrillation with rapid ventricular response. 10. Status post AV nazanin ablation. 11. Status post biventricular pacemaker. 12. Acute kidney injury. 13. Hypokalemia and hypomagnesemia, replaced. 14. Anemia due to blood loss. SECONDARY DISCHARGE DIAGNOSES: 1. Morbid obesity. 2. Diabetes type 2. 3. Chronic anticoagulation. 4. Paroxysmal atrial fibrillation. 5. Hypertension. 6. Dyslipidemia. 7. Rheumatoid arthritis. PRIMARY PROCEDURE AND OPERATION: 1. During this admission, the patient had a cardiac catheterization by Dr. Mora and found with 3-vessel CAD with severe aortic stenosis. The patient underwent transesophageal echocardiography x2. The patient had a cardioversion as well as ablation procedure for atrial fibrillation. 2. Patient had AV nazanin ablation. 3. Patient had biventricular pacemaker insertion. 4. Central line placement. 5. Endotracheal intubation after CABG. RADIOLOGICAL INVESTIGATION: Echocardiography initially showed EF 15%-20%. This EF was after his recurrent atrial fibrillation. Repeat echocardiography showed improvement in EF to 50%-55%, aortic stenoses. Patient had CT chest, which showed severe valvular calcification of aortic valve, emphysema, cholelithiasis. The patient had several chest x-rays subsequently, transesophageal echocardiography showed appendage clot. SIGNIFICANT LABORATORY DATA: WBC 7.8, hemoglobin 10.1, platelet 175. INR of 1.3. Sodium 135, potassium 3.3, BUN 22, creatinine 0.84, calcium 8.7. Digoxin level 0.18. DISCHARGE MEDICATIONS: Eliquis 5 mg p.o. b.i.d., aspirin 81 mg p.o. daily, Lipitor 20 mg p.o. daily, Coreg 6.25 mg p.o. b.i.d., Keflex 500 mg p.o. q.6 hourly for 7 days, cetirizine 10 mg p.o. daily, Enbrel 50 mg subcu every 7 days , folic acid 1 mg p.o. daily, Lasix 40 mg p.o. b.i.d., gabapentin 100 mg p.o. daily, Humalog 10 units subcu t.i.d., Plaquenil 200 mg p.o. b.i.d., Xalatan eyedrops at bedtime, Levemir 40 units subcu at bedtime, losartan 25 mg p.o. daily, methotrexate 7.5 mg p.o. as directed, multivitamin 1 tablet p.o. daily, omeprazole 10 mg p.o. daily, MiraLax 17 grams p.o. daily, potassium chloride 20 mEq p.o. b.i.d., prednisone 5 mg p.o. daily, Lyrica 50 mg p.o. daily. CONTRAINDICATIONS: None. CODE STATUS: FULL CODE. INPATIENT CONSULTANTS: Dr. Mora was initially consulted for atrial fibrillation with RVR. Dr. Lynn was consulted for ablation and cardioversion. Dr. Gonzalez and the cardiovascular team was following for aortic valve replacement and status post CABG. Pulmonary group was following while patient was in CCU. TEST RESULTS PENDING ON DISCHARGE: None. ALLERGIES: No known drug allergy. DISCHARGE PLAN: Post hospital, the patient will follow up with primary care physician. The patient will follow up with Dr. Otero as instructed as well as Dr. Mora as instructed. HOSPITAL COURSE: A 77-year-old male who was admitted by Dr. Estrella Mcginnis on 12/23/2017. On admission, the patient was having atrial fibrillation with rapid ventricular response and atrial flutter. He was having chest pain due to atrial fibrillation with rapid ventricular response. On admission, he had demand ischemia secondary to atrial fibrillation with RVR. Cardiology was consulted. The patient was admitted in [facility]. Cardiology started on Cardizem drip, but the Cardizem drip was not controlling his heart rate and that is why he was on amiodarone drip along with a Cardizem drip. Despite both the drip, he was remaining in atrial fibrillation with rapid ventricular response. Pulmonary group was also following while in hospital. He also had acute on chronic heart failure. When we did echocardiography, we found an EF of 15%-20%. Patient was treated with diuretic therapy as well. As the patient remained in atrial fibrillation with rapid ventricular response and that is why Dr. Lynn did cardioversion and transesophageal echocardiography was done. The patient had successful result and subsequently patient was stabilized and transferred to telemetry floor. We did repeat echocardiography on 12/30/2017, which showed improvement in EF 50%-55% with severe aortic stenosis. The patient was doing significantly better with diuretic therapy and his CHF was significantly improving here. His edema was gradually decreasing, but over the weekend, one time, the patient developed polymorphic ventricular tachycardia and that is why he was not able to be discharged and Dr. Mora recommended to do cardiac catheterization before discharge. When we did a cardiac catheterization, we found that the patient was having three-vessel CAD as well as severe aortic stenosis and that is why cardiovascular surgeon was consulted. During that period of time, the patient also started developing atrial fibrillation again and that is why Dr. Lynn recommended that we have to hold amiodarone as well as we have to replace electrolytes, because that was related with prolonged QT interval. We discontinued all medications, which was contributing to prolonged QT interval. Despite doing that, patient was remaining in atrial fibrillation with RVR and that is why amiodarone drip was restarted. The patient was taken for CABG as well. At the same time, aortic valve was replaced and the patient had a MAZE procedure with a CABG. After surgery, he remained in CCU. He was getting diuretic therapy for fluid overload status. He had some blood loss anemia after surgery. Finally, upon stabilization after CABG, he was transferred to telemetry floor where he started having atrial fibrillation with RVR again and that is why Dr. Lynn decided to do an AV nazanin ablation and biventricular pacemaker. The patient was continuously getting diuretic therapy. We are replacing his electrolytes. His edema is gradually getting better. He was getting his home medication. During this admission, we changed his warfarin to Eliquis. We reduced the losartan from 100 to 25. The rest of medication was continued as above. His surgical site is clean and healthy. His pacemaker site is clean and healthy. Today, Dr. Gonzalez evaluated this patient and per him , patient is medically stable for discharge. Cardiology also cleared him for discharge. The patient being in the hospital, he had physical deconditioning and that is why he was needing placement and with the help of registered nurse hh case manager, we arranged [facility] swing bed. At this point, the patient is hemodynamically stable. He will need fluid restriction at 1500 mL per day at swing bed. He will need monitoring his labs periodically and replacement of electrolytes as needed basis. Paper work for discharge done. Discharge medication reconciliation done. ELLIE
--- NOTE | 2018-01-14 13:26 | PRG ---
DATE OF SERVICE: 01/14/2018. SUBJECTIVE: Mr. Hull feels better, not having chest pain or pressure. He is still very volume overloaded, however. PHYSICAL EXAMINATION: VITAL SIGNS: His blood pressure is 127/65, pulse 80, its regular. LUNGS: Clear. CARDIAC: Normal S1, normal S2. ABDOMEN: Soft, nontender. EXTREMITIES: Moderate to severe edema. ASSESSMENT: 1. Repetitive and recurrent atrial arrhythmias ultimately status post AV junction ablation and biven tricular pacemaker. 2. Intracavitary thrombus noted on transesophageal echo. 3. Recent bypass and aortic valve replacement. PLAN: 1. Increase diuretic therapy. 2. Replete potassium. 3. I would keep him until Tuesday to try to further diurese, still very volume overloaded.
[2018-01-14] MEDS: Furosemide 40 MG/4 ML VIAL SLOW IVP SCH (13:46)
[2018-01-14] MEDS: Insulin Regular 300 UNITS/3 ML VIAL SC PRN ×2 (13:47→19:04)
--- NOTE | 2018-01-14 17:42 | EKG ---
Test Reason : Blood Pressure : / mmHG Vent. Rate : 122 BPM Atrial Rate : 127 BPM P-R Int : 000 ms QRS Dur : 122 ms QT Int : 370 ms P-R-T Axes : 000 007 094 degrees QTc Int : 527 ms Sinus tachycardia Non-specific intra-ventricular conduction delay Abnormal QRS-T angle, consider primary T wave abnormality Abnormal ECG When compared with ECG of 06-JAN-2018 14:09, Vent. rate has increased BY 57 BPM Confirmed by PETR SHAEFR (2) on 01/14/2018 5:41:53 PM Referred By: EFRA Confirmed By:PETR SHAFER
--- NOTE | 2018-01-14 17:48 | EKG ---
Test Reason : Blood Pressure : / mmHG Vent. Rate : 118 BPM Atrial Rate : 118 BPM P-R Int : 000 ms QRS Dur : 118 ms QT Int : 392 ms P-R-T Axes : 000 005 105 degrees QTc Int : 549 ms Sinus tachycardia Incomplete left bundle branch block Abnormal ECG Confirmed by PETR SHAFER (2) on 01/14/2018 5:48:32 PM Referred By: EFRA Confirmed By:PETR SHAFER
[2018-01-14] MEDS: Spironolactone 25 MG TAB PO SCH (17:59)
[2018-01-14] MEDS: Latanoprost 0.005% Ophth Soln 2.5 ml Bottle EA EYE SCH (20:30)
[2018-01-14] MEDS: Atorvastatin Calcium 20 MG TAB PO SCH (20:31)
[2018-01-14] MEDS: Insulin Glargine 20 UNITS in Pre-Filled Syringe 1 EACH SC SCH (20:32)
[2018-01-15] MEDS: HYDROcodone/Acetaminophen 5/325 mg Tablet PO PRN ×3 (01:18→13:02)
[2018-01-15] MEDS: Furosemide 40 MG/4 ML VIAL SLOW IVP SCH ×2 (05:51→14:36)
[2018-01-15 06:03] LABS: Anion Gap 11 mmol/L (10-20); BUN (Urea Nitrogen) 21 mg/dL (8.4-25.7); Calc. Creatinine Clearance 134 mL/min (70-130); Calcium 8.5 mg/dL (7.8-10.44); Carbon Dioxide 33 mmol/L (23-31); Chloride 94 mmol/L (98-107); Estimated GFR-MDRD 88; Glucose 85 mg/dL (83-110); Potassium 3.2 mmol/L (3.5-5.1); Sodium 135 mmol/L (136-145)
[2018-01-15] MEDS: Potassium Chloride 20 MEQ TAB PO SCH ×3 (09:10→21:03)
[2018-01-15] MEDS: Aspirin 325 mg Enteric Coated Tablet PO SCH (09:10)
[2018-01-15] MEDS: Losartan 25 MG TAB PO SCH (09:10)
[2018-01-15] MEDS: Apixaban 5 MG TAB PO SCH ×2 (09:10→21:03)
[2018-01-15] MEDS: Pregabalin 50 MG CAP PO SCH (09:11)
[2018-01-15] MEDS: predniSONE 5 MG TAB PO SCH (09:11)
[2018-01-15] MEDS: Carvedilol 6.25 MG TAB PO SCH ×2 (09:12→17:30)
[2018-01-15] MEDS: Folic Acid 1 MG TAB PO SCH (09:15)
[2018-01-15] MEDS: Polyethylene Glycol 3350 17 GM Packet PO SCH (09:15)
[2018-01-15] MEDS: Famotidine 20 MG TAB PO SCH ×2 (09:15→21:02)
[2018-01-15] MEDS: Spironolactone 25 MG TAB PO SCH ×2 (09:25→17:30)
--- NOTE | 2018-01-15 10:09 | PDOC.PN ---
- Subjective Encounter Start Date: 01/15/18 Encounter Start Time: 08:40 Patient seen and examined. No new complaints. No overnight events - Objective Resuscitation Status: Resuscitation Status FULL:Full Resuscitation MAR Reviewed: Yes Vital Signs & Weight: Vital Signs (12 hours) Temp Pulse Resp BP BP Pulse Ox 01/15/18 09:12 143/58 H 01/15/18 07:57 97.8 F 80 16 124/60 94 L 01/15/18 04:00 98.4 F 80 14 139/65 94 L Weight Admit Weight 295 lb 14.4 oz Weight 281 lb 14.4 oz Most Recent Monitor Data Heart Rate from ECG 78 NIBP 121/43 NIBP BP-Mean 69 Respiration from ECG 21 SpO2 100 I&O: 01/14/18 01/15/18 01/16/18 06:59 06:59 06:59 Intake Total 2150 2130 Output Total 1327 1125 Balance 823 1005 Result Diagrams: 01/14/18 05:02 01/15/18 05:25 Additional Labs: Accuchecks 01/15/18 01/14/18 01/14/18 06:33 16:09 11:29 POC Glucose 101 201 H 189 H EKG Reviewed by me: Yes (pacing) Phys Exam - Physical Examination Constitutional: NAD HEENT: PERRLA, moist MMs, sclera anicteric Neck: no JVD, supple central line+ Respiratory: no wheezing, no rales, no rhonchi reduced air entry at base Cardiovascular: RRR, no significant murmur, no rub Gastrointestinal: soft, non-tender, no distention, positive bowel sounds Musculoskeletal: pulses present, edema present Neurological: non-focal, normal sensation, moves all 4 limbs Lymphatic: no nodes Psychiatric: normal affect, A&O x 3 Skin: no rash, normal turgor Dx/Plan (1) 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 Code(s): I50.23 - ACUTE ON CHRONIC SYSTOLIC (CONGESTIVE) HEART FAILURE Status : Acute (2) Atrial fibrillation with RVR Code(s): I48.91 - UNSPECIFIED ATRIAL FIBRILLATION Status: Acute Comment: s/ p cardioversion and ablation, now in nsr (3) Demand ischemia of myocardium Code(s): I24.8 - OTHER FORMS OF ACUTE ISCHEMIC HEART DISEASE Status: Acute (4) Chronic anticoagulation Code(s): Z79.01 - CREATIVE SERVICES DIRECTOR (CURRENT) USE OF ANTICOAGULANTS Status: Chronic (5) DM type 2 (diabetes mellitus, type 2) Status: Chronic Qualifiers: Diabetes mellitus termite control technician insulin use: with termite control technician use Diabetes mellitus complication status: with unspecified complications Qualified Code(s) : E11.8 - Type 2 diabetes mellitus with unspecified complications; Z79.4 - termite control technician (current) use of insulin; Z79.4 - correction (current) use of insulin; Z79.4 - termite control technician (current) use of insulin; Z79.4 - correction (current) use of insulin (6) Dyslipidemia Code(s): E78.5 - HYPERLIPIDEMIA, UNSPECIFIED Status: Chronic (7) HTN (hypertension) Code(s): I10 - ESSENTIAL (PRIMARY) HYPERTENSION Status: Chronic Qualifiers: Hypertension type: essential hypertension Qualified Code(s): I10 - Essential (primary) hypertension (8) Morbid obesity with BMI of 40.0-44.9, adult Code(s): E66.01 - MORBID (SEVERE) OBESITY DUE TO EXCESS CALORIES; Z68.41 - BODY MASS INDEX (BMI) 40.0-44.9, ADULT Status: Chronic (9) JAMIN on CPAP Code(s): G47.33 - OBSTRUCTIVE SLEEP APNEA (ADULT) (PEDIATRIC); Z99.89 - DEPENDENCE ON OTHER ENABLING MACHINES AND DEVICES Status: Chronic (10) Rheumatoid arthritis Code(s): M06.9 - RHEUMATOID ARTHRITIS, UNSPECIFIED Status: Chronic (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 Code(s): R00.0 - TACHYCARDIA, UNSPECIFIED; I43 - CARDIOMYOPATHY IN DISEASES CLASSIFIED ELSEWHERE Status: Resolved (12) Ventricular tachycardia, polymorphic Code(s): I47.2 - VENTRICULAR TACHYCARDIA Status: Acute (13) 3-vessel coronary artery disease Status: Chronic (14) Severe aortic stenosis Code(s): I35.0 - NONRHEUMATIC AORTIC (VALVE) STENOSIS Status: Chronic (15) Acute kidney injury Code(s): N17.9 - ACUTE KIDNEY FAILURE, UNSPECIFIED Status: Resolved (16) Anemia due to acute blood loss Code(s): D62 - ACUTE POSTHEMORRHAGIC ANEMIA Status: Acute (17) S/P AV nazanin ablation Code(s): Z98.890 - OTHER SPECIFIED POSTPROCEDURAL STATES Status: Acute (18) Status post biventricular cardiac pacemaker insertion Code(s): Z95.0 - PRESENCE OF CARDIAC PACEMAKER Status: Acute - Plan cont current plan of care, social media director * continue iv lasix with zaroxolyn today and tomorrow for his edema and volume overload * change potassium TID * he will be likely discharged tomorrow afternoon * medication reviewed as below * symptomatic treatment. Review of Systems - Review of Systems Eyes: negative: Pain, Vision Change, Conjunctivae Inflammation, Eyelid Inflammation, Redness, Other ENT: negative: Ear Pain, Ear Discharge, Nose Pain, Nose Discharge, Nose Congestion, Mouth Pain, Mouth Swelling, Throat Pain, Throat Swelling, Other Respiratory: negative: Cough, Dry, Shortness of Breath, Hemoptysis, SOB with Excertion, Pleuritic Pain, Sputum, Wheezing Cardiovascular: edema. negative: chest pain, palpitations, orthopnea, paroxysmal nocturnal dyspnea, light headedness, other Gastrointestinal: negative: Nausea, Vomiting, Abdominal Pain, Diarrhea, Constipation, Melena, Hematochezia, Other Genitourinary: negative: Dysuria, Frequency, Incontinence, Hematuria, Retention , Other Musculoskeletal: negative: Neck Pain, Shoulder Pain, Arm Pain, Back Pain, Hand Pain, Leg Pain, Foot Pain, Other Skin: negative: Rash, Lesions, Efra, Bruising, Other - Medications/Allergies Allergies/Adverse Reactions: Allergies Allergy/AdvReac Type Severity Reaction Status Date / Time No Known Allergies Allergy Verified 12/24/17 00:48 Medications: Current Medications Acetaminophen/Codeine Phosphate (Tylenol #3) 1 tab PO Q4H PRN PRN Reason: Mild Pain (1-3) Acetaminophen/Codeine Phosphate (Tylenol #3) 2 tab PO Q4H PRN PRN Reason: Moderate Pain (4-6) Last Admin: 01/13/18 17:16 Dose: 2 tab Hydrocodone Bitart/Acetaminophen ([place] 5/325) 2 tab PO Q4H PRN PRN Reason: Severe Pain (7-10) Last Admin: 01/15/18 07:38 Dose: 2 tab Al Hydroxide/Mg Hydroxide (Maalox) 30 ml PO Q4H PRN PRN Reason: Indigestion Albuterol/Ipratropium (Duoneb) 3 ml NEB [id number] PRN PRN Reason: SHORTNESS OF BREATH Last Admin: 01/09/18 02:26 Dose: 3 ml Apixaban (Eliquis) 5 mg PO BID [facility] Last Admin: 01/15/18 09:10 Dose: 5 mg Artificial Tears (Tears Naturale) 1 drop EA EYE PRN PRN PRN Reason: Dry Eyes Aspirin (Ecotrin) 325 mg PO DAILY [facility] Last Admin: 01/15/18 09:10 Dose: 325 mg Atorvastatin Calcium (Lipitor) 20 mg PO [facility] Last Admin: 01/14/18 20:31 Dose: 20 mg Bisacodyl (Dulcolax) 10 mg PO Q12H PRN PRN Reason: Constipation Bisacodyl (Dulcolax) 10 mg [place] Q12H PRN PRN Reason: Constipation Carvedilol (Coreg) 6.25 mg PO BID-[facility] Last Admin: 01/15/18 09:12 Dose: 6.25 mg Dextrose/Water (Dextrose 50%) 25 gm SLOW IVP PRN PRN PRN Reason: Hypoglycemia Diphenhydramine HCl (Benadryl) 25 mg PO Q6H PRN PRN Reason: Itching & Insomnia or Kevin Devaughn Famotidine (Pepcid) 20 mg PO BID [facility] Last Admin: 01/15/18 09:15 Dose: 20 mg Folic Acid (Folvite) 1 mg PO DAILY [facility] Last Admin: 01/15/18 09:15 Dose: 1 mg Furosemide (Lasix) 40 mg SLOW IVP 0600,1400 [facility] Last Admin: 01/15/18 05:51 Dose: 40 mg Glucagon (Glucagon) 1 mg IM PRN PRN PRN Reason: Hypoglycemia Guaifenesin/Dextromethorphan (Robitussin Dm) 15 ml PO Q4H PRN PRN Reason: Cough Dextrose/Water (D5w) 1,000 mls @ 0 mls/hr IV .Q0M PRN; As Directed PRN Reason: Hypoglycemia Insulin Glargine 20 units/ (Miscellaneous Medication) 0.2 mls @ 0 mls/hr SC [facility] Last Admin: 01/14/18 20:32 Dose: 0.2 mls Diltiazem HCl 125 mg/ Sodium (Chloride) 125 mls @ 5 mls/hr IVPB INF PRN; 5 MG/ HR PRN Reason: TO KEEP HR < 100 Insulin Human Lispro (Humalog) 10 units SC TID-WM PRN PRN Reason: Hyperglycemia Insulin Human Regular (Humulin R) 0 units SC Q4H PRN; Protocol PRN Reason: POST OP SLIDING SCALE Last Admin: 01/14/18 19:04 Dose: 6 unit Latanoprost (Xalatan 0.005% Ophth Soln) 1 drop EA EYE HS [facility] Last Admin: 01/14/18 20:30 Dose: 1 drop Losartan Potassium (Cozaar) 25 mg PO DAILY [facility] Last Admin: 01/15/18 09:10 Dose: 25 mg Methotrexate Sodium (Methotrexate Sodium) 7.5 mg PO MoTh@0900 [facility] Last Admin: 01/12/18 09:49 Dose: Not Given Metoclopramide HCl (Reglan) 10 mg IVP Q6H PRN PRN Reason: Nausea/Vomiting Metolazone (Zaroxolyn) 5 mg PO ONE [facility] Mineral Oil (Fleet Mineral Oil) 133 ml [place] DAILYPRN PRN PRN Reason: Constipation Nitroglycerin (Nitrostat) 0.4 mg SL Q5MIN PRN PRN Reason: Chest Pain Enbrel (Etanercept) (50 Mg/1 Ml) 1 each SC Q7D [facility] Polyethylene Glycol (Miralax) 17 gm PO DAILY [facility] Last Admin: 01/15/18 09:15 Dose: 17 gm Potassium Chloride (K-Dur) 40 meq PO BID-[facility] Last Admin: 01/15/18 09:10 Dose: 40 meq Prednisone (Prednisone) 5 mg PO QAM-[facility] Last Admin: 01/15/18 09:11 Dose: 5 mg Pregabalin (Lyrica) 50 mg PO DAILY [facility] Last Admin: 01/15/18 09:11 Dose: 50 mg Sodium Chloride (Flush - Normal Saline) 10 ml IVF Q12HR [facility] Last Admin: 01/15/18 09:17 Dose: 10 ml Sodium Chloride (Flush - Normal Saline) 10 ml IVF PRN PRN PRN Reason: Saline Flush Last Admin: 01/14/18 13:44 Dose: 10 ml Sodium Chloride (Flush - Normal Saline) 10 ml IVF PRN PRN PRN Reason: Saline Flush Spironolactone (Aldactone) 25 mg PO BID-[facility] Last Admin: 01/15/18 09:25 Dose: 25 mg Zolpidem Tartrate (Ambien) 5 mg PO HSPRN PRN PRN Reason: Insomnia Last Admin: 01/14/18 20:32 Dose: 5 mg
--- NOTE | 2018-01-15 10:49 | PRG ---
DATE OF SERVICE: 01/13/2018 SUBJECTIVE: Mr. Ricardo Hull seems to be doing well one day after his biventricular pacemaker implant and AV node ablation. OBJECTIVE: VITAL SIGNS: Blood pressure is 136/61, heart rate 79, respiratory rate is 20, temperature 97.9 degrees Fahrenheit. GENERAL: Alert and oriented, obese man in no apparent distress. NECK: Supple. Jugular veins not distended. CHEST: Coarse without crackles. CARDIOVASCULAR: Heart sounds are regular to rate and rhythm. No murmur or gallop. Left precordial pacing insertion site is well healed. ABDOMEN: Benign. Bowel sounds positive. EXTREMITIES: Lower extremities without edema, clubbing or cyanosis. DATABASE: EKG is reviewed revealing continue atrial flutter with ventricular pacing during the pacemaker test still AV block with junctional escape is noted. Interrogation of his pacemaker reveals Medtronic Solara Quad biventricular pacemaker with begin of life. Lead parameters are adequate at 2.25 volts at 0.4 milliseconds LV threshold is seen. RV threshold is also good at milliseconds. Chest x-ray from 01/13/2018 reveals a left subclavian pacemaker. No pneumothorax, some CHF, pleural fluid is noted. ASSESSMENT AND PLAN: Mr. Hull is a pleasant 77-year-old man with history of congestive heart failure, reduced LV function, likely related to above valvular heart disease and rapid atrial rates, which have improved with normalizing LV function currently after his aortic valve surgery, atrial flutter ablation, and rate control. Amiodarone was used initially to suppress the arrhythmias, but due to torsades like rhythm disturbances where amiodarone eventually was stopped and potassium was corrected. No recurrence is seen after. He underwent of aortic valve surgery and bypass surgery recently and postoperatively he developed again atrial fibrillation flutter with rapid rates with difficult rate control. Hence difficulty using amiodarone due to QT prolongation and lack of appropriate options otherwise, we advised to undergo biventricular pacing implant and AV node ablation. TESS prior to the procedure did demonstrate suboptimal closure of the left atrial appendage by surgical ligation and a clot in left atrial appendage. 1. Biventricular pacemaker implant with adequate function. Continue monitoring antibiotic for 1-week, wound check in 2 weeks. 2. History of AV node ablation, pacemaker dependent with junctional escape adequate results, heart rate is controlled. 3. Worsening atrial flutter with prior cavotricuspid isthmus ablation. At this point, we stop the amiodarone. Continue monitoring, consider later cardioversion or pace termination of atrial flutter versus ablation. 4. Cardiomyopathy. Continue standard heart failure therapy. 5. Anticoagulation, resume Eliquis. Consider closure of the suboptimally surgically ligated appendage in the future. 6. Obesity. Weight loss is recommended. 7. Aortic valve status post bioprosthetic replacement with prosthetic valve. Currently with adequate function. PLAN: Two weeks followup in the office for wound check. ELLIE
[2018-01-15] MEDS ORDERED: Metolazone 5 MG TAB PO SCH (11:00)
--- NOTE | 2018-01-15 17:10 | PRG ---
DATE OF SERVICE: 01/15/2018 SUBJECTIVE: Mr. Hull is putting out quite a bit of urine. I do think the I&O are accurate. He has no chest pain or pressure, no shortness of breath. OBJECTIVE: VITAL SIGNS: Blood pressure 124/60, pulse 80. LUNGS: Clear. CARDIAC: Normal S1, normal S2. ABDOMEN: Soft, nontender. EXTREMITIES: There is reduced edema. LABORATORY DATA: Potassium of 3.2 despite potassium doses. I think most likely the I&O are not accu rate. ASSESSMENT: 1. Congestive heart failure, diastolic. 2. Atrial arrhythmias, status post ablation and biventricular pacemaker insertion. PLAN: Continue diuretic probably be released home tomorrow.
[2018-01-15] MEDS ORDERED: Furosemide 40 MG/4 ML VIAL SLOW IVP SCH (20:00)
[2018-01-15] MEDS: Acetaminophen/Codeine 30-300mg Tablet PO PRN (21:01)
[2018-01-15] MEDS: Atorvastatin Calcium 20 MG TAB PO SCH (21:02)
[2018-01-15] MEDS: Insulin Glargine 20 UNITS in Pre-Filled Syringe 1 EACH SC SCH (21:03)
[2018-01-15] MEDS: Latanoprost 0.005% Ophth Soln 2.5 ml Bottle EA EYE SCH (21:04)
[2018-01-16] MEDS: Acetaminophen/Codeine 30-300mg Tablet PO PRN ×3 (03:03→20:14)
[2018-01-16] MEDS: Furosemide 40 MG/4 ML VIAL SLOW IVP SCH ×2 (05:49→14:48)
[2018-01-16] MEDS: Insulin Regular 300 UNITS/3 ML VIAL SC PRN (08:58)
[2018-01-16] MEDS: Pregabalin 50 MG CAP PO SCH (08:59)
[2018-01-16] MEDS: predniSONE 5 MG TAB PO SCH (08:59)
[2018-01-16] MEDS: Losartan 25 MG TAB PO SCH (08:59)
[2018-01-16] MEDS: Apixaban 5 MG TAB PO SCH ×2 (08:59→20:15)
[2018-01-16] MEDS: Spironolactone 25 MG TAB PO SCH ×2 (08:59→16:31)
[2018-01-16] MEDS: Metolazone 5 MG TAB PO SCH (08:59)
[2018-01-16] MEDS: Methotrexate Sodium 2.5 MG TAB PO SCH (08:59)
[2018-01-16] MEDS: Folic Acid 1 MG TAB PO SCH (09:00)
[2018-01-16] MEDS: Carvedilol 6.25 MG TAB PO SCH ×2 (09:00→16:31)
[2018-01-16] MEDS: Aspirin 325 mg Enteric Coated Tablet PO SCH (09:00)
[2018-01-16] MEDS: Potassium Chloride 20 MEQ TAB PO SCH ×3 (09:00→20:15)
[2018-01-16] MEDS: Famotidine 20 MG TAB PO SCH ×2 (09:00→20:15)
[2018-01-16] MEDS: Polyethylene Glycol 3350 17 GM Packet PO SCH (09:01)
[2018-01-16 10:58] LABS: Anion Gap 11 mmol/L (10-20); BUN (Urea Nitrogen) 19 mg/dL (8.4-25.7); Calc. Creatinine Clearance 108 mL/min (70-130); Calcium 9.2 mg/dL (7.8-10.44); Carbon Dioxide 35 mmol/L (23-31); Chloride 90 mmol/L (98-107); Estimated GFR-MDRD 70; Glucose 157 mg/dL (83-110); Potassium 3.1 mmol/L (3.5-5.1); Sodium 133 mmol/L (136-145)
[2018-01-16] MEDS ORDERED: Potassium Chloride 20 MEQ TAB PO SCH (11:15)
--- NOTE | 2018-01-16 11:17 | PDOC.PN ---
- Subjective Encounter Start Date: 01/16/18 Encounter Start Time: 09:10 pt is overall feels ok, but still weak, edema reducing, his potassium is still low - Objective Resuscitation Status: Resuscitation Status FULL:Full Resuscitation MAR Reviewed: Yes Vital Signs & Weight: Vital Signs (12 hours) Temp Pulse Resp BP BP BP Pulse Ox 01/16/18 09:00 140/82 01/16/18 08:55 97.5 F L 81 18 140/72 90 L 01/16/18 03:34 97.3 F L 80 18 154/74 H 93 L 01/16/18 00:37 97.7 F 81 16 121/60 95 Weight Admit Weight 295 lb 14.4 oz Weight 275 lb Most Recent Monitor Data Heart Rate from ECG 78 NIBP 121/43 NIBP BP-Mean 69 Respiration from ECG 21 SpO2 100 I&O: 01/15/18 01/16/18 01/17/18 06:59 06:59 06:59 Intake Total 2130 1210 Output Total 1125 1495 Balance 1005 -285 Result Diagrams: 01/14/18 05:02 01/16/18 10:05 Additional Labs: Accuchecks 01/16/18 01/16/18 01/15/18 10:44 06:03 20:56 POC Glucose 189 H 231 H 171 H 01/15/18 01/15/18 16:41 12:59 POC Glucose 166 H 151 H EKG Reviewed by me: Yes (pacing) Phys Exam - Physical Examination Constitutional: NAD HEENT: PERRLA, moist MMs, sclera anicteric Neck: no JVD, supple Respiratory: no wheezing, no rales, no rhonchi surgical site is clean Cardiovascular: RRR, no significant murmur, no rub prosthetic click+ Gastrointestinal: soft, non-tender, no distention, positive bowel sounds obesity+ Musculoskeletal: pulses present, edema present Neurological: non-focal, normal sensation, moves all 4 limbs Lymphatic: no nodes Psychiatric: normal affect, A&O x 3 Skin: no rash, normal turgor Dx/Plan (1) 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 Code(s): I50.23 - ACUTE ON CHRONIC SYSTOLIC (CONGESTIVE) HEART FAILURE Status : Acute (2) Atrial fibrillation with RVR Code(s): I48.91 - UNSPECIFIED ATRIAL FIBRILLATION Status: Acute Comment: s/ p cardioversion and ablation, now in nsr (3) Demand ischemia of myocardium Code(s): I24.8 - OTHER FORMS OF ACUTE ISCHEMIC HEART DISEASE Status: Acute (4) Chronic anticoagulation Code(s): Z79.01 - TITLE INSURANCE EXAMINER (CURRENT) USE OF ANTICOAGULANTS Status: Chronic (5) DM type 2 (diabetes mellitus, type 2) Status: Chronic Qualifiers: Diabetes mellitus intermediate designer insulin use: with intermediate designer use Diabetes mellitus complication status: with unspecified complications Qualified Code(s) : E11.8 - Type 2 diabetes mellitus with unspecified complications; Z79.4 - watermaster (current) use of insulin; Z79.4 - detention (current) use of insulin; Z79.4 - detention (current) use of insulin; Z79.4 - detention (current) use of insulin (6) Dyslipidemia Code(s): E78.5 - HYPERLIPIDEMIA, UNSPECIFIED Status: Chronic (7) HTN (hypertension) Code(s): I10 - ESSENTIAL (PRIMARY) HYPERTENSION Status: Chronic Qualifiers: Hypertension type: essential hypertension Qualified Code(s): I10 - Essential (primary) hypertension (8) Morbid obesity with BMI of 40.0-44.9, adult Code(s): E66.01 - MORBID (SEVERE) OBESITY DUE TO EXCESS CALORIES; Z68.41 - BODY MASS INDEX (BMI) 40.0-44.9, ADULT Status: Chronic (9) JAMIN on CPAP Code(s): G47.33 - OBSTRUCTIVE SLEEP APNEA (ADULT) (PEDIATRIC); Z99.89 - DEPENDENCE ON OTHER ENABLING MACHINES AND DEVICES Status: Chronic (10) Rheumatoid arthritis Code(s): M06.9 - RHEUMATOID ARTHRITIS, UNSPECIFIED Status: Chronic (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 Code(s): R00.0 - TACHYCARDIA, UNSPECIFIED; I43 - CARDIOMYOPATHY IN DISEASES CLASSIFIED ELSEWHERE Status: Resolved (12) Ventricular tachycardia, polymorphic Code(s): I47.2 - VENTRICULAR TACHYCARDIA Status: Acute (13) 3-vessel coronary artery disease Status: Chronic (14) Severe aortic stenosis Code(s): I35.0 - NONRHEUMATIC AORTIC (VALVE) STENOSIS Status: Chronic (15) Acute kidney injury Code(s): N17.9 - ACUTE KIDNEY FAILURE, UNSPECIFIED Status: Resolved (16) Anemia due to acute blood loss Code(s): D62 - ACUTE POSTHEMORRHAGIC ANEMIA Status: Acute (17) S/P AV nazanin ablation Code(s): Z98.890 - OTHER SPECIFIED POSTPROCEDURAL STATES Status: Acute (18) Status post biventricular cardiac pacemaker insertion Code(s): Z95.0 - PRESENCE OF CARDIAC PACEMAKER Status: Acute - Plan cont current plan of care, plan discussed w/ family, PT/OT, director of social media marketing * medication reviewed as below * symptomatic treatment * will give additional potassium * check mag and phos * will consider discharge when cardiology ok * needs to monitor electrolytes and edema status at swing bed. Review of Systems - Review of Systems Eyes: negative: Pain, Vision Change, Conjunctivae Inflammation, Eyelid Inflammation, Redness, Other ENT: negative: Ear Pain, Ear Discharge, Nose Pain, Nose Discharge, Nose Congestion, Mouth Pain, Mouth Swelling, Throat Pain, Throat Swelling, Other Respiratory: negative: Cough, Dry, Shortness of Breath, Hemoptysis, SOB with Excertion, Pleuritic Pain, Sputum, Wheezing Cardiovascular: edema. negative: chest pain, palpitations, orthopnea, paroxysmal nocturnal dyspnea, light headedness, other Gastrointestinal: negative: Nausea, Vomiting, Abdominal Pain, Diarrhea, Constipation, Melena, Hematochezia, Other Genitourinary: negative: Dysuria, Frequency, Incontinence, Hematuria, Retention , Other Musculoskeletal: negative: Neck Pain, Shoulder Pain, Arm Pain, Back Pain, Hand Pain, Leg Pain, Foot Pain, Other Skin: negative: Rash, Lesions, Efra, Bruising, Other - Medications/Allergies Allergies/Adverse Reactions: Allergies Allergy/AdvReac Type Severity Reaction Status Date / Time No Known Allergies Allergy Verified 12/24/17 00:48 Medications: Current Medications Acetaminophen/Codeine Phosphate (Tylenol #3) 1 tab PO Q4H PRN PRN Reason: Mild Pain (1-3) Acetaminophen/Codeine Phosphate (Tylenol #3) 2 tab PO Q4H PRN PRN Reason: Moderate Pain (4-6) Last Admin: 01/16/18 03:03 Dose: 2 tab Hydrocodone Bitart/Acetaminophen ([place] 5/325) 2 tab PO Q4H PRN PRN Reason: Severe Pain (7-10) Last Admin: 01/15/18 13:02 Dose: 2 tab Al Hydroxide/Mg Hydroxide (Maalox) 30 ml PO Q4H PRN PRN Reason: Indigestion Albuterol/Ipratropium (Duoneb) 3 ml NEB [id number] PRN PRN Reason: SHORTNESS OF BREATH Last Admin: 01/09/18 02:26 Dose: 3 ml Apixaban (Eliquis) 5 mg PO BID [facility] Last Admin: 01/16/18 08:59 Dose: 5 mg Artificial Tears (Tears Naturale) 1 drop EA EYE PRN PRN PRN Reason: Dry Eyes Aspirin (Ecotrin) 325 mg PO DAILY [facility] Last Admin: 01/16/18 09:00 Dose: 325 mg Atorvastatin Calcium (Lipitor) 20 mg PO [facility] Last Admin: 01/15/18 21:02 Dose: 20 mg Bisacodyl (Dulcolax) 10 mg PO Q12H PRN PRN Reason: Constipation Bisacodyl (Dulcolax) 10 mg [place] Q12H PRN PRN Reason: Constipation Carvedilol (Coreg) 6.25 mg PO BID-[facility] Last Admin: 01/16/18 09:00 Dose: 6.25 mg Dextrose/Water (Dextrose 50%) 25 gm SLOW IVP PRN PRN PRN Reason: Hypoglycemia Diphenhydramine HCl (Benadryl) 25 mg PO Q6H PRN PRN Reason: Itching & Insomnia or Kevin Devaughn Famotidine (Pepcid) 20 mg PO BID [facility] Last Admin: 01/16/18 09:00 Dose: 20 mg Folic Acid (Folvite) 1 mg PO DAILY [facility] Last Admin: 01/16/18 09:00 Dose: 1 mg Furosemide (Lasix) 40 mg SLOW IVP 0600,1400 [facility] Last Admin: 01/16/18 05:49 Dose: 40 mg Glucagon (Glucagon) 1 mg IM PRN PRN PRN Reason: Hypoglycemia Guaifenesin/Dextromethorphan (Robitussin Dm) 15 ml PO Q4H PRN PRN Reason: Cough Dextrose/Water (D5w) 1,000 mls @ 0 mls/hr IV .Q0M PRN; As Directed PRN Reason: Hypoglycemia Insulin Glargine 20 units/ (Miscellaneous Medication) 0.2 mls @ 0 mls/hr SC [facility] Last Admin: 01/15/18 21:03 Dose: 0.2 mls Insulin Human Lispro (Humalog) 10 units SC TID-WM PRN PRN Reason: Hyperglycemia Insulin Human Regular (Humulin R) 0 units SC Q4H PRN; Protocol PRN Reason: POST OP SLIDING SCALE Last Admin: 01/16/18 08:58 Dose: 6 unit Latanoprost (Xalatan 0.005% Ophth Soln) 1 drop EA EYE HS [facility] Last Admin: 01/15/18 21:04 Dose: 1 drop Losartan Potassium (Cozaar) 25 mg PO DAILY [facility] Last Admin: 01/16/18 08:59 Dose: 25 mg Methotrexate Sodium (Methotrexate Sodium) 7.5 mg PO MoTh@0900 [facility] Last Admin: 01/16/18 08:59 Dose: 7.5 mg Metoclopramide HCl (Reglan) 10 mg IVP Q6H PRN PRN Reason: Nausea/Vomiting Metolazone (Zaroxolyn) 5 mg PO 0830 [facility] Last Admin: 01/16/18 08:59 Dose: 5 mg Mineral Oil (Fleet Mineral Oil) 133 ml [place] DAILYPRN PRN PRN Reason: Constipation Nitroglycerin (Nitrostat) 0.4 mg SL Q5MIN PRN PRN Reason: Chest Pain Enbrel (Etanercept) (50 Mg/1 Ml) 1 each SC Q7D [facility] Polyethylene Glycol (Miralax) 17 gm PO DAILY [facility] Last Admin: 01/16/18 09:01 Dose: Not Given Potassium Chloride (K-Dur) 40 meq PO TID [facility] Last Admin: 01/16/18 09:00 Dose: 40 meq Prednisone (Prednisone) 5 mg PO QAM-[facility] Last Admin: 01/16/18 08:59 Dose: 5 mg Pregabalin (Lyrica) 50 mg PO DAILY [facility] Last Admin: 01/16/18 08:59 Dose: 50 mg Sodium Chloride (Flush - Normal Saline) 10 ml IVF Q12HR [facility] Last Admin: 01/16/18 09:01 Dose: 10 ml Sodium Chloride (Flush - Normal Saline) 10 ml IVF PRN PRN PRN Reason: Saline Flush Last Admin: 01/15/18 14:36 Dose: 10 ml Sodium Chloride (Flush - Normal Saline) 10 ml IVF PRN PRN PRN Reason: Saline Flush Spironolactone (Aldactone) 25 mg PO BID-[facility] Last Admin: 01/16/18 08:59 Dose: 25 mg Zolpidem Tartrate (Ambien) 5 mg PO HSPRN PRN PRN Reason: Insomnia Last Admin: 01/14/18 20:32 Dose: 5 mg
[2018-01-16 11:41] LABS: Magnesium 1.3 mg/dL (1.6-2.6); Phosphorus 3.6 mg/dL (2.3-4.7)
[2018-01-16] MEDS ORDERED: Magnesium Sulfate 4 GM in Sodium Chloride 0.9% 250 ML 250 ML IVPB SCH (13:00)
--- NOTE | 2018-01-16 13:33 | PDOC.CTH ---
<Yessi Cassidy - Last Filed: 01/16/18 13:30> Cardiology Progress Note - Objective Vital Signs Temp Pulse Resp BP BP Pulse Ox 01/16/18 12:00 97.2 F L 80 16 113/58 L 94 L 01/16/18 09:00 140/82 01/16/18 08:55 97.5 F L 81 18 140/72 90 L 01/16/18 03:34 97.3 F L 80 18 154/74 H 93 L Admit Weight 295 lb 14.4 oz Weight 275 lb 01/15/18 01/16/18 01/17/18 06:59 06:59 06:59 Intake Total 2130 1210 Output Total 1125 1495 Balance 1005 -285 - Labs Result Diagrams: 01/14/18 05:02 01/16/18 10:05 Troponin/CKMB Troponin I 0.267 ng/mL (< 0.028) H 12/24/17 00:36 - Assessment/Plan 1. Severed aortic stenosis s/p AVR 2. CAD s/p CABG with left atrial appendage surgical ligation. 3. Typical atrial flutter s/p CTI ablation 4. Paroxysmal atrial fibrillation & atypical flutter previously on amiodarone with subsequent QT prolongation and TdP in the setting of hypokalemia. s/p AV node ablation and Bi-V pacemaker implantation. No breakthrough tachycardia. 5. Hypokalemia- recommend replacing with a goal of >/= 3.5 6. Anemia- per hospitalist 7. CHADS-VASc: 5 (age >75, hx CHF/HTN/DM), on OAC. Left atrial appendage ligated at time of CABG but residual 0.3cm leak documented by TESS on 01/11 with thrombus in appendage. Needs continued OAC therapy. 8. BiV- PPM:Tele shows underlying atrial fibrillation with excellent rate control and SCRUBBER OPERATOR/ventricular pacing at 80bpm. Implant site is stable without signs of complication. Continue post implant antibiotics. OK for DC by EP. Signing off. Will need OP follow up with [facility] <Jaleel Lynn - Last Filed: 01/16/18 15:56> Cardiology Progress Note - Subjective EP progress note: Patient seen and evaluated. Feels weak but otherwise is without complaints. No new cardiac concerns or questions. - Objective Vital Signs Temp Pulse Resp BP BP Pulse Ox 01/16/18 12:00 97.2 F L 80 16 113/58 L 94 L 01/16/18 09:00 140/82 01/16/18 08:55 97.5 F L 81 18 140/72 90 L 01/16/18 03:34 97.3 F L 80 18 154/74 H 93 L Admit Weight 295 lb 14.4 oz Weight 275 lb 01/15/18 01/16/18 01/17/18 06:59 06:59 06:59 Intake Total 2130 1210 Output Total 1125 1495 Balance 1005 -285 - Physical Examination General/Neuro: alert & oriented x3, NAD Neck: no JVD present Lungs: unlabored respirations Heart: RRR Abdomen: NT/ND, soft Extremities: + edema B - Telemetry Telemetry Rhythm: underlying AF, SCRUBBER OPERATOR pacing - Labs Result Diagrams: 01/14/18 05:02 01/16/18 10:05 Troponin/CKMB Troponin I 0.267 ng/mL (< 0.028) H 12/24/17 00:36 Attending Addendum - Attending Addendum Date/Time: 01/16/18 3836 I personally evaluated the patient and discussed the management with Ms Cassidy. I agree with the History, Examination, Assessment and Plan documented above with any addition or exceptions noted below.
--- NOTE | 2018-01-16 14:12 | PRG ---
DATE OF SERVICE: 01/16/2018 SUBJECTIVE: Mr. Hull is feeling better. He says he is urinating large quantities, but there is only a small amount of urine output recorded; I think it is not all being recorded. In addition, the weights do not appear to be reliable either. OBJECTIVE: VITAL SIGNS: His blood pressure 113/58, pulse 80 and it is regular. LUNGS: Clear. CARDIAC: Normal S1 and S2. ABDOMEN: Soft, nontender. EXTREMITIES: There is still moderate edema, but it seems to be less. LABORATORY DATA: Potassium low at 3.1, magnesium low at 1.3, very low. ASSESSMENT: 1. Status post aortic valve replacement and bypass surgery and subsequent atrioventricular junction ablation. 2. Hypokalemia. 3. Hypomagnesemia. PLAN: Keep him one more day to replete potassium and magnesium.
[2018-01-16 17:15] LABS: Magnesium 2.5 mg/dL (1.6-2.6); Potassium 4.6 mmol/L (3.5-5.1)
[2018-01-16] MEDS: Latanoprost 0.005% Ophth Soln 2.5 ml Bottle EA EYE SCH (20:15)
[2018-01-16] MEDS: Atorvastatin Calcium 20 MG TAB PO SCH (20:15)
[2018-01-16] MEDS: Insulin Glargine 20 UNITS in Pre-Filled Syringe 1 EACH SC SCH (20:16)
[2018-01-17] MEDS: Acetaminophen/Codeine 30-300mg Tablet PO PRN ×3 (01:04→10:32)
[2018-01-17 05:08] VITALS: BMI 37.1
[2018-01-17 05:46] LABS: Anion Gap 13 mmol/L (10-20); BUN (Urea Nitrogen) 23 mg/dL (8.4-25.7); Calc. Creatinine Clearance 78 mL/min (70-130); Calcium 8.9 mg/dL (7.8-10.44); Carbon Dioxide 32 mmol/L (23-31); Chloride 94 mmol/L (98-107); Estimated GFR-MDRD 48; Glucose 211 mg/dL (83-110); Magnesium 2.2 mg/dL (1.6-2.6); Potassium 4.2 mmol/L (3.5-5.1); Sodium 135 mmol/L (136-145)
[2018-01-17] MEDS: Furosemide 40 MG/4 ML VIAL SLOW IVP SCH (06:28)
[2018-01-17] MEDS ORDERED: Bisacodyl 10 MG SUPP PR SCH (08:45)
--- NOTE | 2018-01-17 08:57 | ADD-DIS ---
ADDENDUM: Please see my discharge summary dictated on 01/14/2018. The patient was planned for discharge on that day as per cardiovascular surgeon recommendations, but Dr. Mora evaluated this patient over weekend and he recommended that the patient needs more diuresi s for his significant edema and volume overload and that is why during Tuesday and Tuesday, patient w as getting IV Lasix as well as Zaroxolyn. The patient had significant good response to diuretic albarran and the edema is significantly improving. Patient also had abnormal electrolytes with hypokalemia, hypomagnesemia and that is why we replaced potassium as well as magnesium and both electrolytes is no w normal. Because of diuresis, his creatinine is slightly elevated to 1.42, but we are expecting esteban t it will get better by itself. On discharge, the patient will continue all previous medication give n before on my previous discharge summary, the patient will not need Keflex because he has finished t herapy while in hospital. The rest of the discharge medication is exactly similar as per my previous discharge summary. The patient is seen and examined at bedside today. Please see my progress note from today for furthe r detail. The patient is medically stable for discharge as long as Cardiology okay.
[2018-01-17] MEDS ORDERED: Aspirin 81 mg Enteric Coated Tablet PO SCH (09:00)
--- NOTE | 2018-01-17 09:08 | PDOC.PN ---
- Subjective Encounter Start Date: 01/17/18 Encounter Start Time: 07:30 has no BM for 3 days and asking for dulcolax suppository, no dyspnea, edema less - Objective Resuscitation Status: Resuscitation Status FULL:Full Resuscitation MAR Reviewed: Yes Vital Signs & Weight: Vital Signs (12 hours) Temp Pulse Resp BP Pulse Ox 01/17/18 08:00 97.9 F 79 16 119/63 99 01/17/18 04:00 98.1 F 82 20 147/69 H 95 01/17/18 00:13 97.9 F 81 16 132/64 97 Weight Admit Weight 295 lb 14.4 oz Weight 273 lb 12.8 oz Most Recent Monitor Data Heart Rate from ECG 78 NIBP 121/43 NIBP BP-Mean 69 Respiration from ECG 21 SpO2 100 I&O: 01/16/18 01/17/18 01/18/18 06:59 06:59 06:59 Intake Total 1210 1700 Output Total 1495 3025 Balance -285 -1325 Result Diagrams: 01/14/18 05:02 01/17/18 04:55 Additional Labs: Accuchecks 01/17/18 01/16/18 01/16/18 05:57 20:48 17:01 POC Glucose 194 H 163 H 245 H 01/16/18 10:44 POC Glucose 189 H EKG Reviewed by me: Yes (pacing) Phys Exam - Physical Examination Constitutional: NAD HEENT: PERRLA, moist MMs, sclera anicteric Neck: no JVD, supple Respiratory: no wheezing, no rales, no rhonchi Cardiovascular: RRR, no significant murmur, no rub prosthetic click Gastrointestinal: soft, non-tender, no distention, positive bowel sounds obesity+ Musculoskeletal: pulses present trace edema+ Neurological: non-focal, normal sensation, moves all 4 limbs Psychiatric: normal affect, A&O x 3 Skin: no rash, normal turgor Dx/Plan (1) 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 Code(s): I50.23 - ACUTE ON CHRONIC SYSTOLIC (CONGESTIVE) HEART FAILURE Status : Acute (2) Atrial fibrillation with RVR Code(s): I48.91 - UNSPECIFIED ATRIAL FIBRILLATION Status: Acute Comment: s/ p cardioversion and ablation, now in nsr (3) Demand ischemia of myocardium Code(s): I24.8 - OTHER FORMS OF ACUTE ISCHEMIC HEART DISEASE Status: Acute (4) Chronic anticoagulation Code(s): Z79.01 - SENIOR LIVING (CURRENT) USE OF ANTICOAGULANTS Status: Chronic (5) DM type 2 (diabetes mellitus, type 2) Status: Chronic Qualifiers: Diabetes mellitus snf insulin use: with snf use Diabetes mellitus complication status: with unspecified complications Qualified Code(s) : E11.8 - Type 2 diabetes mellitus with unspecified complications; Z79.4 - dedicated intermodal truck driver (current) use of insulin; Z79.4 - senior care (current) use of insulin; Z79.4 - senior care (current) use of insulin; Z79.4 - senior care (current) use of insulin (6) Dyslipidemia Code(s): E78.5 - HYPERLIPIDEMIA, UNSPECIFIED Status: Chronic (7) HTN (hypertension) Code(s): I10 - ESSENTIAL (PRIMARY) HYPERTENSION Status: Chronic Qualifiers: Hypertension type: essential hypertension Qualified Code(s): I10 - Essential (primary) hypertension (8) Morbid obesity with BMI of 40.0-44.9, adult Code(s): E66.01 - MORBID (SEVERE) OBESITY DUE TO EXCESS CALORIES; Z68.41 - BODY MASS INDEX (BMI) 40.0-44.9, ADULT Status: Chronic (9) JAMIN on CPAP Code(s): G47.33 - OBSTRUCTIVE SLEEP APNEA (ADULT) (PEDIATRIC); Z99.89 - DEPENDENCE ON OTHER ENABLING MACHINES AND DEVICES Status: Chronic (10) Rheumatoid arthritis Code(s): M06.9 - RHEUMATOID ARTHRITIS, UNSPECIFIED Status: Chronic (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 Code(s): R00.0 - TACHYCARDIA, UNSPECIFIED; I43 - CARDIOMYOPATHY IN DISEASES CLASSIFIED ELSEWHERE Status: Resolved (12) Ventricular tachycardia, polymorphic Code(s): I47.2 - VENTRICULAR TACHYCARDIA Status: Acute (13) 3-vessel coronary artery disease Status: Chronic (14) Severe aortic stenosis Code(s): I35.0 - NONRHEUMATIC AORTIC (VALVE) STENOSIS Status: Chronic (15) Acute kidney injury Code(s): N17.9 - ACUTE KIDNEY FAILURE, UNSPECIFIED Status: Resolved (16) Anemia due to acute blood loss Code(s): D62 - ACUTE POSTHEMORRHAGIC ANEMIA Status: Acute (17) S/P AV nazanin ablation Code(s): Z98.890 - OTHER SPECIFIED POSTPROCEDURAL STATES Status: Acute (18) Status post biventricular cardiac pacemaker insertion Code(s): Z95.0 - PRESENCE OF CARDIAC PACEMAKER Status: Acute - Plan cont current plan of care, socially responsible investment adviser * dulcolax suppository one time * today stable for discharge to swing bed if cardiology ok * creatinine is expecting to improve * medication reviewed as below * symptomatic treatment * paper work done * see discharge valentin. Review of Systems - Review of Systems Eyes: negative: Pain, Vision Change, Conjunctivae Inflammation, Eyelid Inflammation, Redness, Other ENT: negative: Ear Pain, Ear Discharge, Nose Pain, Nose Discharge, Nose Congestion, Mouth Pain, Mouth Swelling, Throat Pain, Throat Swelling, Other Respiratory: negative: Cough, Dry, Shortness of Breath, Hemoptysis, SOB with Excertion, Pleuritic Pain, Sputum, Wheezing Cardiovascular: negative: chest pain, palpitations, orthopnea, paroxysmal nocturnal dyspnea, edema, light headedness, other Gastrointestinal: Constipation. negative: Nausea, Vomiting, Abdominal Pain, Diarrhea, Melena, Hematochezia, Other Genitourinary: negative: Dysuria, Frequency, Incontinence, Hematuria, Retention , Other Musculoskeletal: negative: Neck Pain, Shoulder Pain, Arm Pain, Back Pain, Hand Pain, Leg Pain, Foot Pain, Other Skin: negative: Rash, Lesions, Efra, Bruising, Other - Medications/Allergies Allergies/Adverse Reactions: Allergies Allergy/AdvReac Type Severity Reaction Status Date / Time No Known Allergies Allergy Verified 12/24/17 00:48 Medications: Current Medications Acetaminophen/Codeine Phosphate (Tylenol #3) 1 tab PO Q4H PRN PRN Reason: Mild Pain (1-3) Acetaminophen/Codeine Phosphate (Tylenol #3) 2 tab PO Q4H PRN PRN Reason: Moderate Pain (4-6) Last Admin: 01/17/18 06:27 Dose: 2 tab Al Hydroxide/Mg Hydroxide (Maalox) 30 ml PO Q4H PRN PRN Reason: Indigestion Albuterol/Ipratropium (Duoneb) 3 ml NEB [id number] PRN PRN Reason: SHORTNESS OF BREATH Last Admin: 01/09/18 02:26 Dose: 3 ml Apixaban (Eliquis) 5 mg PO BID [facility] Last Admin: 01/16/18 20:15 Dose: 5 mg Artificial Tears (Tears Naturale) 1 drop EA EYE PRN PRN PRN Reason: Dry Eyes Aspirin (Ecotrin) 81 mg PO DAILY [facility] Atorvastatin Calcium (Lipitor) 20 mg PO HS [facility] Last Admin: 01/16/18 20:15 Dose: 20 mg Bisacodyl (Dulcolax) 10 mg PO Q12H PRN PRN Reason: Constipation Bisacodyl (Dulcolax) 10 mg TX Q12H PRN PRN Reason: Constipation Bisacodyl (Dulcolax) 10 mg TX NOW [facility] Stop: 01/17/18 12:00 Carvedilol (Coreg) 6.25 mg PO BID-[facility] Last Admin: 01/16/18 16:31 Dose: 6.25 mg Dextrose/Water (Dextrose 50%) 25 gm SLOW IVP PRN PRN PRN Reason: Hypoglycemia Diphenhydramine HCl (Benadryl) 25 mg PO Q6H PRN PRN Reason: Itching & Insomnia or Kevin Devaughn Famotidine (Pepcid) 20 mg PO BID [facility] Last Admin: 01/16/18 20:15 Dose: 20 mg Folic Acid (Folvite) 1 mg PO DAILY [facility] Last Admin: 01/16/18 09:00 Dose: 1 mg Furosemide (Lasix) 40 mg SLOW IVP 0600,1400 [facility] Last Admin: 01/17/18 06:28 Dose: 40 mg Glucagon (Glucagon) 1 mg IM PRN PRN PRN Reason: Hypoglycemia Guaifenesin/Dextromethorphan (Robitussin Dm) 15 ml PO Q4H PRN PRN Reason: Cough Dextrose/Water (D5w) 1,000 mls @ 0 mls/hr IV .Q0M PRN; As Directed PRN Reason: Hypoglycemia Insulin Glargine 20 units/ (Miscellaneous Medication) 0.2 mls @ 0 mls/hr SC [facility] Last Admin: 01/16/18 20:16 Dose: 0.2 mls Insulin Human Lispro (Humalog) 10 units SC TID-WM PRN PRN Reason: Hyperglycemia Insulin Human Regular (Humulin R) 0 units SC Q4H PRN; Protocol PRN Reason: POST OP SLIDING SCALE Last Admin: 01/16/18 08:58 Dose: 6 unit Latanoprost (Xalatan 0.005% Ophth Soln) 1 drop EA EYE HS [facility] Last Admin: 01/16/18 20:15 Dose: 1 drop Losartan Potassium (Cozaar) 25 mg PO DAILY [facility] Last Admin: 01/16/18 08:59 Dose: 25 mg Methotrexate Sodium (Methotrexate Sodium) 7.5 mg PO MoTh@0900 [facility] Last Admin: 01/16/18 08:59 Dose: 7.5 mg Metoclopramide HCl (Reglan) 10 mg IVP Q6H PRN PRN Reason: Nausea/Vomiting Metolazone (Zaroxolyn) 5 mg PO 0830 [facility] Last Admin: 01/16/18 08:59 Dose: 5 mg Mineral Oil (Fleet Mineral Oil) 133 ml [place] DAILYPRN PRN PRN Reason: Constipation Nitroglycerin (Nitrostat) 0.4 mg SL Q5MIN PRN PRN Reason: Chest Pain Enbrel (Etanercept) (50 Mg/1 Ml) 1 each SC Q7D [facility] Polyethylene Glycol (Miralax) 17 gm PO DAILY [facility] Last Admin: 01/16/18 09:01 Dose: Not Given Potassium Chloride (K-Dur) 40 meq PO TID [facility] Last Admin: 01/16/18 20:15 Dose: 40 meq Prednisone (Prednisone) 5 mg PO QAM-[facility] Last Admin: 01/16/18 08:59 Dose: 5 mg Pregabalin (Lyrica) 50 mg PO DAILY [facility] Last Admin: 01/16/18 08:59 Dose: 50 mg Sodium Chloride (Flush - Normal Saline) 10 ml IVF Q12HR [facility] Last Admin: 01/16/18 20:17 Dose: 10 ml Sodium Chloride (Flush - Normal Saline) 10 ml IVF PRN PRN PRN Reason: Saline Flush Last Admin: 01/16/18 14:48 Dose: 10 ml Sodium Chloride (Flush - Normal Saline) 10 ml IVF PRN PRN PRN Reason: Saline Flush Spironolactone (Aldactone) 25 mg PO BID-[facility] Last Admin: 01/16/18 16:31 Dose: 25 mg Zolpidem Tartrate (Ambien) 5 mg PO HSPRN PRN PRN Reason: Insomnia Last Admin: 01/14/18 20:32 Dose: 5 mg
[2018-01-17] MEDS: Spironolactone 25 MG TAB PO SCH (10:08)
[2018-01-17] MEDS: Carvedilol 6.25 MG TAB PO SCH (10:08)
[2018-01-17] MEDS: predniSONE 5 MG TAB PO SCH (10:08)
[2018-01-17] MEDS: Famotidine 20 MG TAB PO SCH (10:09)
[2018-01-17] MEDS: Metolazone 5 MG TAB PO SCH (10:09)
[2018-01-17] MEDS: Losartan 25 MG TAB PO SCH (10:09)
[2018-01-17] MEDS: Apixaban 5 MG TAB PO SCH (10:09)
[2018-01-17] MEDS: Folic Acid 1 MG TAB PO SCH (10:09)
[2018-01-17] MEDS: Polyethylene Glycol 3350 17 GM Packet PO SCH (10:09)
[2018-01-17] MEDS: Pregabalin 50 MG CAP PO SCH (10:10)
[2018-01-17] MEDS: Potassium Chloride 20 MEQ TAB PO SCH (10:10)
[2018-01-17] MEDS: Insulin Regular 300 UNITS/3 ML VIAL SC PRN (12:28)
--- NOTE | 2018-01-17 12:59 | PRG ---
DATE OF SERVICE: 01/17/2018 SUBJECTIVE: Mr. Hull is doing well. He feels much better. He is not short of breath. Edema is be tter. OBJECTIVE: VITAL SIGNS: Blood pressure 119/63; pulse is 80, it is paced. LUNGS: Clear. CARDIAC: Normal S1, normal S2. ABDOMEN: Soft, nontender. EXTREMITIES: Only mild edema. LABORATORY DATA: Potassium is 4.2. The magnesium is 2.2. ASSESSMENT: 1. Status post aortic valve replacement and bypass. 2. Status post biventricular pacemaker and atrioventricular junction ablation. 3. A little bit of redness at the central line insertion site. He will go on Keflex for 5 days.
[2018-01-17 13:08] VITALS: BP 111/63; TEMP 97.8
== END 2018-01-17 13:10 | disposition swing bed (61) | DRG 216 ==
LOC: ERS 19:08 → 2NO 21:03 → IMCU/EMU 12-24 00:26 → 2NO 12-28 15:57 → CCU 01-06 06:31 → 2NO 01-08 12:05
PROVIDERS: ADMIT Family Medicine; ATTEND Family Medicine
PROC: 5A09357 Assistance with Respiratory Ventilation, Less than 24 Consecutive Hours, Continuous Positive Airway Pressure (ICD-10-PCS; 2017-12-24)
PROC: B246ZZ4 Ultrasonography of Right and Left Heart, Transesophageal (ICD-10-PCS; 2017-12-24)
PROC: 02583ZZ Destruction of Conduction Mechanism, Percutaneous Approach (ICD-10-PCS; 2017-12-27)
PROC: 4A023FZ Measurement of Cardiac Rhythm, Percutaneous Approach (ICD-10-PCS; 2017-12-27)
PROC: 4A0234Z Measurement of Cardiac Electrical Activity, Percutaneous Approach (ICD-10-PCS; 2017-12-27)
PROC: 02K83ZZ Map Conduction Mechanism, Percutaneous Approach (ICD-10-PCS; 2017-12-27)
PROC: 5A2204Z Restoration of Cardiac Rhythm, Single (ICD-10-PCS; 2017-12-27)
PROC: B246ZZ4 Ultrasonography of Right and Left Heart, Transesophageal (ICD-10-PCS; 2017-12-27)
PROC: B24CZZ4 Ultrasonography of Pericardium, Transesophageal (ICD-10-PCS; 2017-12-27)
PROC: B246ZZ4 Ultrasonography of Right and Left Heart, Transesophageal (ICD-10-PCS; 2017-12-30)
PROC: B24CZZ4 Ultrasonography of Pericardium, Transesophageal (ICD-10-PCS; 2017-12-30)
PROC: 4A023N7 Measurement of Cardiac Sampling and Pressure, Left Heart, Percutaneous Approach (ICD-10-PCS; 2018-01-04)
PROC: B211YZZ Fluoroscopy of Multiple Coronary Arteries using Other Contrast (ICD-10-PCS; 2018-01-04)
PROC: 02RF08Z Replacement of Aortic Valve with Zooplastic Tissue, Open Approach (ICD-10-PCS; principal; 2018-01-06)
PROC: 02100A9 Bypass Coronary Artery, One Artery from Left Internal Mammary with Autologous Arterial Tissue, Open Approach (ICD-10-PCS; 2018-01-06)
PROC: 021109W Bypass Coronary Artery, Two Arteries from Aorta with Autologous Venous Tissue, Open Approach (ICD-10-PCS; 2018-01-06)
PROC: 06BQ4ZZ Excision of Left Saphenous Vein, Percutaneous Endoscopic Approach (ICD-10-PCS; 2018-01-06)
PROC: 5A1221Z Performance of Cardiac Output, Continuous (ICD-10-PCS; 2018-01-06)
PROC: 02L70ZK Occlusion of Left Atrial Appendage, Open Approach (ICD-10-PCS; 2018-01-06)
PROC: B24BZZ4 Ultrasonography of Heart with Aorta, Transesophageal (ICD-10-PCS; 2018-01-11)
PROC: B246ZZ4 Ultrasonography of Right and Left Heart, Transesophageal (ICD-10-PCS; 2018-01-11)
PROC: 02583ZZ Destruction of Conduction Mechanism, Percutaneous Approach (ICD-10-PCS; 2018-01-12)
PROC: 0JH607Z Insertion of Cardiac Resynchronization Pacemaker Pulse Generator into Chest Subcutaneous Tissue and Fascia, Open Approach (ICD-10-PCS; 2018-01-12)
PROC: 4A023FZ Measurement of Cardiac Rhythm, Percutaneous Approach (ICD-10-PCS; 2018-01-12)
PROC: 4A0234Z Measurement of Cardiac Electrical Activity, Percutaneous Approach (ICD-10-PCS; 2018-01-12)
PROC: 02K83ZZ Map Conduction Mechanism, Percutaneous Approach (ICD-10-PCS; 2018-01-12)
PROC: 02HK0JZ Insertion of Pacemaker Lead into Right Ventricle, Open Approach (ICD-10-PCS; 2018-01-12)
DX: I48.0 Paroxysmal atrial fibrillation (principal); J96.01 Acute respiratory failure with hypoxia; I50.23 Acute on chronic systolic (congestive) heart failure; I24.8 Other forms of acute ischemic heart disease; Z68.41 Body mass index [BMI] 40.0-44.9, adult; E87.1 Hypo-osmolality and hyponatremia; N17.9 Acute kidney failure, unspecified; D62 Acute posthemorrhagic anemia; I11.0 Hypertensive heart disease with heart failure; I47.1 Supraventricular tachycardia; I48.3 Typical atrial flutter; I35.0 Nonrheumatic aortic (valve) stenosis; E11.9 Type 2 diabetes mellitus without complications; E78.5 Hyperlipidemia, unspecified; I95.9 Hypotension, unspecified; I70.0 Atherosclerosis of aorta; I42.0 Dilated cardiomyopathy; I69.391 Dysphagia following cerebral infarction; R13.10 Dysphagia, unspecified; E66.01 Morbid (severe) obesity due to excess calories; I25.10 Atherosclerotic heart disease of native coronary artery without angina pectoris; E87.6 Hypokalemia; E83.42 Hypomagnesemia; M06.9 Rheumatoid arthritis, unspecified; G47.33 Obstructive sleep apnea (adult) (pediatric); I45.81 Long QT syndrome; J44.9 Chronic obstructive pulmonary disease, unspecified; T46.2X5A Adverse effect of other antidysrhythmic drugs, initial encounter; Y92.239 Unspecified place in hospital as the place of occurrence of the external cause; M19.90 Unspecified osteoarthritis, unspecified site; I87.8 Other specified disorders of veins; Z87.19 Personal history of other diseases of the digestive system; Z91.81 History of falling; Z79.899 Other long term (current) drug therapy; Z79.01 Long term (current) use of anticoagulants; Z83.3 Family history of diabetes mellitus; Z82.49 Family history of ischemic heart disease and other diseases of the circulatory system; Z79.52 Long term (current) use of systemic steroids; Z79.4 Long term (current) use of insulin
CPT/HCPCS: 33208; 33225; 36005; 36415; 36416; 36430; 71045; 71270; 75820; 76942; 80048; 80076; 80162; 82805; 83036; 83735; 84100; 84443; 84484; 85025; 85610; 85730; 86850; 86900; 86901; 92960; 93005; 93010; 93306; 93312; 93454; 93613; 93623; 93650; 93653; 93798; 94002; 94150; 94640; 96361; 96365; 96366; 96375; 96376; 99152; A4216; C1730; C1769; C1882; C1898; C1900; C2630; G8978-GP-CJ; G8978-GP-CL; G8979-GP-CJ; G8979-GP-CL; G8980-GP-CJ; G8980-GP-CL; G8987-GO-CK; G8988-GO-CI; J0282; J0360; J0690; J1160; J1265; J1642; J1644; J1720; J1815; J1885; J1940; J2001; J2150; J2250; J2370; J2405; J2440; J2704; J2720; J2920; J2930; J3010; J3370; J3475; J3480; J3490; J7050; J7070; J7620; J8610; P9016; P9035; P9045; Q0162; S0017; S0028

== ENCOUNTER 2018-05-23 09:03 | Outpatient (CLI) | payer MEDICARE, BC ==
--- NOTE | 2018-05-23 11:58 | RAD ---
RADIOGRAPH CHEST 2 VIEWS: Date: 05/23/18 Time: 0921 HOURS HISTORY: 78-year-old male with dyspnea. COMPARISON: 05/10/18. FINDINGS: Again noted are the prosthetic aortic valve, triple lead left subclavian pacemaker, and the large lef t pleural effusion which obscures the majority of the left lung. Left upper lobe apex is relatively s pared. The right lung is clear. No pleural effusion on the right side. No pneumothorax. No major inte rval change. IMPRESSION: 1. Large left pleural effusion and underlying atelectasis of most of the left lung. 2. Prosthetic aortic valve. 3. Pacemaker. 4. No interval change. JN [] POS: [facility]
== END 2018-05-23 09:04 | disposition home or self-care (01) ==
LOC: RAD 09:03
PROVIDERS: ATTEND Internal Medicine Pulmonary Disease
DX: R06.00 Dyspnea, unspecified (principal); J90 Pleural effusion, not elsewhere classified; J98.11 Atelectasis; Z95.2 Presence of prosthetic heart valve; Z95.0 Presence of cardiac pacemaker
CPT/HCPCS: 71046

== ENCOUNTER 2018-06-08 11:10 | Observation (INO) | payer MEDICARE, BC ==
--- NOTE | 2018-06-08 12:30 | CT ---
CTA HEAD WITH AND WITHOUT CONTRAST: Technique: Multiple contiguous axial images were obtained through the head without contrast. This was followed by CTA head with contrast following angio protocol with multiplanar reconstruction and 3D p ost processing. Indication: Possible TIA. FINDINGS: CT HEAD WITHOUT CONTRAST: Compared to the exam performed earlier this morning at 8:28 a.m. No evidence of acute cortical infarct, mass, or hemorrhage. No interval change noted. IMPRESSION: No acute finding or change. CT ANGIO HEAD: The intracranial internal carotid arteries are patent. Mild atherosclerotic calcifications seen in th e cavernous portions of both ICAs without stenosis. Middle cerebral arteries are patent and symmetric . Anterior cerebrals are patent and symmetric. Basilar arteries are patent. The posterior cerebrals appear patent and symmetric. IMPRESSION: Unremarkable CTA head. CTA NECK: Multiple axial tomograms were obtained through the neck with IV enhancement following angio protocol with multiplanar reconstruction and 3D post processing. Indications: TIA. FINDINGS: No evidence of stenosis seen at the origin of the arch vessels. Both common carotid arteries are patent and unremarkable. There is calcified plaque seen at both bulbs and proximal ICAs. There is no evidence of significant s tenosis identified in either proximal ICA. The ICAs above the bulbs appear patent and symmetric. The vertebral arteries are patent. Left vertebra is slightly prominent. Soft tissues: There is abnormal opacity seen in the left lung apex along the pleural surface posterio rly. This is consistent with increasing left pleural effusion which was noted on plain film from ruma ier today. No other soft tissue abnormality apparent. IMPRESSION: 1. Atherosclerotic calcification in both bulbs and proximal ICAs. No evidence of significant carotid stenosis identified. POS: [facility]
[2018-06-08] MEDS ORDERED: Ondansetron ODT 4 MG TAB PO PRN (15:53)
[2018-06-08] MEDS ORDERED: Acetaminophen 325 MG TAB PO PRN (15:53)
[2018-06-08] MEDS ORDERED: Ondansetron PF 4 MG/2 ML Vial IVP PRN (15:53)
[2018-06-08 16:12] VITALS: BMI 32.7
--- NOTE | 2018-06-08 16:35 | PDOC.EVN ---
Event Note - Event Note Event Note: brief interview and exam, discussed with Jessica MACDONALD, concur with management plan
[2018-06-08 16:56] LABS: Troponin I 0.019 ng/mL (< 0.028)
[2018-06-08] MEDS ORDERED: Cetirizine HCl 10 MG TAB PO PRN (17:46)
[2018-06-08] MEDS: Sodium Chloride 0.9% 1,000 ML IV SCH (18:28)
[2018-06-08] MEDS ORDERED: Non-Formulary Item 1 EACH (Levemir Flexpen [Levemir Flexpen] 40 UNIT) SC SCH (21:00)
[2018-06-08] MEDS ORDERED: Latanoprost 0.005% Ophth Soln 2.5 ml Bottle EA EYE SCH (21:00)
[2018-06-08] MEDS ORDERED: Insulin Glargine 40 UNITS in Pre-Filled Syringe 1 EACH SC SCH (21:00)
[2018-06-08] MEDS ORDERED: Iopamidol 370 76% 100 ML VIAL ONE (21:41)
[2018-06-08] MEDS: Torsemide 20 MG TAB PO SCH (21:44)
[2018-06-08] MEDS: Apixaban 5 MG TAB PO SCH (21:44)
[2018-06-08] MEDS: Acetaminophen ER (8hr) 650 MG TAB PO SCH (21:44)
[2018-06-08] MEDS: Potassium Chloride 20 MEQ TAB PO SCH (21:44)
--- NOTE | 2018-06-09 02:25 | HP ---
PRIMARY CARE PHYSICIAN: Dr. Garcia. CHIEF COMPLAINT: Vertigo. HISTORY OF PRESENT ILLNESS: The patient is a pleasant 78-year-old male with a past medical history of CAD, CABG, paroxysmal atrial fibrillation, pacemaker placement, diabetes mellitus, CVA, and hypertension, who had presented to [facility] with a complaint of vertigo early this morning, he was in bed when he got up to walk to the bathroom; however, walking on the hallway, he had experienced some vertigo and feeling that the room was spinning around him. He states he had to grab the wall and slowly walked over to a chair and sat himself down. He states he had no syncopal-like episode, he states symptoms lasted for about 30 minutes and resolved spontaneously. He states he had no chest pain, shortness of breath, or abdominal pain during that time. He had no headache or blurred vision. He states he had a CABG for triple-vessel disease, aortic valve replacement, and pacemaker placed in December 2017, he had been following up with his sr. media manager Dr. Mora, he states he has a followup visit with Dr. Mora next Tuesday on 06/14/2018. He states he feels at baseline, he was seen and examined after being transferred from the ER, he was sitting at the edge of bed with daughter and at bedside. He had displayed no further symptoms or complaints at that time. During his visit in the ER, he had undergone a chest x-ray, which showed evidence of increasing left effusion and pacemaker in place, brain CT displayed no acute process. CTA of head and neck was unremarkable and showed no acute findings or changes, and no evidence of significant carotid stenosis identified. PAST MEDICAL HISTORY: Hypertension, CAD, CABG x3, pacemaker placement, paroxysmal atrial fibrillation, diabetes mellitus, and CVA. PAST SURGICAL HISTORY: Right knee arthroscopy, coronary artery triple bypass surgery back in December, pacemaker implant, aortic valve replacement, and bilateral cataract repair. PSYCHIATRIC HISTORY: Denies any psychiatric history at this time. SOCIAL HISTORY: Denies alcohol, tobacco, or drug use. ALLERGIES: NO KNOWN DRUG ALLERGIES. HOME MEDICATIONS: 1. Levemir 40 units subcu at bedtime. 2. Humalog 10 units subcu t.i.d. with meals. 3. Aspirin 81 mg p.o. daily. 4. Multivitamin p.o. daily. 5. Potassium 20 mEq p.o. b.i.d. 6. Prednisone 5 mg p.o. daily. 7. Atorvastatin 20 mg p.o. daily. 8. Methotrexate 7.5 mg p.o. as directed. 9. Latanoprost one drop each eye at bedtime. 10. Carvedilol 6.25 mg p.o. b.i.d. with meals. 11. Apixaban 5 mg p.o. b.i.d. 12. Cetirizine 10 mg p.o. daily p.r.n. allergies. 13. Torsemide 20 mg p.o. b.i.d. 14. Vitamin D3 10,000 units p.o. daily. 15. Omeprazole 10 mg p.o. daily. 16. Folic acid 1 mg p.o. daily. 17. Acetaminophen p.o. b.i.d. 18. Spironolactone 25 mg p.o. daily. 19. Enbrel 50 mg subcu q.7 days. REVIEW OF SYSTEMS: CONSTITUTIONAL: The patient denies fever, chills, weight loss, or weight gain. He did experience 30 minutes of vertigo this morning, which had spontaneously resolved. No further symptoms since. EYES: Denies any blurred vision, eye changes, redness, or drainage. ENT: Denies sore throat, bloody nose, ringing in the ears, or loss of hearing. CARDIOVASCULAR: Denies chest pain or palpitations. Does report pacemaker in place due to paroxysmal atrial fibrillation, CAD, and CABG back in December. GASTROINTESTINAL: Denies abdominal pain, nausea, vomiting, or diarrhea. GENITOURINARY: Denies any dysuria, frequency, or urgency. MUSCULOSKELETAL: Denies any back pain, neck pain, or pain in extremities. Denies any weakness. NEUROLOGIC: He did report some vertigo for 30 minutes this morning and when he was walking, he had reported leaning to the right; however, this resolved and no further symptoms since. He denies headache or sensory loss. PSYCHIATRIC: Denies any alcohol, drug, or tobacco use. Denies any suicidal or homicidal ideation. PHYSICAL EXAMINATION: VITAL SIGNS: Blood pressure 130/80, pulse 80, respirations 16, temperature 97.5, and O2 saturations 99% on room air. GENERAL: The patient is alert and oriented x3, sitting up at bedside with daughter and at bedside. No acute distress noted. HEAD: Atraumatic and normocephalic. EYES: Pupils round and reactive to light. Extraocular muscles intact, post cataract surgery, sclerae anicteric. No conjunctival hemorrhage. ENT: Pharynx is clear. No oropharyngeal erythema or exudates. Uvula is midline. Moist mucous membranes noted. NECK: Soft and supple. No JVD. No bruit noted. Full range of motion. RESPIRATORY: Clear to auscultation bilaterally. Breath sounds clear. No wheezes. No rales. No rhonchi. CARDIOVASCULAR: Positive S1 and S2. Pacemaker in place. Regular rate and rhythm. No murmur noted. ABDOMEN: Soft and nontender. Bowel sounds present. Nondistended. No rebound. No masses noted. MUSCULOSKELETAL: Moves all extremities equally. Upper and lower extremities strength 5+ bilaterally. Pedal and radial pulses palpable bilaterally. NEUROLOGIC: Cranial nerves 2 through 12 intact. No focal deficits noted. No motor deficits. Moves all extremities. SKIN: Diffuse bruising, upper extremities; however, skin is intact, warm and dry. LABORATORY DATA: WBC 9.4, RBC 4.49, and hemoglobin 12.6. PT 18.3, PTT 44.5, and INR 1.5. Sodium 138, potassium 4.0, anion gap 16, creatinine 0.92, estimated GFR 80, and glucose 131. Troponin 0.019, 0.017, and 0.010. DIAGNOSTIC IMAGING: Chest x-ray showed evidence of increasing left effusion. CT brain without contrast showed no acute process. CTA head and neck were unremarkable. No evidence of stenosis noted, no acute findings. ASSESSMENT AND PLAN: 1. Vertigo, this has since resolved. The patient is currently asymptomatic with pacemaker in place, we will interrogate pacemaker for further evaluation. We will also check orthostatic vital signs and start on IV fluid with normal saline. The patient has followup with Dr. Mora, his sr. media manager next week on Tuesday, depending on the patient's progress and clinical findings, may possibly consult Cardiology during hospital course. He recently had an echocardiogram back in December, which displayed an ejection fraction, which was normal. 2. Hypertension. Continue the patient's home medications. 3. History of coronary artery bypass graft and coronary artery disease, continue on the patient's home medications for medical management, he appears to be on appropriate medications. As above, pending the patient's clinical findings, may consider to consult Cardiology. 4. Diabetes mellitus. We will continue the patient's insulin, continue Accu-Cheks, place on insulin sliding scale and 10 units of Humalog three times daily with meals. Further adjustments pending his progress. 5. History of paroxysmal atrial fibrillation with pacemaker in place, continue Eliquis and other home medications. We will have further evaluation with pacemaker interrogation. 6. Deep venous thrombosis prophylaxis, the patient is currently on Eliquis, he will be continued on this throughout the hospital course along with aspirin 81 mg daily. 7. Gastrointestinal prophylaxis with Pepcid and Zofran as needed for nausea. 8. Surrogate decision maker was discussed with the patient and , his decision maker and surrogate decision maker would be his , and it is also determined that the patient would be full code during the hospital course. Disposition and further medical management pending the patient's progress and clinical findings. Job ID: [id number]
[2018-06-09 05:44] LABS: #Eosinphils 0.1 thou/uL (0.0-0.7); #Lymphocytes 1.8 thou/uL (1.20-3.40); #Neutrophils 4.7 thou/uL (1.40-6.50); %Basophils 0.3 % (0.0-1.0); %Lymphocytes 23.7 % (21.0-51.0); %Monocytes 13.6 % (0.0-10.0); %Neutrophils 61.5 % (42.0-75.0); Hemoglobin 12.4 g/dL (14.0-18.0); Mean Corpuscular HGB CONC 31.5 g/dL (32.0-36.0); Mean Corpuscular Hemoglobin 27.9 pg (27.0-31.0); Mean Corpuscular Volume 88.4 fL (78.0-98.0); Mean Platelet Volume 9.9 fL (7.4-10.4); Platelet Count 220 thou/uL (130-400); RBC Distribution Width 16.9 % (11.5-14.5); Red Blood Cell (RBC) Count 4.46 mill/uL (4.70-6.10); White Blood Cell (WBC) Count 7.6 thou/uL (4.8-10.8)
[2018-06-09 05:59] LABS: Anion Gap 13 mmol/L (10-20); BUN (Urea Nitrogen) 19 mg/dL (8.4-25.7); Calc. Creatinine Clearance 105 mL/min (70-130); Calcium 9.5 mg/dL (7.8-10.44); Carbon Dioxide 30 mmol/L (23-31); Chloride 101 mmol/L (98-107); Estimated GFR-MDRD 78; Glucose 152 mg/dL (83-110); Potassium 4.5 mmol/L (3.5-5.1); Sodium 139 mmol/L (136-145)
[2018-06-09] MEDS: Sodium Chloride 0.9% 1,000 ML IV SCH (07:26)
[2018-06-09] MEDS ORDERED: Carvedilol 6.25 MG TAB PO SCH (08:00)
--- NOTE | 2018-06-09 08:38 | PDOC.PN ---
- Subjective Encounter Start Date: 06/09/18 Encounter Start Time: 08:06 Subjective: Patient feeling well in himself. No complaints. No further episodes of dizziness. States he has been well in recent days. Good appetite. Has lost 56 lbs since 12/2017, intentional. No CP/SOB. No palpitations. Ambulating without difficulty. At present eating/drinking as normal. No N/V or abdo pain. Reports frequent urination due to fluids. Requesting to stop IV fluids. No dysuria, hematuria. Maintaining adequate fluid intake by mouth. - Objective Resuscitation Status - Order Detail: 06/08/18 15:53 Resuscitation Status Routine Co-Sign Provider: Resuscitation Status: FULL: Full Resuscitation MAR Reviewed: Yes Vital Signs & Weight: Vital Signs (12 hours) Temp Pulse Resp BP BP Pulse Ox 06/09/18 03:25 97.4 F L 81 16 114/74 98 06/09/18 00:00 98.2 F 84 16 119/78 98 Weight Weight 248 lb I&O: 06/08/18 06/09/18 06/10/18 06:59 06:59 06:59 Intake Total 350 993 Balance 350 993 Result Diagrams: 06/09/18 05:27 06/09/18 05:27 Additional Labs: Accuchecks 06/09/18 06/08/18 05:41 21:13 POC Glucose 146 H 196 H Phys Exam - Physical Examination HEENT: PERRLA, moist MMs, sclera anicteric, oral pharynx no lesions Neck: no nodes, no JVD, supple, full ROM Respiratory: no wheezing, no rales, no rhonchi, clear to auscultation bilateral Cardiovascular: RRR, no significant murmur Gastrointestinal: soft, non-tender, positive bowel sounds Musculoskeletal: no edema, pulses present Neurological: non-focal, moves all 4 limbs Psychiatric: normal affect, A&O x 3 Skin: no rash, normal turgor, cap refill <2 seconds Dx/Plan (1) Dizziness Code(s): R42 - DIZZINESS AND GIDDINESS Status: Resolved (2) Diabetes mellitus Code(s): E11.9 - TYPE 2 DIABETES MELLITUS WITHOUT COMPLICATIONS Status: Chronic Qualifiers: Diabetes mellitus type: type 2 Diabetes mellitus complication status: without complication (3) Obesity Code(s): E66.9 - OBESITY, UNSPECIFIED Status: Chronic (4) Presence of prosthetic heart valve Code(s): Z95.2 - PRESENCE OF PROSTHETIC HEART VALVE Status: Chronic (5) Status post aorto-coronary artery bypass graft Code(s): Z95.1 - PRESENCE OF AORTOCORONARY BYPASS GRAFT Status: Chronic (6) HTN (hypertension) Code(s): I10 - ESSENTIAL (PRIMARY) HYPERTENSION Status: Chronic Qualifiers: Hypertension type: essential hypertension Qualified Code(s): I10 - Essential (primary) hypertension - Plan cont current plan of care Possible orthostatic hypotension - Hold Spirinolactone, repeat L/S BPs -: Pacemaker Interrogation notable for AT/AF continous since 06/05/18 at 8:56a -: - Cardiology consult requested. -: IV fluids discontinued per patients request, continue PO fluids -: Discussed with Dr. Roberts in agreement with plan as above. * .
[2018-06-09] MEDS ORDERED: LYCOP PO SCH (09:00)
[2018-06-09] MEDS ORDERED: Non-Formulary Item 1 EACH (Omeprazole Magnesium [Prilosec] 10 MG) PO SCH (09:00)
[2018-06-09] MEDS ORDERED: Atorvastatin Calcium 20 MG TAB PO SCH (09:00)
[2018-06-09] MEDS ORDERED: Aspirin 81 mg Enteric Coated Tablet PO SCH (09:00)
[2018-06-09] MEDS ORDERED: [UNRECOGNIZED DRUG - OTHER] PO SCH (09:00)
[2018-06-09] MEDS ORDERED: FOLIC PO SCH (09:00)
[2018-06-09] MEDS ORDERED: Multivitamin W/ Minerals 1 TAB PO SCH (09:00)
[2018-06-09] MEDS ORDERED: Spironolactone 25 MG TAB PO SCH (09:00)
[2018-06-09] MEDS ORDERED: MULTIVIT MIN PO SCH (09:00)
[2018-06-09] MEDS ORDERED: Folic Acid 1 MG TAB PO SCH (09:00)
[2018-06-09] MEDS ORDERED: predniSONE 5 MG TAB PO SCH (09:00)
[2018-06-09] MEDS: Acetaminophen ER (8hr) 650 MG TAB PO SCH (09:05)
[2018-06-09] MEDS: Potassium Chloride 20 MEQ TAB PO SCH (09:06)
[2018-06-09] MEDS: Apixaban 5 MG TAB PO SCH (09:06)
[2018-06-09] MEDS: Torsemide 20 MG TAB PO SCH (09:06)
[2018-06-09] MEDS: HumaLOG 300 UNITS/3 ML VIAL SC SCH ×2 (09:07→11:59)
[2018-06-09 12:31] VITALS: TEMP 98.1
[2018-06-09 15:41] VITALS: BP 118/82
[2018-06-09] MEDS ORDERED: Carvedilol 3.125 MG TAB PO SCH (17:00)
--- NOTE | 2018-06-09 21:04 | DIS ---
DATE OF ADMISSION: 06/08/2018 DATE OF DISCHARGE: 06/09/2018 CHIEF COMPLAINT: Episode of vertigo, lasting 30 minutes. DISCHARGE DIAGNOSES: 1. Dizziness, resolved. 2. Hypertension. 3. History of paroxysmal atrial fibrillation. 4. Pacemaker in place. 5. Diabetes mellitus. 6. History of coronary artery bypass graft and coronary artery disease. 7. Obesity. 8. Presence of prosthetic heart valve. CONSULTATIONS: . HOSPITAL COURSE: Mr. Hull is a very pleasant 78-year-old man, who was admitted to the hospital after having an episode of dizziness, lasting 30 minutes. He had complete resolution of his symptoms with no further complaints during his admission. He did undergo workup including a CT brain that was unremarkable. A CT angiography of the head also unremarkable. CT of the [place] also unremarkable. He underwent a chest x-ray that showed evidence of increasing left effusion and left lung atelectasis. Cardiomegaly noted. His pacemaker was interrogated, which showed AF/AT since June 05, 2018, at 8:56 a.m. continuously. Studies have been reviewed by Cardiology, . He has been cleared for discharge home with changes in his medications. His carvedilol has been decreased from 6.25 mg b.i.d. to 3.125 mg b.i.d. He has also had a reduction in his torsemide from 20 mg b.i.d. to 20 mg once daily. On day of discharge, the patient was feeling well. His blood pressure has been ranging from 98 to 119 over 67 to 82. He will follow up with Dr. Mora as scheduled next week for further evaluation and management. DISCHARGE MEDICATIONS: 1. Carvedilol reduced to 3.125 mg p.o. daily. The patient has a pill cutter and therefore, prescriptions were provided. 2. Torsemide reduced to 20 mg p.o. once daily. 3. Prednisone 5 mg p.o. daily. 4. Spironolactone 25 mg p.o. daily. 5. Klor-Con 20 mEq p.o. b.i.d. 6. Prilosec 20 mg p.o. daily. 7. Multivitamin 1 tablet p.o. daily. 8. Methotrexate 7.5 mg p.o. as directed. 9. Levemir 40 units subcutaneous at bedtime. 10. Latanoprost one drop each eye at bedtime. 11. Humalog 10 units subcutaneous t.i.d. with meals. 12. Folic acid 1 mg p.o. daily. 13. Etanercept 50 mg subcutaneous every 7 days. 14. Cholecalciferol 10,000 units p.o. daily. 15. Zyrtec 10 mg p.o. daily as needed. 16. Atorvastatin 20 mg p.o. daily. 17. Aspirin 81 mg p.o. daily. 18. Apixaban 5 mg p.o. b.i.d. 19. Acetaminophen ER 1250 mg p.o. b.i.d. DISCHARGE CONDITION: Stable. DISCHARGE ACTIVITY: As tolerated. DISCHARGE DIET: Heart healthy/diabetic diet. FOLLOWUP: The patient will follow up with his dispatcher refinery, Dr. Mora next week as scheduled. DISPOSITION: Deemed stable for discharge today, June 09, 2018. The patient's case was discussed with Dr. Roberts, who agrees with plan of care as described above. Job ID: [id number]
--- NOTE | 2018-06-10 04:10 | CON ---
DATE OF CONSULTATION: HISTORY OF PRESENT ILLNESS: The patient is a 78-year-old gentleman, who presented for evaluation of dizziness. The patient has a history of coronary artery disease. This year, he underwent a cardiac evaluation including a cardiac catheterization. He was found to have severe coronary artery disease and underwent CABG and aortic valve replacement. The patient also had placement of an electronic pacemaker following surgery. The patient was then diagnosed with atrial fibrillation and subsequently had been on Eliquis. The patient has a history of cerebrovascular accident. The patient was in his usual state of health when he suddenly became very dizzy , and felt like the room was spinning. The patient presented to the local emergency room. He states the symptoms resolved prior to being transferred to [facility]. The patient has not felt dizzy. He denies having any previous lightheadedness or dizziness. The patient does report that recently he has lost a lot of weight. The patient denied having any chest pain or palpitations. PAST MEDICAL HISTORY: 1. Coronary artery disease. 2. Atrial fibrillation. 3. Hypertension. 4. Dyslipidemia. 5. History of pacemaker placement. 6. Rheumatoid arthritis. PAST SURGICAL HISTORY: Back surgery, knee surgery, and carpal tunnel surgery. MEDICATIONS: See nursing list. ALLERGIES: NO KNOWN DRUG ALLERGIES. SOCIAL HISTORY: Nonsmoker. FAMILY HISTORY: Positive family history of heart disease. REVIEW OF SYSTEMS: Unremarkable. No history of easy bruising or bleeding. PHYSICAL EXAMINATION: GENERAL: Obese gentleman, in no acute distress. VITAL SIGNS: Blood pressure of 118/82, lying down; 107/80, when he was sitting up; and 113/69, when he was standing. NECK: Showed no jugular venous distention. LUNGS: Clear to auscultation. HEART: Regular rate and rhythm. Normal S1 and S2 with 1/6 systolic murmur. ABDOMEN: Distended. EXTREMITIES: Showed no edema. VASCULAR: Radial pulses are 2+. LABORATORY DATA: Sodium 139, potassium 4.5, chloride of 101, bicarbonate 30, BUN 19, creatinine is 0.94, glucose 152, troponin 0.019. White blood cell count 7.6 , hemoglobin 12.4, hematocrit 39.4, and his platelets are 220. His EKG revealed to have an electronic ventricular pacemaker. IMPRESSION: 1. Dizziness, possibly vertigo. 2. History of coronary artery bypass surgery. 3. History of aortic valve replacement. 4. History of pacemaker placement. 5. Atrial fibrillation. 6. Obesity. This gentleman presents with symptoms suggestive of vertigo. He underwent an apparent neurologic evaluation, where there was no evidence of cerebrovascular accident. From a cardiac standpoint, his blood pressure is slightly low. I would recommend decreasing the dose of his Coreg and Demadex. The patient from a cardiac standpoint will follow up with Dr. Mora. Job ID: [id number] MTDD
[2018-06-10] MEDS ORDERED: Torsemide 20 MG TAB PO SCH (09:00)
[2018-06-12] MEDS ORDERED: Methotrexate Sodium 2.5 MG TAB PO SCH (09:00)
[2018-06-19] MEDS ORDERED: Etanercept [Enbrel] 50 MG SC SCH (09:00)
== END 2018-06-09 16:55 | disposition home or self-care (01) ==
LOC: ERS 11:10 → 2SE 12:40
PROVIDERS: ADMIT Internal Medicine Infectious Disease; ATTEND Internal Medicine Infectious Disease
DX: R42 Dizziness and giddiness (principal); I25.10 Atherosclerotic heart disease of native coronary artery without angina pectoris; I48.0 Paroxysmal atrial fibrillation; E11.9 Type 2 diabetes mellitus without complications; I10 Essential (primary) hypertension; M06.9 Rheumatoid arthritis, unspecified; Z86.73 Personal history of transient ischemic attack (TIA), and cerebral infarction without residual deficits; E66.9 Obesity, unspecified; Z68.32 Body mass index [BMI] 32.0-32.9, adult; Z79.01 Long term (current) use of anticoagulants; Z79.4 Long term (current) use of insulin; Z79.52 Long term (current) use of systemic steroids; Z79.82 Long term (current) use of aspirin; Z79.899 Other long term (current) drug therapy; Z95.1 Presence of aortocoronary bypass graft; Z95.2 Presence of prosthetic heart valve
CPT/HCPCS: 70496; 70498; 80048; 82962 ×2; 84484; 85025; 96360; 96361 ×2; 99285; G0378 ×2; 36415; 36416

== ENCOUNTER 2018-06-14 11:57 | Outpatient (CLI) | payer MEDICARE, BC ==
--- NOTE | 2018-06-14 13:53 | RAD ---
CHEST TWO VIEWS: History: Dyspnea. Comparison: 06-08-18 FINDINGS: Re-demonstration of the left sided transvenous pacemaker, unchanged in position. Persistent opacifica tion of the left hemithorax. Subsequent obscuration of the left heart border. Stable aeration of the right lung. Stable hyperinflation. On the lateral projection, prosthetic aortic valve is noted. IMPRESSION: Persistent opacification of the left hemithorax. POS: [facility]
== END 2018-06-14 11:58 | disposition home or self-care (01) ==
LOC: RAD 11:57
PROVIDERS: ATTEND Internal Medicine Pulmonary Disease
DX: R06.00 Dyspnea, unspecified (principal)
CPT/HCPCS: 71046

== ENCOUNTER 2018-06-14 12:54 | Day surgery (SDC) | payer MEDICARE, BC ==
[2018-06-14] MEDS ORDERED: Lidocaine 1% (PF) 30 ML VIAL ONE (13:45)
--- NOTE | 2018-06-14 14:26 | HP ---
The patient is scheduled for an outpatient thoracentesis. The x-ray shows a large left pleural effusion. Mr. Hull was seen on 05/23/2018 for pleural effusion. At that time, he said he was feeling better. He was in the hospital several days ago for syncopal episode, uncontrolled blood pressure. Discharged home, medicines adjusted. He is due to see Dr. Mora, today. However, chest x-ray shows increasing left-sided pleural effusion. He also has a known history of congestive cardiomyopathy. He can walk 20 feet without getting markedly short of breath. PAST MEDICAL HISTORY: Pertinent for atrial fibrillation, diabetes, hypertension, CVA, and rheumatoid arthritis. Pertinent for CHF, cardiomyopathy, atrial fibrillation, sleep apnea, ablation, rheumatoid arthritis, and diabetes. PREVIOUS SURGERY: Including back operation at 75, knee surgery, CABG, AVR, and ablation. MEDICATIONS: List of medicine from home includes a CPAP machine, aspirin 81, Eliquis 5 mg two a day, Coreg 6.25 two a day, torsemide 20 once a day, Enbrel 50 as needed, insulin, and rescue inhaler. ALLERGIES: NONE. REVIEW OF SYSTEMS: Ten-point negative. PHYSICAL EXAMINATION: VITAL SIGNS: On examination; his sats 98% on room air, pulse 61, blood pressure 130/73, and respirations 18. CHEST: Decreased breath sounds on the entire left lung. CARDIAC: Normal S1 and S2. No gallops. ABDOMEN: Soft. No masses. EXTREMITIES: 2+ edema. IMPRESSION: 1. Increasing left pleural effusion. 2. Congestive heart failure. 3. Status post aortic valve replacement and coronary artery bypass grafting, biventricular pacer. PLAN: Thoracentesis will be performed. Further recommendation after above Job ID: [id number]
--- NOTE | 2018-06-14 15:32 | OP ---
DATE OF PROCEDURE: 06/14/2018 PROCEDURE PERFORMED: Thoracentesis. INDICATION: Pleural effusion. DESCRIPTION OF PROCEDURE: After informed consent, the left posterior thorax in the midscapular line was cleaned with chlorhexidine. A 1% Xylocaine was infiltrated into eighth intercostal space in the midscapular line. Initially about 2 mL of bloody effusion was removed. Thereafter, different area was infiltrated with lidocaine once again in the midscapular line. At this time, using an 18-gauge needle, about 10 mL of bloody effusion was removed. Thereafter, an 8-Guy[place] catheter was inserted and a total of 1400 mL of bloody effusion was removed to my surprise. At the end of procedure, the patient became somewhat lightheaded and complaining of some tightness sensation in his chest. His sats are 96% on room air with blood pressure 127/80 and pulse 80. Chest reveals decreased breath sounds in left lung. Right unremarkable. Cardiac; normal S1 and S2. No gallops or murmurs. IMPRESSION: Status post thoracentesis, large volume 400 mL of bloody effusion. X-ray being ordered. Fluid will be sent for appropriate studies including cytology. Dr. Mora, his water/wastewater project engineer, will be notified about the bloody effusion. He is taking Eliquis. I have been ordered to hold it for several days. Job ID: [id number]
--- NOTE | 2018-06-14 15:45 | RAD ---
PA AND LATERAL CHEST: Date: 06-14-18 Time: 2:08 p.m. History: Dyspnea. Post thoracentesis. FINDINGS/IMPRESSION: Comparison with earlier exam of 12:13 p.m. same date. There is continued opacification in the left he mithorax. No pneumothorax is seen. The remainder of the exam is stable. POS: OFF
[2018-06-14 16:07] LABS: BF Color Red; Body Fluid Source PLEURAL FLUID; Clarity Cloudy/Turbid (Clear); RBC Background Count 0.006; RBC Count-Automated 489000 /cumm; Tube # EDTA; WBC/NonHematic-Auto 2840 /cumm
[2018-06-14 16:14] LABS: Fluid, Triglycerides 23 mg/dL (Not Available); Pleural Fluid, Amylase Less than 30 U/L (Not Available); Pleural Fluid, Glucose 131 mg/dL; Pleural Fluid, LDH 239 U/L (Not Available); Pleural Fluid, Protein 3.8 g/dL
[2018-06-14 17:53] LABS: BF Segmented Neutrophils 7 %; Cell Count Non Hematic 11 %; Lymphocytes 81 %
--- NOTE | 2018-06-15 00:10 | PRG ---
DATE OF SERVICE: 06/14/2018 SUBJECTIVE: Post thoracentesis x-ray was taken, which showed pretty much resolution of most of his pleural effusion. There was some haziness in the left base, probably post effusion, compressive atelectasis. OBJECTIVE: VITAL SIGNS: His saturations are 98% on room air, pulse 82, blood pressure 120/86. GENERAL: He is sitting on the side of bed without any problems. CHEST: Decreased breath sounds. Crackles in the left base. CARDIAC: Normal S1 and S2. No gallops. ABDOMEN: No masses. IMPRESSION: 1. Left pleural effusion, post coronary artery bypass graft, post aortic valve replacement. 2. Cardiomyopathy. PLAN: Discussed with Dr. Mora, his keg raiser, who will probably see him later on today. Medication will be adjusted. I am going to see him back in a month with a chest x-ray in the office. BRIEF DISCHARGE NOTE: The patient tolerated the procedure well. Further recommendation upon review of his pleural effusion results. Job ID: [id number]
== END 2018-06-15 14:52 | disposition home or self-care (01) ==
LOC: SDC/OP 12:54
PROVIDERS: ATTEND Internal Medicine Pulmonary Disease
PROC: 0W9B3ZX Drainage of Left Pleural Cavity, Percutaneous Approach, Diagnostic (ICD-10-PCS; principal; 2018-06-14)
DX: J90 Pleural effusion, not elsewhere classified (principal); I42.9 Cardiomyopathy, unspecified; I48.91 Unspecified atrial fibrillation; E11.9 Type 2 diabetes mellitus without complications; G47.30 Sleep apnea, unspecified; M06.9 Rheumatoid arthritis, unspecified; I11.0 Hypertensive heart disease with heart failure; I50.9 Heart failure, unspecified; Z86.73 Personal history of transient ischemic attack (TIA), and cerebral infarction without residual deficits; Z79.01 Long term (current) use of anticoagulants; Z79.4 Long term (current) use of insulin; Z79.82 Long term (current) use of aspirin; Z79.899 Other long term (current) drug therapy; Z95.0 Presence of cardiac pacemaker; Z95.1 Presence of aortocoronary bypass graft; Z95.2 Presence of prosthetic heart valve; Z99.89 Dependence on other enabling machines and devices
CPT/HCPCS: 32554; 71045; 71046; 82150; 82945; 83615; 83986; 84157; 84478; 85060; 87070; 87116; 87205; 87206; 88112; 88305; 89051; J1642; J2001

== ENCOUNTER 2018-07-13 13:22 | Outpatient (CLI) | payer MEDICARE, BC ==
--- NOTE | 2018-07-13 14:30 | RAD ---
TWO VIEWS CHEST: History: Dyspnea. Date: 07-13-18 Comparison: 06-14-18 FINDINGS: Two views of the chest demonstrate sternotomy wires seen. There is a dual-lead intracardiac pacing de vice. Cardiomegaly is seen. There is a prosthetic cardiac valve. Left sided pleural effusion is seen, unchanged since the previous exam. The right lung is well aerate d. IMPRESSION: Left sided pleural effusion and cardiomegaly. POS: [facility]
== END 2018-07-13 13:23 | disposition home or self-care (01) ==
LOC: RAD 13:22
PROVIDERS: ATTEND Internal Medicine Pulmonary Disease
DX: R06.00 Dyspnea, unspecified (principal); J90 Pleural effusion, not elsewhere classified; I51.7 Cardiomegaly
CPT/HCPCS: 71046

== ENCOUNTER 2018-07-17 13:13 | Outpatient (CLI) | payer MEDICARE, BC ==
--- NOTE | 2018-07-17 16:08 | CT ---
NONCONTRAST ENHANCED CT CHEST: Date: 07-17-18 Comparison: 06-08-18 FINDINGS: Noncontrast enhanced CT of the chest demonstrates an intracardiac pacing device. Sternotomy wires see n. Extensive coronary artery calcification is seen. There is a TAVR in place. A moderate sized left sided pleural effusion seen with areas of left lobe atelectasis and some air br onchograms compatible with consolidation. The right lung is well aerated. IMPRESSION: Left lower lobe atelectasis with left sided pleural effusion. Radiographic appearance of the chest is stable and unchanged from 06-08-18. POS: [facility]
== END 2018-07-17 13:14 | disposition home or self-care (01) ==
LOC: BICCT 13:13
PROVIDERS: ATTEND Internal Medicine Pulmonary Disease
DX: J90 Pleural effusion, not elsewhere classified (principal); J98.11 Atelectasis
CPT/HCPCS: 71250

== ENCOUNTER 2018-07-27 07:33 | Inpatient (IN) | payer MEDICARE, BC ==
[2018-07-28] MEDS ORDERED: Midazolam HCl 2 mg/2 ml Vial ONE (06:29)
[2018-07-28] MEDS ORDERED: Fentanyl 100 MCG/2 ML VIAL ONE ×2 (06:29→06:30)
[2018-07-28] MEDS ORDERED: CEFAZOLIN 2 GM/50 ML BAG ONE ×2 (06:43→17:17)
[2018-07-28] MEDS ORDERED: Bupivacaine HCl 0.5%/Epinephrine 1:200,000/PF 30 ml Vial ONE (07:03)
[2018-07-28] MEDS ORDERED: Lidocaine 1.5% w/Epi 1:200K 30 ML VIAL (Epid Use) ONE (09:00)
[2018-07-28] MEDS ORDERED: Ondansetron HCl/PF 4 MG/2 ML Vial IVP PRN (09:13)
[2018-07-28] MEDS ORDERED: Fentanyl/Bupivacaine 100 ML EPIDURAL ONE (10:12)
--- NOTE | 2018-07-28 10:45 | CON ---
DATE OF CONSULTATION: 07/28/2018 HISTORY OF PRESENT ILLNESS: Ricardo Hull is a 78-year-old gentleman, who was admitted for decortication of his chronic left pleural effusion. He is postop in the recovery room, awake, alert, responsive, and epidural catheter being inserted. He was initially seen and underwent a thoracentesis on 06/14/2018 and 1400 mL of fluid was removed. It was bloody. He was status post aortic valve replacement bypass surgery by Dr. Gonzalez. He did well following the procedure, was still having some minimal symptoms. CAT scan shows loculated pleural effusion. He was therefore seen by Dr. Gonzalez and underwent decortication. PAST MEDICAL HISTORY: Well outlined including; 1. Diabetes. 2. Atrial fibrillation. 3. Hypertension. 4. CVA. 5. Rheumatoid arthritis. 6. Sleep apnea. 7. Ablation. PREVIOUS SURGERIES: Multiple including; 1. CABG. 2. AVR. 3. Back surgery. MEDICATIONS: His list of medicines are outlined. He has a CPAP at home. PHYSICAL EXAMINATION: GENERAL: In the recovery room, he has no distress, extubated. VITAL SIGNS: Blood pressure is 120/80, sats are 95, respiratory rate is 18, pulse 80. CHEST: Decreased breath sounds. No wheezing. CARDIAC: Normal S1 and S2. No gallops. ABDOMEN: No masses. LABORATORY DATA: His labs on 07/27 shows normal white count, normal H and H, normal lytes. IMPRESSION: Status post decortication, chronic effusion, rheumatoid arthritis, status post CABG and AVR, sleep apnea. PLAN: Hold off his anticoagulation. Supportive care. We will follow while in the hospital. Job ID: [id number]
--- NOTE | 2018-07-28 10:58 | OP ---
DATE OF PROCEDURE: 07/28/2018 PREOPERATIVE DIAGNOSIS: Chronic left hemothorax. POSTOPERATIVE DIAGNOSIS: Chronic left hemothorax/fibrothorax. PROCEDURE PERFORMED: Left thoracoscopy converted to thoracotomy with evacuation of hemothorax and total pulmonary decortication. ANESTHESIA: General endotracheal - Dr. Don Jesus. DRAINS: 32-Serbian chest tubes x2. SPECIMENS: None. DESCRIPTION OF PROCEDURE: After consent was obtained, the patient was brought to the operating room and placed in supine position on the operating room table. Appropriate central line was placed and general endotracheal anesthesia was induced. The patient was placed in the right lateral decubitus position. Joints were appropriately padded. SCDs were used. Left chest wall was prepped and draped in usual sterile fashion. Two port incisions were made and the thoracoscope was inserted. There was approximately 1100 mL of liquid bloody fluid which was evacuated. Numerous loculations were taken down and debrided. The chest was copiously irrigated until clear. After irrigating the chest, the lung was re-expanded. The lung did not expand at all. Therefore, we further evaluated the lung surface which was slick and cased in a fibrous peel. I did not feel that I could decorticate the visceral pleura safely thoracoscopically. Therefore, the anterior incision was extended and a lateral thoracotomy created. The ribs were spread. Once the ribs were spread, the peel was incised sharply and the peel completely decorticated from the surface of the lung. Once the upper and lower lobes were freed, the lung was inflated and expanded much nicer. The wounds were irrigated. A 32-Serbian chest tubes x2 were placed. The ribs were reapproximated with #1 Vicryl. Wounds were then irrigated and closed in layers and Dermabond applied to the skin. Dr. Jesus placed an epidural catheter postoperatively. The patient tolerated the procedure well, was transferred to the recovery room in stable condition. Job ID: [id number]
[2018-07-28] MEDS ORDERED: Ketorolac Tromethamine 30 MG/ML VIAL ONE (11:38)
--- NOTE | 2018-07-28 12:47 | RAD ---
PORTABLE CHEST ONE VIEW: 07/28/2018 9:15 a.m. HISTORY: Dyspnea. COMPARISON: 07/13/2018 FINDINGS: There has been interval placement of left-sided chest tubes with interval improvement in aeration of the left lung. No significant pneumothorax is seen. There are opacities in the left lung. The righ t lung is clear. Changes of median sternotomy and a left-sided pacemaker device are again noted. POS: [facility]
[2018-07-28 14:16] VITALS: BMI 31.4
[2018-07-28] MEDS ORDERED: Promethazine HCl 25 MG/ML VIAL IM PRN ×2 (18:25→19:00)
[2018-07-28] MEDS ORDERED: diphenhydrAMINE 25 MG CAP PO PRN ×2 (18:25→19:00)
[2018-07-28] MEDS ORDERED: HYDROcodone/Acetaminophen 5/325 mg Tablet PO PRN ×3 (18:25→19:00)
[2018-07-28] MEDS ORDERED: Phenylephrine 10 MG/NS 250 ML 250 ML IVPB PRN (18:25)
[2018-07-28] MEDS ORDERED: Nitroglycerin 50 MG/250 ML BOT 250 ML IVPB PRN (18:25)
[2018-07-28] MEDS ORDERED: hydrALAZINE 20 MG/ML VIAL SLOW IVP PRN (18:25)
[2018-07-28] MEDS ORDERED: CEFAZOLIN/Water 2 GM/20 ML SYRINGE SLOW IVP SCH (18:25)
[2018-07-28] MEDS ORDERED: Ondansetron PF 4 MG/2 ML Vial IVP PRN ×2 (18:25→19:00)
[2018-07-28] MEDS ORDERED: Naloxone HCl 0.4 mg/ml Vial IV PRN (19:00)
[2018-07-28] MEDS ORDERED: Naloxone HCl 0.4 mg/ml Vial IVP PRN (19:00)
[2018-07-28] MEDS ORDERED: diphenhydrAMINE 50 MG/ML VIAL IM PRN (19:00)
[2018-07-28] MEDS ORDERED: Bupivacaine 0.25% 10 ML VIAL EPIDURAL PRN (19:00)
[2018-07-28] MEDS ORDERED: Promethazine HCl 25 MG SUPP PR PRN (19:00)
[2018-07-28] MEDS ORDERED: Zolpidem Tartrate 5 MG TAB PO PRN (19:00)
[2018-07-28] MEDS ORDERED: Hydrocerin (Eucerin) Cream 120 gm Jar TOP PRN (19:00)
[2018-07-28] MEDS ORDERED: diphenhydrAMINE 50 MG/ML VIAL IVP PRN (19:00)
[2018-07-28] MEDS ORDERED: HumaLOG 300 UNITS/3 ML VIAL SC SCH (19:15)
[2018-07-28] MEDS ORDERED: Carvedilol 3.125 MG TAB PO SCH (19:15)
[2018-07-28] MEDS: Fentanyl/Bupivacaine 100 ML EPIDURAL SCH (19:26)
[2018-07-28] MEDS ORDERED: Potassium Chloride 20 MEQ TAB PO SCH (20:00)
[2018-07-28] MEDS: CEFAZOLIN 2 GM/50 ML-DEXTROSE 2 GM in Premix Bag 1 BAG IVPB SCH ×2 (20:01→20:13)
[2018-07-28] MEDS: Latanoprost 0.005% Ophth Soln 2.5 ml Bottle EA EYE SCH (20:10)
[2018-07-28] MEDS: Torsemide 20 MG TAB PO SCH (20:10)
[2018-07-28] MEDS: Insulin Glargine 40 UNITS in Pre-Filled Syringe 1 EACH SC SCH (20:13)
[2018-07-28] MEDS: Insulin Regular 300 UNITS/3 ML VIAL SC PRN (20:14)
[2018-07-28] MEDS ORDERED: Levemir Flexpen 100 UNITS/ML PEN SC SCH (21:00)
[2018-07-29] MEDS: Ketorolac Tromethamine 30 MG/ML VIAL IVP SCH ×4 (00:02→18:21)
[2018-07-29] MEDS: CEFAZOLIN 2 GM/50 ML-DEXTROSE 2 GM in Premix Bag 1 BAG IVPB SCH ×2 (00:03→10:03)
[2018-07-29 02:52] LABS: #Lymphocytes 1.5 thou/uL (1.20-3.40); #Monocytes 1.2 thou/uL (0.11-0.59); #Neutrophils 10.4 thou/uL (1.40-6.50); %Basophils 0.1 % (0.0-1.0); %Lymphocytes 11.4 % (21.0-51.0); %Monocytes 9.2 % (0.0-10.0); %Neutrophils 79.2 % (42.0-75.0); Hemoglobin 11.5 g/dL (14.0-18.0); Mean Corpuscular HGB CONC 32.4 g/dL (32.0-36.0); Mean Corpuscular Volume 89.6 fL (78.0-98.0); Platelet Count 215 thou/uL (130-400); RBC Distribution Width 15.7 % (11.5-14.5); Red Blood Cell (RBC) Count 3.97 mill/uL (4.70-6.10); White Blood Cell (WBC) Count 13.1 thou/uL (4.8-10.8)
[2018-07-29 03:24] LABS: Anion Gap 12 mmol/L (10-20); BUN (Urea Nitrogen) 23 mg/dL (8.4-25.7); Calc. Creatinine Clearance 94 mL/min (70-130); Calcium 8.8 mg/dL (7.8-10.44); Carbon Dioxide 26 mmol/L (23-31); Chloride 101 mmol/L (98-107); Estimated GFR-MDRD 72; Glucose 193 mg/dL (83-110); Potassium 4.2 mmol/L (3.5-5.1); Sodium 135 mmol/L (136-145)
--- NOTE | 2018-07-29 07:44 | RAD ---
CHEST 1 VIEW: Date: 07/29/18 INDICATION: History of thoracotomy. COMPARISON: Prior exam dated 07/28/18. FINDINGS: Left-sided thoracostomy tube is unchanged. Cardiomegaly is stable. Hazy perihilar left air space opac ities persist. No definite pneumothorax is evident. Right lung is clear. IMPRESSION: Stable exam. No definite pneumothorax is seen. Persistent left perihilar air space opacity. POS: [facility]
[2018-07-29] MEDS: HumaLOG 300 UNITS/3 ML VIAL SC SCH ×3 (07:57→18:14)
[2018-07-29] MEDS: Fentanyl/Bupivacaine 100 ML EPIDURAL SCH ×2 (07:58→20:44)
[2018-07-29] MEDS: Torsemide 20 MG TAB PO SCH ×2 (07:59→20:45)
[2018-07-29] MEDS: Folic Acid 1 MG TAB PO SCH (07:59)
[2018-07-29] MEDS: Carvedilol 3.125 MG TAB PO SCH ×2 (07:59→18:12)
[2018-07-29] MEDS: Potassium Chloride 20 MEQ TAB PO SCH ×2 (07:59→18:12)
[2018-07-29] MEDS: predniSONE 5 MG TAB PO SCH (07:59)
[2018-07-29] MEDS: Atorvastatin Calcium 20 MG TAB PO SCH (07:59)
[2018-07-29] MEDS: Aspirin 81 mg Enteric Coated Tablet PO SCH (07:59)
[2018-07-29] MEDS: Spironolactone 25 MG TAB PO SCH (07:59)
[2018-07-29] MEDS: Multivitamin W/ Minerals 1 TAB PO SCH (07:59)
[2018-07-29] MEDS ORDERED: Calcium Carbonate 500 MG ChewTAB PO PRN (12:29)
--- NOTE | 2018-07-29 14:39 | PRG ---
DATE OF SERVICE: 07/29/2018 SERVICE: Pulmonary Medicine. INTERVAL HISTORY: The patient is doing fine from respiratory standpoint. He is breathing comfortably. His pain is under control. He has no complaints of chest pain, fevers, or chills. Otherwise, there has been no interval change to his condition. He is tolerating p.o. He is going to be moving to the floor soon. PHYSICAL EXAMINATION: VITAL SIGNS: Afebrile, pulse 83, blood pressure 125/75, respirations 21, saturation 98% on room air. GENERAL: The patient is awake and alert, in no apparent distress. LUNGS: Decent air entry. Crackles are present, particularly on the left. There is a slightly prolonged expiratory phase, but I do not appreciate wheezing or rhonchi. HEART: Normal rate, regular. ABDOMEN: Soft, nontender, and nondistended. Bowel sounds are positive. MUSCULOSKELETAL: No cyanosis or clubbing. There is trace pitting in the bilateral lower extremities. NEUROLOGIC: Grossly nonfocal. LABORATORY DATA: WBC 13.1, hemoglobin 11.5, platelets 215,000. Basic metabolic profile is unremarkable otherwise. IMAGING: Chest x-ray demonstrates a small pneumothorax. There is opacification of the left posterior lung ames. Otherwise, no acute cardiopulmonary abnormality is identified. The right lung is essentially clear. ASSESSMENT: 1. Chronic pleural effusion, status post decortication, postop day 1. 2. Rheumatoid arthritis. 3. History of coronary artery bypass graft. DISCUSSION AND PLAN: The patient is going to be transitioned to the floor. Pulmonary will continue to follow for the time being. He still has a small air leak and is putting out significant amounts of fluid from his thoracostomy tube. I will continue mobilization efforts through time. Job ID: [id number]
[2018-07-29] MEDS: Latanoprost 0.005% Ophth Soln 2.5 ml Bottle EA EYE SCH (20:45)
[2018-07-29] MEDS: Insulin Glargine 40 UNITS in Pre-Filled Syringe 1 EACH SC SCH (20:53)
[2018-07-30] MEDS: Ketorolac Tromethamine 30 MG/ML VIAL IVP SCH ×4 (00:58→18:04)
[2018-07-30] MEDS ORDERED: Sodium Chloride 0.9% 10 ML ONE ×3 (07:46→17:26)
[2018-07-30] MEDS: Carvedilol 3.125 MG TAB PO SCH ×2 (08:39→18:08)
[2018-07-30] MEDS: HumaLOG 300 UNITS/3 ML VIAL SC SCH ×3 (08:39→18:12)
[2018-07-30] MEDS: Potassium Chloride 20 MEQ TAB PO SCH ×2 (08:39→18:08)
[2018-07-30] MEDS: Aspirin 81 mg Enteric Coated Tablet PO SCH (08:40)
[2018-07-30] MEDS: Atorvastatin Calcium 20 MG TAB PO SCH (08:40)
[2018-07-30] MEDS: Folic Acid 1 MG TAB PO SCH (08:40)
[2018-07-30] MEDS: predniSONE 5 MG TAB PO SCH (08:40)
[2018-07-30] MEDS: Multivitamin W/ Minerals 1 TAB PO SCH (08:40)
[2018-07-30] MEDS: Torsemide 20 MG TAB PO SCH ×2 (08:41→21:40)
[2018-07-30] MEDS: Spironolactone 25 MG TAB PO SCH (08:41)
[2018-07-30] MEDS: Fentanyl/Bupivacaine 100 ML EPIDURAL SCH ×2 (09:29→22:43)
--- NOTE | 2018-07-30 10:45 | RAD ---
PORTABLE CHEST: Date: 07/30/18 COMPARISON: 07/29/18. HISTORY: Status post thoracotomy. FINDINGS: Heart size is enlarged. There are postop sternotomy changes and pacemaker. Left-sided chest tubes rem ain in place. I do not see a significant degree in change of the appearance of the chest. There is th e possibility of a slight loculated pneumothorax in the left base. IMPRESSION: Stable exam. POS: [facility]
--- NOTE | 2018-07-30 17:31 | PRG ---
DATE OF SERVICE: 07/30/2018 SERVICE: Pulmonary Medicine. INTERVAL HISTORY: The patient relates having no shortness of breath at this point. He is tolerating p.o. Denies any current fevers, chills, nausea, vomiting, or diarrhea. Otherwise, there has been no interval change to his condition. His pain is under very good control right now. He is taking very good breaths. PHYSICAL EXAMINATION: VITAL SIGNS: Afebrile, pulse 78, blood pressure 120/63, respirations 20, and saturation 98% on room air. GENERAL: The patient is awake and alert, in no apparent distress. LUNGS: Decent air entry with no prolonged expiratory phase, wheezing, rhonchi, or crackles. HEART: Normal rate and regular. ABDOMEN: Soft, nontender, and nondistended. Bowel sounds are positive. MUSCULOSKELETAL: No cyanosis or clubbing. No pitting in the bilateral lower extremities. NEUROLOGIC: Grossly nonfocal. LABORATORY DATA: Blood sugar runs from 166 to 283. IMAGING DATA: Chest x-ray demonstrates thoracostomy tube is in good position. The right lung has no acute cardiopulmonary abnormality. There was some significant infiltrate scattered throughout the most of the left lung. ASSESSMENT: 1. Chronic pleural effusion, status post decortication, postop day #2. 2. Rheumatoid arthritis. 3. History of coronary artery bypass graft. DISCUSSION AND PLAN: I will repeat a CBC and a basic metabolic profile tomorrow morning. Otherwise, supportive measures will be continued. He continues to have persistent, improving air leak. Obviously, the thoracostomy drain will remain in place. Job ID: [id number]
[2018-07-30] MEDS: Insulin Glargine 40 UNITS in Pre-Filled Syringe 1 EACH SC SCH (21:40)
[2018-07-30] MEDS: Latanoprost 0.005% Ophth Soln 2.5 ml Bottle EA EYE SCH (21:40)
[2018-07-31 05:31] LABS: #Eosinphils 0.1 thou/uL (0.0-0.7); #Lymphocytes 1.5 thou/uL (1.20-3.40); #Monocytes 1.1 thou/uL (0.11-0.59); %Basophils 0.2 % (0.0-1.0); %Eosinophils 1.2 % (0.0-10.0); %Monocytes 10.3 % (0.0-10.0); %Neutrophils 74.3 % (42.0-75.0); Hemoglobin 11.2 g/dL (14.0-18.0); Mean Corpuscular HGB CONC 32.2 g/dL (32.0-36.0); Mean Corpuscular Hemoglobin 29.1 pg (27.0-31.0); Mean Corpuscular Volume 90.4 fL (78.0-98.0); Mean Platelet Volume 9.9 fL (7.4-10.4); Platelet Count 207 thou/uL (130-400); RBC Distribution Width 15.9 % (11.5-14.5); Red Blood Cell (RBC) Count 3.86 mill/uL (4.70-6.10); White Blood Cell (WBC) Count 10.7 thou/uL (4.8-10.8)
[2018-07-31 05:44] LABS: Anion Gap 16 mmol/L (10-20); BUN (Urea Nitrogen) 25 mg/dL (8.4-25.7); Calc. Creatinine Clearance 105 mL/min (70-130); Calcium 9.3 mg/dL (7.8-10.44); Carbon Dioxide 25 mmol/L (23-31); Chloride 96 mmol/L (98-107); Estimated GFR-MDRD 82; Glucose 136 mg/dL (83-110); Potassium 3.8 mmol/L (3.5-5.1); Sodium 133 mmol/L (136-145)
--- NOTE | 2018-07-31 08:27 | RAD ---
SINGLE VIEW CHEST: Date: 07/31/18 COMPARISON: 07/30/18. HISTORY: Status post thoracotomy. FINDINGS: Single view of the chest shows an enlarged but stable cardiomediastinal silhouette. The patient is st atus post sternotomy. The pacemaker is unchanged in position. There are two left-sided chest tubes, u nchanged in position. No pneumothorax is seen. Opacity is seen in the left thorax which may represent a small residual pleural effusion and adjacent infiltrate. IMPRESSION: Stable exam. POS: [facility]
[2018-07-31] MEDS: Carvedilol 3.125 MG TAB PO SCH ×2 (08:49→16:48)
[2018-07-31] MEDS: HumaLOG 300 UNITS/3 ML VIAL SC SCH ×3 (08:50→18:11)
[2018-07-31] MEDS: predniSONE 5 MG TAB PO SCH (08:51)
[2018-07-31] MEDS: Atorvastatin Calcium 20 MG TAB PO SCH (08:51)
[2018-07-31] MEDS: Potassium Chloride 20 MEQ TAB PO SCH ×2 (08:51→16:48)
[2018-07-31] MEDS: Folic Acid 1 MG TAB PO SCH (08:51)
[2018-07-31] MEDS: Aspirin 81 mg Enteric Coated Tablet PO SCH (08:51)
[2018-07-31] MEDS: Multivitamin W/ Minerals 1 TAB PO SCH (08:52)
[2018-07-31] MEDS: Torsemide 20 MG TAB PO SCH ×2 (08:52→21:54)
[2018-07-31] MEDS: Spironolactone 25 MG TAB PO SCH (08:52)
--- NOTE | 2018-07-31 10:24 | PRG ---
DATE OF SERVICE: 07/31/2018 SUBJECTIVE: This morning, the patient is awake, alert, responsive, less pain. OBJECTIVE: VITAL SIGNS: Blood pressure 117/64, saturations 98% on room air, respiratory rate 16, temperature 99. CHEST: Decreased breath sounds in the left lung. CARDIAC: Normal S1, S2. No gallops. ABDOMEN: No masses. LABORATORY DATA: Lytes are normal. White count unremarkable. IMPRESSION: Status post left lung decortication, loculated bloody effusion, status post coronary artery bypass grafting, and obesity. PLAN: Continue supportive care, PT. Home when CT is removed. Job ID: [id number]
[2018-07-31] MEDS: Fentanyl/Bupivacaine 100 ML EPIDURAL SCH (12:55)
[2018-07-31] MEDS ORDERED: Etanercept [Enbrel] 50 MG SC SCH ×2 (17:00→21:00)
[2018-07-31] MEDS: Insulin Glargine 40 UNITS in Pre-Filled Syringe 1 EACH SC SCH (21:54)
[2018-07-31] MEDS: Latanoprost 0.005% Ophth Soln 2.5 ml Bottle EA EYE SCH (21:55)
[2018-08-01] MEDS: Fentanyl/Bupivacaine 100 ML EPIDURAL SCH ×2 (02:05→15:22)
[2018-08-01] MEDS ORDERED: Lidocaine 1% (PF) 30 ML VIAL FS SCH (02:30)
[2018-08-01] MEDS ORDERED: Furosemide 40 MG/4 ML VIAL SLOW IVP SCH (07:15)
[2018-08-01] MEDS: HumaLOG 300 UNITS/3 ML VIAL SC SCH ×3 (08:14→17:52)
[2018-08-01] MEDS: Potassium Chloride 20 MEQ TAB PO SCH ×2 (08:16→16:39)
[2018-08-01] MEDS: predniSONE 5 MG TAB PO SCH (08:16)
[2018-08-01] MEDS: Spironolactone 25 MG TAB PO SCH (08:16)
[2018-08-01] MEDS: Multivitamin W/ Minerals 1 TAB PO SCH (08:16)
[2018-08-01] MEDS: Torsemide 20 MG TAB PO SCH ×2 (08:16→21:10)
[2018-08-01] MEDS: Carvedilol 3.125 MG TAB PO SCH ×2 (08:16→16:39)
[2018-08-01] MEDS: Atorvastatin Calcium 20 MG TAB PO SCH (08:16)
[2018-08-01] MEDS: Aspirin 81 mg Enteric Coated Tablet PO SCH (08:16)
[2018-08-01] MEDS: Folic Acid 1 MG TAB PO SCH (08:17)
--- NOTE | 2018-08-01 08:30 | RAD ---
SINGLE VIEW OF THE CHEST: Comparison: 07-31-18 History: Status post thoracotomy. FINDINGS: Single view of the chest shows an enlarged but stable cardiomediastinal silhouette. The patient is st atus post sternotomy for aortic valve replacement. There are left sided chest tubes. There is a stabl e veil-like opacity in the left thorax which likely represents a layering pleural effusion. The pacem hilario is unchanged in position. IMPRESSION: Stable exam. POS: [facility]
--- NOTE | 2018-08-01 09:16 | PRG ---
DATE OF SERVICE: 08/01/2018 SUBJECTIVE: This morning, he is awake, alert, and responsive. No pain. No shortness of breath. OBJECTIVE: VITAL SIGNS: Sats are 96% on room air, respirations 16, temperature 97, blood pressure 122/70. CHEST: Decreased breath sounds in the left base. CARDIAC: Normal S1 and S2. No gallops. ABDOMEN: No mass. ASSESSMENT AND PLAN: Status post decortication of left chest, secondary to trapped hemothorax. PLAN: The patient is doing quite well. Continue PT, supportive care. Home when chest tube has been discontinued. Job ID: [id number]
[2018-08-01] MEDS ORDERED: Bisacodyl 10 MG SUPP PR SCH (18:15)
[2018-08-01] MEDS: Latanoprost 0.005% Ophth Soln 2.5 ml Bottle EA EYE SCH (21:09)
[2018-08-01] MEDS: Insulin Glargine 40 UNITS in Pre-Filled Syringe 1 EACH SC SCH (21:11)
[2018-08-02] MEDS: HYDROcodone/Acetaminophen 5/325 mg Tablet PO PRN ×3 (01:11→12:09)
--- NOTE | 2018-08-02 06:59 | DIS ---
DATE OF ADMISSION: 07/28/2018 DATE OF DISCHARGE: 08/02/2018 DIAGNOSIS: Left chronic hemothorax, status post multiple thoracenteses. PROCEDURE: Left thoracotomy with evacuation of clotted hemothorax and total pulmonary decortication. DESCRIPTION OF HOSPITAL STAY: Mr. Hull had been chronically short of breath and had undergone thoracentesis for a hemothorax. He re-presented with recurrent hemothorax, was taken to the operating room, underwent decortication and evacuation of his hemothorax. His Eliquis has been stopped. He has been in a V-paced rhythm since he has been here with no signs of fibrillation. At the time of discharge, he is ambulatory, tolerating regular diet, having good bowel and bladder function. DISCHARGE MEDICATIONS: Unchanged from his home medication list except for the stoppage of Eliquis. FOLLOWUP: Followup would be with me in 2 weeks. Job ID: [id number]
[2018-08-02] MEDS ORDERED: Potassium Chloride 20 MEQ TAB PO SCH (08:00)
--- NOTE | 2018-08-02 08:26 | RAD ---
PORTABLE CHEST 1 VIEW: Date: 08/02/18 Time: 0606 hours HISTORY: Status post thoracotomy. FINDINGS/IMPRESSION: There has been interval removal of the left-sided chest tube since the previous day's exam. No defini te pneumothorax is seen. The remainder of the exam is otherwise stable. POS: [facility]
--- NOTE | 2018-08-02 08:37 | PRG ---
DATE OF SERVICE: 08/02/2018 SUBJECTIVE: This morning, he is awake, alert, and responsive. His chest tube was removed. OBJECTIVE: VITAL SIGNS: Saturations are 97% on room air, respirations 14, pulse 80, temperature 97, blood pressure 117/64. CHEST: Decreased breath sounds without any wheezing. CARDIAC: Normal S1 and S2. No gallops. ABDOMEN: No masses. LABORATORY DATA: X-ray shows left-sided haziness, status post decortication. IMPRESSION: Status post left-sided decortication for a loculated hemothorax, status post coronary artery bypass grafting, advanced age, deconditioning. PLAN: Discharged home. He was told to call the office in 7 weeks to follow up. Job ID: [id number]
[2018-08-02] MEDS ORDERED: Furosemide 20 MG TAB PO SCH (09:00)
[2018-08-02] MEDS ORDERED: Bisacodyl 5 MG TAB PO SCH (09:00)
[2018-08-02] MEDS: Spironolactone 25 MG TAB PO SCH (09:07)
[2018-08-02] MEDS: Torsemide 20 MG TAB PO SCH (09:07)
[2018-08-02] MEDS: predniSONE 5 MG TAB PO SCH (09:07)
[2018-08-02] MEDS: Folic Acid 1 MG TAB PO SCH (09:07)
[2018-08-02] MEDS: Multivitamin W/ Minerals 1 TAB PO SCH (09:08)
[2018-08-02] MEDS: Atorvastatin Calcium 20 MG TAB PO SCH (09:08)
[2018-08-02] MEDS: Potassium Chloride 20 MEQ TAB PO SCH (09:08)
[2018-08-02] MEDS: Aspirin 81 mg Enteric Coated Tablet PO SCH (09:08)
[2018-08-02] MEDS: Carvedilol 3.125 MG TAB PO SCH (09:08)
[2018-08-02] MEDS: HumaLOG 300 UNITS/3 ML VIAL SC SCH ×2 (09:15→12:06)
[2018-08-02] MEDS: Insulin Regular 300 UNITS/3 ML VIAL SC PRN (12:06)
[2018-08-02 12:47] VITALS: BP 117/56; TEMP 97.6
[2018-08-07] MEDS ORDERED: Non-Formulary Item 1 EACH (Etanercept [Enbrel] 50 MG) SC SCH (09:00)
[2018-08-07] MEDS ORDERED: Etanercept [Enbrel] 50 MG SC SCH (09:00)
== END 2018-08-02 13:30 | disposition home or self-care (01) | DRG 165 ==
LOC: SURG A 07-28 05:43 → CCU 07-28 17:46 → 2NO 07-29 15:35
PROVIDERS: ADMIT Thoracic Surgery (Cardiothoracic Vascular Surgery); ATTEND Thoracic Surgery (Cardiothoracic Vascular Surgery)
PROC: 0W9B4ZZ Drainage of Left Pleural Cavity, Percutaneous Endoscopic Approach (ICD-10-PCS; principal; 2018-07-28)
PROC: 0BNJ0ZZ Release Left Lower Lung Lobe, Open Approach (ICD-10-PCS; 2018-07-28)
PROC: 0BNG0ZZ Release Left Upper Lung Lobe, Open Approach (ICD-10-PCS; 2018-07-28)
DX: J94.2 Hemothorax (principal); E11.9 Type 2 diabetes mellitus without complications; I48.91 Unspecified atrial fibrillation; I10 Essential (primary) hypertension; M06.9 Rheumatoid arthritis, unspecified; G47.30 Sleep apnea, unspecified; E66.01 Morbid (severe) obesity due to excess calories; E78.2 Mixed hyperlipidemia; I25.10 Atherosclerotic heart disease of native coronary artery without angina pectoris; Z68.31 Body mass index [BMI] 31.0-31.9, adult; Z79.82 Long term (current) use of aspirin; Z79.4 Long term (current) use of insulin; Z86.73 Personal history of transient ischemic attack (TIA), and cerebral infarction without residual deficits; Z95.1 Presence of aortocoronary bypass graft
CPT/HCPCS: 36415; 36416; 71045; 80048; 85025; 85027; 86850; 86900; 86901; 93005; 93010; J0131; J0670; J1642; J1825; J1885; J1940; J2001; J2250; J3010; J7512

== ENCOUNTER 2018-07-27 07:58 | Outpatient (CLI) | payer MEDICARE, BC ==
[2018-07-27 15:38] LABS: Hemoglobin 13.4 g/dL (14.0-18.0); Mean Corpuscular HGB CONC 31.1 g/dL (32.0-36.0); Mean Corpuscular Hemoglobin 27.9 pg (27.0-31.0); Mean Corpuscular Volume 89.6 fL (78.0-98.0); Platelet Count 233 thou/uL (130-400); RBC Distribution Width 15.9 % (11.5-14.5); White Blood Cell (WBC) Count 8.6 thou/uL (4.8-10.8)
[2018-07-27 15:59] LABS: Anion Gap 16 mmol/L (10-20); BUN (Urea Nitrogen) 22 mg/dL (8.4-25.7); Calc. Creatinine Clearance 0 mL/min (70-130); Calcium 9.8 mg/dL (7.8-10.44); Carbon Dioxide 26 mmol/L (23-31); Chloride 99 mmol/L (98-107); Estimated GFR-MDRD 76; Glucose 191 mg/dL (83-110); Potassium 4.2 mmol/L (3.5-5.1); Sodium 137 mmol/L (136-145)
== END 2018-07-27 07:59 | disposition home or self-care (01) ==
LOC: EDSTATUS 07:58 → LABBT 07:58
PROVIDERS: ATTEND Thoracic Surgery (Cardiothoracic Vascular Surgery)
DX: Z01.812 Encounter for preprocedural laboratory examination (principal); J90 Pleural effusion, not elsewhere classified
CPT/HCPCS: 80048; 85027; 86850; 86900; 86901; 93005; 93010

== ENCOUNTER 2018-08-14 14:07 | Outpatient (CLI) | payer MEDICARE, BC ==
--- NOTE | 2018-08-14 15:51 | RAD ---
CHEST 2 VIEWS: HISTORY: Recurrent pleural effusion. COMPARISON: Radiograph 08/02/2018. FINDINGS: Mild slight decreased layering effusion. Left basilar opacity. The right lung is clear. Aortic charles ve replacement is similar. Cardiac leads are similar. IMPRESSION: Mildly size decreased left layering pleural effusion. POS: [facility]
== END 2018-08-14 14:08 | disposition home or self-care (01) ==
LOC: RAD 14:07
PROVIDERS: ATTEND Thoracic Surgery (Cardiothoracic Vascular Surgery)
DX: J90 Pleural effusion, not elsewhere classified (principal)
CPT/HCPCS: 71046

== ENCOUNTER 2018-09-11 13:41 | Outpatient (CLI) | payer MEDICARE, BC ==
--- NOTE | 2018-09-11 15:10 | RAD ---
TWO VIEW CHEST: History: Dyspnea. Comparison: 08-14-18 FINDINGS: Left pleural effusion with left basilar infiltrate and atelectasis, similar in appearance to the prio r exam. Right lung remains clear. Heart size mildly prominent with post op sternotomy change. Pacemak er leads are unchanged. IMPRESSION: Left effusion and left basilar atelectasis, not significantly changed. POS: [facility]
== END 2018-09-11 13:42 | disposition home or self-care (01) ==
LOC: RAD 13:41
PROVIDERS: ATTEND Thoracic Surgery (Cardiothoracic Vascular Surgery)
DX: Z51.81 Encounter for therapeutic drug level monitoring (principal); I48.91 Unspecified atrial fibrillation; J90 Pleural effusion, not elsewhere classified; J98.11 Atelectasis; Z79.01 Long term (current) use of anticoagulants
CPT/HCPCS: 71046

== ENCOUNTER 2019-03-12 12:08 | Outpatient (CLI) | payer MEDICARE, BC ==
--- NOTE | 2019-03-12 14:33 | RAD ---
PA AND LATERAL CHEST: HISTORY: Dyspnea. COMPARISON: 09/11/2018 FINDINGS: Heart size is enlarged with postop sternotomy change and a pacemaker. Obscuration of the left heart border and pleural changes of the left base all appear stable. IMPRESSION: Stable examination. POS: [facility]
== END 2019-03-12 12:09 | disposition home or self-care (01) ==
LOC: RAD 12:08
PROVIDERS: ATTEND Internal Medicine Pulmonary Disease
DX: J90 Pleural effusion, not elsewhere classified (principal); R06.00 Dyspnea, unspecified
CPT/HCPCS: 71046

== ENCOUNTER 2019-04-11 09:37 | Outpatient (CLI) | payer MEDICARE, BC ==
--- NOTE | 2019-04-11 11:51 | BD ---
BONE DENSITOMETRY: Date: 04/11/19 HISTORY: 79-year-old male for osteoporosis screening. FINDINGS: Lumbar Spine: BMD (g/cm2) L1 1.240 T-Score: 1.5 L2 1.340 T-Score: 2.2 L3 1.493 T-Score: 3.5 L4 1.441 T-Score: 3.2 Total 1.378 T-Score: 2.6 Left Femoral Neck: 0.974 T-Score: 0.3 Total Femur: 1.259 T-Score: 1.5 IMPRESSION: Bone mineral density of the lumbar spine and femoral neck are both within normal range. 10 YEAR FRACTURE RISK: Major osteoporotic fracture: 5.1% Hip fracture: 0.8% POS: [facility]
== END 2019-04-11 09:38 | disposition home or self-care (01) ==
LOC: BICMAMMO 09:37
PROVIDERS: ATTEND Internal Medicine Rheumatology
DX: M81.0 Age-related osteoporosis without current pathological fracture (principal)
CPT/HCPCS: 77080

== ENCOUNTER 2021-02-15 01:13 | Inpatient (IN) | payer MEDICARE, BC ==
[2021-02-15 03:54] VITALS: BMI 34.4
[2021-02-15] MEDS: Ondansetron PF 4 MG/2 ML Vial IVP PRN ×2 (05:04→11:48)
[2021-02-15] MEDS ORDERED: Methotrexate Sodium 2.5 MG TAB PO SCH (08:45)
[2021-02-15 08:54] LABS: #Lymphocytes 1.2 thou/uL (1.20-3.40); #Monocytes 0.8 thou/uL (0.11-0.59); #Neutrophils 8.9 thou/uL (1.40-6.50); %Basophils 0.3 % (0.0-1.0); %Eosinophils 0.1 % (0.0-10.0); %Lymphocytes 10.9 % (21.0-51.0); %Monocytes 7.4 % (0.0-10.0); %Neutrophils 81.2 % (42.0-75.0); Hemoglobin 12.5 g/dL (14.0-18.0); Mean Corpuscular HGB CONC 34.6 g/dL (32.0-36.0); Mean Corpuscular Hemoglobin 31.2 pg (27.0-31.0); Mean Corpuscular Volume 90.1 fL (78.0-98.0); Mean Platelet Volume 10.7 fL (7.4-10.4); Platelet Count 128 thou/uL (130-400); RBC Distribution Width 13.9 % (11.5-14.5); White Blood Cell (WBC) Count 10.9 thou/uL (4.8-10.8)
[2021-02-15] MEDS ORDERED: Non-Formulary Item 1 EACH (Omeprazole Magnesium [Prilosec] 10 MG Suspdr.Pkt) PO SCH (09:00)
[2021-02-15] MEDS ORDERED: CHOLECALCIFEROL 10000 UNIT PO SCH (09:00)
[2021-02-15] MEDS ORDERED: Acetaminophen ER (8hr) 650 MG TAB PO SCH (09:00)
[2021-02-15] MEDS ORDERED: [UNRECOGNIZED DRUG - OTHER] PO SCH (09:00)
[2021-02-15] MEDS ORDERED: FOLIC PO SCH (09:00)
[2021-02-15] MEDS ORDERED: [UNRECOGNIZED DRUG - OTHER] PO SCH (09:00)
[2021-02-15] MEDS ORDERED: LYCOP PO SCH (09:00)
[2021-02-15] MEDS ORDERED: Cefepime 2 GM in Sodium Chloride 0.9% 100 ML IVPB SCH (09:00)
[2021-02-15] MEDS ORDERED: Cetirizine HCl 10 MG TAB PO SCH (09:00)
[2021-02-15] MEDS ORDERED: MULTIVIT MIN PO SCH (09:00)
[2021-02-15] MEDS ORDERED: Ondansetron PF 4 MG/2 ML Vial IVP PRN (09:02)
[2021-02-15] MEDS ORDERED: Dextrose 5% in Water 1,000 ML IV PRN (09:02)
[2021-02-15] MEDS ORDERED: Dextrose 50% Abboject 50 ML SYRINGE SLOW IVP PRN (09:02)
[2021-02-15 09:13] LABS: ALT (SGPT) 16 U/L (8-55); AST (SGOT) 17 U/L (5-34); Albumin 3.6 g/dL (3.4-4.8); Alkaline Phosphatase 79 U/L (40-110); Anion Gap 11 mmol/L (10-20); BUN (Urea Nitrogen) 12 mg/dL (8.4-25.7); Calc. Creatinine Clearance 108 mL/min (70-130); Calcium 8.8 mg/dL (7.8-10.44); Carbon Dioxide 25 mmol/L (23-31); Chloride 103 mmol/L (98-107); Globulin 2.7 g/dL (2.4-3.5); Glucose 239 mg/dL (83-110); Potassium 4.4 mmol/L (3.5-5.1); Protein, Total 6.3 g/dL (5.8-8.1); Sodium 135 mmol/L (136-145)
[2021-02-15] MEDS: Vancomycin 1 GM in Premix Bag 1 BAG IVPB SCH ×2 (09:41→20:39)
[2021-02-15] MEDS: Aspirin 81 mg Enteric Coated Tablet PO SCH (09:41)
[2021-02-15] MEDS: Cholecalciferol 1,000 UNITS (25 MCG) TAB PO SCH (09:43)
[2021-02-15] MEDS: Folic Acid 1 MG TAB PO SCH (09:44)
[2021-02-15] MEDS: Atorvastatin Calcium 20 MG TAB PO SCH (09:44)
[2021-02-15] MEDS: Clopidogrel Bisulfate 75 MG TAB PO SCH (09:44)
[2021-02-15] MEDS: Loratadine 10 MG TAB PO SCH (09:44)
[2021-02-15] MEDS: Multivitamin W/ Minerals 1 TAB PO SCH (09:45)
[2021-02-15] MEDS: Spironolactone 25 MG TAB PO SCH (09:55)
[2021-02-15] MEDS: Torsemide 20 MG TAB PO SCH ×2 (09:58→20:39)
[2021-02-15] MEDS: Cefepime 2 GM in Sodium Chloride 0.9% 100 ML IVPB SCH ×2 (11:42→23:14)
[2021-02-15] MEDS: HumaLOG 300 UNITS/3 ML VIAL SC SCH ×2 (11:42→18:26)
[2021-02-15] MEDS ORDERED: HumaLOG 300 UNITS/3 ML VIAL SC SCH (12:00)
[2021-02-15] MEDS: Carvedilol 3.125 MG TAB PO SCH (18:25)
[2021-02-15] MEDS: Lantus 1000 UNITS/10 ML VIAL SC SCH (20:37)
[2021-02-15] MEDS: Acetaminophen ER (8hr) 650 MG TAB PO SCH (20:38)
[2021-02-15] MEDS: Latanoprost 0.005% Ophth Soln 2.5 ml Bottle EA EYE SCH (20:40)
[2021-02-15] MEDS ORDERED: Non-Formulary Item 1 EACH (Levemir Flexpen [Levemir Flexpen] 100 UNITS/ML Pen) SC SCH (21:00)
[2021-02-16 05:56] LABS: #Eosinphils 0.2 thou/uL (0.0-0.7); #Lymphocytes 1.6 thou/uL (1.20-3.40); #Monocytes 1.1 thou/uL (0.11-0.59); #Neutrophils 6.5 thou/uL (1.40-6.50); %Basophils 0.1 % (0.0-1.0); %Eosinophils 2.3 % (0.0-10.0); %Lymphocytes 16.8 % (21.0-51.0); %Monocytes 11.8 % (0.0-10.0); %Neutrophils 68.9 % (42.0-75.0); Hemoglobin 12.4 g/dL (14.0-18.0); Mean Corpuscular HGB CONC 35.3 g/dL (32.0-36.0); Mean Corpuscular Volume 90.5 fL (78.0-98.0); Mean Platelet Volume 10.5 fL (7.4-10.4); Platelet Count 117 thou/uL (130-400); RBC Distribution Width 14.1 % (11.5-14.5); Red Blood Cell (RBC) Count 3.87 mill/uL (4.70-6.10); White Blood Cell (WBC) Count 9.5 thou/uL (4.8-10.8)
[2021-02-16 06:14] LABS: Anion Gap 13 mmol/L (10-20); BUN (Urea Nitrogen) 14 mg/dL (8.4-25.7); Calc. Creatinine Clearance 104 mL/min (70-130); Calcium 8.8 mg/dL (7.8-10.44); Carbon Dioxide 27 mmol/L (23-31); Chloride 101 mmol/L (98-107); Glucose 165 mg/dL (83-110); Potassium 3.6 mmol/L (3.5-5.1); Sodium 137 mmol/L (136-145)
[2021-02-16] MEDS: Carvedilol 3.125 MG TAB PO SCH ×2 (08:43→19:29)
[2021-02-16] MEDS: Acetaminophen ER (8hr) 650 MG TAB PO SCH ×2 (08:44→20:40)
[2021-02-16] MEDS: Aspirin 81 mg Enteric Coated Tablet PO SCH (08:44)
[2021-02-16] MEDS: Enoxaparin Sodium 40 MG/0.4 ML SYRINGE SC SCH (08:44)
[2021-02-16] MEDS: Spironolactone 25 MG TAB PO SCH (08:45)
[2021-02-16] MEDS: Clopidogrel Bisulfate 75 MG TAB PO SCH (08:45)
[2021-02-16] MEDS: Multivitamin W/ Minerals 1 TAB PO SCH (08:45)
[2021-02-16] MEDS: Loratadine 10 MG TAB PO SCH (08:45)
[2021-02-16] MEDS: Atorvastatin Calcium 20 MG TAB PO SCH (08:45)
[2021-02-16] MEDS: Folic Acid 1 MG TAB PO SCH (08:46)
[2021-02-16] MEDS: Torsemide 20 MG TAB PO SCH ×2 (08:46→20:55)
[2021-02-16] MEDS: HumaLOG 300 UNITS/3 ML VIAL SC SCH ×3 (08:50→19:43)
[2021-02-16] MEDS: Cholecalciferol 1,000 UNITS (25 MCG) TAB PO SCH (08:53)
[2021-02-16] MEDS: Vancomycin 1 GM in Premix Bag 1 BAG IVPB SCH (08:53)
[2021-02-16] MEDS: Cefepime 2 GM in Sodium Chloride 0.9% 100 ML IVPB SCH (11:30)
[2021-02-16] MEDS: HumaLOG 300 UNITS/3 ML VIAL SC PRN (16:39)
[2021-02-16] MEDS ORDERED: cefTRIAXone\\ROCEPHIN 1 GM in Sodium Chloride 0.9% 100 ML IVPB SCH (16:45)
[2021-02-16] MEDS: cefTRIAXone\\ROCEPHIN 1 GM in Sodium Chloride 0.9% 100 ML IVPB SCH (19:28)
[2021-02-16] MEDS: Lantus 1000 UNITS/10 ML VIAL SC SCH (20:41)
[2021-02-16] MEDS: Latanoprost 0.005% Ophth Soln 2.5 ml Bottle EA EYE SCH (20:41)
[2021-02-17 06:30] LABS: #Eosinphils 0.2 thou/uL (0.0-0.7); #Lymphocytes 1.6 thou/uL (1.20-3.40); #Monocytes 1.1 thou/uL (0.11-0.59); #Neutrophils 5.7 thou/uL (1.40-6.50); %Basophils 0.3 % (0.0-1.0); %Eosinophils 1.9 % (0.0-10.0); %Lymphocytes 18.2 % (21.0-51.0); %Monocytes 12.8 % (0.0-10.0); %Neutrophils 66.8 % (42.0-75.0); Hemoglobin 12.9 g/dL (14.0-18.0); Mean Corpuscular HGB CONC 34.3 g/dL (32.0-36.0); Mean Corpuscular Hemoglobin 30.9 pg (27.0-31.0); Mean Corpuscular Volume 89.9 fL (78.0-98.0); Mean Platelet Volume 10.3 fL (7.4-10.4); Platelet Count 147 thou/uL (130-400); RBC Distribution Width 13.9 % (11.5-14.5); Red Blood Cell (RBC) Count 4.18 mill/uL (4.70-6.10); White Blood Cell (WBC) Count 8.6 thou/uL (4.8-10.8)
[2021-02-17 06:50] LABS: Anion Gap 12 mmol/L (10-20); BUN (Urea Nitrogen) 11 mg/dL (8.4-25.7); Calc. Creatinine Clearance 111 mL/min (70-130); Calcium 8.9 mg/dL (7.8-10.44); Carbon Dioxide 28 mmol/L (23-31); Chloride 99 mmol/L (98-107); Glucose 142 mg/dL (83-110); Potassium 3.2 mmol/L (3.5-5.1); Sodium 136 mmol/L (136-145)
[2021-02-17] MEDS ORDERED: Potassium Chloride 20 MEQ TAB PO SCH (08:00)
[2021-02-17] MEDS: Acetaminophen ER (8hr) 650 MG TAB PO SCH ×2 (10:12→20:32)
[2021-02-17] MEDS: Folic Acid 1 MG TAB PO SCH (10:13)
[2021-02-17] MEDS: Aspirin 81 mg Enteric Coated Tablet PO SCH (10:13)
[2021-02-17] MEDS: Cholecalciferol 1,000 UNITS (25 MCG) TAB PO SCH (10:13)
[2021-02-17] MEDS: Atorvastatin Calcium 20 MG TAB PO SCH (10:13)
[2021-02-17] MEDS: Clopidogrel Bisulfate 75 MG TAB PO SCH (10:14)
[2021-02-17] MEDS: Loratadine 10 MG TAB PO SCH (10:15)
[2021-02-17] MEDS: Spironolactone 25 MG TAB PO SCH (10:15)
[2021-02-17] MEDS: Multivitamin W/ Minerals 1 TAB PO SCH (10:15)
[2021-02-17] MEDS: Torsemide 20 MG TAB PO SCH ×2 (10:15→20:32)
[2021-02-17] MEDS: Enoxaparin Sodium 40 MG/0.4 ML SYRINGE SC SCH (10:15)
[2021-02-17] MEDS: Carvedilol 3.125 MG TAB PO SCH ×2 (10:25→17:03)
[2021-02-17] MEDS: HumaLOG 300 UNITS/3 ML VIAL SC SCH ×3 (10:25→17:47)
[2021-02-17] MEDS: HYDROcodone/Acetaminophen 5/325 mg Tablet PO SCH ×2 (12:51→20:32)
[2021-02-17] MEDS ORDERED: Docusate 100 MG CAP PO PRN (16:10)
[2021-02-17] MEDS ORDERED: traMADol HCl 50 MG TAB PO PRN (16:10)
[2021-02-17] MEDS ORDERED: Polyethylene Glycol 3350 17 GM Packet PO SCH (16:15)
[2021-02-17] MEDS: traMADol HCl 50 MG TAB PO PRN (17:03)
[2021-02-17] MEDS: HumaLOG 300 UNITS/3 ML VIAL SC PRN (17:04)
[2021-02-17] MEDS: cefTRIAXone\\ROCEPHIN 1 GM in Sodium Chloride 0.9% 100 ML IVPB SCH (18:05)
[2021-02-17] MEDS: Lantus 1000 UNITS/10 ML VIAL SC SCH (20:32)
[2021-02-17] MEDS: Latanoprost 0.005% Ophth Soln 2.5 ml Bottle EA EYE SCH (20:33)
[2021-02-17] MEDS: diphenhydrAMINE 25 MG CAP PO PRN (21:29)
[2021-02-18] MEDS: traMADol HCl 50 MG TAB PO PRN ×2 (01:01→10:54)
[2021-02-18 06:23] LABS: Anion Gap 12 mmol/L (10-20); BUN (Urea Nitrogen) 12 mg/dL (8.4-25.7); Calc. Creatinine Clearance 119 mL/min (70-130); Calcium 8.9 mg/dL (7.8-10.44); Carbon Dioxide 30 mmol/L (23-31); Chloride 98 mmol/L (98-107); Glucose 160 mg/dL (83-110); Potassium 3.3 mmol/L (3.5-5.1); Sodium 137 mmol/L (136-145)
[2021-02-18] MEDS ORDERED: Potassium Chloride 20 MEQ TAB PO SCH (08:45)
[2021-02-18] MEDS: Carvedilol 3.125 MG TAB PO SCH ×2 (09:02→17:23)
[2021-02-18] MEDS: HYDROcodone/Acetaminophen 5/325 mg Tablet PO SCH ×3 (09:02→20:45)
[2021-02-18] MEDS: Cholecalciferol 1,000 UNITS (25 MCG) TAB PO SCH (09:03)
[2021-02-18] MEDS: Multivitamin W/ Minerals 1 TAB PO SCH (09:04)
[2021-02-18] MEDS: Atorvastatin Calcium 20 MG TAB PO SCH (09:04)
[2021-02-18] MEDS: Enoxaparin Sodium 40 MG/0.4 ML SYRINGE SC SCH (09:04)
[2021-02-18] MEDS: Folic Acid 1 MG TAB PO SCH (09:04)
[2021-02-18] MEDS: Torsemide 20 MG TAB PO SCH ×2 (09:04→20:45)
[2021-02-18] MEDS: Clopidogrel Bisulfate 75 MG TAB PO SCH (09:04)
[2021-02-18] MEDS: Loratadine 10 MG TAB PO SCH (09:04)
[2021-02-18] MEDS: Aspirin 81 mg Enteric Coated Tablet PO SCH (09:04)
[2021-02-18] MEDS: Spironolactone 25 MG TAB PO SCH (09:04)
[2021-02-18] MEDS: Polyethylene Glycol 3350 17 GM Packet PO SCH (09:05)
[2021-02-18] MEDS: HumaLOG 300 UNITS/3 ML VIAL SC SCH ×3 (09:06→17:24)
[2021-02-18] MEDS: Acetaminophen ER (8hr) 650 MG TAB PO SCH ×2 (10:53→20:45)
[2021-02-18] MEDS: Clindamycin/D5W 600 MG in Premix Bag 1 BAG IVPB SCH ×2 (13:47→20:54)
[2021-02-18] MEDS: diphenhydrAMINE 25 MG CAP PO PRN (20:46)
[2021-02-18] MEDS: Latanoprost 0.005% Ophth Soln 2.5 ml Bottle EA EYE SCH (20:48)
[2021-02-18] MEDS: Lantus 1000 UNITS/10 ML VIAL SC SCH (20:48)
[2021-02-18] MEDS: CEFEPIME HCL IN DEXTROSE 5 % 1 GM in Premix Bag 1 BAG IVPB SCH (20:54)
[2021-02-18] MEDS ORDERED: Cefepime 1 GM in Sodium Chloride 0.9% 100 ML IVPB SCH (21:00)
[2021-02-19] MEDS: traMADol HCl 50 MG TAB PO PRN ×3 (03:50→16:24)
[2021-02-19] MEDS: Clindamycin/D5W 600 MG in Premix Bag 1 BAG IVPB SCH ×3 (05:44→20:27)
[2021-02-19 07:07] LABS: Anion Gap 11 mmol/L (10-20); BUN (Urea Nitrogen) 10 mg/dL (8.4-25.7); Calc. Creatinine Clearance 112 mL/min (70-130); Carbon Dioxide 33 mmol/L (23-31); Chloride 97 mmol/L (98-107); Glucose 128 mg/dL (83-110); Potassium 3.6 mmol/L (3.5-5.1); Sodium 137 mmol/L (136-145)
[2021-02-19] MEDS: HYDROcodone/Acetaminophen 5/325 mg Tablet PO SCH ×3 (08:20→20:28)
[2021-02-19] MEDS: Aspirin 81 mg Enteric Coated Tablet PO SCH (08:21)
[2021-02-19] MEDS: Cholecalciferol 1,000 UNITS (25 MCG) TAB PO SCH (08:21)
[2021-02-19] MEDS: HumaLOG 300 UNITS/3 ML VIAL SC SCH ×3 (08:21→16:23)
[2021-02-19] MEDS: Multivitamin W/ Minerals 1 TAB PO SCH (08:22)
[2021-02-19] MEDS: Atorvastatin Calcium 20 MG TAB PO SCH (08:22)
[2021-02-19] MEDS: Folic Acid 1 MG TAB PO SCH (08:22)
[2021-02-19] MEDS: Loratadine 10 MG TAB PO SCH (08:22)
[2021-02-19] MEDS: Clopidogrel Bisulfate 75 MG TAB PO SCH (08:23)
[2021-02-19] MEDS: Carvedilol 3.125 MG TAB PO SCH ×2 (08:23→16:23)
[2021-02-19] MEDS: Polyethylene Glycol 3350 17 GM Packet PO SCH (08:25)
[2021-02-19] MEDS: Spironolactone 25 MG TAB PO SCH (10:27)
[2021-02-19] MEDS: Enoxaparin Sodium 40 MG/0.4 ML SYRINGE SC SCH (10:28)
[2021-02-19] MEDS: Torsemide 20 MG TAB PO SCH ×2 (10:28→20:27)
[2021-02-19] MEDS: CEFEPIME HCL IN DEXTROSE 5 % 1 GM in Premix Bag 1 BAG IVPB SCH ×2 (10:33→20:26)
[2021-02-19] MEDS: Bisacodyl 5 MG TAB PO PRN (10:37)
[2021-02-19] MEDS: Acetaminophen ER (8hr) 650 MG TAB PO SCH ×2 (13:50→20:28)
[2021-02-19] MEDS: Lantus 1000 UNITS/10 ML VIAL SC SCH (20:27)
[2021-02-19] MEDS: Latanoprost 0.005% Ophth Soln 2.5 ml Bottle EA EYE SCH (20:27)
[2021-02-19] MEDS: diphenhydrAMINE 25 MG CAP PO PRN (20:28)
[2021-02-20] MEDS: traMADol HCl 50 MG TAB PO PRN ×2 (04:05→23:55)
[2021-02-20] MEDS: Clindamycin/D5W 600 MG in Premix Bag 1 BAG IVPB SCH ×3 (05:27→21:36)
[2021-02-20 06:56] LABS: Anion Gap 14 mmol/L (10-20); BUN (Urea Nitrogen) 11 mg/dL (8.4-25.7); Calc. Creatinine Clearance 115 mL/min (70-130); Calcium 9.3 mg/dL (7.8-10.44); Carbon Dioxide 28 mmol/L (23-31); Chloride 96 mmol/L (98-107); Glucose 125 mg/dL (83-110); Potassium 3.4 mmol/L (3.5-5.1); Sodium 135 mmol/L (136-145)
[2021-02-20] MEDS: Loratadine 10 MG TAB PO SCH (09:41)
[2021-02-20] MEDS: Multivitamin W/ Minerals 1 TAB PO SCH (09:41)
[2021-02-20] MEDS: Folic Acid 1 MG TAB PO SCH (09:41)
[2021-02-20] MEDS: Atorvastatin Calcium 20 MG TAB PO SCH (09:41)
[2021-02-20] MEDS: Clopidogrel Bisulfate 75 MG TAB PO SCH (09:41)
[2021-02-20] MEDS: Aspirin 81 mg Enteric Coated Tablet PO SCH (09:41)
[2021-02-20] MEDS: Polyethylene Glycol 3350 17 GM Packet PO SCH (09:42)
[2021-02-20] MEDS: Cholecalciferol 1,000 UNITS (25 MCG) TAB PO SCH (09:42)
[2021-02-20] MEDS: Torsemide 20 MG TAB PO SCH ×2 (09:42→19:28)
[2021-02-20] MEDS: Carvedilol 3.125 MG TAB PO SCH ×2 (09:43→17:28)
[2021-02-20] MEDS: Enoxaparin Sodium 40 MG/0.4 ML SYRINGE SC SCH (09:44)
[2021-02-20] MEDS: HYDROcodone/Acetaminophen 5/325 mg Tablet PO SCH ×3 (09:44→19:28)
[2021-02-20] MEDS: HumaLOG 300 UNITS/3 ML VIAL SC SCH ×3 (09:45→17:27)
[2021-02-20] MEDS: CEFEPIME HCL IN DEXTROSE 5 % 1 GM in Premix Bag 1 BAG IVPB SCH ×2 (09:48→19:28)
[2021-02-20] MEDS: Bisacodyl 5 MG TAB PO PRN (10:03)
[2021-02-20] MEDS: Spironolactone 25 MG TAB PO SCH (10:03)
[2021-02-20] MEDS: Acetaminophen ER (8hr) 650 MG TAB PO SCH ×2 (10:04→19:27)
[2021-02-20] MEDS ORDERED: Potassium Chloride 20 MEQ TAB PO SCH (11:30)
[2021-02-20] MEDS: Lantus 1000 UNITS/10 ML VIAL SC SCH (19:36)
[2021-02-20] MEDS: Latanoprost 0.005% Ophth Soln 2.5 ml Bottle EA EYE SCH (19:36)
[2021-02-21] MEDS: Clindamycin/D5W 600 MG in Premix Bag 1 BAG IVPB SCH ×3 (05:29→21:24)
[2021-02-21] MEDS: traMADol HCl 50 MG TAB PO PRN (05:29)
[2021-02-21 07:02] LABS: Anion Gap 13 mmol/L (10-20); BUN (Urea Nitrogen) 13 mg/dL (8.4-25.7); Calc. Creatinine Clearance 108 mL/min (70-130); Calcium 9.2 mg/dL (7.8-10.44); Carbon Dioxide 28 mmol/L (23-31); Chloride 97 mmol/L (98-107); Glucose 146 mg/dL (83-110); Potassium 3.8 mmol/L (3.5-5.1); Sodium 134 mmol/L (136-145)
[2021-02-21] MEDS: Atorvastatin Calcium 20 MG TAB PO SCH (08:43)
[2021-02-21] MEDS: Clopidogrel Bisulfate 75 MG TAB PO SCH (08:43)
[2021-02-21] MEDS: HYDROcodone/Acetaminophen 5/325 mg Tablet PO SCH ×3 (08:43→20:22)
[2021-02-21] MEDS: Aspirin 81 mg Enteric Coated Tablet PO SCH (08:44)
[2021-02-21] MEDS: Carvedilol 3.125 MG TAB PO SCH ×2 (08:44→17:12)
[2021-02-21] MEDS: Multivitamin W/ Minerals 1 TAB PO SCH (08:44)
[2021-02-21] MEDS: Enoxaparin Sodium 40 MG/0.4 ML SYRINGE SC SCH (08:44)
[2021-02-21] MEDS: Loratadine 10 MG TAB PO SCH (08:44)
[2021-02-21] MEDS: Polyethylene Glycol 3350 17 GM Packet PO SCH (08:44)
[2021-02-21] MEDS: Folic Acid 1 MG TAB PO SCH (08:44)
[2021-02-21] MEDS: Torsemide 20 MG TAB PO SCH ×2 (08:45→21:28)
[2021-02-21] MEDS: HumaLOG 300 UNITS/3 ML VIAL SC SCH ×3 (08:45→17:14)
[2021-02-21] MEDS: CEFEPIME HCL IN DEXTROSE 5 % 1 GM in Premix Bag 1 BAG IVPB SCH ×2 (08:46→20:34)
[2021-02-21] MEDS: Acetaminophen ER (8hr) 650 MG TAB PO SCH ×2 (08:46→20:36)
[2021-02-21] MEDS: Cholecalciferol 1,000 UNITS (25 MCG) TAB PO SCH (08:46)
[2021-02-21] MEDS: Spironolactone 25 MG TAB PO SCH (08:47)
[2021-02-21] MEDS: Bisacodyl 5 MG TAB PO PRN (08:51)
[2021-02-21] MEDS: Latanoprost 0.005% Ophth Soln 2.5 ml Bottle EA EYE SCH (20:33)
[2021-02-21] MEDS: Lantus 1000 UNITS/10 ML VIAL SC SCH (20:38)
[2021-02-22] MEDS: traMADol HCl 50 MG TAB PO PRN (03:01)
[2021-02-22 06:11] LABS: #Eosinphils 0.2 thou/uL (0.0-0.7); #Lymphocytes 1.3 thou/uL (1.20-3.40); #Neutrophils 4.5 thou/uL (1.40-6.50); %Basophils 0.6 % (0.0-1.0); %Eosinophils 2.7 % (0.0-10.0); %Lymphocytes 18.6 % (21.0-51.0); %Monocytes 14.1 % (0.0-10.0); Hemoglobin 12.8 g/dL (14.0-18.0); Mean Corpuscular HGB CONC 34.7 g/dL (32.0-36.0); Mean Corpuscular Volume 89.2 fL (78.0-98.0); Mean Platelet Volume 9.9 fL (7.4-10.4); Platelet Count 171 thou/uL (130-400); RBC Distribution Width 13.6 % (11.5-14.5); Red Blood Cell (RBC) Count 4.12 mill/uL (4.70-6.10); White Blood Cell (WBC) Count 7.1 thou/uL (4.8-10.8)
[2021-02-22] MEDS: Clindamycin/D5W 600 MG in Premix Bag 1 BAG IVPB SCH ×3 (06:27→22:24)
[2021-02-22 06:33] LABS: Anion Gap 13 mmol/L (10-20); BUN (Urea Nitrogen) 13 mg/dL (8.4-25.7); Calc. Creatinine Clearance 103 mL/min (70-130); Calcium 9.4 mg/dL (7.8-10.44); Carbon Dioxide 32 mmol/L (23-31); Chloride 94 mmol/L (98-107); Glucose 138 mg/dL (83-110); Potassium 3.8 mmol/L (3.5-5.1); Sodium 135 mmol/L (136-145)
[2021-02-22] MEDS: CEFEPIME HCL IN DEXTROSE 5 % 1 GM in Premix Bag 1 BAG IVPB SCH ×2 (09:24→21:31)
[2021-02-22] MEDS: HumaLOG 300 UNITS/3 ML VIAL SC SCH ×3 (09:24→17:53)
[2021-02-22] MEDS: Spironolactone 25 MG TAB PO SCH (09:24)
[2021-02-22] MEDS: Carvedilol 3.125 MG TAB PO SCH ×2 (09:25→17:53)
[2021-02-22] MEDS: Torsemide 20 MG TAB PO SCH ×2 (09:25→20:28)
[2021-02-22] MEDS: HYDROcodone/Acetaminophen 5/325 mg Tablet PO SCH ×3 (09:25→20:20)
[2021-02-22] MEDS: Aspirin 81 mg Enteric Coated Tablet PO SCH (09:25)
[2021-02-22] MEDS: Clopidogrel Bisulfate 75 MG TAB PO SCH (09:25)
[2021-02-22] MEDS: Atorvastatin Calcium 20 MG TAB PO SCH (09:25)
[2021-02-22] MEDS: Multivitamin W/ Minerals 1 TAB PO SCH (09:26)
[2021-02-22] MEDS: Enoxaparin Sodium 40 MG/0.4 ML SYRINGE SC SCH (09:26)
[2021-02-22] MEDS: Cholecalciferol 1,000 UNITS (25 MCG) TAB PO SCH (09:26)
[2021-02-22] MEDS: Loratadine 10 MG TAB PO SCH (09:26)
[2021-02-22] MEDS: Folic Acid 1 MG TAB PO SCH (09:26)
[2021-02-22] MEDS: Polyethylene Glycol 3350 17 GM Packet PO SCH (09:27)
[2021-02-22] MEDS: Acetaminophen ER (8hr) 650 MG TAB PO SCH ×2 (10:27→20:26)
[2021-02-22] MEDS: VANCOMYCIN 1.25 GM/250 ML BAG 1.25 GM in Premix Bag 1 BAG IVPB SCH (19:18)
[2021-02-22] MEDS: Latanoprost 0.005% Ophth Soln 2.5 ml Bottle EA EYE SCH (20:29)
[2021-02-22] MEDS: Lantus 1000 UNITS/10 ML VIAL SC SCH (20:31)
[2021-02-22] MEDS ORDERED: Vancomycin 1 GM in Premix Bag 1 BAG IVPB SCH (21:00)
[2021-02-23] MEDS: traMADol HCl 50 MG TAB PO PRN ×2 (03:33→12:44)
[2021-02-23] MEDS: Clindamycin/D5W 600 MG in Premix Bag 1 BAG IVPB SCH ×3 (05:21→22:27)
[2021-02-23] MEDS: HumaLOG 300 UNITS/3 ML VIAL SC PRN ×2 (05:25→15:06)
[2021-02-23] MEDS: VANCOMYCIN 1.25 GM/250 ML BAG 1.25 GM in Premix Bag 1 BAG IVPB SCH ×2 (06:09→18:39)
[2021-02-23] MEDS: Multivitamin W/ Minerals 1 TAB PO SCH (08:49)
[2021-02-23] MEDS: Cholecalciferol 1,000 UNITS (25 MCG) TAB PO SCH (08:49)
[2021-02-23] MEDS: Torsemide 20 MG TAB PO SCH ×2 (08:49→22:27)
[2021-02-23] MEDS: Clopidogrel Bisulfate 75 MG TAB PO SCH (08:51)
[2021-02-23] MEDS: Atorvastatin Calcium 20 MG TAB PO SCH (08:52)
[2021-02-23] MEDS: Folic Acid 1 MG TAB PO SCH (08:52)
[2021-02-23] MEDS: Spironolactone 25 MG TAB PO SCH (08:52)
[2021-02-23] MEDS: Carvedilol 3.125 MG TAB PO SCH ×2 (08:52→18:39)
[2021-02-23] MEDS: Loratadine 10 MG TAB PO SCH (08:52)
[2021-02-23] MEDS: Aspirin 81 mg Enteric Coated Tablet PO SCH (08:53)
[2021-02-23] MEDS: HYDROcodone/Acetaminophen 5/325 mg Tablet PO SCH ×3 (08:53→20:12)
[2021-02-23] MEDS: Polyethylene Glycol 3350 17 GM Packet PO SCH (08:54)
[2021-02-23 08:55] LABS: #Eosinphils 0.2 thou/uL (0.0-0.7); #Lymphocytes 1.4 thou/uL (1.20-3.40); #Neutrophils 5.5 thou/uL (1.40-6.50); %Basophils 0.5 % (0.0-1.0); %Eosinophils 2.2 % (0.0-10.0); %Lymphocytes 17.2 % (21.0-51.0); %Monocytes 12.1 % (0.0-10.0); Hemoglobin 12.7 g/dL (14.0-18.0); Mean Corpuscular HGB CONC 34.8 g/dL (32.0-36.0); Mean Corpuscular Hemoglobin 31.3 pg (27.0-31.0); Mean Platelet Volume 10.6 fL (7.4-10.4); Platelet Count 170 thou/uL (130-400); RBC Distribution Width 13.8 % (11.5-14.5); Red Blood Cell (RBC) Count 4.05 mill/uL (4.70-6.10); White Blood Cell (WBC) Count 8.1 thou/uL (4.8-10.8)
[2021-02-23] MEDS: Enoxaparin Sodium 40 MG/0.4 ML SYRINGE SC SCH (08:55)
[2021-02-23] MEDS: HumaLOG 300 UNITS/3 ML VIAL SC SCH ×3 (08:56→18:39)
[2021-02-23] MEDS: CEFEPIME HCL IN DEXTROSE 5 % 1 GM in Premix Bag 1 BAG IVPB SCH (08:57)
[2021-02-23 09:16] LABS: Anion Gap 12 mmol/L (10-20); BUN (Urea Nitrogen) 14 mg/dL (8.4-25.7); Calc. Creatinine Clearance 101 mL/min (70-130); Calcium 9.3 mg/dL (7.8-10.44); Carbon Dioxide 31 mmol/L (23-31); Chloride 96 mmol/L (98-107); Glucose 144 mg/dL (83-110); Potassium 3.6 mmol/L (3.5-5.1); Sodium 135 mmol/L (136-145)
[2021-02-23] MEDS: Acetaminophen ER (8hr) 650 MG TAB PO SCH ×2 (12:46→22:37)
[2021-02-23] MEDS: Latanoprost 0.005% Ophth Soln 2.5 ml Bottle EA EYE SCH (22:28)
[2021-02-23] MEDS: Lantus 1000 UNITS/10 ML VIAL SC SCH (22:40)
[2021-02-24] MEDS: Clindamycin/D5W 600 MG in Premix Bag 1 BAG IVPB SCH ×3 (04:50→22:25)
[2021-02-24] MEDS: traMADol HCl 50 MG TAB PO PRN ×3 (04:50→17:19)
[2021-02-24 06:10] LABS: Hemoglobin 12.3 g/dL (14.0-18.0); Mean Corpuscular HGB CONC 32.4 g/dL (32.0-36.0); Mean Corpuscular Volume 89.6 fL (78.0-98.0); Mean Platelet Volume 10.3 fL (7.4-10.4); Platelet Count 168 thou/uL (130-400); RBC Distribution Width 13.8 % (11.5-14.5); Red Blood Cell (RBC) Count 4.25 mill/uL (4.70-6.10); White Blood Cell (WBC) Count 5.6 thou/uL (4.8-10.8)
[2021-02-24 06:23] LABS: Anion Gap 8 mmol/L (10-20); BUN (Urea Nitrogen) 13 mg/dL (8.4-25.7); Calc. Creatinine Clearance 108 mL/min (70-130); Calcium 9.1 mg/dL (7.8-10.44); Carbon Dioxide 32 mmol/L (23-31); Chloride 98 mmol/L (98-107); Glucose 158 mg/dL (83-110); Potassium 3.4 mmol/L (3.5-5.1); Sodium 135 mmol/L (136-145)
[2021-02-24 06:28] LABS: Vancomycin, Trough 13.6 ug/mL
[2021-02-24] MEDS: VANCOMYCIN 1.25 GM/250 ML BAG 1.25 GM in Premix Bag 1 BAG IVPB SCH (06:41)
[2021-02-24] MEDS: HumaLOG 300 UNITS/3 ML VIAL SC PRN (06:42)
[2021-02-24] MEDS: Cholecalciferol 1,000 UNITS (25 MCG) TAB PO SCH (08:51)
[2021-02-24] MEDS: Clopidogrel Bisulfate 75 MG TAB PO SCH (08:52)
[2021-02-24] MEDS: Aspirin 81 mg Enteric Coated Tablet PO SCH (08:52)
[2021-02-24] MEDS: Torsemide 20 MG TAB PO SCH ×2 (08:52→20:33)
[2021-02-24] MEDS: Loratadine 10 MG TAB PO SCH (08:52)
[2021-02-24] MEDS: Atorvastatin Calcium 20 MG TAB PO SCH (08:52)
[2021-02-24] MEDS: Multivitamin W/ Minerals 1 TAB PO SCH (08:52)
[2021-02-24] MEDS: Polyethylene Glycol 3350 17 GM Packet PO SCH (08:52)
[2021-02-24] MEDS: Folic Acid 1 MG TAB PO SCH (08:52)
[2021-02-24] MEDS: Spironolactone 25 MG TAB PO SCH (08:52)
[2021-02-24] MEDS: Carvedilol 3.125 MG TAB PO SCH ×2 (08:52→17:19)
[2021-02-24] MEDS: HYDROcodone/Acetaminophen 5/325 mg Tablet PO SCH ×3 (08:53→20:32)
[2021-02-24] MEDS: Enoxaparin Sodium 40 MG/0.4 ML SYRINGE SC SCH (08:53)
[2021-02-24 08:55] LABS: Band 4 % (5-11); Eosinophils 1 % (0-10); Lymphocytes 27 % (21-51); MDiff Complete? YES; Monocytes 18 % (0-10); Myelocyte 1 % (0-0); Neutrophil 48 % (42-75); Platelet Morphology Comment Appears Adequate; RBC Morphology Normal; Reactive Lymphocytes 1 % (0-10)
[2021-02-24] MEDS: HumaLOG 300 UNITS/3 ML VIAL SC SCH ×3 (08:58→17:20)
[2021-02-24] MEDS: Acetaminophen ER (8hr) 650 MG TAB PO SCH ×2 (13:07→20:33)
[2021-02-24] MEDS ORDERED: Potassium Chloride 20 MEQ TAB PO SCH (16:15)
[2021-02-24] MEDS: Vancomycin 1.5 GRAM/300 ML BAG 1.5 GM in Premix Bag 1 BAG IVPB SCH (17:19)
[2021-02-24] MEDS: Lantus 1000 UNITS/10 ML VIAL SC SCH (20:34)
[2021-02-24] MEDS: Latanoprost 0.005% Ophth Soln 2.5 ml Bottle EA EYE SCH (20:35)
[2021-02-25] MEDS: Clindamycin/D5W 600 MG in Premix Bag 1 BAG IVPB SCH ×3 (04:53→22:05)
[2021-02-25] MEDS: traMADol HCl 50 MG TAB PO PRN (05:00)
[2021-02-25] MEDS: Vancomycin 1.5 GRAM/300 ML BAG 1.5 GM in Premix Bag 1 BAG IVPB SCH ×2 (06:15→18:15)
[2021-02-25] MEDS: Enoxaparin Sodium 40 MG/0.4 ML SYRINGE SC SCH (09:00)
[2021-02-25] MEDS: Acetaminophen ER (8hr) 650 MG TAB PO SCH ×2 (09:00→20:47)
[2021-02-25] MEDS: Aspirin 81 mg Enteric Coated Tablet PO SCH (09:01)
[2021-02-25] MEDS: Clopidogrel Bisulfate 75 MG TAB PO SCH (09:01)
[2021-02-25] MEDS: HYDROcodone/Acetaminophen 5/325 mg Tablet PO SCH ×3 (09:01→20:48)
[2021-02-25] MEDS: Carvedilol 3.125 MG TAB PO SCH ×2 (09:02→18:15)
[2021-02-25] MEDS: Multivitamin W/ Minerals 1 TAB PO SCH (09:03)
[2021-02-25] MEDS: HumaLOG 300 UNITS/3 ML VIAL SC SCH ×3 (09:03→18:46)
[2021-02-25] MEDS: Spironolactone 25 MG TAB PO SCH (09:03)
[2021-02-25] MEDS: Folic Acid 1 MG TAB PO SCH (09:03)
[2021-02-25] MEDS: Loratadine 10 MG TAB PO SCH (09:03)
[2021-02-25] MEDS: Atorvastatin Calcium 20 MG TAB PO SCH (09:03)
[2021-02-25] MEDS: Cholecalciferol 1,000 UNITS (25 MCG) TAB PO SCH (09:11)
[2021-02-25] MEDS: Polyethylene Glycol 3350 17 GM Packet PO SCH (09:12)
[2021-02-25] MEDS: Torsemide 20 MG TAB PO SCH ×2 (12:20→20:49)
[2021-02-25] MEDS: Latanoprost 0.005% Ophth Soln 2.5 ml Bottle EA EYE SCH (20:50)
[2021-02-25] MEDS: Lantus 1000 UNITS/10 ML VIAL SC SCH (20:50)
[2021-02-26] MEDS: Clindamycin/D5W 600 MG in Premix Bag 1 BAG IVPB SCH (05:37)
[2021-02-26 06:08] LABS: Anion Gap 12 mmol/L (10-20); BUN (Urea Nitrogen) 15 mg/dL (8.4-25.7); Calc. Creatinine Clearance 94 mL/min (70-130); Calcium 9.4 mg/dL (7.8-10.44); Carbon Dioxide 31 mmol/L (23-31); Chloride 100 mmol/L (98-107); Glucose 178 mg/dL (83-110); Sodium 139 mmol/L (136-145); Vancomycin, Trough 20.4 ug/mL
[2021-02-26] MEDS: HumaLOG 300 UNITS/3 ML VIAL SC PRN ×2 (06:37→17:37)
[2021-02-26] MEDS: Vancomycin 1.5 GRAM/300 ML BAG 1.5 GM in Premix Bag 1 BAG IVPB SCH (06:38)
[2021-02-26] MEDS: HYDROcodone/Acetaminophen 5/325 mg Tablet PO SCH ×3 (08:55→20:29)
[2021-02-26] MEDS: Clopidogrel Bisulfate 75 MG TAB PO SCH (08:56)
[2021-02-26] MEDS: Polyethylene Glycol 3350 17 GM Packet PO SCH (08:56)
[2021-02-26] MEDS: Spironolactone 25 MG TAB PO SCH (08:56)
[2021-02-26] MEDS: Multivitamin W/ Minerals 1 TAB PO SCH (08:56)
[2021-02-26] MEDS: Loratadine 10 MG TAB PO SCH (08:56)
[2021-02-26] MEDS: Folic Acid 1 MG TAB PO SCH (08:56)
[2021-02-26] MEDS: Atorvastatin Calcium 20 MG TAB PO SCH (08:56)
[2021-02-26] MEDS: Carvedilol 3.125 MG TAB PO SCH ×2 (08:56→17:35)
[2021-02-26] MEDS: Aspirin 81 mg Enteric Coated Tablet PO SCH (08:56)
[2021-02-26] MEDS: Torsemide 20 MG TAB PO SCH ×2 (08:57→20:29)
[2021-02-26] MEDS: Enoxaparin Sodium 40 MG/0.4 ML SYRINGE SC SCH (08:57)
[2021-02-26] MEDS: HumaLOG 300 UNITS/3 ML VIAL SC SCH ×3 (08:57→17:38)
[2021-02-26] MEDS: Acetaminophen ER (8hr) 650 MG TAB PO SCH ×2 (09:20→20:37)
[2021-02-26] MEDS ORDERED: MEROPENEM 1 GM/50 ML 1 GM in Premix Bag 1 BAG IVPB SCH (13:45)
[2021-02-26] MEDS ORDERED: Meropenem 1 GM in Sodium Chloride 0.9% 100 ML IVPB SCH (14:00)
[2021-02-26] MEDS: Lantus 1000 UNITS/10 ML VIAL SC SCH (20:29)
[2021-02-26] MEDS: Latanoprost 0.005% Ophth Soln 2.5 ml Bottle EA EYE SCH (20:30)
[2021-02-26] MEDS: MEROPENEM 1 GM/50 ML 1 GM in Premix Bag 1 BAG IVPB SCH (21:14)
[2021-02-27] MEDS: traMADol HCl 50 MG TAB PO PRN ×2 (03:39→09:48)
[2021-02-27] MEDS: MEROPENEM 1 GM/50 ML 1 GM in Premix Bag 1 BAG IVPB SCH ×3 (05:33→21:49)
[2021-02-27] MEDS: Cholecalciferol 1,000 UNITS (25 MCG) TAB PO SCH (08:34)
[2021-02-27] MEDS: Clopidogrel Bisulfate 75 MG TAB PO SCH (08:35)
[2021-02-27] MEDS: Folic Acid 1 MG TAB PO SCH (08:35)
[2021-02-27] MEDS: Loratadine 10 MG TAB PO SCH (08:35)
[2021-02-27] MEDS: Multivitamin W/ Minerals 1 TAB PO SCH (08:35)
[2021-02-27] MEDS: Spironolactone 25 MG TAB PO SCH (08:35)
[2021-02-27] MEDS: Aspirin 81 mg Enteric Coated Tablet PO SCH (08:35)
[2021-02-27] MEDS: Atorvastatin Calcium 20 MG TAB PO SCH (08:36)
[2021-02-27] MEDS: Carvedilol 3.125 MG TAB PO SCH ×2 (08:36→17:12)
[2021-02-27] MEDS: HYDROcodone/Acetaminophen 5/325 mg Tablet PO SCH ×3 (08:36→21:47)
[2021-02-27] MEDS: Torsemide 20 MG TAB PO SCH ×2 (08:36→21:49)
[2021-02-27] MEDS: Enoxaparin Sodium 40 MG/0.4 ML SYRINGE SC SCH (08:42)
[2021-02-27] MEDS: HumaLOG 300 UNITS/3 ML VIAL SC SCH ×3 (08:43→17:12)
[2021-02-27] MEDS: Polyethylene Glycol 3350 17 GM Packet PO SCH ×2 (09:47→17:16)
[2021-02-27 09:52] LABS: #Eosinphils 0.1 thou/uL (0.0-0.7); #Lymphocytes 1.4 thou/uL (1.20-3.40); #Monocytes 0.7 thou/uL (0.11-0.59); #Neutrophils 4.7 thou/uL (1.40-6.50); %Basophils 0.7 % (0.0-1.0); %Eosinophils 1.7 % (0.0-10.0); %Lymphocytes 20.2 % (21.0-51.0); %Monocytes 10.2 % (0.0-10.0); %Neutrophils 67.2 % (42.0-75.0); Hemoglobin 12.2 g/dL (14.0-18.0); Mean Corpuscular HGB CONC 34.1 g/dL (32.0-36.0); Mean Corpuscular Hemoglobin 30.7 pg (27.0-31.0); Mean Corpuscular Volume 89.8 fL (78.0-98.0); Mean Platelet Volume 10.9 fL (7.4-10.4); Platelet Count 174 thou/uL (130-400); RBC Distribution Width 13.8 % (11.5-14.5); Red Blood Cell (RBC) Count 3.97 mill/uL (4.70-6.10)
[2021-02-27 10:07] LABS: Anion Gap 12 mmol/L (10-20); BUN (Urea Nitrogen) 13 mg/dL (8.4-25.7); Calc. Creatinine Clearance 104 mL/min (70-130); Calcium 9.2 mg/dL (7.8-10.44); Carbon Dioxide 28 mmol/L (23-31); Chloride 100 mmol/L (98-107); Glucose 255 mg/dL (83-110); Potassium 3.7 mmol/L (3.5-5.1); Sodium 136 mmol/L (136-145)
[2021-02-27] MEDS: Acetaminophen ER (8hr) 650 MG TAB PO SCH ×2 (11:53→21:48)
[2021-02-27] MEDS: Latanoprost 0.005% Ophth Soln 2.5 ml Bottle EA EYE SCH (21:50)
[2021-02-27] MEDS: Lantus 1000 UNITS/10 ML VIAL SC SCH (21:50)
[2021-02-28] MEDS: traMADol HCl 50 MG TAB PO PRN ×2 (03:44→10:27)
[2021-02-28] MEDS: MEROPENEM 1 GM/50 ML 1 GM in Premix Bag 1 BAG IVPB SCH ×3 (06:11→21:47)
[2021-02-28] MEDS: HYDROcodone/Acetaminophen 5/325 mg Tablet PO SCH ×3 (08:49→21:46)
[2021-02-28] MEDS: Aspirin 81 mg Enteric Coated Tablet PO SCH (08:49)
[2021-02-28] MEDS: Carvedilol 3.125 MG TAB PO SCH ×2 (08:49→17:21)
[2021-02-28] MEDS: Clopidogrel Bisulfate 75 MG TAB PO SCH (08:49)
[2021-02-28] MEDS: Multivitamin W/ Minerals 1 TAB PO SCH (08:49)
[2021-02-28] MEDS: Enoxaparin Sodium 40 MG/0.4 ML SYRINGE SC SCH (08:50)
[2021-02-28] MEDS: Torsemide 20 MG TAB PO SCH ×2 (08:50→21:46)
[2021-02-28] MEDS: Loratadine 10 MG TAB PO SCH (08:50)
[2021-02-28] MEDS: Folic Acid 1 MG TAB PO SCH (08:50)
[2021-02-28] MEDS: Polyethylene Glycol 3350 17 GM Packet PO SCH (08:50)
[2021-02-28] MEDS: Atorvastatin Calcium 20 MG TAB PO SCH (08:50)
[2021-02-28] MEDS: Spironolactone 25 MG TAB PO SCH (08:50)
[2021-02-28] MEDS: HumaLOG 300 UNITS/3 ML VIAL SC SCH ×3 (08:50→17:17)
[2021-02-28] MEDS: Acetaminophen ER (8hr) 650 MG TAB PO SCH ×2 (10:25→21:46)
[2021-02-28] MEDS: Latanoprost 0.005% Ophth Soln 2.5 ml Bottle EA EYE SCH (21:48)
[2021-02-28] MEDS: Lantus 1000 UNITS/10 ML VIAL SC SCH (21:48)
[2021-03-01 05:19] LABS: #Eosinphils 0.2 thou/uL (0.0-0.7); #Lymphocytes 1.5 thou/uL (1.20-3.40); #Monocytes 0.8 thou/uL (0.11-0.59); #Neutrophils 3.9 thou/uL (1.40-6.50); %Basophils 0.7 % (0.0-1.0); %Eosinophils 2.6 % (0.0-10.0); %Lymphocytes 23.7 % (21.0-51.0); %Monocytes 12.1 % (0.0-10.0); Hemoglobin 12.5 g/dL (14.0-18.0); Mean Corpuscular Hemoglobin 30.2 pg (27.0-31.0); Mean Corpuscular Volume 89.1 fL (78.0-98.0); Mean Platelet Volume 10.9 fL (7.4-10.4); Platelet Count 184 thou/uL (130-400); RBC Distribution Width 13.4 % (11.5-14.5); Red Blood Cell (RBC) Count 4.12 mill/uL (4.70-6.10); White Blood Cell (WBC) Count 6.4 thou/uL (4.8-10.8)
[2021-03-01 05:38] LABS: Anion Gap 11 mmol/L (10-20); BUN (Urea Nitrogen) 12 mg/dL (8.4-25.7); Calc. Creatinine Clearance 122 mL/min (70-130); Calcium 8.8 mg/dL (7.8-10.44); Carbon Dioxide 29 mmol/L (23-31); Chloride 99 mmol/L (98-107); Glucose 163 mg/dL (83-110); Sodium 135 mmol/L (136-145)
[2021-03-01] MEDS: MEROPENEM 1 GM/50 ML 1 GM in Premix Bag 1 BAG IVPB SCH ×3 (06:03→22:27)
[2021-03-01] MEDS: traMADol HCl 50 MG TAB PO PRN (06:05)
[2021-03-01] MEDS: HumaLOG 300 UNITS/3 ML VIAL SC PRN (06:35)
[2021-03-01] MEDS: Aspirin 81 mg Enteric Coated Tablet PO SCH (08:43)
[2021-03-01] MEDS: Acetaminophen ER (8hr) 650 MG TAB PO SCH ×2 (08:43→20:31)
[2021-03-01] MEDS: Loratadine 10 MG TAB PO SCH (08:43)
[2021-03-01] MEDS: Torsemide 20 MG TAB PO SCH ×2 (08:43→20:29)
[2021-03-01] MEDS: HYDROcodone/Acetaminophen 5/325 mg Tablet PO SCH ×3 (08:44→20:29)
[2021-03-01] MEDS: Folic Acid 1 MG TAB PO SCH (08:44)
[2021-03-01] MEDS: Carvedilol 3.125 MG TAB PO SCH ×2 (08:44→17:39)
[2021-03-01] MEDS: Multivitamin W/ Minerals 1 TAB PO SCH (08:44)
[2021-03-01] MEDS: Enoxaparin Sodium 40 MG/0.4 ML SYRINGE SC SCH (08:44)
[2021-03-01] MEDS: Spironolactone 25 MG TAB PO SCH (08:44)
[2021-03-01] MEDS: Atorvastatin Calcium 20 MG TAB PO SCH (08:44)
[2021-03-01] MEDS: Clopidogrel Bisulfate 75 MG TAB PO SCH (08:44)
[2021-03-01] MEDS: Polyethylene Glycol 3350 17 GM Packet PO SCH (08:45)
[2021-03-01] MEDS: HumaLOG 300 UNITS/3 ML VIAL SC SCH ×3 (08:45→17:39)
[2021-03-01] MEDS: Lantus 1000 UNITS/10 ML VIAL SC SCH (20:31)
[2021-03-01] MEDS: Latanoprost 0.005% Ophth Soln 2.5 ml Bottle EA EYE SCH (20:33)
[2021-03-02 05:52] LABS: #Eosinphils 0.1 thou/uL (0.0-0.7); #Lymphocytes 1.6 thou/uL (1.20-3.40); #Monocytes 0.9 thou/uL (0.11-0.59); %Basophils 0.6 % (0.0-1.0); %Lymphocytes 24.4 % (21.0-51.0); %Monocytes 13.2 % (0.0-10.0); %Neutrophils 59.8 % (42.0-75.0); Hemoglobin 12.9 g/dL (14.0-18.0); Mean Corpuscular HGB CONC 34.3 g/dL (32.0-36.0); Mean Corpuscular Hemoglobin 30.8 pg (27.0-31.0); Mean Corpuscular Volume 89.7 fL (78.0-98.0); Mean Platelet Volume 10.9 fL (7.4-10.4); Platelet Count 182 thou/uL (130-400); RBC Distribution Width 13.6 % (11.5-14.5); Red Blood Cell (RBC) Count 4.21 mill/uL (4.70-6.10); White Blood Cell (WBC) Count 6.7 thou/uL (4.8-10.8)
[2021-03-02 06:16] LABS: Anion Gap 12 mmol/L (10-20); BUN (Urea Nitrogen) 14 mg/dL (8.4-25.7); Calc. Creatinine Clearance 116 mL/min (70-130); Calcium 9.5 mg/dL (7.8-10.44); Carbon Dioxide 33 mmol/L (23-31); Chloride 98 mmol/L (98-107); Glucose 162 mg/dL (83-110); Potassium 3.8 mmol/L (3.5-5.1); Sodium 139 mmol/L (136-145)
[2021-03-02] MEDS: traMADol HCl 50 MG TAB PO PRN ×2 (06:32→17:32)
[2021-03-02] MEDS: MEROPENEM 1 GM/50 ML 1 GM in Premix Bag 1 BAG IVPB SCH ×3 (06:34→21:38)
[2021-03-02] MEDS: Torsemide 20 MG TAB PO SCH ×2 (08:55→21:37)
[2021-03-02] MEDS: Carvedilol 3.125 MG TAB PO SCH ×2 (08:55→17:30)
[2021-03-02] MEDS: HYDROcodone/Acetaminophen 5/325 mg Tablet PO SCH ×3 (08:56→21:37)
[2021-03-02] MEDS: Folic Acid 1 MG TAB PO SCH (08:56)
[2021-03-02] MEDS: Spironolactone 25 MG TAB PO SCH (08:56)
[2021-03-02] MEDS: Atorvastatin Calcium 20 MG TAB PO SCH (08:56)
[2021-03-02] MEDS: Clopidogrel Bisulfate 75 MG TAB PO SCH (08:56)
[2021-03-02] MEDS: Loratadine 10 MG TAB PO SCH (08:56)
[2021-03-02] MEDS: Aspirin 81 mg Enteric Coated Tablet PO SCH (08:56)
[2021-03-02] MEDS: HumaLOG 300 UNITS/3 ML VIAL SC SCH ×3 (08:57→17:58)
[2021-03-02] MEDS: Enoxaparin Sodium 40 MG/0.4 ML SYRINGE SC SCH (08:57)
[2021-03-02] MEDS: Multivitamin W/ Minerals 1 TAB PO SCH (08:57)
[2021-03-02] MEDS: Acetaminophen ER (8hr) 650 MG TAB PO SCH ×2 (10:42→21:37)
[2021-03-02] MEDS: Polyethylene Glycol 3350 17 GM Packet PO SCH (10:43)
[2021-03-02] MEDS: Lantus 1000 UNITS/10 ML VIAL SC SCH (21:38)
[2021-03-02] MEDS: Latanoprost 0.005% Ophth Soln 2.5 ml Bottle EA EYE SCH (21:38)
[2021-03-03] MEDS: traMADol HCl 50 MG TAB PO PRN (05:31)
[2021-03-03] MEDS: MEROPENEM 1 GM/50 ML 1 GM in Premix Bag 1 BAG IVPB SCH (05:31)
[2021-03-03] MEDS: HumaLOG 300 UNITS/3 ML VIAL SC PRN (05:32)
[2021-03-03 05:39] LABS: #Eosinphils 0.1 thou/uL (0.0-0.7); #Lymphocytes 1.4 thou/uL (1.20-3.40); #Monocytes 0.8 thou/uL (0.11-0.59); #Neutrophils 3.2 thou/uL (1.40-6.50); %Basophils 0.6 % (0.0-1.0); %Eosinophils 2.5 % (0.0-10.0); %Lymphocytes 25.5 % (21.0-51.0); %Monocytes 14.4 % (0.0-10.0); Hemoglobin 12.5 g/dL (14.0-18.0); Mean Corpuscular Hemoglobin 31.3 pg (27.0-31.0); Mean Corpuscular Volume 89.4 fL (78.0-98.0); Mean Platelet Volume 10.7 fL (7.4-10.4); Platelet Count 171 thou/uL (130-400); RBC Distribution Width 13.4 % (11.5-14.5); Red Blood Cell (RBC) Count 3.99 mill/uL (4.70-6.10); White Blood Cell (WBC) Count 5.6 thou/uL (4.8-10.8)
[2021-03-03 06:01] LABS: Anion Gap 11 mmol/L (10-20); BUN (Urea Nitrogen) 16 mg/dL (8.4-25.7); Calc. Creatinine Clearance 118 mL/min (70-130); Calcium 9.3 mg/dL (7.8-10.44); Carbon Dioxide 31 mmol/L (23-31); Chloride 99 mmol/L (98-107); Glucose 175 mg/dL (83-110); Potassium 3.5 mmol/L (3.5-5.1); Sodium 137 mmol/L (136-145)
[2021-03-03 07:52] VITALS: BP 114/79; TEMP 97.9
[2021-03-03] MEDS: Clopidogrel Bisulfate 75 MG TAB PO SCH (08:53)
[2021-03-03] MEDS: Cholecalciferol 1,000 UNITS (25 MCG) TAB PO SCH (08:53)
[2021-03-03] MEDS: Polyethylene Glycol 3350 17 GM Packet PO SCH (08:53)
[2021-03-03] MEDS: Torsemide 20 MG TAB PO SCH (08:53)
[2021-03-03] MEDS: Spironolactone 25 MG TAB PO SCH (08:54)
[2021-03-03] MEDS: Aspirin 81 mg Enteric Coated Tablet PO SCH (08:54)
[2021-03-03] MEDS: Acetaminophen ER (8hr) 650 MG TAB PO SCH (08:54)
[2021-03-03] MEDS: Folic Acid 1 MG TAB PO SCH (08:55)
[2021-03-03] MEDS: HYDROcodone/Acetaminophen 5/325 mg Tablet PO SCH (08:55)
[2021-03-03] MEDS: Loratadine 10 MG TAB PO SCH (08:55)
[2021-03-03] MEDS: Carvedilol 3.125 MG TAB PO SCH (08:55)
[2021-03-03] MEDS: Enoxaparin Sodium 40 MG/0.4 ML SYRINGE SC SCH (08:55)
[2021-03-03] MEDS: Atorvastatin Calcium 20 MG TAB PO SCH (08:55)
[2021-03-03] MEDS: Multivitamin W/ Minerals 1 TAB PO SCH (08:55)
[2021-03-03] MEDS: HumaLOG 300 UNITS/3 ML VIAL SC SCH (08:58)
[2021-03-03] MEDS ORDERED: Ciprofloxacin 500 MG TAB PO SCH ×2 (10:15→20:00)
[2021-03-03] MEDS ORDERED: Cephalexin 250 MG CAP PO SCH (12:00)
== END 2021-03-03 11:28 | disposition home or self-care (01) | DRG 602 ==
LOC: ERS 01:13 → SURG A 02:23 → INTOOBSV 02:23 → OBSVTOIN 02-17 11:09
PROVIDERS: ADMIT Internal Medicine; ATTEND Internal Medicine
DX: L03.116 Cellulitis of left lower limb (principal); G93.41 Metabolic encephalopathy; E87.1 Hypo-osmolality and hyponatremia; Z20.822 Contact with and (suspected) exposure to COVID-19; G47.33 Obstructive sleep apnea (adult) (pediatric); E66.9 Obesity, unspecified; I25.10 Atherosclerotic heart disease of native coronary artery without angina pectoris; I48.91 Unspecified atrial fibrillation; K21.9 Gastro-esophageal reflux disease without esophagitis; E78.5 Hyperlipidemia, unspecified; M06.9 Rheumatoid arthritis, unspecified; E87.6 Hypokalemia; E11.51 Type 2 diabetes mellitus with diabetic peripheral angiopathy without gangrene; Z95.1 Presence of aortocoronary bypass graft; Z95.0 Presence of cardiac pacemaker; Z79.01 Long term (current) use of anticoagulants; Z95.2 Presence of prosthetic heart valve; Z82.49 Family history of ischemic heart disease and other diseases of the circulatory system; Z99.89 Dependence on other enabling machines and devices; Z68.34 Body mass index [BMI] 34.0-34.9, adult; Z79.82 Long term (current) use of aspirin; Z79.4 Long term (current) use of insulin; Z79.899 Other long term (current) drug therapy; Z86.73 Personal history of transient ischemic attack (TIA), and cerebral infarction without residual deficits
CPT/HCPCS: 36415; 36416; 74019; 80048; 80053; 80202; 84145; 84484; 85025; 85652; 86140; 87040; 87633; 96365; 96366; 96367; 96372; 96375; 96376; 99285; G0378; J0692; J0696; J1650; J1815; J2185; J2405; J3370; J3490; Q0163

== ENCOUNTER 2021-07-02 21:24 | Inpatient (IN) | payer MEDICARE, BC ==
[~2021-07-02 21:24] MED LIST: Iopamidol-370 76% 500 ML 1 ML ONE
[2021-07-02 21:41] LABS: #Eosinphils 0.2 thou/uL (0.0-0.7); #Lymphocytes 1.1 thou/uL (1.20-3.40); #Monocytes 0.5 thou/uL (0.11-0.59); #Neutrophils 9.5 thou/uL (1.40-6.50); %Basophils 0.1 % (0.0-1.0); %Eosinophils 1.9 % (0.0-10.0); %Monocytes 4.7 % (0.0-10.0); %Neutrophils 83.3 % (42.0-75.0); Hemoglobin 12.8 g/dL (14.0-18.0); Mean Corpuscular HGB CONC 33.8 g/dL (32.0-36.0); Mean Corpuscular Hemoglobin 30.2 pg (27.0-31.0); Mean Corpuscular Volume 89.4 fL (78.0-98.0); Mean Platelet Volume 10.1 fL (7.4-10.4); Platelet Count 160 thou/uL (130-400); RBC Distribution Width 15.2 % (11.5-14.5); Red Blood Cell (RBC) Count 4.24 mill/uL (4.70-6.10); White Blood Cell (WBC) Count 11.3 thou/uL (4.8-10.8)
[2021-07-02 21:52] LABS: INR-International Normal Ratio 1.5; Prothrombin Time 18.4 sec (12.0-14.7)
[2021-07-02 21:53] LABS: PTT 58.7 sec (22.9-36.1)
[2021-07-02 22:28] LABS: #Eosinphils 0.2 thou/uL (0.0-0.7); #Monocytes 0.6 thou/uL (0.11-0.59); #Neutrophils 8.2 thou/uL (1.40-6.50); %Basophils 0.1 % (0.0-1.0); %Lymphocytes 9.7 % (21.0-51.0); %Monocytes 6.4 % (0.0-10.0); %Neutrophils 81.9 % (42.0-75.0); Hemoglobin 13.1 g/dL (14.0-18.0); Mean Corpuscular HGB CONC 34.4 g/dL (32.0-36.0); Mean Corpuscular Hemoglobin 30.7 pg (27.0-31.0); Mean Corpuscular Volume 89.1 fL (78.0-98.0); Mean Platelet Volume 9.8 fL (7.4-10.4); Platelet Count 157 thou/uL (130-400); RBC Distribution Width 15.1 % (11.5-14.5); Red Blood Cell (RBC) Count 4.26 mill/uL (4.70-6.10)
[2021-07-02 22:36] LABS: Albumin 3.6 g/dL (3.4-4.8)
[2021-07-02 22:37] LABS: CKMB 0.5 ng/mL (0-6.6)
[2021-07-02 22:37] LABS: Chloride 92 mmol/L (98-107); Potassium 3.7 mmol/L (3.5-5.1); Sodium 130 mmol/L (136-145)
[2021-07-02 22:38] LABS: Calcium 9.1 mg/dL (7.8-10.44)
[2021-07-02 22:39] LABS: Glucose 295 mg/dL (83-110); Protein, Total 7.6 g/dL (5.8-8.1)
[2021-07-02 22:40] LABS: Anion Gap 16 mmol/L (10-20); Carbon Dioxide 26 mmol/L (23-31)
[2021-07-02 22:41] LABS: Bilirubin, Total 0.9 mg/dL (0.2-1.2)
[2021-07-02 22:42] LABS: Alkaline Phosphatase 93 U/L (40-110); Calc. Creatinine Clearance 0 mL/min (70-130)
[2021-07-02 22:43] LABS: BUN (Urea Nitrogen) 19 mg/dL (8.4-25.7)
[2021-07-02 22:44] LABS: AST (SGOT) 18 U/L (5-34)
[2021-07-02 22:45] LABS: ALT (SGPT) 16 U/L (8-55); CK (CPK) 97 U/L (30-200)
[2021-07-02 23:35] LABS: SARS-CoV-2 NAA Rapid Test DETECTED (NotDetected)
[2021-07-03] MEDS ORDERED: Ondansetron ODT 4 MG TAB PO PRN (00:36)
[2021-07-03] MEDS ORDERED: Acetaminophen 325 MG TAB PO PRN (00:36)
[2021-07-03] MEDS ORDERED: Ondansetron PF 4 MG/2 ML Vial IVP PRN (00:36)
[2021-07-03] MEDS ORDERED: Acetaminophen 650 MG Suppository PR PRN (00:36)
[2021-07-03] MEDS ORDERED: Dextrose 5% in Water 1,000 ML IV PRN (00:40)
[2021-07-03] MEDS ORDERED: hydrALAZINE 20 MG/ML VIAL SLOW IVP PRN (00:40)
[2021-07-03] MEDS ORDERED: Dextrose 50% Abboject 50 ML SYRINGE SLOW IVP PRN (00:40)
[2021-07-03] MEDS ORDERED: Enoxaparin Sodium 40 MG/0.4 ML SYRINGE ONE ×2 (01:34→12:54)
[2021-07-03] MEDS: Enoxaparin Sodium 40 MG/0.4 ML SYRINGE SC SCH ×2 (01:37→13:08)
[2021-07-03 01:58] LABS: Troponin I 0.046 ng/mL (< 0.028)
[2021-07-03 04:55] LABS: #Eosinphils 0.1 thou/uL (0.0-0.7); #Lymphocytes 1.3 thou/uL (1.20-3.40); #Monocytes 0.9 thou/uL (0.11-0.59); #Neutrophils 8.8 thou/uL (1.40-6.50); %Basophils 0.1 % (0.0-1.0); %Eosinophils 0.5 % (0.0-10.0); %Lymphocytes 11.6 % (21.0-51.0); %Monocytes 8.2 % (0.0-10.0); %Neutrophils 79.6 % (42.0-75.0); Hemoglobin 12.8 g/dL (14.0-18.0); Mean Corpuscular HGB CONC 33.5 g/dL (32.0-36.0); Mean Corpuscular Volume 89.7 fL (78.0-98.0); Platelet Count 161 thou/uL (130-400); Red Blood Cell (RBC) Count 4.25 mill/uL (4.70-6.10); White Blood Cell (WBC) Count 11.1 thou/uL (4.8-10.8)
[2021-07-03 05:15] LABS: Troponin I 0.054 ng/mL (< 0.028)
[2021-07-03 05:26] LABS: Anion Gap 16 mmol/L (10-20); BUN (Urea Nitrogen) 18 mg/dL (8.4-25.7); Calc. Creatinine Clearance 0 mL/min (70-130); Calcium 9.4 mg/dL (7.8-10.44); Carbon Dioxide 25 mmol/L (23-31); Cardiac Risk 4.4 (Less than 4.5); Chloride 94 mmol/L (98-107); Cholesterol 123 mg/dl (< 200 Desired); Glucose 297 mg/dL (83-110); HDL Cholesterol 28 mg/dL (>60 Neg Risk); Potassium 3.7 mmol/L (3.5-5.1); Sodium 131 mmol/L (136-145)
[2021-07-03 05:41] LABS: LDL Cholesterol, Calculated 76 mg/dL
[2021-07-03 05:46] LABS: Triglycerides 86 mg/dL (Less than 150)
[2021-07-03] MEDS ORDERED: HumaLOG 300 UNITS/3 ML VIAL ONE (06:20)
[2021-07-03] MEDS: HumaLOG 300 UNITS/3 ML VIAL SC PRN ×2 (06:22→13:05)
[2021-07-03] MEDS ORDERED: Aspirin 81 mg Enteric Coated Tablet ONE (12:54)
[2021-07-03] MEDS: Aspirin 81 mg Enteric Coated Tablet PO SCH (12:55)
[2021-07-03] MEDS: Cholecalciferol (Vitamin D3) 400 UNITS TAB PO SCH (12:55)
[2021-07-03] MEDS ORDERED: Zinc Sulfate 220 MG CAP ONE (12:58)
[2021-07-03] MEDS ORDERED: Ascorbic Acid 500 mg Chewable Tablet ONE (12:58)
[2021-07-03] MEDS: Ascorbic Acid 500 mg Chewable Tablet PO SCH (12:59)
[2021-07-03] MEDS: Zinc Sulfate 220 MG CAP PO SCH (12:59)
[2021-07-03] MEDS: Lantus 1000 UNITS/10 ML VIAL SC SCH (21:35)
[2021-07-03] MEDS: Latanoprost 0.005% Ophth Soln 2.5 ml Bottle EA EYE SCH (21:36)
[2021-07-04] MEDS: Albuterol 200 PUFF (6.7GM INHALER) INH SCH ×5 (00:26→23:50)
[2021-07-04] MEDS: Enoxaparin Sodium 40 MG/0.4 ML SYRINGE SC SCH (00:26)
[2021-07-04] MEDS: HumaLOG 300 UNITS/3 ML VIAL SC PRN ×4 (06:29→21:20)
[2021-07-04] MEDS ORDERED: Dexamethasone 10 MG in Sodium Chloride 0.9% 50 ML IVPB SCH (09:00)
[2021-07-04] MEDS: Carvedilol 3.125 MG TAB PO SCH ×2 (09:24→18:08)
[2021-07-04] MEDS: Ascorbic Acid 500 mg Chewable Tablet PO SCH (09:24)
[2021-07-04] MEDS: Cholecalciferol (Vitamin D3) 400 UNITS TAB PO SCH (09:24)
[2021-07-04] MEDS: Folic Acid 1 MG TAB PO SCH (09:24)
[2021-07-04] MEDS: Zinc Sulfate 220 MG CAP PO SCH (09:24)
[2021-07-04] MEDS: Clopidogrel Bisulfate 75 MG TAB PO SCH (09:24)
[2021-07-04] MEDS: Aspirin 81 mg Enteric Coated Tablet PO SCH (09:24)
[2021-07-04] MEDS: Atorvastatin Calcium 40 MG TAB PO SCH (09:24)
[2021-07-04] MEDS: Multivitamin W/ Minerals 1 TAB PO SCH (09:24)
[2021-07-04] MEDS: Dexamethasone 10 MG/ML VIAL SLOW IVP SCH (09:25)
[2021-07-04] MEDS: Lantus 1000 UNITS/10 ML VIAL SC SCH (09:25)
[2021-07-04] MEDS ORDERED: Lantus 1000 UNITS/10 ML VIAL SC SCH (21:00)
[2021-07-04] MEDS: Gabapentin 300 MG CAP PO SCH ×2 (21:22→21:47)
[2021-07-04] MEDS: Latanoprost 0.005% Ophth Soln 2.5 ml Bottle EA EYE SCH (21:22)
[2021-07-04] MEDS: Apixaban 5 MG TAB PO SCH (21:22)
[2021-07-05] MEDS: Albuterol 200 PUFF (6.7GM INHALER) INH SCH ×4 (06:11→23:53)
[2021-07-05] MEDS: HumaLOG 300 UNITS/3 ML VIAL SC PRN ×3 (06:12→17:27)
[2021-07-05 08:07] LABS: #Lymphocytes 0.8 thou/uL (1.20-3.40); #Monocytes 0.7 thou/uL (0.11-0.59); #Neutrophils 9.1 thou/uL (1.40-6.50); %Basophils 0.2 % (0.0-1.0); %Eosinophils 0.1 % (0.0-10.0); %Lymphocytes 7.6 % (21.0-51.0); %Monocytes 6.1 % (0.0-10.0); Hemoglobin 12.6 g/dL (14.0-18.0); Mean Corpuscular Hemoglobin 29.7 pg (27.0-31.0); Mean Corpuscular Volume 90.1 fL (78.0-98.0); Mean Platelet Volume 10.1 fL (7.4-10.4); Platelet Count 184 thou/uL (130-400); Red Blood Cell (RBC) Count 4.23 mill/uL (4.70-6.10); White Blood Cell (WBC) Count 10.6 thou/uL (4.8-10.8)
[2021-07-05 08:28] LABS: ALT (SGPT) 102 U/L (8-55); AST (SGOT) 90 U/L (5-34); Albumin 3.4 g/dL (3.4-4.8); Alkaline Phosphatase 108 U/L (40-110); Anion Gap 16 mmol/L (10-20); BUN (Urea Nitrogen) 25 mg/dL (8.4-25.7); Bilirubin, Total 0.7 mg/dL (0.2-1.2); CRP (Inflammatory) 25.96 mg/dL (= or < 0.5); Calc. Creatinine Clearance 84 mL/min (70-130); Calcium 9.9 mg/dL (7.8-10.44); Carbon Dioxide 26 mmol/L (23-31); Chloride 95 mmol/L (98-107); Globulin 4.2 g/dL (2.4-3.5); Glucose 345 mg/dL (83-110); Potassium 3.9 mmol/L (3.5-5.1); Protein, Total 7.6 g/dL (5.8-8.1); Sodium 133 mmol/L (136-145)
[2021-07-05] MEDS: Folic Acid 1 MG TAB PO SCH (08:37)
[2021-07-05] MEDS: Ascorbic Acid 500 mg Chewable Tablet PO SCH (08:37)
[2021-07-05] MEDS: Atorvastatin Calcium 40 MG TAB PO SCH (08:37)
[2021-07-05] MEDS: Gabapentin 300 MG CAP PO SCH ×2 (08:37→21:18)
[2021-07-05] MEDS: Multivitamin W/ Minerals 1 TAB PO SCH (08:38)
[2021-07-05] MEDS: Carvedilol 3.125 MG TAB PO SCH ×2 (08:38→16:30)
[2021-07-05] MEDS: Cholecalciferol (Vitamin D3) 400 UNITS TAB PO SCH (08:38)
[2021-07-05] MEDS: Clopidogrel Bisulfate 75 MG TAB PO SCH (08:38)
[2021-07-05] MEDS: Zinc Sulfate 220 MG CAP PO SCH (08:38)
[2021-07-05] MEDS: Dexamethasone 10 MG/ML VIAL SLOW IVP SCH (08:38)
[2021-07-05] MEDS: Apixaban 5 MG TAB PO SCH ×2 (08:38→21:18)
[2021-07-05] MEDS: Aspirin 81 mg Enteric Coated Tablet PO SCH (08:38)
[2021-07-05] MEDS: Lantus 1000 UNITS/10 ML VIAL SC SCH ×2 (08:39→17:28)
[2021-07-05] MEDS ORDERED: NPH, Human Insulin Isophane 300 UNIT/3 ML VIAL SC SCH (21:00)
[2021-07-05] MEDS: Latanoprost 0.005% Ophth Soln 2.5 ml Bottle EA EYE SCH (21:11)
[2021-07-06] MEDS: Albuterol 200 PUFF (6.7GM INHALER) INH SCH ×3 (05:52→17:22)
[2021-07-06] MEDS: HumaLOG 300 UNITS/3 ML VIAL SC PRN ×3 (05:53→17:20)
[2021-07-06 06:50] LABS: #Neutrophils 11.9 thou/uL (1.40-6.50); %Basophils 0.1 % (0.0-1.0); %Eosinophils 0.1 % (0.0-10.0); %Lymphocytes 6.8 % (21.0-51.0); %Monocytes 7.1 % (0.0-10.0); %Neutrophils 85.9 % (42.0-75.0); Mean Corpuscular HGB CONC 33.9 g/dL (32.0-36.0); Mean Corpuscular Hemoglobin 30.4 pg (27.0-31.0); Mean Corpuscular Volume 89.7 fL (78.0-98.0); Platelet Count 178 thou/uL (130-400); RBC Distribution Width 15.1 % (11.5-14.5); Red Blood Cell (RBC) Count 3.95 mill/uL (4.70-6.10); White Blood Cell (WBC) Count 13.9 thou/uL (4.8-10.8)
[2021-07-06 07:11] LABS: Anion Gap 12 mmol/L (10-20); BUN (Urea Nitrogen) 27 mg/dL (8.4-25.7); CRP (Inflammatory) 11.54 mg/dL (= or < 0.5); Calc. Creatinine Clearance 104 mL/min (70-130); Calcium 9.6 mg/dL (7.8-10.44); Carbon Dioxide 30 mmol/L (23-31); Chloride 96 mmol/L (98-107); Glucose 309 mg/dL (83-110); Potassium 3.9 mmol/L (3.5-5.1); Sodium 134 mmol/L (136-145)
[2021-07-06] MEDS: Atorvastatin Calcium 40 MG TAB PO SCH (09:25)
[2021-07-06] MEDS: Ascorbic Acid 500 mg Chewable Tablet PO SCH (09:25)
[2021-07-06] MEDS: Gabapentin 300 MG CAP PO SCH ×2 (09:25→21:37)
[2021-07-06] MEDS: Folic Acid 1 MG TAB PO SCH (09:25)
[2021-07-06] MEDS: Apixaban 5 MG TAB PO SCH ×2 (09:25→21:37)
[2021-07-06] MEDS: Zinc Sulfate 220 MG CAP PO SCH (09:25)
[2021-07-06] MEDS: Clopidogrel Bisulfate 75 MG TAB PO SCH (09:25)
[2021-07-06] MEDS: Lantus 1000 UNITS/10 ML VIAL SC SCH ×2 (09:26→21:39)
[2021-07-06] MEDS: Cholecalciferol (Vitamin D3) 400 UNITS TAB PO SCH (09:26)
[2021-07-06] MEDS: Multivitamin W/ Minerals 1 TAB PO SCH (09:26)
[2021-07-06] MEDS: Aspirin 81 mg Enteric Coated Tablet PO SCH (09:26)
[2021-07-06] MEDS: Carvedilol 3.125 MG TAB PO SCH ×2 (09:26→16:04)
[2021-07-06] MEDS ORDERED: NPH, Human Insulin Isophane 300 UNIT/3 ML VIAL SC SCH (12:26)
[2021-07-06] MEDS: Benzonatate 100 MG CAP PO SCH ×2 (16:04→21:37)
[2021-07-06] MEDS: guaiFENesin/DM ER PO SCH (21:38)
[2021-07-07] MEDS: Latanoprost 0.005% Ophth Soln 2.5 ml Bottle EA EYE SCH ×2 (00:45→21:25)
[2021-07-07] MEDS: Albuterol 200 PUFF (6.7GM INHALER) INH SCH ×4 (03:39→17:37)
[2021-07-07 07:31] LABS: Hemoglobin 12.2 g/dL (14.0-18.0); Mean Corpuscular HGB CONC 34.6 g/dL (32.0-36.0); Mean Corpuscular Hemoglobin 30.8 pg (27.0-31.0); Mean Corpuscular Volume 89.1 fL (78.0-98.0); Mean Platelet Volume 9.5 fL (7.4-10.4); Platelet Count 199 thou/uL (130-400); RBC Distribution Width 15.2 % (11.5-14.5); Red Blood Cell (RBC) Count 3.95 mill/uL (4.70-6.10); White Blood Cell (WBC) Count 17.5 thou/uL (4.8-10.8)
[2021-07-07 07:41] LABS: Anion Gap 11 mmol/L (10-20); BUN (Urea Nitrogen) 22 mg/dL (8.4-25.7); CRP (Inflammatory) 14.43 mg/dL (= or < 0.5); Calc. Creatinine Clearance 109 mL/min (70-130); Calcium 9.1 mg/dL (7.8-10.44); Carbon Dioxide 30 mmol/L (23-31); Chloride 97 mmol/L (98-107); Glucose 94 mg/dL (83-110); Potassium 3.4 mmol/L (3.5-5.1); Sodium 135 mmol/L (136-145)
[2021-07-07 08:14] LABS: Band 4 % (5-11); Lymphocytes 11 % (21-51); MDiff Complete? YES; Monocytes 6 % (0-10); Neutrophil 79 % (42-75); Platelet Morphology Comment Appears Adequate; RBC Morphology Normal
[2021-07-07] MEDS: Aspirin 81 mg Enteric Coated Tablet PO SCH (09:01)
[2021-07-07] MEDS: Gabapentin 300 MG CAP PO SCH ×2 (09:02→21:24)
[2021-07-07] MEDS: Apixaban 5 MG TAB PO SCH ×2 (09:02→21:25)
[2021-07-07] MEDS: Ascorbic Acid 500 mg Chewable Tablet PO SCH (09:02)
[2021-07-07] MEDS: Benzonatate 100 MG CAP PO SCH ×3 (09:03→21:25)
[2021-07-07] MEDS: Clopidogrel Bisulfate 75 MG TAB PO SCH (09:03)
[2021-07-07] MEDS: Atorvastatin Calcium 40 MG TAB PO SCH (09:03)
[2021-07-07] MEDS: Multivitamin W/ Minerals 1 TAB PO SCH (09:03)
[2021-07-07] MEDS: Cholecalciferol (Vitamin D3) 400 UNITS TAB PO SCH (09:03)
[2021-07-07] MEDS: Zinc Sulfate 220 MG CAP PO SCH (09:03)
[2021-07-07] MEDS: guaiFENesin/DM ER PO SCH ×2 (09:03→21:25)
[2021-07-07] MEDS: Carvedilol 3.125 MG TAB PO SCH ×2 (09:03→16:25)
[2021-07-07] MEDS: Folic Acid 1 MG TAB PO SCH (09:04)
[2021-07-07] MEDS: HumaLOG 300 UNITS/3 ML VIAL SC PRN ×3 (12:13→22:11)
[2021-07-07] MEDS: Cefepime 1 GM in Sodium Chloride 0.9% 100 ML IVPB SCH (14:12)
[2021-07-07 14:33] LABS: Legionella Urinary Ag Negative (Negative); Strep pneumo Urine Ag NEGATIVE (NEGATIVE)
[2021-07-07] MEDS: Lantus 1000 UNITS/10 ML VIAL SC SCH (22:10)
[2021-07-08] MEDS: Cefepime 1 GM in Sodium Chloride 0.9% 100 ML IVPB SCH ×2 (00:04→14:34)
[2021-07-08] MEDS: Albuterol 200 PUFF (6.7GM INHALER) INH SCH ×5 (00:04→20:12)
[2021-07-08] MEDS: HumaLOG 300 UNITS/3 ML VIAL SC PRN ×2 (06:13→20:42)
[2021-07-08] MEDS: Atorvastatin Calcium 40 MG TAB PO SCH (08:10)
[2021-07-08] MEDS: Ascorbic Acid 500 mg Chewable Tablet PO SCH (08:10)
[2021-07-08] MEDS: Carvedilol 3.125 MG TAB PO SCH ×2 (08:11→16:30)
[2021-07-08] MEDS: Aspirin 81 mg Enteric Coated Tablet PO SCH (08:11)
[2021-07-08] MEDS: Clopidogrel Bisulfate 75 MG TAB PO SCH (08:11)
[2021-07-08] MEDS: Folic Acid 1 MG TAB PO SCH (08:11)
[2021-07-08] MEDS: Apixaban 5 MG TAB PO SCH ×2 (08:11→20:14)
[2021-07-08] MEDS: Zinc Sulfate 220 MG CAP PO SCH (08:11)
[2021-07-08] MEDS: Multivitamin W/ Minerals 1 TAB PO SCH (08:11)
[2021-07-08] MEDS: Benzonatate 100 MG CAP PO SCH ×3 (08:11→20:15)
[2021-07-08] MEDS: Cholecalciferol (Vitamin D3) 400 UNITS TAB PO SCH (08:11)
[2021-07-08] MEDS: guaiFENesin/DM ER PO SCH ×2 (08:24→20:15)
[2021-07-08] MEDS: Gabapentin 300 MG CAP PO SCH ×2 (08:25→20:13)
[2021-07-08 10:25] LABS: #Eosinphils 0.2 thou/uL (0.0-0.7); #Lymphocytes 0.9 thou/uL (1.20-3.40); #Monocytes 1.2 thou/uL (0.11-0.59); %Basophils 0.1 % (0.0-1.0); %Monocytes 7.9 % (0.0-10.0); Hemoglobin 11.9 g/dL (14.0-18.0); Mean Corpuscular HGB CONC 32.7 g/dL (32.0-36.0); Mean Corpuscular Hemoglobin 29.7 pg (27.0-31.0); Mean Corpuscular Volume 90.6 fL (78.0-98.0); Mean Platelet Volume 9.6 fL (7.4-10.4); Platelet Count 209 thou/uL (130-400); RBC Distribution Width 15.2 % (11.5-14.5); White Blood Cell (WBC) Count 15.3 thou/uL (4.8-10.8)
[2021-07-08 10:47] LABS: Anion Gap 15 mmol/L (10-20); BUN (Urea Nitrogen) 15 mg/dL (8.4-25.7); CRP (Inflammatory) 21.35 mg/dL (= or < 0.5); Calc. Creatinine Clearance 111 mL/min (70-130); Calcium 9.1 mg/dL (7.8-10.44); Carbon Dioxide 26 mmol/L (23-31); Chloride 97 mmol/L (98-107); Glucose 243 mg/dL (83-110); Potassium 3.7 mmol/L (3.5-5.1); Sodium 134 mmol/L (136-145)
[2021-07-08] MEDS ORDERED: predniSONE 5 MG TAB PO SCH (13:45)
[2021-07-08] MEDS: Latanoprost 0.005% Ophth Soln 2.5 ml Bottle EA EYE SCH (20:13)
[2021-07-08] MEDS: Lantus 1000 UNITS/10 ML VIAL SC SCH (20:42)
[2021-07-09] MEDS: Albuterol 200 PUFF (6.7GM INHALER) INH SCH ×4 (01:10→18:04)
[2021-07-09] MEDS: Cefepime 1 GM in Sodium Chloride 0.9% 100 ML IVPB SCH ×2 (01:11→13:00)
[2021-07-09] MEDS: HumaLOG 300 UNITS/3 ML VIAL SC PRN ×4 (06:21→21:10)
[2021-07-09 06:47] LABS: #Eosinphils 0.3 thou/uL (0.0-0.7); #Monocytes 0.9 thou/uL (0.11-0.59); #Neutrophils 9.1 thou/uL (1.40-6.50); %Basophils 0.1 % (0.0-1.0); %Eosinophils 2.5 % (0.0-10.0); %Lymphocytes 8.6 % (21.0-51.0); %Monocytes 8.3 % (0.0-10.0); %Neutrophils 80.6 % (42.0-75.0); Hemoglobin 12.2 g/dL (14.0-18.0); Mean Corpuscular HGB CONC 33.5 g/dL (32.0-36.0); Mean Corpuscular Hemoglobin 30.5 pg (27.0-31.0); Platelet Count 240 thou/uL (130-400); White Blood Cell (WBC) Count 11.2 thou/uL (4.8-10.8)
[2021-07-09 07:05] LABS: Anion Gap 14 mmol/L (10-20); BUN (Urea Nitrogen) 14 mg/dL (8.4-25.7); CRP (Inflammatory) 17.99 mg/dL (= or < 0.5); Calc. Creatinine Clearance 115 mL/min (70-130); Calcium 8.9 mg/dL (7.8-10.44); Carbon Dioxide 27 mmol/L (23-31); Chloride 98 mmol/L (98-107); Glucose 214 mg/dL (83-110); Potassium 3.8 mmol/L (3.5-5.1); Sodium 135 mmol/L (136-145)
[2021-07-09] MEDS: Multivitamin W/ Minerals 1 TAB PO SCH (07:49)
[2021-07-09] MEDS: Zinc Sulfate 220 MG CAP PO SCH (07:49)
[2021-07-09] MEDS: Apixaban 5 MG TAB PO SCH ×2 (07:50→21:48)
[2021-07-09] MEDS: Benzonatate 100 MG CAP PO SCH ×3 (07:50→21:48)
[2021-07-09] MEDS: Atorvastatin Calcium 40 MG TAB PO SCH (07:50)
[2021-07-09] MEDS: Carvedilol 3.125 MG TAB PO SCH ×2 (07:50→16:13)
[2021-07-09] MEDS: Aspirin 81 mg Enteric Coated Tablet PO SCH (07:50)
[2021-07-09] MEDS: predniSONE 5 MG TAB PO SCH (07:50)
[2021-07-09] MEDS: Folic Acid 1 MG TAB PO SCH (07:51)
[2021-07-09] MEDS: Clopidogrel Bisulfate 75 MG TAB PO SCH (07:51)
[2021-07-09] MEDS: Ascorbic Acid 500 mg Chewable Tablet PO SCH (07:51)
[2021-07-09] MEDS: Cholecalciferol (Vitamin D3) 400 UNITS TAB PO SCH (07:52)
[2021-07-09] MEDS: Gabapentin 300 MG CAP PO SCH ×2 (07:52→21:08)
[2021-07-09] MEDS: guaiFENesin/DM ER PO SCH ×2 (07:56→22:44)
[2021-07-09 12:55] VITALS: BMI 32.5
[2021-07-09] MEDS: NPH, Human Insulin Isophane 300 UNIT/3 ML VIAL SC SCH ×2 (13:01→21:09)
[2021-07-09] MEDS: Lantus 1000 UNITS/10 ML VIAL SC SCH (21:09)
[2021-07-09] MEDS: Latanoprost 0.005% Ophth Soln 2.5 ml Bottle EA EYE SCH (21:24)
[2021-07-10] MEDS: Cefepime 1 GM in Sodium Chloride 0.9% 100 ML IVPB SCH ×2 (01:27→13:20)
[2021-07-10] MEDS: Albuterol 200 PUFF (6.7GM INHALER) INH SCH ×4 (02:52→18:02)
[2021-07-10 06:24] LABS: #Eosinphils 0.4 thou/uL (0.0-0.7); #Lymphocytes 1.3 thou/uL (1.20-3.40); #Monocytes 1.1 thou/uL (0.11-0.59); #Neutrophils 5.7 thou/uL (1.40-6.50); %Basophils 0.1 % (0.0-1.0); %Eosinophils 4.9 % (0.0-10.0); %Lymphocytes 14.9 % (21.0-51.0); %Neutrophils 67.1 % (42.0-75.0); Hemoglobin 11.6 g/dL (14.0-18.0); Mean Corpuscular HGB CONC 32.9 g/dL (32.0-36.0); Mean Corpuscular Hemoglobin 29.5 pg (27.0-31.0); Mean Corpuscular Volume 89.7 fL (78.0-98.0); Mean Platelet Volume 9.3 fL (7.4-10.4); Platelet Count 274 thou/uL (130-400); RBC Distribution Width 15.1 % (11.5-14.5); Red Blood Cell (RBC) Count 3.93 mill/uL (4.70-6.10); White Blood Cell (WBC) Count 8.5 thou/uL (4.8-10.8)
[2021-07-10 06:42] LABS: Anion Gap 12 mmol/L (10-20); BUN (Urea Nitrogen) 14 mg/dL (8.4-25.7); CRP (Inflammatory) 8.66 mg/dL (= or < 0.5); Calc. Creatinine Clearance 104 mL/min (70-130); Calcium 8.9 mg/dL (7.8-10.44); Carbon Dioxide 28 mmol/L (23-31); Chloride 100 mmol/L (98-107); Glucose 201 mg/dL (83-110); Potassium 3.9 mmol/L (3.5-5.1); Sodium 136 mmol/L (136-145)
[2021-07-10] MEDS: Folic Acid 1 MG TAB PO SCH (07:56)
[2021-07-10] MEDS: Atorvastatin Calcium 40 MG TAB PO SCH (07:56)
[2021-07-10] MEDS: Ascorbic Acid 500 mg Chewable Tablet PO SCH (07:56)
[2021-07-10] MEDS: Zinc Sulfate 220 MG CAP PO SCH (07:57)
[2021-07-10] MEDS: Multivitamin W/ Minerals 1 TAB PO SCH (07:57)
[2021-07-10] MEDS: Gabapentin 300 MG CAP PO SCH ×2 (07:57→20:40)
[2021-07-10] MEDS: Apixaban 5 MG TAB PO SCH ×2 (07:57→20:40)
[2021-07-10] MEDS: predniSONE 5 MG TAB PO SCH (07:57)
[2021-07-10] MEDS: Aspirin 81 mg Enteric Coated Tablet PO SCH (07:57)
[2021-07-10] MEDS: Benzonatate 100 MG CAP PO SCH ×3 (07:58→20:40)
[2021-07-10] MEDS: Carvedilol 3.125 MG TAB PO SCH ×2 (07:58→16:10)
[2021-07-10] MEDS: Clopidogrel Bisulfate 75 MG TAB PO SCH (07:58)
[2021-07-10] MEDS: Cholecalciferol (Vitamin D3) 400 UNITS TAB PO SCH (07:58)
[2021-07-10] MEDS: NPH, Human Insulin Isophane 300 UNIT/3 ML VIAL SC SCH ×3 (07:58→20:42)
[2021-07-10] MEDS: guaiFENesin/DM ER PO SCH ×2 (08:09→20:40)
[2021-07-10] MEDS: HumaLOG 300 UNITS/3 ML VIAL SC PRN ×2 (12:00→20:43)
[2021-07-10] MEDS: Lantus 1000 UNITS/10 ML VIAL SC SCH (20:41)
[2021-07-10] MEDS: Latanoprost 0.005% Ophth Soln 2.5 ml Bottle EA EYE SCH (20:59)
[2021-07-11] MEDS: Albuterol 200 PUFF (6.7GM INHALER) INH SCH ×4 (01:18→21:00)
[2021-07-11] MEDS: Cefepime 1 GM in Sodium Chloride 0.9% 100 ML IVPB SCH ×2 (01:18→12:17)
[2021-07-11 06:07] LABS: #Eosinphils 0.3 thou/uL (0.0-0.7); #Lymphocytes 1.4 thou/uL (1.20-3.40); #Neutrophils 5.2 thou/uL (1.40-6.50); %Basophils 0.4 % (0.0-1.0); %Eosinophils 4.1 % (0.0-10.0); %Lymphocytes 17.6 % (21.0-51.0); %Monocytes 12.6 % (0.0-10.0); %Neutrophils 65.4 % (42.0-75.0); Hemoglobin 11.4 g/dL (14.0-18.0); Mean Corpuscular HGB CONC 32.5 g/dL (32.0-36.0); Mean Corpuscular Hemoglobin 29.4 pg (27.0-31.0); Mean Corpuscular Volume 90.5 fL (78.0-98.0); Mean Platelet Volume 9.4 fL (7.4-10.4); Platelet Count 309 thou/uL (130-400); RBC Distribution Width 14.8 % (11.5-14.5); Red Blood Cell (RBC) Count 3.87 mill/uL (4.70-6.10)
[2021-07-11 06:28] LABS: Anion Gap 13 mmol/L (10-20); BUN (Urea Nitrogen) 11 mg/dL (8.4-25.7); CRP (Inflammatory) 4.59 mg/dL (= or < 0.5); Calc. Creatinine Clearance 116 mL/min (70-130); Calcium 8.6 mg/dL (7.8-10.44); Carbon Dioxide 27 mmol/L (23-31); Chloride 102 mmol/L (98-107); Glucose 99 mg/dL (83-110); Potassium 3.6 mmol/L (3.5-5.1); Sodium 138 mmol/L (136-145)
[2021-07-11] MEDS ORDERED: NPH, Human Insulin Isophane 300 UNIT/3 ML VIAL SC SCH ×2 (06:30→21:00)
[2021-07-11] MEDS: Aspirin 81 mg Enteric Coated Tablet PO SCH (08:16)
[2021-07-11] MEDS: predniSONE 5 MG TAB PO SCH (08:17)
[2021-07-11] MEDS: Clopidogrel Bisulfate 75 MG TAB PO SCH (08:17)
[2021-07-11] MEDS: Ascorbic Acid 500 mg Chewable Tablet PO SCH (08:18)
[2021-07-11] MEDS: Folic Acid 1 MG TAB PO SCH (08:18)
[2021-07-11] MEDS: Zinc Sulfate 220 MG CAP PO SCH (08:18)
[2021-07-11] MEDS: Benzonatate 100 MG CAP PO SCH ×3 (08:18→21:47)
[2021-07-11] MEDS: Multivitamin W/ Minerals 1 TAB PO SCH (08:18)
[2021-07-11] MEDS: Atorvastatin Calcium 40 MG TAB PO SCH (08:18)
[2021-07-11] MEDS: Carvedilol 3.125 MG TAB PO SCH ×2 (08:19→16:58)
[2021-07-11] MEDS: Gabapentin 300 MG CAP PO SCH ×2 (08:19→21:46)
[2021-07-11] MEDS: Cholecalciferol (Vitamin D3) 400 UNITS TAB PO SCH (08:19)
[2021-07-11] MEDS: Apixaban 5 MG TAB PO SCH ×2 (08:20→21:47)
[2021-07-11] MEDS: guaiFENesin/DM ER PO SCH ×2 (10:16→21:50)
[2021-07-11] MEDS: HumaLOG 300 UNITS/3 ML VIAL SC PRN ×3 (12:20→21:40)
[2021-07-11] MEDS: Lantus 1000 UNITS/10 ML VIAL SC SCH (21:41)
[2021-07-11] MEDS: Latanoprost 0.005% Ophth Soln 2.5 ml Bottle EA EYE SCH (21:48)
[2021-07-12] MEDS: Cefepime 1 GM in Sodium Chloride 0.9% 100 ML IVPB SCH ×2 (01:12→13:37)
[2021-07-12] MEDS: Albuterol 200 PUFF (6.7GM INHALER) INH SCH ×5 (01:12→20:54)
[2021-07-12] MEDS: HumaLOG 300 UNITS/3 ML VIAL SC PRN ×3 (05:41→17:42)
[2021-07-12 07:08] LABS: Anion Gap 12 mmol/L (10-20); BUN (Urea Nitrogen) 10 mg/dL (8.4-25.7); CRP (Inflammatory) 2.89 mg/dL (= or < 0.5); Calc. Creatinine Clearance 115 mL/min (70-130); Calcium 8.3 mg/dL (7.8-10.44); Carbon Dioxide 24 mmol/L (23-31); Chloride 103 mmol/L (98-107); Glucose 165 mg/dL (83-110); Potassium 4.2 mmol/L (3.5-5.1); Sodium 135 mmol/L (136-145)
[2021-07-12] MEDS: Zinc Sulfate 220 MG CAP PO SCH (08:24)
[2021-07-12] MEDS: Cholecalciferol (Vitamin D3) 400 UNITS TAB PO SCH (08:24)
[2021-07-12] MEDS: Multivitamin W/ Minerals 1 TAB PO SCH (08:24)
[2021-07-12] MEDS: Gabapentin 300 MG CAP PO SCH ×2 (08:24→20:47)
[2021-07-12] MEDS: Ascorbic Acid 500 mg Chewable Tablet PO SCH (08:24)
[2021-07-12] MEDS: predniSONE 5 MG TAB PO SCH (08:24)
[2021-07-12] MEDS: Aspirin 81 mg Enteric Coated Tablet PO SCH (08:24)
[2021-07-12] MEDS: Apixaban 5 MG TAB PO SCH ×2 (08:25→20:49)
[2021-07-12] MEDS: Benzonatate 100 MG CAP PO SCH ×3 (08:25→20:47)
[2021-07-12] MEDS: Clopidogrel Bisulfate 75 MG TAB PO SCH (08:25)
[2021-07-12] MEDS: Folic Acid 1 MG TAB PO SCH (08:25)
[2021-07-12] MEDS: Atorvastatin Calcium 40 MG TAB PO SCH (08:25)
[2021-07-12] MEDS: Carvedilol 3.125 MG TAB PO SCH ×2 (08:25→17:43)
[2021-07-12] MEDS: guaiFENesin/DM ER PO SCH ×2 (09:29→20:49)
[2021-07-12 12:39] LABS: #Eosinphils 0.2 thou/uL (0.0-0.7); #Lymphocytes 1.3 thou/uL (1.20-3.40); #Monocytes 0.8 thou/uL (0.11-0.59); #Neutrophils 6.1 thou/uL (1.40-6.50); %Basophils 0.1 % (0.0-1.0); %Eosinophils 2.8 % (0.0-10.0); %Lymphocytes 15.4 % (21.0-51.0); %Monocytes 9.7 % (0.0-10.0); Hemoglobin 11.9 g/dL (14.0-18.0); Mean Corpuscular HGB CONC 32.9 g/dL (32.0-36.0); Mean Corpuscular Hemoglobin 29.6 pg (27.0-31.0); Mean Corpuscular Volume 90.1 fL (78.0-98.0); Mean Platelet Volume 9.3 fL (7.4-10.4); Platelet Count 315 thou/uL (130-400); RBC Distribution Width 15.1 % (11.5-14.5); Red Blood Cell (RBC) Count 4.02 mill/uL (4.70-6.10); White Blood Cell (WBC) Count 8.4 thou/uL (4.8-10.8)
[2021-07-12] MEDS: Lantus 1000 UNITS/10 ML VIAL SC SCH (20:51)
[2021-07-12] MEDS: Latanoprost 0.005% Ophth Soln 2.5 ml Bottle EA EYE SCH (20:53)
[2021-07-13] MEDS: Cefepime 1 GM in Sodium Chloride 0.9% 100 ML IVPB SCH (01:15)
[2021-07-13] MEDS: Albuterol 200 PUFF (6.7GM INHALER) INH SCH (06:39)
[2021-07-13 06:42] VITALS: TEMP 97.5
[2021-07-13 08:49] VITALS: BP 131/79
[2021-07-13] MEDS: predniSONE 5 MG TAB PO SCH (08:56)
[2021-07-13] MEDS: Carvedilol 3.125 MG TAB PO SCH (08:56)
[2021-07-13] MEDS: Atorvastatin Calcium 40 MG TAB PO SCH (08:57)
[2021-07-13] MEDS: Aspirin 81 mg Enteric Coated Tablet PO SCH (08:57)
[2021-07-13] MEDS: Ascorbic Acid 500 mg Chewable Tablet PO SCH (08:57)
[2021-07-13] MEDS: Apixaban 5 MG TAB PO SCH (08:57)
[2021-07-13] MEDS: Multivitamin W/ Minerals 1 TAB PO SCH (08:58)
[2021-07-13] MEDS: Clopidogrel Bisulfate 75 MG TAB PO SCH (08:58)
[2021-07-13] MEDS: Cholecalciferol (Vitamin D3) 400 UNITS TAB PO SCH (08:58)
[2021-07-13] MEDS: Gabapentin 300 MG CAP PO SCH (08:58)
[2021-07-13] MEDS: Zinc Sulfate 220 MG CAP PO SCH (08:59)
[2021-07-13] MEDS: Folic Acid 1 MG TAB PO SCH (08:59)
[2021-07-13] MEDS: guaiFENesin/DM ER PO SCH (08:59)
[2021-07-13] MEDS: Benzonatate 100 MG CAP PO SCH (08:59)
== END 2021-07-13 12:28 | disposition home or self-care (01) | DRG 177 ==
LOC: ERS 21:24 → ERHOLD 23:33 → 2SW 07-03 14:56 → OBSVTOIN 07-03 17:27
PROVIDERS: ADMIT Student in an Organized Health Care Education/Training Program; ATTEND Hospitalist
DX: U07.1 COVID-19 (principal); J12.82 Pneumonia due to coronavirus disease 2019; G93.41 Metabolic encephalopathy; I50.23 Acute on chronic systolic (congestive) heart failure; E87.1 Hypo-osmolality and hyponatremia; G45.9 Transient cerebral ischemic attack, unspecified; D62 Acute posthemorrhagic anemia; I25.10 Atherosclerotic heart disease of native coronary artery without angina pectoris; K21.9 Gastro-esophageal reflux disease without esophagitis; M06.9 Rheumatoid arthritis, unspecified; I48.0 Paroxysmal atrial fibrillation; E11.69 Type 2 diabetes mellitus with other specified complication; I10 Essential (primary) hypertension; G47.33 Obstructive sleep apnea (adult) (pediatric); I35.0 Nonrheumatic aortic (valve) stenosis; E78.5 Hyperlipidemia, unspecified; I25.5 Ischemic cardiomyopathy; Z99.89 Dependence on other enabling machines and devices; Z86.73 Personal history of transient ischemic attack (TIA), and cerebral infarction without residual deficits; Z79.82 Long term (current) use of aspirin; Z79.899 Other long term (current) drug therapy; Z79.4 Long term (current) use of insulin; Z79.02 Long term (current) use of antithrombotics/antiplatelets; Z95.1 Presence of aortocoronary bypass graft; Z95.2 Presence of prosthetic heart valve; Z98.42 Cataract extraction status, left eye; Z98.41 Cataract extraction status, right eye; Z79.01 Long term (current) use of anticoagulants
CPT/HCPCS: 36415; 36416; 70450; 70496; 70498; 71045; 71250; 72125; 72170; 80048; 80053; 80061; 82550; 82553; 82728; 83880; 84484; 85025; 85379; 85610; 85730; 86140; 87040; 87070; 87205; 87449; 87899; 90471; 90732; 93005; 93306; G0009; J0692; J1100; J1650; J1815; J3490; J7512; Q9967; U0002

== ENCOUNTER 2022-05-08 10:24 | Inpatient (IN) | payer MEDICARE, BC ==
[2022-05-08 13:15] VITALS: BMI 32.9
[2022-05-08] MEDS ORDERED: Dextrose 50% Abboject 50 ML SYRINGE SLOW IVP PRN (14:09)
[2022-05-08] MEDS ORDERED: Dextrose 5% in Water 1,000 ML IV PRN (14:09)
[2022-05-08] MEDS ORDERED: Sodium Chloride 0.9% 1,000 ML IV SCH (14:15)
[2022-05-08] MEDS ORDERED: Metoclopramide HCl 10 MG/2 ML VIAL IVP PRN (14:17)
[2022-05-08 14:27] LABS: SARS-CoV-2 NAA Rapid Test Not Detected (NotDetected)
[2022-05-08 15:20] LABS: Troponin I 0.028 ng/mL (< 0.028)
[2022-05-08] MEDS: Carvedilol 6.25 MG TAB PO SCH (17:36)
[2022-05-08] MEDS: [UNRECOGNIZED DRUG - OTHER] R EYE SCH (17:36)
[2022-05-08] MEDS ORDERED: Moxifloxacin 0.5% Opth Drop 3 ML BOT R EYE SCH (18:00)
[2022-05-08] MEDS: Moxifloxacin 0.5% Opth Drop 3 ML BOT R EYE SCH (18:20)
[2022-05-08] MEDS: Gabapentin 300 MG CAP PO SCH (20:34)
[2022-05-08] MEDS: Latanoprost 0.005% Ophth Soln 2.5 ml Bottle EA EYE SCH (20:34)
[2022-05-08] MEDS: Apixaban 5 MG TAB PO SCH (20:34)
[2022-05-08] MEDS: prednisoLONE 1% Ophth Susp 5 ml Bottle R EYE SCH (20:35)
[2022-05-08] MEDS: HumaLOG 300 UNITS/3 ML VIAL SC PRN (20:35)
[2022-05-09 05:18] LABS: #Eosinphils 0.1 thou/uL (0.0-0.7); #Lymphocytes 1.2 thou/uL (1.20-3.40); #Monocytes 0.6 thou/uL (0.11-0.59); #Neutrophils 2.9 thou/uL (1.40-6.50); %Basophils 0.2 % (0.0-1.0); %Eosinophils 2.8 % (0.0-10.0); %Lymphocytes 23.8 % (21.0-51.0); %Monocytes 12.9 % (0.0-10.0); %Neutrophils 60.2 % (42.0-75.0); Hemoglobin 12.7 g/dL (14.0-18.0); Mean Corpuscular Hemoglobin 34.6 pg (27.0-31.0); Mean Platelet Volume 11.2 fL (7.4-10.4); Platelet Count 102 10x3/uL (130-400); RBC Distribution Width 14.6 % (11.5-14.5); Red Blood Cell (RBC) Count 3.66 mill/uL (4.70-6.10); White Blood Cell (WBC) Count 4.9 10x3/uL (4.8-10.8)
[2022-05-09 05:28] LABS: Anion Gap 12 mmol/L (10-20); BUN (Urea Nitrogen) 12 mg/dL (8.4-25.7); CK (CPK) 715 U/L (30-200); Calc. Creatinine Clearance 113 mL/min (70-130); Calcium 8.4 mg/dL (7.8-10.44); Carbon Dioxide 25 mmol/L (23-31); Chloride 100 mmol/L (98-107); Estimated GFR 90; Glucose 253 mg/dL (83-110); Phosphorus 1.8 mg/dL (2.3-4.7); Potassium 3.3 mmol/L (3.5-5.1); Sodium 134 mmol/L (136-145)
[2022-05-09] MEDS: HumaLOG 300 UNITS/3 ML VIAL SC PRN ×4 (06:20→21:20)
[2022-05-09] MEDS: Spironolactone 25 MG TAB PO SCH (09:06)
[2022-05-09] MEDS: Gabapentin 300 MG CAP PO SCH ×2 (09:06→21:16)
[2022-05-09] MEDS: valACYclovir 500 MG TAB PO SCH (09:07)
[2022-05-09] MEDS: [UNRECOGNIZED DRUG - OTHER] R EYE SCH ×2 (09:07→16:34)
[2022-05-09] MEDS: Aspirin 81 mg Enteric Coated Tablet PO SCH (09:07)
[2022-05-09] MEDS: Carvedilol 6.25 MG TAB PO SCH ×2 (09:07→16:34)
[2022-05-09] MEDS: Apixaban 5 MG TAB PO SCH ×2 (09:08→21:16)
[2022-05-09] MEDS: prednisoLONE 1% Ophth Susp 5 ml Bottle R EYE SCH ×2 (09:08→21:17)
[2022-05-09] MEDS: Moxifloxacin 0.5% Opth Drop 3 ML BOT R EYE SCH ×3 (11:16→17:22)
[2022-05-09] MEDS ORDERED: Potassium Phosphate 30 MMOL in Sodium Chloride 0.9% 250 ML 250 ML IVPB SCH (13:30)
[2022-05-09] MEDS: Latanoprost 0.005% Ophth Soln 2.5 ml Bottle EA EYE SCH (21:17)
[2022-05-09] MEDS: Acetaminophen 325 MG TAB PO PRN (21:24)
[2022-05-10] MEDS: Acetaminophen 325 MG TAB PO PRN (03:44)
[2022-05-10 08:49] VITALS: TEMP 97.3
[2022-05-10] MEDS: Aspirin 81 mg Enteric Coated Tablet PO SCH (08:51)
[2022-05-10] MEDS: Carvedilol 6.25 MG TAB PO SCH (08:51)
[2022-05-10] MEDS: valACYclovir 500 MG TAB PO SCH (08:52)
[2022-05-10] MEDS: Spironolactone 25 MG TAB PO SCH (08:52)
[2022-05-10] MEDS: Gabapentin 300 MG CAP PO SCH (08:53)
[2022-05-10] MEDS: [UNRECOGNIZED DRUG - OTHER] R EYE SCH (08:53)
[2022-05-10] MEDS: Apixaban 5 MG TAB PO SCH (08:53)
[2022-05-10] MEDS: prednisoLONE 1% Ophth Susp 5 ml Bottle R EYE SCH (08:54)
[2022-05-10] MEDS: Moxifloxacin 0.5% Opth Drop 3 ML BOT R EYE SCH ×2 (10:18→13:16)
[2022-05-10 12:55] VITALS: BP 117/59
== END 2022-05-10 15:10 | disposition home or self-care (01) | DRG 641 ==
LOC: 2NO 10:24 → OBSVTOIN 05-10 10:10
PROVIDERS: ADMIT Internal Medicine; ATTEND Internal Medicine
DX: E86.0 Dehydration (principal); E87.1 Hypo-osmolality and hyponatremia; Z66 Do not resuscitate; M06.9 Rheumatoid arthritis, unspecified; I25.10 Atherosclerotic heart disease of native coronary artery without angina pectoris; I10 Essential (primary) hypertension; K76.0 Fatty (change of) liver, not elsewhere classified; I48.91 Unspecified atrial fibrillation; D69.6 Thrombocytopenia, unspecified; E87.6 Hypokalemia; E83.42 Hypomagnesemia; E11.65 Type 2 diabetes mellitus with hyperglycemia; K21.9 Gastro-esophageal reflux disease without esophagitis; Z79.01 Long term (current) use of anticoagulants; Z95.1 Presence of aortocoronary bypass graft; Z79.4 Long term (current) use of insulin; Z79.899 Other long term (current) drug therapy; Z79.82 Long term (current) use of aspirin
CPT/HCPCS: 36415; 36416; 80048; 82550; 83735; 84100; 85025; J1815; J7050; U0002

== ENCOUNTER 2023-06-07 16:40 | Inpatient (IN) | payer MEDICARE, BC ==
[~2023-06-07 16:40] MED LIST changes: -Iopamidol-370 76% 500 ML 1 ML ONE; +Iopamidol-370 76% 500 ML MDV (1 ML CHARGE) ONE
[2023-06-07] MEDS ORDERED: Aspirin Chewable 81 MG TAB ONE (18:10)
[2023-06-07 18:26] LABS: Bacteria/HPF None Seen HPF (None Seen); Bilirubin Negative (Negative); Blood, Urine Negative (Negative); CAUTI Indications for Culture Alt mental st,lethar; Clarity Clear (Clear); Glucose, Urine (Dipstick) Greater than 1000 mg/dL (Negative); Ketone, Urine 20 mg/dL (Negative); Leukocyte Negative Leu/uL (Negative); Nitrite Negative (Negative); Protein, Urine (Dipstick) Negative (Neg-Trace); RBC/HPF 0-3 HPF (0-3); Specific Gravity, Urine 1.037 (1.002-1.036); Squamous Epithelial None Seen HPF (0-3); Urobilinogen Normal mg/dL (Less than 2); WBC/HPF 0-3 HPF (0-3)
[2023-06-07 18:27] LABS: Urine Culture Reflex No No
[2023-06-07 18:52] LABS: #Monocytes 0.7 thou/uL (0.11-0.59); #Neutrophils 6.3 thou/uL (1.40-6.50); %Basophils 0.3 % (0.0-1.0); %Lymphocytes 6.6 % (21.0-51.0); %Neutrophils 83.8 % (42.0-75.0); Hematocrit 49.1 % (42.0-52.0); Hemoglobin 15.9 g/dL (14.0-18.0); Mean Corpuscular HGB CONC 32.4 g/dL (32.0-36.0); Mean Corpuscular Hemoglobin 30.2 pg (27.0-31.0); Mean Corpuscular Volume 93.2 fl (78.0-98.0); Mean Platelet Volume 12.3 fL (7.4-10.4); Platelet Count 135 10x3/uL (130-400); RBC Distribution Width 15.8 % (11.5-14.5); Red Blood Cell (RBC) Count 5.27 mill/uL (4.70-6.10); White Blood Cell (WBC) Count 7.6 10x3/uL (4.8-10.8)
[2023-06-07 19:20] LABS: INR-International Normal Ratio 1.3; Prothrombin Time 17.2 sec (12.0-14.7); Troponin I 0.018 ng/mL (< 0.028)
[2023-06-07 19:21] LABS: PTT 39.6 sec (22.9-36.1)
[2023-06-07 19:35] LABS: ALT (SGPT) 11 U/L (8-55); AST (SGOT) 15 U/L (5-34); Albumin 3.9 g/dL (3.4-4.8); Alkaline Phosphatase 83 U/L (40-110); Anion Gap 18 mmol/L (10-20); BUN (Urea Nitrogen) 21 mg/dL (8.4-25.7); Bilirubin, Total 0.7 mg/dL (0.2-1.2); Calc. Creatinine Clearance 0 mL/min (70-130); Calcium 8.7 mg/dL (7.8-10.44); Carbon Dioxide 19 mmol/L (23-31); Chloride 105 mmol/L (98-107); Estimated GFR 65; Globulin 2.8 g/dL (2.4-3.5); Glucose 265 mg/dL (83-110); Lipase Less than 4 U/L (8-78); Magnesium 1.9 mg/dL (1.6-2.6); Potassium 4.4 mmol/L (3.5-5.1); Protein, Total 6.7 g/dL (5.8-8.1); Sodium 138 mmol/L (136-145)
[2023-06-07] MEDS ORDERED: Acetaminophen 325 MG TAB PO PRN (20:21)
[2023-06-07] MEDS ORDERED: hydrALAZINE 20 MG/ML VIAL SLOW IVP PRN (20:21)
[2023-06-07] MEDS ORDERED: Labetalol HCl 100 MG/20 ML VIAL SLOW IVP PRN (20:21)
[2023-06-07] MEDS ORDERED: Ondansetron PF 4 MG/2 ML Vial IVP PRN (20:21)
[2023-06-07] MEDS ORDERED: Dextrose 5% in Water 1,000 ML IV PRN (20:24)
[2023-06-07] MEDS ORDERED: Dextrose 50% Abboject 50 ML SYRINGE SLOW IVP PRN (20:24)
[2023-06-07] MEDS ORDERED: Glucagon 1 MG/ML KIT IM PRN (20:24)
[2023-06-07] MEDS ORDERED: Furosemide 20 MG/2 ML VIAL SLOW IVP SCH (20:45)
[2023-06-07 21:03] LABS: Amphetamine Not Detected (NotDetected); Barbiturates Screen Not Detected (NotDetected); Benzodiazepine Screen Not Detected (NotDetected); Cocaine Metabolite Screen Not Detected (NotDetected); Methadone Not Detected (NotDetected); Methamphetamine Not Detected (NotDetected); Opiate Screen Not Detected (NotDetected); Oxycodone Screen Not Detected (NotDetected); Phencyclidine (PCP) Not Detected (NotDetected); THC/Cannabinoid Screen Not Detected (NotDetected); Tricyclic Screen Not Detected (NotDetected)
[2023-06-07 21:57] VITALS: BMI 32.9
[2023-06-07] MEDS: HumaLOG 300 UNITS/3 ML VIAL SC PRN (22:56)
[2023-06-08 04:58] LABS: #Monocytes 0.8 thou/uL (0.11-0.59); #Neutrophils 4.9 thou/uL (1.40-6.50); %Basophils 0.3 % (0.0-1.0); %Lymphocytes 10.7 % (21.0-51.0); %Monocytes 11.9 % (0.0-10.0); %Neutrophils 76.8 % (42.0-75.0); Hematocrit 46.3 % (42.0-52.0); Mean Corpuscular HGB CONC 32.4 g/dL (32.0-36.0); Mean Corpuscular Hemoglobin 30.7 pg (27.0-31.0); Mean Corpuscular Volume 94.7 fl (78.0-98.0); Mean Platelet Volume 13.2 fL (7.4-10.4); Platelet Count 140 10x3/uL (130-400); RBC Distribution Width 15.9 % (11.5-14.5); Red Blood Cell (RBC) Count 4.89 mill/uL (4.70-6.10); White Blood Cell (WBC) Count 6.4 10x3/uL (4.8-10.8)
[2023-06-08 05:07] LABS: Hemoglobin A1c 9.5 % (4.0-6.0)
[2023-06-08 05:23] LABS: Anion Gap 14 mmol/L (10-20); BUN (Urea Nitrogen) 23 mg/dL (8.4-25.7); Calc. Creatinine Clearance 84 mL/min (70-130); Calcium 8.9 mg/dL (7.8-10.44); Carbon Dioxide 24 mmol/L (23-31); Cardiac Risk 3.5 (Less than 4.5); Chloride 103 mmol/L (98-107); Cholesterol 101 mg/dl (< 200 Desired); Estimated GFR 71; Glucose 226 mg/dL (83-110); HDL Cholesterol 29 mg/dL (>60 Neg Risk); LDL Cholesterol, Calculated 44 mg/dL; Potassium 3.8 mmol/L (3.5-5.1); Sodium 137 mmol/L (136-145); Triglycerides 141 mg/dL (Less than 150)
[2023-06-08] MEDS: HumaLOG 300 UNITS/3 ML VIAL SC PRN ×4 (06:34→22:12)
[2023-06-08] MEDS ORDERED: Aspirin 81 mg Enteric Coated Tablet PO SCH (09:00)
[2023-06-08] MEDS: Furosemide 20 MG/2 ML VIAL SLOW IVP SCH (09:42)
[2023-06-08] MEDS: Gabapentin 300 MG CAP PO SCH (19:56)
[2023-06-08] MEDS: Torsemide 20 MG TAB PO SCH (19:56)
[2023-06-08] MEDS: Insulin Glargine 30 UNITS/0.3 ML VIAL SC SCH (19:57)
[2023-06-08] MEDS: Apixaban 5 MG TAB PO SCH (19:57)
[2023-06-08] MEDS: Carvedilol 6.25 MG TAB PO SCH (19:57)
[2023-06-08] MEDS ORDERED: Atorvastatin Calcium 40 MG TAB PO SCH (21:00)
[2023-06-08] MEDS ORDERED: Latanoprost 0.005% Ophth Soln 2.5 ml Bottle EA EYE SCH (21:00)
[2023-06-09 04:35] LABS: #Eosinphils 0.1 thou/uL (0.0-0.7); #Monocytes 1.2 thou/uL (0.11-0.59); #Neutrophils 5.7 thou/uL (1.40-6.50); %Basophils 0.3 % (0.0-1.0); %Eosinophils 0.9 % (0.0-10.0); %Lymphocytes 18.1 % (21.0-51.0); %Monocytes 14.1 % (0.0-10.0); %Neutrophils 66.3 % (42.0-75.0); Hematocrit 42.3 % (42.0-52.0); Hemoglobin 13.7 g/dL (14.0-18.0); Mean Corpuscular HGB CONC 32.4 g/dL (32.0-36.0); Mean Corpuscular Hemoglobin 30.3 pg (27.0-31.0); Mean Corpuscular Volume 93.6 fl (78.0-98.0); Mean Platelet Volume 12.7 fL (7.4-10.4); Platelet Count 126 10x3/uL (130-400); RBC Distribution Width 15.4 % (11.5-14.5); Red Blood Cell (RBC) Count 4.52 mill/uL (4.70-6.10); White Blood Cell (WBC) Count 8.6 10x3/uL (4.8-10.8)
[2023-06-09 05:03] LABS: Anion Gap 14 mmol/L (10-20); BUN (Urea Nitrogen) 22 mg/dL (8.4-25.7); Calc. Creatinine Clearance 84 mL/min (70-130); Calcium 8.7 mg/dL (7.8-10.44); Carbon Dioxide 28 mmol/L (23-31); Chloride 100 mmol/L (98-107); Estimated GFR 71; Glucose 178 mg/dL (83-110); Potassium 3.5 mmol/L (3.5-5.1); Sodium 138 mmol/L (136-145)
[2023-06-09] MEDS: HumaLOG 300 UNITS/3 ML VIAL SC PRN (06:08)
[2023-06-09 08:03] VITALS: BP 125/66; TEMP 97.7
[2023-06-09] MEDS ORDERED: Non-Formulary Item 1 EACH (Valacyclovir Hcl [Valacyclovir] 1,000 MG Tablet) PO SCH (09:00)
[2023-06-09] MEDS ORDERED: Loratadine 10 MG TAB PO SCH (09:00)
[2023-06-09] MEDS ORDERED: Potassium Chloride 20 MEQ TAB PO SCH (09:00)
[2023-06-09] MEDS ORDERED: Aspirin 81 mg Enteric Coated Tablet PO SCH (09:00)
[2023-06-09] MEDS ORDERED: Multivit, Therapeutic 1 TAB PO SCH (09:00)
[2023-06-09] MEDS ORDERED: Folic Acid 1 MG TAB PO SCH (09:00)
[2023-06-09] MEDS ORDERED: Spironolactone 25 MG TAB PO SCH (09:00)
[2023-06-09] MEDS: Insulin Glargine 30 UNITS/0.3 ML VIAL SC SCH (09:27)
[2023-06-09] MEDS: Furosemide 20 MG/2 ML VIAL SLOW IVP SCH (09:27)
[2023-06-09] MEDS: Apixaban 5 MG TAB PO SCH (09:31)
[2023-06-09] MEDS: Gabapentin 300 MG CAP PO SCH (09:31)
[2023-06-09] MEDS: Torsemide 20 MG TAB PO SCH (09:32)
[2023-06-09] MEDS: Carvedilol 6.25 MG TAB PO SCH (09:32)
[2023-06-10] MEDS ORDERED: FLU VACC QS2023(65UP)/MF59C/PF 60 MCG/0.5 ML SYRINGE IM ONE (22:15)
[2023-06-11] MEDS ORDERED: Cholecalciferol 1,000 UNITS (25 MCG) TAB PO SCH (09:00)
== END 2023-06-09 11:55 | disposition home or self-care (01) | DRG 71 ==
LOC: ERS 16:40 → 2NO 20:07 → OBSVTOIN 06-08 15:19
PROVIDERS: ADMIT Internal Medicine; ATTEND Family Medicine
PROC: 4A00X4Z Measurement of Central Nervous Electrical Activity, External Approach (ICD-10-PCS; principal; 2023-06-08)
DX: G93.41 Metabolic encephalopathy (principal); I48.11 Longstanding persistent atrial fibrillation; I65.23 Occlusion and stenosis of bilateral carotid arteries; I10 Essential (primary) hypertension; E11.9 Type 2 diabetes mellitus without complications; Z79.01 Long term (current) use of anticoagulants; I25.10 Atherosclerotic heart disease of native coronary artery without angina pectoris; K21.9 Gastro-esophageal reflux disease without esophagitis; Z95.1 Presence of aortocoronary bypass graft; Z98.41 Cataract extraction status, right eye; Z98.42 Cataract extraction status, left eye; Z82.3 Family history of stroke; Z79.82 Long term (current) use of aspirin; Z79.4 Long term (current) use of insulin; Z79.899 Other long term (current) drug therapy; Z86.73 Personal history of transient ischemic attack (TIA), and cerebral infarction without residual deficits; E87.70 Fluid overload, unspecified; M06.9 Rheumatoid arthritis, unspecified; E86.0 Dehydration; E78.5 Hyperlipidemia, unspecified
CPT/HCPCS: 36415; 36416; 70450; 70496; 70498; 70551; 71045; 80048; 80053; 80061; 80306; 81001; 82140; 83036; 83690; 83735; 83880; 84443; 84484; 85025; 85610; 85730; 93005; 95816; 95819; 96360; 96361; J1650; J1815; J1940; Q9967

== ENCOUNTER 2023-07-25 13:30 | Inpatient (IN) | payer MEDICARE, BC ==
[2023-07-25 14:22] LABS: #Basophils 0.1 thou/uL (0.0-0.2); #Monocytes 0.9 thou/uL (0.11-0.59); #Neutrophils 12.7 thou/uL (1.40-6.50); %Basophils 0.4 % (0.0-1.0); %Eosinophils 0.1 % (0.0-10.0); %Monocytes 5.8 % (0.0-10.0); %Neutrophils 85.4 % (42.0-75.0); Hematocrit 45.3 % (42.0-52.0); Hemoglobin 14.9 g/dL (14.0-18.0); Mean Corpuscular HGB CONC 32.9 g/dL (32.0-36.0); Mean Corpuscular Hemoglobin 30.7 pg (27.0-31.0); Mean Corpuscular Volume 93.2 fl (78.0-98.0); Mean Platelet Volume 12.3 fL (7.4-10.4); Platelet Count 202 10x3/uL (130-400); RBC Distribution Width 16.4 % (11.5-14.5); Red Blood Cell (RBC) Count 4.86 mill/uL (4.70-6.10); White Blood Cell (WBC) Count 14.9 10x3/uL (4.8-10.8)
[2023-07-25 14:31] LABS: Bacteria/HPF None Seen HPF (None Seen); Bilirubin Negative (Negative); Blood, Urine Negative (Negative); CAUTI Indications for Culture Pelvic or flank pain; Clarity Clear (Clear); Glucose, Urine (Dipstick) Greater than 1000 mg/dL (Negative); Ketone, Urine 20 mg/dL (Negative); Leukocyte Negative Leu/uL (Negative); Nitrite Negative (Negative); Protein, Urine (Dipstick) Negative (Neg-Trace); RBC/HPF 0-3 HPF (0-3); Specific Gravity, Urine 1.031 (1.002-1.036); Squamous Epithelial None Seen HPF (0-3); Urobilinogen Normal mg/dL (Less than 2); WBC/HPF 0-3 HPF (0-3)
[2023-07-25 14:42] LABS: ALT (SGPT) 21 U/L (8-55); AST (SGOT) 21 U/L (5-34); Albumin 4.6 g/dL (3.4-4.8); Alkaline Phosphatase 94 U/L (40-110); Anion Gap 15 mmol/L (10-20); BUN (Urea Nitrogen) 21 mg/dL (8.4-25.7); Bilirubin, Total 1.1 mg/dL (0.2-1.2); Calc. Creatinine Clearance 0 mL/min (70-130); Calcium 9.8 mg/dL (7.8-10.44); Carbon Dioxide 25 mmol/L (23-31); Chloride 98 mmol/L (98-107); Estimated GFR 57; Globulin 3.4 g/dL (2.4-3.5); Glucose 266 mg/dL (83-110); Potassium 5.1 mmol/L (3.5-5.1); Sodium 133 mmol/L (136-145)
[2023-07-25 14:47] LABS: Urine Culture Reflex No No
[2023-07-25] MEDS ORDERED: Morphine 4 MG/ML VIAL ONE (15:20)
[2023-07-25] MEDS ORDERED: Ondansetron PF 4 MG/2 ML Vial ONE (15:20)
[2023-07-25] MEDS ORDERED: Bisacodyl 5 MG TAB PO PRN (17:06)
[2023-07-25] MEDS ORDERED: Senokot S 8.6-50 MG TAB PO PRN (17:06)
[2023-07-25] MEDS ORDERED: Acetaminophen 325 MG TAB PO PRN (17:06)
[2023-07-25] MEDS ORDERED: Guaifenesin DM 100-10/5 ML UDCUP PO PRN (17:06)
[2023-07-25] MEDS ORDERED: Dextrose 50% Abboject 50 ML SYRINGE SLOW IVP PRN (17:18)
[2023-07-25] MEDS ORDERED: Glucagon 1 MG/ML KIT IM PRN (17:18)
[2023-07-25] MEDS ORDERED: Dextrose 5% in Water 1,000 ML IV PRN (17:18)
[2023-07-25] MEDS ORDERED: HYDROcodone/Acetaminophen 5/325 mg Tablet ONE (18:40)
[2023-07-25 21:46] VITALS: BMI 34.5
[2023-07-25] MEDS: Carvedilol 6.25 MG TAB PO SCH (21:57)
[2023-07-25] MEDS: Famotidine 20 MG TAB PO SCH (21:58)
[2023-07-25] MEDS: Insulin Glargine 30 UNITS/0.3 ML VIAL SC SCH (21:58)
[2023-07-25] MEDS: Latanoprost 0.005% Ophth Soln 2.5 ml Bottle EA EYE SCH (21:58)
[2023-07-26 03:55] LABS: #Monocytes 1.6 thou/uL (0.11-0.59); #Neutrophils 10.7 thou/uL (1.40-6.50); %Basophils 0.3 % (0.0-1.0); %Lymphocytes 11.1 % (21.0-51.0); %Monocytes 11.2 % (0.0-10.0); Hematocrit 41.3 % (42.0-52.0); Hemoglobin 13.2 g/dL (14.0-18.0); Mean Corpuscular Hemoglobin 29.9 pg (27.0-31.0); Mean Corpuscular Volume 93.7 fl (78.0-98.0); Mean Platelet Volume 12.5 fL (7.4-10.4); Platelet Count 185 10x3/uL (130-400); RBC Distribution Width 16.3 % (11.5-14.5); Red Blood Cell (RBC) Count 4.41 mill/uL (4.70-6.10); White Blood Cell (WBC) Count 13.9 10x3/uL (4.8-10.8)
[2023-07-26 04:33] LABS: ALT (SGPT) 16 U/L (8-55); AST (SGOT) 18 U/L (5-34); Alkaline Phosphatase 74 U/L (40-110); Anion Gap 15 mmol/L (10-20); BUN (Urea Nitrogen) 22 mg/dL (8.4-25.7); Bilirubin, Total 0.7 mg/dL (0.2-1.2); Calc. Creatinine Clearance 87 mL/min (70-130); Calcium 9.4 mg/dL (7.8-10.44); Carbon Dioxide 25 mmol/L (23-31); Chloride 101 mmol/L (98-107); Estimated GFR 72; Globulin 3.1 g/dL (2.4-3.5); Glucose 185 mg/dL (83-110); Potassium 5.6 mmol/L (3.5-5.1); Protein, Total 7.1 g/dL (5.8-8.1); Sodium 135 mmol/L (136-145)
[2023-07-26] MEDS: HYDROcodone/Acetaminophen 5/325 mg Tablet PO PRN (07:33)
[2023-07-26] MEDS: Ondansetron PF 4 MG/2 ML Vial IVP PRN ×3 (07:57→20:48)
[2023-07-26] MEDS ORDERED: Spironolactone 25 MG TAB PO SCH (09:00)
[2023-07-26] MEDS: HumaLOG 300 UNITS/3 ML VIAL SC SCH ×4 (12:13→19:27)
[2023-07-26] MEDS: Loratadine 10 MG TAB PO SCH (12:15)
[2023-07-26] MEDS: Carvedilol 6.25 MG TAB PO SCH ×2 (12:15→20:41)
[2023-07-26] MEDS: Famotidine 20 MG TAB PO SCH ×2 (12:15→20:41)
[2023-07-26] MEDS: Insulin Glargine 30 UNITS/0.3 ML VIAL SC SCH ×2 (12:16→20:48)
[2023-07-26] MEDS ORDERED: Sodium Chloride 0.9% 1,000 ML IV SCH (13:00)
[2023-07-26] MEDS ORDERED: Promethazine HCl 25 MG/ML VIAL IM PRN (13:20)
[2023-07-26] MEDS ORDERED: Promethazine 25 MG TAB PO PRN (13:36)
[2023-07-26] MEDS ORDERED: Scopolamine 1 mg/72 hour Patch TD SCH (17:00)
[2023-07-26] MEDS: HumaLOG 300 UNITS/3 ML VIAL SC PRN (17:20)
[2023-07-26] MEDS: Latanoprost 0.005% Ophth Soln 2.5 ml Bottle EA EYE SCH (20:41)
[2023-07-27] MEDS: Ondansetron PF 4 MG/2 ML Vial IVP PRN (05:08)
[2023-07-27 05:38] LABS: #Basophils 0.1 thou/uL (0.0-0.2); #Monocytes 2.4 thou/uL (0.11-0.59); #Neutrophils 12.2 thou/uL (1.40-6.50); %Basophils 0.3 % (0.0-1.0); %Lymphocytes 11.3 % (21.0-51.0); %Monocytes 14.2 % (0.0-10.0); %Neutrophils 73.7 % (42.0-75.0); Hematocrit 35.7 % (42.0-52.0); Hemoglobin 11.5 g/dL (14.0-18.0); Mean Corpuscular HGB CONC 32.2 g/dL (32.0-36.0); Mean Corpuscular Hemoglobin 30.4 pg (27.0-31.0); Mean Corpuscular Volume 94.4 fl (78.0-98.0); Mean Platelet Volume 12.7 fL (7.4-10.4); Platelet Count 191 10x3/uL (130-400); RBC Distribution Width 16.7 % (11.5-14.5); Red Blood Cell (RBC) Count 3.78 mill/uL (4.70-6.10); White Blood Cell (WBC) Count 16.6 10x3/uL (4.8-10.8)
[2023-07-27] MEDS: Loratadine 10 MG TAB PO SCH (08:08)
[2023-07-27] MEDS: Carvedilol 6.25 MG TAB PO SCH ×2 (08:08→21:08)
[2023-07-27] MEDS: Famotidine 20 MG TAB PO SCH ×2 (08:09→21:08)
[2023-07-27] MEDS: Insulin Glargine 30 UNITS/0.3 ML VIAL SC SCH ×2 (08:10→21:08)
[2023-07-27 09:20] LABS: Anion Gap 15 mmol/L (10-20); BUN (Urea Nitrogen) 21 mg/dL (8.4-25.7); Calc. Creatinine Clearance 93 mL/min (70-130); Carbon Dioxide 22 mmol/L (23-31); Chloride 103 mmol/L (98-107); Estimated GFR 78; Glucose 201 mg/dL (83-110); Potassium 4.6 mmol/L (3.5-5.1); Sodium 135 mmol/L (136-145)
[2023-07-27] MEDS: HumaLOG 300 UNITS/3 ML VIAL SC SCH ×3 (09:46→18:01)
[2023-07-27] MEDS: Zolpidem Tartrate 5 MG TAB PO PRN (21:08)
[2023-07-27] MEDS: Latanoprost 0.005% Ophth Soln 2.5 ml Bottle EA EYE SCH (21:08)
[2023-07-28] MEDS: HYDROcodone/Acetaminophen 5/325 mg Tablet PO PRN ×2 (01:33→20:14)
[2023-07-28 05:12] LABS: #Basophils 0.1 thou/uL (0.0-0.2); #Monocytes 2.2 thou/uL (0.11-0.59); #Neutrophils 10.6 thou/uL (1.40-6.50); %Basophils 0.3 % (0.0-1.0); %Lymphocytes 10.9 % (21.0-51.0); %Monocytes 15.1 % (0.0-10.0); %Neutrophils 73.2 % (42.0-75.0); Hematocrit 31.3 % (42.0-52.0); Hemoglobin 10.1 g/dL (14.0-18.0); Mean Corpuscular HGB CONC 32.3 g/dL (32.0-36.0); Mean Corpuscular Hemoglobin 30.4 pg (27.0-31.0); Mean Corpuscular Volume 94.3 fl (78.0-98.0); Mean Platelet Volume 12.2 fL (7.4-10.4); Platelet Count 185 10x3/uL (130-400); RBC Distribution Width 17.1 % (11.5-14.5); Red Blood Cell (RBC) Count 3.32 mill/uL (4.70-6.10); White Blood Cell (WBC) Count 14.5 10x3/uL (4.8-10.8)
[2023-07-28 05:38] LABS: Anion Gap 15 mmol/L (10-20); BUN (Urea Nitrogen) 31 mg/dL (8.4-25.7); Calc. Creatinine Clearance 85 mL/min (70-130); Calcium 9.1 mg/dL (7.8-10.44); Carbon Dioxide 24 mmol/L (23-31); Chloride 102 mmol/L (98-107); Estimated GFR 69; Glucose 199 mg/dL (83-110); Potassium 4.5 mmol/L (3.5-5.1); Sodium 136 mmol/L (136-145)
[2023-07-28] MEDS: Loratadine 10 MG TAB PO SCH (07:42)
[2023-07-28] MEDS: Famotidine 20 MG TAB PO SCH ×2 (07:42→20:15)
[2023-07-28] MEDS: Carvedilol 6.25 MG TAB PO SCH ×2 (07:43→20:15)
[2023-07-28] MEDS: HumaLOG 300 UNITS/3 ML VIAL SC PRN (07:43)
[2023-07-28] MEDS: Insulin Glargine 30 UNITS/0.3 ML VIAL SC SCH ×2 (07:43→21:39)
[2023-07-28] MEDS: HumaLOG 300 UNITS/3 ML VIAL SC SCH ×3 (07:51→18:18)
[2023-07-28] MEDS: Zolpidem Tartrate 5 MG TAB PO PRN (21:40)
[2023-07-28] MEDS: Latanoprost 0.005% Ophth Soln 2.5 ml Bottle EA EYE SCH (21:40)
[2023-07-29 05:05] LABS: #Eosinphils 0.1 thou/uL (0.0-0.7); #Monocytes 1.6 thou/uL (0.11-0.59); #Neutrophils 8.1 thou/uL (1.40-6.50); %Basophils 0.3 % (0.0-1.0); %Eosinophils 0.6 % (0.0-10.0); %Lymphocytes 15.6 % (21.0-51.0); %Monocytes 13.9 % (0.0-10.0); %Neutrophils 69.1 % (42.0-75.0); Hematocrit 32.8 % (42.0-52.0); Hemoglobin 10.5 g/dL (14.0-18.0); Mean Corpuscular Hemoglobin 30.8 pg (27.0-31.0); Mean Corpuscular Volume 96.2 fl (78.0-98.0); Mean Platelet Volume 12.7 fL (7.4-10.4); Platelet Count 218 10x3/uL (130-400); RBC Distribution Width 17.2 % (11.5-14.5); Red Blood Cell (RBC) Count 3.41 mill/uL (4.70-6.10); White Blood Cell (WBC) Count 11.7 10x3/uL (4.8-10.8)
[2023-07-29 05:34] LABS: Anion Gap 13 mmol/L (10-20); BUN (Urea Nitrogen) 29 mg/dL (8.4-25.7); Calc. Creatinine Clearance 101 mL/min (70-130); Carbon Dioxide 27 mmol/L (23-31); Chloride 99 mmol/L (98-107); Estimated GFR 85; Glucose 118 mg/dL (83-110); Sodium 135 mmol/L (136-145)
[2023-07-29] MEDS: Carvedilol 6.25 MG TAB PO SCH (08:43)
[2023-07-29] MEDS: Famotidine 20 MG TAB PO SCH (08:43)
[2023-07-29] MEDS: Insulin Glargine 30 UNITS/0.3 ML VIAL SC SCH (08:44)
[2023-07-29] MEDS: HumaLOG 300 UNITS/3 ML VIAL SC SCH ×2 (08:44→13:21)
[2023-07-29] MEDS: Loratadine 10 MG TAB PO SCH (08:48)
[2023-07-29 10:57] VITALS: BP 105/62; TEMP 97.6
[2023-07-30] MEDS ORDERED: Apixaban 5 MG TAB PO SCH (09:00)
== END 2023-07-29 16:03 | DRG 605 ==
LOC: ERS 13:30 → SUATTDRO 13:30 → 2NO 16:18 → OBSVTOIN 07-26 15:12 → SJJU 07-28 20:50
PROVIDERS: ADMIT Internal Medicine; ATTEND Family Medicine
DX: S30.1XXA Contusion of abdominal wall, initial encounter (principal); I50.32 Chronic diastolic (congestive) heart failure; W18.30XA Fall on same level, unspecified, initial encounter; I48.91 Unspecified atrial fibrillation; Z79.01 Long term (current) use of anticoagulants; E11.9 Type 2 diabetes mellitus without complications; Z66 Do not resuscitate; E66.01 Morbid (severe) obesity due to excess calories; Z68.34 Body mass index [BMI] 34.0-34.9, adult; Z79.4 Long term (current) use of insulin; Z79.899 Other long term (current) drug therapy; K21.9 Gastro-esophageal reflux disease without esophagitis; Z95.1 Presence of aortocoronary bypass graft; Z95.0 Presence of cardiac pacemaker; I11.0 Hypertensive heart disease with heart failure; E87.5 Hyperkalemia; M06.9 Rheumatoid arthritis, unspecified; K80.20 Calculus of gallbladder without cholecystitis without obstruction; I35.0 Nonrheumatic aortic (valve) stenosis
CPT/HCPCS: 36415; 36416; 71046; 74177; 76705; 80048; 80053; 81001; 85025; 86850; 86900; 86901; 93005; 96374; 96375; 96376; G0378; J1815; J2270; J2405; J7050; Q0169; Q9967

== ENCOUNTER 2023-12-27 09:52 | Outpatient (CLI) | payer MEDICARE, BC | END 2023-12-27 09:53 | disposition home or self-care (01) | LOC: ULT 09:52 | PROVIDERS: ATTEND Family Medicine | DX: S30.1XXA Contusion of abdominal wall, initial encounter (principal) | CPT/HCPCS: 76705 ==

== ENCOUNTER 2024-01-13 08:05 | Outpatient (CLI) | payer MEDICARE, BC ==
[2024-01-13] MEDS ORDERED: Iopamidol 370 76% 100 ML VIAL ONE (15:45)
== END 2024-01-13 08:06 | disposition home or self-care (01) ==
LOC: CT 08:05
PROVIDERS: ATTEND Nurse Practitioner Family
DX: S30.1XXA Contusion of abdominal wall, initial encounter (principal)
CPT/HCPCS: 74177; Q9967

== ENCOUNTER 2024-07-17 20:15 | Inpatient (IN) | payer MEDICARE, BC ==
[2024-07-17 21:41] VITALS: BMI 29.4
[2024-07-17] MEDS ORDERED: Calcium Carbonate 500 MG ChewTAB PO PRN (21:54)
[2024-07-17] MEDS ORDERED: Acetaminophen 650 MG Suppository PR PRN (21:54)
[2024-07-17] MEDS ORDERED: Acetaminophen 325 MG TAB PO PRN (21:54)
[2024-07-17] MEDS ORDERED: Ondansetron ODT 4 MG TAB PO PRN (21:54)
[2024-07-17] MEDS ORDERED: Ondansetron PF 4 MG/2 ML Vial IVP PRN (21:54)
[2024-07-17] MEDS ORDERED: Dextrose 5% in Water 1,000 ML IV PRN (21:58)
[2024-07-17] MEDS ORDERED: Glucagon 1 MG/ML KIT IM PRN (21:58)
[2024-07-17] MEDS ORDERED: Dextrose 50% Abboject 50 ML SYRINGE SLOW IVP PRN (21:58)
[2024-07-18 04:12] LABS: #Basophils 0.05 10x3/uL (0.0-0.2); %Basophils 0.4 % (0.0-1.0); %Eosinophils 0.3 % (0.0-10.0); %Monocytes 12.2 % (0.0-10.0); %Neutrophils 76.6 % (42.0-75.0); Hematocrit 44.9 % (42.0-52.0); Mean Corpuscular HGB CONC 33.4 g/dL (32.0-36.0); Mean Corpuscular Hemoglobin 29.6 pg (27.0-31.0); Mean Corpuscular Volume 88.7 fL (78.0-98.0); Mean Platelet Volume 11.9 fL (7.4-10.4); Platelet Count 177 10x3/uL (130-400); RBC Distribution Width 17.5 % (11.5-14.5); Red Blood Cell (RBC) Count 5.06 mill/uL (4.70-6.10)
[2024-07-18 04:29] LABS: Hemoglobin A1c 5.9 % (4.0-6.0)
[2024-07-18 07:03] LABS: ALT (SGPT) 20 U/L (Less than 45); AST (SGOT) 19 U/L (11-34); Albumin 3.3 g/dL (3.1-4.5); Alkaline Phosphatase 72 U/L (40-110); Anion Gap 14 mmol/L (10-20); BUN (Urea Nitrogen) 22 mg/dL (8.4-25.7); Bilirubin, Total 0.9 mg/dL (0.3-1.2); Calc. Creatinine Clearance 85 mL/min (70-130); Calcium 8.8 mg/dL (7.8-10.44); Carbon Dioxide 25 mmol/L (23-31); Chloride 102 mmol/L (98-107); Estimated GFR 83; Globulin 3.8 g/dL (2.4-3.5); Glucose 118 mg/dL (83-110); Potassium 4.3 mmol/L (3.5-5.1); Protein, Total 7.1 g/dL (5.8-8.1); Sodium 137 mmol/L (136-145)
[2024-07-18] MEDS: Famotidine/PF 20 mg/2ml Vial SLOW IVP SCH (08:00)
[2024-07-18] MEDS: Famotidine 20 MG TAB PO SCH (08:00)
[2024-07-18] MEDS ORDERED: Benzonatate 100 MG CAP PO PRN (15:26)
[2024-07-18] MEDS: cefTRIAXone\\ROCEPHIN 1 GM in Sodium Chloride 0.9% 100 ML IVPB SCH (16:13)
[2024-07-18] MEDS: Carvedilol 6.25 MG TAB PO SCH (16:13)
[2024-07-18] MEDS: Doxycycline 100 MG CAP PO SCH (20:45)
[2024-07-18] MEDS: guaiFENesin ER 600 MG TAB PO SCH (20:45)
[2024-07-18] MEDS: Torsemide 20 MG TAB PO SCH (20:45)
[2024-07-18] MEDS: Gabapentin 300 MG CAP PO SCH (20:46)
[2024-07-18] MEDS: Insulin Glargine 30 UNITS/0.3 ML VIAL SC SCH (20:46)
[2024-07-18] MEDS: Apixaban 5 MG TAB PO SCH (20:46)
[2024-07-18] MEDS: Latanoprost 0.005% Ophth Soln 2.5 ml Bottle EA EYE SCH (22:20)
[2024-07-19 06:13] LABS: #Basophils 0.06 10x3/uL (0.0-0.2); %Basophils 0.5 % (0.0-1.0); %Eosinophils 0.3 % (0.0-10.0); %Lymphocytes 12.9 % (21.0-51.0); %Monocytes 12.8 % (0.0-10.0); %Neutrophils 73.2 % (42.0-75.0); Hematocrit 46.7 % (42.0-52.0); Hemoglobin 15.5 g/dL (14.0-18.0); Mean Corpuscular HGB CONC 33.2 g/dL (32.0-36.0); Mean Corpuscular Hemoglobin 29.7 pg (27.0-31.0); Mean Corpuscular Volume 89.5 fL (78.0-98.0); Mean Platelet Volume 11.4 fL (7.4-10.4); Platelet Count 182 10x3/uL (130-400); RBC Distribution Width 17.9 % (11.5-14.5); Red Blood Cell (RBC) Count 5.22 mill/uL (4.70-6.10)
[2024-07-19 06:45] LABS: Anion Gap 17 mmol/L (10-20); BUN (Urea Nitrogen) 24 mg/dL (8.4-25.7); Calc. Creatinine Clearance 83 mL/min (70-130); Calcium 9.3 mg/dL (7.8-10.44); Carbon Dioxide 24 mmol/L (23-31); Chloride 103 mmol/L (98-107); Estimated GFR 80; Glucose 133 mg/dL (83-110); Potassium 4.2 mmol/L (3.5-5.1); Sodium 140 mmol/L (136-145)
[2024-07-19] MEDS: Folic Acid 1 MG TAB PO SCH (08:23)
[2024-07-19] MEDS: Loratadine 10 MG TAB PO SCH (08:24)
[2024-07-19] MEDS: valACYclovir 500 MG TAB PO SCH (08:24)
[2024-07-19] MEDS: Aspirin 81 mg Enteric Coated Tablet PO SCH (08:24)
[2024-07-19] MEDS: Multivitamin W/ Minerals 1 TAB PO SCH (08:24)
[2024-07-19] MEDS: Spironolactone 25 MG TAB PO SCH (08:24)
[2024-07-19] MEDS: Empagliflozin 10 MG TAB PO SCH (08:25)
[2024-07-19] MEDS: Pantoprazole 40 MG DR.TAB PO SCH (08:26)
[2024-07-19] MEDS: Insulin Lispro 100 UNIT/ML 10 ML VIAL SC PRN (21:12)
[2024-07-20 06:21] LABS: #Basophils 0.05 10x3/uL (0.0-0.2); %Basophils 0.6 % (0.0-1.0); %Eosinophils 1.8 % (0.0-10.0); %Lymphocytes 17.4 % (21.0-51.0); %Monocytes 14.1 % (0.0-10.0); %Neutrophils 65.7 % (42.0-75.0); Hematocrit 48.2 % (42.0-52.0); Hemoglobin 16.2 g/dL (14.0-18.0); Mean Corpuscular HGB CONC 33.6 g/dL (32.0-36.0); Mean Corpuscular Hemoglobin 29.9 pg (27.0-31.0); Mean Corpuscular Volume 88.9 fL (78.0-98.0); Mean Platelet Volume 11.9 fL (7.4-10.4); Platelet Count 206 10x3/uL (130-400); RBC Distribution Width 17.5 % (11.5-14.5); Red Blood Cell (RBC) Count 5.42 mill/uL (4.70-6.10)
[2024-07-20] MEDS: Insulin Lispro 100 UNIT/ML 10 ML VIAL SC PRN (06:22)
[2024-07-20 06:42] LABS: Anion Gap 18 mmol/L (10-20); BUN (Urea Nitrogen) 34 mg/dL (8.4-25.7); Calc. Creatinine Clearance 74 mL/min (70-130); Calcium 9.6 mg/dL (7.8-10.44); Carbon Dioxide 29 mmol/L (23-31); Chloride 98 mmol/L (98-107); Estimated GFR 70; Glucose 167 mg/dL (83-110); Magnesium 2.1 mg/dL (1.6-2.6); Sodium 141 mmol/L (136-145)
[2024-07-21 05:54] LABS: #Basophils 0.07 10x3/uL (0.0-0.2); %Basophils 0.8 % (0.0-1.0); %Eosinophils 3.1 % (0.0-10.0); %Lymphocytes 21.6 % (21.0-51.0); %Monocytes 12.9 % (0.0-10.0); %Neutrophils 61.3 % (42.0-75.0); Hematocrit 47.2 % (42.0-52.0); Hemoglobin 15.5 g/dL (14.0-18.0); Mean Corpuscular HGB CONC 32.8 g/dL (32.0-36.0); Mean Corpuscular Hemoglobin 29.6 pg (27.0-31.0); Mean Corpuscular Volume 90.1 fL (78.0-98.0); Mean Platelet Volume 11.8 fL (7.4-10.4); Platelet Count 213 10x3/uL (130-400); RBC Distribution Width 17.2 % (11.5-14.5); Red Blood Cell (RBC) Count 5.24 mill/uL (4.70-6.10)
[2024-07-21 06:31] LABS: Anion Gap 16 mmol/L (10-20); BUN (Urea Nitrogen) 36 mg/dL (8.4-25.7); Calc. Creatinine Clearance 56 mL/min (70-130); Calcium 9.5 mg/dL (7.8-10.44); Carbon Dioxide 30 mmol/L (23-31); Chloride 95 mmol/L (98-107); Estimated GFR 50; Glucose 166 mg/dL (83-110); Magnesium 2.1 mg/dL (1.6-2.6); Potassium 4.4 mmol/L (3.5-5.1); Sodium 137 mmol/L (136-145)
[2024-07-22 08:15] LABS: Anion Gap 13 mmol/L (10-20); BUN (Urea Nitrogen) 28 mg/dL (8.4-25.7); Calc. Creatinine Clearance 101 mL/min (70-130); Calcium 9.4 mg/dL (7.8-10.44); Carbon Dioxide 31 mmol/L (23-31); Chloride 95 mmol/L (98-107); Estimated GFR 89; Glucose 122 mg/dL (83-110); Sodium 135 mmol/L (136-145)
[2024-07-23 11:13] VITALS: BP 108/69; TEMP 97.5
== END 2024-07-23 10:56 | disposition home or self-care (01) | DRG 871 ==
LOC: T4-B 21:38 → OBSVTOIN 07-18 15:28
PROVIDERS: ADMIT Student in an Organized Health Care Education/Training Program; ATTEND Internal Medicine
DX: A41.9 Sepsis, unspecified organism (principal); J18.9 Pneumonia, unspecified organism; I50.32 Chronic diastolic (congestive) heart failure; N17.9 Acute kidney failure, unspecified; E11.9 Type 2 diabetes mellitus without complications; I48.91 Unspecified atrial fibrillation; I11.0 Hypertensive heart disease with heart failure; I25.10 Atherosclerotic heart disease of native coronary artery without angina pectoris; K21.9 Gastro-esophageal reflux disease without esophagitis; Z95.1 Presence of aortocoronary bypass graft; Z95.2 Presence of prosthetic heart valve; Z98.49 Cataract extraction status, unspecified eye; Z98.890 Other specified postprocedural states
CPT/HCPCS: 36415; 36416; 71250; 80048; 80053; 83036; 83735; 85025; 87070; 87205; G0378; J0696; J1815